=== PATIENT | female | born 1955 | race Caucasian/White ===

== ENCOUNTER 2016-06-09 14:00 | Inpatient (IN) | payer OTHER ==
[~2016-06-09] VITALS: Ht 162.6 cm; Wt 86.0 kg
[~2016-06-09 14:00] MED LIST: ACET325T45 GTB; ALBU2.5V3 NEB; ASCO500C7 JT; BISA10SU58 PR; CHLO15MO MM; CRAN3875 GTB; DOCU-144 GTB; FURO40TA GTB; LANS30CA47 GTB; LEVE750T32 JT; LOV40I SC; MAGN2400 GTB; MULT473L10 GTB; NA P118E PR; NORC 5-325 GTB; ONDA4TAB8 GTB; PHEN125O2 JT; POTA20TA96 GTB; [UNRECOGNIZED DRUG - CODE] GTB
[2016-06-09] MEDS ORDERED: ACETAMINOPHEN 650MG/20.3ML CUP NGT STA (14:06)
[2016-06-09] MEDS ORDERED: CEFEPIME 2GM/50 ML (PMX) 50 ML IVPB STA (14:06)
--- NOTE | 2016-06-09 14:28 | RADRPT ---
PROCEDURE: XR Chest. CLINICAL INDICATION: Patient experiencing possible Sepsis TECHNIQUE: Frontal chest x-ray was obtained. COMPARISON: None. FINDINGS: Again noted is a tracheostomy. Heart is not enlarged. Mediastinum is not widened. No hilar masses seen. Lungs clear of any infil trates. There is no effusion or pneumothorax . IMPRESSION: No evidence for active cardiopulmonary disease. .Brandon Mock MD, MD Date Time Electronically viewed and signed by .Brandon Mock MD, on 06/09/2016 14:28 .A/
[2016-06-09] MEDS ORDERED: VANCOMYCIN 1 GM (PMX) 250 ML IVPB ONE (14:30)
[2016-06-09] MEDS ORDERED: SODIUM CHLORIDE 0.9% 1L BAG IV* STA (14:34)
[2016-06-09 15:32] LABS: HEMATOCRIT 43.5 % (37.0-47.0); HEMOGLOBIN 14.9 g/dl (12.0-16.0); MEAN CORPUSCULAR HEMOGLOBIN 34.5 pg (29.0-33.0); MEAN CORPUSCULAR HGB CONC 34.4 g/dl (32.0-37.0); MEAN CORPUSCULAR VOLUME 100.5 fl (82.0-101.0); MEAN PLATELET VOLUME 12.3 fl (7.4-10.4); PLATELET COUNT 124 10^3/UL (140-440); RED BLOOD COUNT 4.32 10^6/ul (4.20-5.40); RED CELL DISTRIBUTION WIDTH 13.8 % (11.5-14.5); UNCORRECTED WBC 13.4 10^3/ul (4.8-10.8); WHITE BLOOD COUNT 13.4 10^3/ul (4.8-10.8)
[2016-06-09 15:36] LABS: INR 1.1; PROTIME 14.2 Sec (12.2-14.2); PT RATIO 1.1
[2016-06-09 15:37] LABS: PARTIAL THROMBOPLASTIN TIME 31.3 Sec (25.0-35.0)
[2016-06-09 15:40] LABS: CONDITION 1; LH ANALYZER COMMENTS 1; SUSPECT 1
[2016-06-09 15:47] LABS: ALBUMIN 3.9 g/dl (3.3-4.9); POTASSIUM 4.3 mmol/L (3.5-5.1)
[2016-06-09 15:49] LABS: CREATININE 1.18 mg/dl (0.44-1.00)
[2016-06-09 15:50] LABS: ALBUMIN/GLOBULIN RATIO 0.86; BILIRUBIN,INDIRECT 0.1 mg/dl (0-1.1); BILIRUBIN,TOTAL 0.1 mg/dl (0.2-1.3); CALCIUM 8.4 mg/dl (8.4-10.2); TOTAL PROTEIN 8.4 g/dl (6.1-8.1)
[2016-06-09 16:06] LABS: TROPONIN-I 0.201 ng/ml (0.00-0.12)
[2016-06-09 16:46] LABS: ADD UMIC YES; URINE BILIRUBIN (Dip) 1+ (NEGATIVE); URINE BLOOD (Dip) 1+ (NEGATIVE); URINE COLOR YELLOW (YELLOW); URINE GLUCOSE (Dip) NEGATIVE (NEGATIVE); URINE KETONES (Dip) TRACE (NEGATIVE); URINE LEUKOCYTE ESTERASE (Dip) 1+ (NEGATIVE); URINE NITRITE (Dip) NEGATIVE (NEGATIVE); URINE TOTAL PROTEIN (Dip) TRACE (NEGATIVE); URINE UROBILINOGEN (Dip) 0.2 E.U./dL (0.1-1.0)
[2016-06-09 17:01] LABS: BACTERIA,URINE MANY; TRANSITIONAL EPI CELLS,URINE OCCASIONAL
[2016-06-09 17:02] LABS: ICTOTEST NEGATIVE (NEGATIVE)
[2016-06-09] MEDS ORDERED: TYL500 GTB (17:37)
[2016-06-09] MEDS ORDERED: POTA20LI5 GTB (17:38)
--- NOTE | 2016-06-09 17:39 | ERA ---
ER Documentation Chief Complaint Date/Time DATE: 06/09/16 TIME: 17:32 Chief Complaint SENT FROM RETIREMENT D/T FEVER & ELEVATED WBC HPI Patient is a 61-year-old female who is vent dependent who [facility] fever of 104.0. She does not give any history secondary to her mental status. And unfortunately this is the extent of the history that was sent with her. ROS All systems reviewed and are negative except as per history of present illness. Medications Home Meds Active Scripts Enoxaparin Sodium* (Enoxaparin Sodium*) 40 Mg/0.4 Ml Soln, 40 MG SC DAILY for 30 Days Prov:MARTHA ODOM CHILD NURSE 04/01/14 Reported Medications Phenytoin (Dilantin) 100 Mg/4 Ml Susp, 300 MG GTB BID for 30 Days, BOTTLE 06/09/16 Ferrous Sulfate* (Ferrous Sulfate*) 220 Mg/5 Ml Solution, 220 MG GTB DAILY, ML 06/09/16 Potassium Chloride* (Potassium Chloride*) 20 Meq/15 Ml Liquid, 20 MEQ GTB DAILY , ML 06/09/16 Acetaminophen* (Tylenol*) 500 Mg Tab, 1000 MG GTB Q4H Y for PAIN 4-11/10, TAB 06/09/16 Ondansetron Hcl* (Zofran*) 4 Mg Tablet, 4 MG GTB Q6H Y for NAUSEA AND OR VOMITING, TAB 08/31/15 Furosemide* (Lasix*) 40 Mg Tablet, 40 MG GTB DAILY, TAB 08/31/15 Chlorhexidine Gluconate* (Peridex*) 480 Ml Mouthwash, 15 ML MM BID, ML 08/31/15 Albuterol Sulfate* (Albuterol Sulfate* Neb) 0.083%-3 Ml Neb, 2.5 MG NEB Q3H Y for WHEEZING AND SOB, #30 VIAL 08/31/15 Valproioc Acid* (Depakene* Liq) 50 Mg/Ml Syrup, 1500 MG GTB BID, ML 08/31/15 Magnesium Hydroxide* (Milk Of Magnesia*) 2,400 Mg/10 Oral.susp, 5 ML GTB DAILY , ML 08/31/15 Cran/Vitc/Mannose/Inulin/Brom (Uti-Stat Liquid) 3,875 Mg/30 Ml Liquid, 3875 MG GTB DAILY 09/13/14 Lansoprazole* (Prevacid*) 30 Mg Capsule.dr, 30 MG GTB DAILY, CAP 09/13/14 Acetaminophen* (Acetaminophen*) 325 Mg Tablet, 650 MG GTB Q4H Y for PAIN AND OR ELEVATED TEMP, TAB TRACH TUBE CHANGE, FEVER 101F, PAIN1-3/10 03/16/14 Multivitamins* (Multi-Delyn* Liq) 473 Ml Liquid, 5 ML GTB DAILY, ML 03/16/14 Na Phos,M-B/Na Phos,Di-Ba* (Fleet* Enema) 118 Ml Enema, 118 ML VT Q48H Y for CONSTIPATION, ENEMA 03/16/14 Bisacodyl* (Dulcolax*) 10 Mg/Supp.rect Supp.rect, 10 MG VT Q24H Y for CONSTIPATION, SUPP.RECT 03/16/14 Docusate Sodium* (Colace*) 100 Mg Capsule, 100 MG GTB QHS Y for CONSTIPATION, CAP 03/16/14 Albuterol Sulfate* (Albuterol Sulfate* Neb) 0.083%-3 Ml Neb, 2.5 MG NEB Q6 Y for WHEEZING AND SOB, EA 03/16/14 Hydrocodone Bit-Acetaminophen* ([place]*) 5-325 Tablet, 1 TAB GTB Q6 Y for PAIN LEVEL 7-10, TAB 02/09/14 Discontinued Reported Medications Potassium Chloride* (Potassium Chloride*) 20 Meq Tablet.er, 20 MEQ GTB DAILY, TAB.SA 08/31/15 Phenytoin* (Phenytoin*) 125 Mg/5 Ml Oral.susp, 300 MG JT BID for 30 Days, BOTTLE 08/31/15 Levetiracetam* (Keppra XR*) 750 Mg Tab.sr.24h, 1500 MG JT BID, TAB 08/31/15 Ascorbic Acid* (Vitamin C*) 500 Mg Capsule.sa, 500 MG JT DAILY, CAP 09/13/14 Allergies Allergies: Coded Allergies: No Known Allergies (Verified Allergy, Unknown, 06/09/16) PMhx/Soc History of Surgery: Yes (TRACH, G-TUBE PLACEMENT) Hx Neurological Disorder: Yes (SEIZURES) Hx Respiratory Disorders: Yes (ASTHMA) Hx Cardiac Disorders: Yes (HTN) Hx Psychiatric Problems: No Hx Miscellaneous Medical Probl: No Smoking Status: Unknown if ever smoked Physical Exam Vitals Vital Signs Date Time Temp Pulse Resp B/P Pulse Ox O2 Delivery O2 Flow Rate FiO2 06/09/16 19:05 108 19 117/82 100 Mechanical Ventilator 06/09/16 19:00 107 16 81/36 100 Mechanical Ventilator 06/09/16 18:04 100.8 108 18 110/75 100 Mechanical Ventilator 06/09/16 17:30 111 19 99 40 06/09/16 17:00 101.1 113 17 83/72 99 Mechanical Ventilator 06/09/16 15:40 117 19 98 40 06/09/16 14:30 121 16 99/87 97 Mechanical Ventilator 06/09/16 14:08 104.9 122 18 100/52 96 06/09/16 14:05 123 19 97 40 Physical Exam Const: Well-developed obese female lying on the bed, appears chronically ill Head: Atraumatic Eyes: Normal Conjunctiva ENT: Normal External Ears, Nose and Mouth. Mucous membranes are dry Neck: Full range of motion..~ No meningismus. Resp: Clear to auscultation bilaterally Cardio: Regular rhythm, no murmurs tachycardic Abd: Soft, non tender, non distended. Diminished bowel sounds Skin: No petechiae or rashes Ext: No cyanosis, bilateral lower extremity edema noted Neur: Patient has a GCS of E1 M1 V1, she has a trach Result Diagram: 06/09/16 1445 06/09/16 1445 Results 24 hrs Laboratory Tests Test 06/09/16 14:45 06/09/16 16:00 06/09/16 17:00 06/09/16 18:20 Activated Partial Thromboplast Time 31.3Sec Alanine Aminotransferase (ALT/SGPT) 65IU/L Albumin 3.9g/dl Albumin/Globulin Ratio 0.86 Alkaline Phosphatase 177IU/L Anion Gap 24 Aspartate Amino Transf (AST/SGOT) 49IU/L Band Neutrophils % 3.0% Blood Morphology Comment Blood Urea Nitrogen 66mg/dl Calcium Level 8.4mg/dl Carbon Dioxide Level 27mmol/L Chloride Level 97mmol/L Creatinine 1.18mg/dl Direct Bilirubin 0.00mg/dl Globulin 4.50g/dl Glucose Level 345mg/dl Hematocrit 43.5% Hemoglobin 14.9g/dl INR International Normalized Ratio 1.10 Indirect Bilirubin 0.1mg/dl Lactic Acid Level 4.6mmol/L 4.4mmol/L 4.9mmol/L Large Platelets FEW Lymphocytes # 4.410^3/ul Lymphocytes % 33.0% Mean Corpuscular Hemoglobin 34.5pg Mean Corpuscular Hemoglobin Concent 34.4g/dl Mean Corpuscular Volume 100.5fl Mean Platelet Volume 12.3fl Monocytes # 1.510^3/ul Monocytes % 11.0% Neutrophils # 7.110^3/ul Neutrophils % 53.0% Platelet Count 61661^3/UL Potassium Level 4.3mmol/L Prothrombin Time 14.2Sec Prothrombin Time Ratio 1.1 Red Blood Count 4.3210^6/ul Red Cell Distribution Width 13.8% Sodium Level 144mmol/L Total Bilirubin 0.1mg/dl Total Protein 8.4g/dl Troponin I 0.201ng/ml White Blood Count 13.410^3/ul Urine Bacteria MANY Urine Bilirubin 1+ Urine Clarity CLOUDY Urine Color YELLOW Urine Glucose NEGATIVE% Urine Hemoglobin 1+ Urine Ictotest NEGATIVE Urine Ketones TRACE Urine Leukocyte Esterase 1+ Urine Microscopic RBC 5-10/HPF Urine Microscopic WBC 25-50/HPF Urine Nitrite NEGATIVE Urine Specific [place] 1.025 Urine Total Protein TRACE Urine Transitional Epithelial Cells OCCASIONAL Urine Urobilinogen 0.2 E.U./dL Urine pH 5.0 Current Medications Medications (Trade) Dose Ordered Sig/Louise Route PRN Reason Start Time Stop Time Status Last Admin Dose Admin Acetaminophen 650 mg 650 mg ONCE STAT NGT 06/09/16 14:06 06/09/16 14:08 DC 06/09/16 15:03 Cefepime HCl 50 ml @ 100 mls/hr ONCE STAT IVPB 06/09/16 14:06 06/09/16 14:35 DC 06/09/16 15:03 Vancomycin HCl (Vancocin) 250 ml @ 125 mls/hr ONCE ONCE IVPB 06/09/16 14:30 06/09/16 16:29 DC 06/09/16 16:11 Sodium Chloride (NS) 2,140 ml BOLUS OVER 2 HOURS STAT IV* 06/09/16 14:34 06/09/16 14:37 DC 06/09/16 15:03 Procedures/MDM EKG: Rate/Rhythm: Normal sinus rhythm at 120 bpm Q waves noted in lead III and aVF consistent with an old infarct, no evidence of acute ischemia noted QRS, ST, T-waves: No changes consistent w/ acute ischemia Impression: No evidence of ischemia or arrhythmia 1736: No change in patient's examination. I will consult her physician to admit her to the hospital. Critical care time of 45 minutes. Departure Diagnosis: Primary Impression: Fever Qualified Code: R50.9 - Fever, unspecified fever cause Additional Impressions: Dehydration Diabetes Qualified Code: E11.8 - Type 2 diabetes mellitus with complication, unspecified director long term care insulin use status Severe muscle deconditioning Ventilator dependence ANNA IBARRA Jun 09, 2016 17:38
[2016-06-09] MEDS ORDERED: FERR220S13 GTB (17:40)
[2016-06-09] MEDS ORDERED: DIL125/5 GTB (17:43)
[2016-06-09 17:58] LABS: LYMPHOCYTES # 4.4 10^3/ul (0.8-2.9); MONOCYTE # 1.5 10^3/ul (0.3-0.9); NEUTROPHIL # 7.1 10^3/ul (1.6-7.5)
[2016-06-09] MEDS ORDERED: SOD CHLORIDE 0.9% 1,000 ML IV ONE (20:00)
[2016-06-09 22:47] LABS: AADO2 Arterial 156.5 mmHg (7.0-24.0); Arterial Base Excess -0.4 mmol/L (-3.0-3); Arterial COHb 0.1 % (0.0-3.0); Arterial Fraction of Oxyhgb 97.1 % (93.0-99.0); Arterial MetHb 0.2 % (0.0-1.5); Blood Gas Mean Airway Pressure 11; MODE VENT - AC
[2016-06-09] MEDS ORDERED: ACETAMINOPHEN 325 MG TAB GTB PRN (23:00)
[2016-06-09] MEDS ORDERED: VANCOMYCIN IV PER PHARMACY XX SCH (23:00)
[2016-06-09] MEDS ORDERED: morphine 2 MG INJ IV PRN (23:00)
[2016-06-09] MEDS ORDERED: HYDROCODONE/APAP (5/325) TAB GTB PRN (23:00)
[2016-06-09] MEDS ORDERED: NA PHOSPHATE/BIPHOS 133 ML ENEMA PR PRN (23:00)
[2016-06-09] MEDS ORDERED: ONDANSETRON 4 MG INJ IV PRN (23:00)
[2016-06-09] MEDS ORDERED: DOCUSATE SODIUM 10 MG/ML (10ML CUP) GTB PRN (23:00)
[2016-06-09] MEDS ORDERED: BISACODYL 10 MG SUPP PR PRN (23:00)
[2016-06-09] MEDS ORDERED: ONDANSETRON 4 MG TAB GTB PRN (23:00)
[2016-06-09] MEDS ORDERED: ALBUTEROL 0.083% (NEB) 2.5 MG/3 ML AMP NEB PRN (23:00)
[2016-06-09] MEDS ORDERED: NACL 0.9% 3 ML SYG IV SCH (23:00)
[2016-06-09] MEDS ORDERED: ACETAMINOPHEN 650MG/20.3ML CUP GTB PRN (23:45)
[2016-06-10] VITALS (13 sets, daily range): BP systolic 90–106; BP diastolic 47–91; PULSE 82–89; RESP 14–18; TEMP 97.4; Ht 162.6 cm; Wt 86.0 kg
[2016-06-10] MEDS: SOD CHLORIDE 0.45% 1,000 ML IV SCH ×3 (00:01→20:14)
[2016-06-10] MEDS: PIPER-TAZO 3.375 GM IV (PMX) 100 ML IVPB SCH ×4 (00:10→17:41)
--- NOTE | 2016-06-10 01:02 | HP ---
DATE OF ADMISSION: 06/09/2016 TIME: 9:45 p.m. CHIEF COMPLAINT: Fevers and leukocytosis. HISTORY OF PRESENT ILLNESS: The patient is a 61-year-old female, who presents from a SNF. The aguilar ent has a history of advanced multiple sclerosis with vent-dependent respiratory failure, pulmonary fibrosis, dysphagia status post PEG placement. She has a history of seizure disorder, as well as UT I, healthcare-associated pneumonia, and right hand cellulitis. Patient was last hospitalized here i n October 2015 with acute UTI, as well as healthcare-associated pneumonia. The patient presents at this time from the SNF with fever and leukocytosis. She reportedly had a fever of 104 at the nursing [facility]. Patient is unable to provide any history secondary to her mental status, and history is obtaine d from previous medical records. PAST MEDICAL HISTORY: As per HPI. HOME MEDICATIONS: 1. Lovenox. 2. Dilantin. 3. Ferrous sulfate. 4. Potassium. 5. Acetaminophen, 6. Zofran. 7. Furosemide. 8. Peridex. 9. Albuterol. 10. Depakene. 11. Magnesium. 12. Prevacid. 13. Multivitamin. 14. Colace. 15. [place]. ALLERGIES: NO KNOWN DRUG ALLERGIES. FAMILY HISTORY: Noncontributory. SOCIAL HISTORY: Unable to obtain. SOCIAL HISTORY: Unknown, as the patient never smoked, drank, or did drugs. REVIEW OF SYSTEMS: A 12-point review of systems cannot be obtained secondary to poor mentation. PHYSICAL EXAMINATION: VITAL SIGNS: Temperature is 98.4, pulse is 103, respiratory rate 16, BP is 106/66, saturation 99% o n mechanical ventilation. GENERAL: Nonverbal, trached. HEENT: Normocephalic, atraumatic. LUNGS: Clear to auscultation. CARDIOVASCULAR: Tachycardic. ABDOMEN: Nondistended, soft. EXTREMITIES: No clubbing, cyanosis, or edema. LABORATORIES: White count 16.4, hemoglobin 14.9, platelets are 124,000. Chemistry: Sodium is 144, potassium is 4.3, BUN 66, creatinine is 1.18. Lactic acid is 4.6. Troponin 0.201. UA: Ketones a re trace, is 1+, WBCs 25-50. DIAGNOSTICS: Chest x-ray shows no evidence of active cardiopulmonary disease. ASSESSMENT AND PLAN: 1. Sepsis secondary to urinary tract infection. The patient does have a history of UTIs in the pas t. The patient's urine culture from 08/2015, she had beta-lactamase Escherichia coli that was sensi tive to Zosyn, as well as imipenem. We will treat with Zosyn at this time. Will cover for any poss ible with vancomycin. Obtain urine culture. Obtain ID consultation with Dr. Gillette, who has seen the patient in the past. 2. Acute kidney injury. Mild and likely secondary to sepsis. Will treat underlying sepsis, give I V fluids. 3. Demand ischemia, elevated troponins, likely secondary to underlying sepsis. We will trend tropo nins. Primary team and to consider cardiology consultation in a.m. 4. Advanced multiple sclerosis, status post tracheostomy and PEG, no acute issues. 5. Pulmonary fibrosis, no acute issues. 6. Prophylaxis: SCDs. Dictated By: JERMAINE HERCULES MD BS/NTS Conf#: [id number] DID#: [id number]
[2016-06-10] MEDS: VANCOMYCIN 1.5 GM in SOD CHLORIDE 0.9% 250 ML IVPB SCH (04:58)
[2016-06-10 07:12] LABS: ALBUMIN 3.2 g/dl (3.3-4.9)
[2016-06-10 07:13] LABS: POTASSIUM 3.9 mmol/L (3.5-5.1)
[2016-06-10 07:15] LABS: ALBUMIN/GLOBULIN RATIO 0.8; BILIRUBIN,INDIRECT 0.2 mg/dl (0-1.1); BILIRUBIN,TOTAL 0.2 mg/dl (0.2-1.3); CREATININE 0.62 mg/dl (0.44-1.00); HEMATOCRIT 36.9 % (37.0-47.0); HEMOGLOBIN 12.7 g/dl (12.0-16.0); MEAN CORPUSCULAR HEMOGLOBIN 34.6 pg (29.0-33.0); MEAN CORPUSCULAR HGB CONC 34.5 g/dl (32.0-37.0); MEAN CORPUSCULAR VOLUME 100.2 fl (82.0-101.0); MEAN PLATELET VOLUME 11.8 fl (7.4-10.4); PLATELET COUNT 82 10^3/UL (140-440); RED BLOOD COUNT 3.68 10^6/ul (4.20-5.40); RED CELL DISTRIBUTION WIDTH 13.9 % (11.5-14.5); TOTAL PROTEIN 7.2 g/dl (6.1-8.1); UNCORRECTED WBC 16.7 10^3/ul (4.8-10.8); WHITE BLOOD COUNT 16.7 10^3/ul (4.8-10.8)
[2016-06-10 07:16] LABS: CALCIUM 7.2 mg/dl (8.4-10.2); MAGNESIUM 2.9 mg/dl (1.7-2.5); PHOSPHORUS 3.6 mg/dl (2.5-4.9)
[2016-06-10] MEDS: LANSOPRAZOLE 30 MG CAP GTB SCH (07:30)
[2016-06-10 07:31] LABS: CONDITION 1; LH ANALYZER COMMENTS 1; SUSPECT 1
[2016-06-10] MEDS: FUROSEMIDE 40 MG TAB GTB SCH (07:31)
[2016-06-10 08:03] LABS: NEUTROPHIL # 10.9 10^3/ul (1.6-7.5); POLYCHROMASIA 1+
[2016-06-10] MEDS ORDERED: PHENYTOIN (25 MG/ML PO SYG) GTB SCH (09:00)
[2016-06-10] MEDS ORDERED: VALPROIC ACID (50 MG/ML PO SYG) GTB SCH (09:00)
[2016-06-10] MEDS ORDERED: NON-FORMULARY/PATIENT OWN MED (Cran/Vitc/Mannose/Inulin/Brom (Uti-Stat Liquid) 3,875 MG) GTB SCH (09:00)
[2016-06-10] MEDS ORDERED: POTASSIUM CHLORIDE 20 MEQ POWDER FOR ORAL SOLN GTB SCH (09:00)
[2016-06-10] MEDS ORDERED: POTASSIUM CHLORIDE (1.33 MEQ/ML PO SYG) GTB SCH (09:00)
[2016-06-10] MEDS ORDERED: ENOXAPARIN 40 MG/0.4 ML SYG SC SCH ×2 (09:00)
[2016-06-10] MEDS ORDERED: FERROUS SULFATE 220 MG/5 ML ML GTB SCH (09:00)
[2016-06-10] MEDS ORDERED: MAGNESIUM HYDROXIDE GTB SCH (09:00)
[2016-06-10] MEDS: VALPROIC ACID LIQUID CUP 250 MG/5 ML CUP GTB SCH ×2 (09:50→20:15)
[2016-06-10] MEDS: MULTIVITAMINS 5 ML CUP GTB SCH (09:50)
[2016-06-10] MEDS: PHENYTOIN (100 MG/4 ML) CUP GTB SCH ×2 (09:50→22:27)
[2016-06-10] MEDS: FERROUS SULFATE 60 MG/ML 5ML CUP GTB SCH (09:50)
[2016-06-10] MEDS: MAGNESIUM HYDROXIDE 30ML CUP GTB SCH (09:51)
[2016-06-10] MEDS: CHLORHEXIDINE GLUCONATE 15 ML UD CUP MM SCH ×2 (09:51→20:15)
[2016-06-10] MEDS: POTASSIUM CHLORIDE 20 MEQ POWDER FOR ORAL SOLN GTB SCH (09:53)
--- NOTE | 2016-06-10 15:11 | PN ---
Date/Time of Note Date/Time of Note DATE: 06/10/16 TIME: 15:05 Assessment/Plan VTE Prophylaxis VTE Prophylaxis Intervention: SCD's Assessment/Plan Chief Complaint/Hosp Course Assessment and plan 1. Sepsis secondary to urinary tract infection. Patient is noted with history of UTIs in the past. Follow-up on urine culture. Continue on antibiotics for now. Await ID consult recommendations. 2. Acute on likely chronic kidney disease. Continue IV hydration. We'll monitor renal panel. We'll get fisheries diver pending the clinical course 3. Elevated troponin. Likely demand ischemia. Has downward trend since. Elevated troponin in the setting of sepsis. We'll follow-up. 4. Advanced multiple sclerosis status post tracheostomy and PEG tube. Continue supportive care. Turn every 2 hours as needed for pressure ulcer prevention 5. History of pulmonary fibrosis. [employer] Consultant follow. 6. Vent dependent respiratory failure. [employer] Consultant follow. Continue pulmonary hygiene DVT prophylaxis: His SCDs Disposition and plan: Await transferred to ICU. Continue antibiotics. ID consulted. We'll follow-up. Discussed plan of care with Problems: Subjective 24 Hr Interval Summary Free Text/Dictation Remains on mechanical ventilation. Afebrile at present. No acute distress noted. No purposeful response Exam/Review of Systems Vital Signs Vitals Vital Signs Date Time Temp Pulse Resp B/P Pulse Ox O2 Delivery O2 Flow Rate FiO2 06/10/16 13:40 86 14 99 40 06/10/16 11:30 97.9 103/59 Mechanical Ventilator Intake and Output 06/09/16 06/09/16 06/10/16 15:00 23:00 07:00 Intake Total 1300 ml Balance 1300 ml Exam General: On mechanical ventilation. No purposeful response. Obese Eyes: [pupils equal round, Anicteric sclera, does track eyes to verbal response] Neck: Supple nontender, no JVD Cardiac: [S1, S2 auscultated, regular rhythm and rate] Pulmonary: Diminished at lung bases GI: Noted with PEG tube left upper abdominal quadrant Extremities: edema BLE +4 Neurologic: history of multiple sclerosis Results Result Diagram: 06/10/16 0647 06/10/16 0647 Results 24 hrs Laboratory Tests Test 06/09/16 16:00 06/09/16 17:00 06/09/16 18:20 06/09/16 20:55 Urine Bacteria MANY Urine Bilirubin 1+ H Urine Clarity CLOUDY Urine Color YELLOW Urine Glucose NEGATIVE Urine Hemoglobin 1+ H Urine Ictotest NEGATIVE Urine Ketones TRACE H Urine Leukocyte Esterase 1+ H Urine Microscopic RBC 5-10 Urine Microscopic WBC 25-50 Urine Nitrite NEGATIVE Urine Specific [place] 1.025 Urine Total Protein TRACE Urine Transitional Epithelial Cells OCCASIONAL Urine Urobilinogen 0.2 E.U./dL Urine pH 5.0 Lactic Acid Level 4.4 *H 4.9 *H Arterial Blood HCO3 23.0 Arterial Blood Base Excess -0.4 Arterial Blood Oxygen Saturation 97.4 Thomas Test N/A Arterial Blood Gas Puncture Site Right Brachial Arterial Blood Carboxyhemoglobin 0.1 Arterial Blood Date Drawn 06/09/2016 9:50:35 PM Arterial Blood Methemoglobin 0.2 Arterial Blood pCO2 (Temp correct) 34.3 L Arterial Blood pH (Temp corrected) 7.445 Arterial Blood pO2 (Temp corrected) 89.3 Blood Gas A-a O2 Differential 156.5 H Blood Gas Actual Respiration Rate 14 Blood Gas Critical Value Read Back DR RYDER Blood Gas Inspiratory Pressure 25.0 Blood Gas Low PEEP Setting 5.0 Blood Gas Mean Airway Pressure 11 Blood Gas Modality VENT - AC Blood Gas Notified Time 06/09/2016 10:47:15 PM Blood Gas Notified Whom BL Blood Gas Respiration Rate 14.0 Blood Gas Specimen Source Blood arterial Blood Gas Temperature 37.0 Blood Gas Tidal Volume 500.0 FiO2 40.0 Oxyhemoglobin Percent 97.1 Total Hemoglobin 15.0 Test 06/09/16 21:51 06/10/16 01:22 06/10/16 06:47 06/10/16 12:25 Troponin I 0.117 0.109 0.086 Alanine Aminotransferase (ALT/SGPT) 44 Albumin 3.2 L Albumin/Globulin Ratio 0.80 Alkaline Phosphatase 128 H Anion Gap 16 # Aspartate Amino Transf (AST/SGOT) 26 Band Neutrophils % 17.0 H Basophils # Basophils % Blood Morphology Comment Blood Urea Nitrogen 59 H Calcium Level 7.2 L Carbon Dioxide Level 23 Chloride Level 108 # Creatinine 0.62 Differential Comment MANUAL DIFF Direct Bilirubin 0.00 Eosinophils # Eosinophils % Globulin 4.00 H Glucose Level 307 H Hematocrit 36.9 L Hemoglobin 12.7 Indirect Bilirubin 0.2 Lactic Acid Level 2.3 H 4.5 *H Lymphocytes # 2.0 Lymphocytes % 12.0 L Magnesium Level 2.9 H Mean Corpuscular Hemoglobin 34.6 H Mean Corpuscular Hemoglobin Concent 34.5 Mean Corpuscular Volume 100.2 Mean Platelet Volume 11.8 H Monocytes # 1.0 H Monocytes % 6.0 Neutrophils # 10.9 H Neutrophils % 65.0 Nucleated Red Blood Cells # Nucleated Red Blood Cells % Phosphorus Level 3.6 Platelet Count 82 #L Polychromasia 1+ Potassium Level 3.9 Red Blood Count 3.68 L Red Cell Distribution Width 13.9 Sodium Level 143 Total Bilirubin 0.2 Total Protein 7.2 # White Blood Count 16.7 #H Medications Medications Current Medications Sodium Chloride (1/2 NS) 1,000 ml @ 100 mls/hr Q10H IV Last administered on 09:04; Admin Dose 100 MLS/HR; Start 06/09/16 at 22:47 Ondansetron HCl (Zofran Inj) 4 mg Q6H PRN IV NAUSEA AND/OR VOMITING; Start 06/09 at 23:00 Morphine Sulfate (morphine) 2 mg Q4H PRN IV SEVERE PAIN LEVEL 7-10; Start at 23:00 Enoxaparin Sodium 40 mg 40 mg DAILY SC ; Start 06/10/16 at 09:00; Status Future Hold Piperacillin Sod/ Tazobactam Sod (Zosyn 3.375gm/ 100 ml (Pmx)) 100 ml @ 200 mls /hr Q6 IVPB Last administered on 06/10/16 12:38; Admin Dose 200 MLS/HR; Start 06/10/16 at 00:00 Bisacodyl (Dulcolax Supp) 10 mg Q24H PRN ME CONSTIPATION; Start 06/09/16 at 23: 00 Chlorhexidine Gluconate (Peridex) 15 ml BID MM Last administered on 06/10/16 09 :51; Admin Dose 15 ML; Start 06/10/16 at 09:00 Furosemide (Lasix) 40 mg DAILY@06 GTB Last administered on 06/10/16 07:31; Admin Dose 40 MG; Start 06/10/16 at 06:00 Acetaminophen/ Hydrocodone Bitart ([place] (5/325)) 1 tab Q6 PRN GTB PAIN LEVEL 7 -10; Start 06/09/16 at 23:00 Lansoprazole (Prevacid) 30 mg DAILY@06 GTB Last administered on 06/10/16 07:30 ; Admin Dose 30 MG; Start 06/10/16 at 06:00 Multivitamins (Thera-Plus) 5 ml DAILY GTB Last administered on 06/10/16 09:50; Admin Dose 5 ML; Start 06/10/16 at 09:00 Sodium Biphosphate/ Sodium Phosphate (Fleet Enema) 118 ml Q48H PRN ME CONSTIPATION; Start 06/09/16 at 23:00 Ondansetron HCl (Zofran Tab) 4 mg Q6H PRN GTB NAUSEA AND/OR VOMITING; Start 06/09/16 at 23:00 Docusate Sodium (Colace Liquid Cup) 100 mg BID PRN GTB CONSTIPATION Last administered on 06/10/16 09:50; Admin Dose 100 MG; Start 06/09/16 at 23:00 Acetaminophen (Tylenol Liquid) 650 mg Q4H PRN GTB PAIN AND OR ELEVATED TEMP; Start 06/09/16 at 23:45 Ferrous Sulfate (Feosol Liquid Cup) 300 mg DAILY GTB Last administered on 09:50; Admin Dose 300 MG; Start 06/10/16 at 09:00 Magnesium Hydroxide (Milk Of Mag) 5 ml DAILY GTB Last administered on 06/10/16 09:51; Admin Dose 5 ML; Start 06/10/16 at 09:00 Phenytoin (Dilantin Susp Cup) 300 mg BID GTB Last administered on 06/10/16 09: 50; Admin Dose 300 MG; Start 06/10/16 at 09:00 Valproate Sodium (Depakene Liquid Cup) 1,500 mg BID GTB Last administered on 09:50; Admin Dose 1,500 MG; Start 06/10/16 at 09:00 Potassium Chloride 20 meq 20 meq DAILY GTB Last administered on 06/10/16 09:53 ; Admin Dose 20 MEQ; Start 06/10/16 at 09:00 Vancomycin HCl/ Sodium Chloride (Vancocin/NS) 250 ml @ 83.333 mls/ hr Q24H IVPB Last administered on 06/10/16 04:58; Admin Dose 83.333 MLS/HR; Start at 04:00 WON JACKSON Jun 10, 2016 15:10
--- NOTE | 2016-06-10 18:16 | CONS ---
DATE OF ADMISSION: 06/09/2016 DATE OF CONSULTATION: 06/10/2016 TYPE OF CONSULTATION: Infectious Disease. REASON FOR CONSULTATION: Antibiotic management. HISTORY OF PRESENT ILLNESS: Noemy Gardiner is a 61-year-old female who comes in with fever and leukocy tosis. The patient is a resident of a long-term facility. Her problems include: 1. Advanced multiple sclerosis. 2. Ventilator-dependent respiratory failure, status post tracheostomy. 3. Pulmonary fibrosis. 4. Dysphagia, status post G-tube placement. 5. History of seizure disorder. 6. Urinary tract infection. 7. Healthcare-associated pneumonia. 8. Right hand cellulitis. Patient was hospitalized in October 2015 with acute UTI and healthcare-associated pneumonia. She now pr esents with fever and leukocytosis with a temperature of 104. PAST MEDICAL HISTORY: Operations as outlined. FAMILY HISTORY: Noncontributory. SOCIAL HISTORY: She does not smoke, drink or abuse drugs. ALLERGIES: NONE TO PENICILLIN, SULFA OR FOODS. MEDICATIONS: Per chart. REVIEW OF SYSTEMS: As per HPI. PHYSICAL EXAMINATION: GENERAL: The patient is an elderly-appearing female who is awake, responsive, in no acute distress. Temperature 104. She looks chronically ill. SKIN: Without generalized rash. She is nonverbal. HEENT: Within normal limits. NECK: Tracheostomy in place without discharge. LYMPH NODES: None palpable. LUNGS: Clear to P and A. HEART: Without murmur or gallop. ABDOMEN: Soft, nontender, without organosplenomegaly or masses. EXTREMITIES: Without cyanosis, clubbing, or edema. RECTAL AND GENITAL: Deferred. NEUROLOGIC: The patient has multiple sclerosis, has contractures, and has a trach and a PEG. LABORATORY DATA: On admission, her white count was 13.4, H and H of 14.9 and 43.5, platelet count o f 124,000. Today, white count 16.7. BUN and creatinine are 59/0.62. AST 26, ALT 44, alkaline justina sphatase 128. Urinalysis is negative for nitrite, 1+ leukocyte esterase, 25 to 50 white cells per h igh-power field. IMAGING: A chest x-ray shows no evidence for acute cardiopulmonary disease. IMPRESSION AND PLAN: The patient was begun on vancomycin and Zosyn. This is to cover urinary tract infection as well as probable aspiration pneumonitis. Will await the culture reports. I will dict ate my findings to the hospitalist. Dictated By: REBA ELLER MD, JD/JODI Conf#: [id number] DID#: [id number] CC: JERMAINE HERCULES MD;*End*
[2016-06-11] VITALS (32 sets, daily range): BP systolic 90–149; BP diastolic 45–85; PULSE 81–96; RESP 13–18
[2016-06-11] MEDS: PIPER-TAZO 3.375 GM IV (PMX) 100 ML IVPB SCH ×3 (00:57→11:25)
[2016-06-11 05:17] LABS: BASOPHILS % 0.1 % (0.0-2.0); EOSINOPHILS # 0.1 10^3/ul (0.0-0.5); EOSINOPHILS % 0.8 % (0.0-7.0); HEMATOCRIT 32.5 % (37.0-47.0); HEMOGLOBIN 11.2 g/dl (12.0-16.0); LYMPHOCYTES # 1.4 10^3/ul (0.8-2.9); LYMPHOCYTES % 15.7 % (15.0-51.0); MEAN CORPUSCULAR HEMOGLOBIN 34.4 pg (29.0-33.0); MEAN CORPUSCULAR HGB CONC 34.3 g/dl (32.0-37.0); MEAN CORPUSCULAR VOLUME 100.1 fl (82.0-101.0); MEAN PLATELET VOLUME 12.5 fl (7.4-10.4); MONOCYTE # 0.4 10^3/ul (0.3-0.9); MONOCYTES % 4.8 % (0.0-11.0); NEUTROPHILS % 78.6 % (39.0-77.0); PLATELET COUNT 89 10^3/UL (140-440); RED BLOOD COUNT 3.25 10^6/ul (4.20-5.40); RED CELL DISTRIBUTION WIDTH 13.6 % (11.5-14.5); UNCORRECTED WBC 8.9 10^3/ul (4.8-10.8); WHITE BLOOD COUNT 8.9 10^3/ul (4.8-10.8)
[2016-06-11] MEDS: VANCOMYCIN 1.5 GM in SOD CHLORIDE 0.9% 250 ML IVPB SCH (05:27)
[2016-06-11] MEDS: LANSOPRAZOLE 30 MG CAP GTB SCH (05:28)
[2016-06-11] MEDS: FUROSEMIDE 40 MG TAB GTB SCH (05:28)
[2016-06-11 05:33] LABS: CONDITION 1
[2016-06-11 05:39] LABS: POTASSIUM 3.3 mmol/L (3.5-5.1)
[2016-06-11 05:41] LABS: CREATININE 0.47 mg/dl (0.44-1.00)
[2016-06-11 05:42] LABS: CALCIUM 7.6 mg/dl (8.4-10.2)
[2016-06-11] MEDS: SOD CHLORIDE 0.45% 1,000 ML IV SCH ×2 (05:51→17:04)
[2016-06-11] MEDS ORDERED: POTASSIUM CHLORIDE (SR) 20 MEQ TAB PO SCH (07:00)
[2016-06-11] MEDS: PHENYTOIN (100 MG/4 ML) CUP GTB SCH ×2 (08:25→20:24)
[2016-06-11] MEDS: FERROUS SULFATE 60 MG/ML 5ML CUP GTB SCH (08:25)
[2016-06-11] MEDS: MULTIVITAMINS 5 ML CUP GTB SCH (08:26)
[2016-06-11] MEDS: POTASSIUM CHLORIDE 20 MEQ POWDER FOR ORAL SOLN GTB SCH (08:26)
[2016-06-11] MEDS: CHLORHEXIDINE GLUCONATE 15 ML UD CUP MM SCH ×2 (08:26→21:50)
[2016-06-11] MEDS: VALPROIC ACID LIQUID CUP 250 MG/5 ML CUP GTB SCH ×2 (08:26→20:23)
[2016-06-11] MEDS: MAGNESIUM HYDROXIDE 30ML CUP GTB SCH (08:27)
[2016-06-11] MEDS ORDERED: POTASSIUM CHLORIDE 20 MEQ POWDER FOR ORAL SOLN GTB ONE (11:00)
--- NOTE | 2016-06-11 11:52 | PN ---
Date/Time of Note Date/Time of Note DATE: 06/11/16 TIME: 11:40 Assessment/Plan VTE Prophylaxis VTE Prophylaxis Intervention: SCD's Lines/Catheters IV Catheter Type (from [facility]): Peripheral IV Urinary Cath still in place: Yes Reason Cath still needed: other (indicate) (monitor I&O) Assessment/Plan Chief Complaint/Hosp Course Assessment and plan 1. Sepsis secondary to urinary tract infection. Patient is noted with history of UTIs in the past. Follow-up on urine culture. Continue on antibiotics per ID recommendations 2. Acute on likely chronic kidney disease. Continue IV hydration. We'll monitor renal panel. 3. Elevated troponin.. Elevated troponin in the setting of sepsis. echo ordered. cardiology to follow 4. Advanced multiple sclerosis status post tracheostomy and PEG tube. Continue supportive care. Turn every 2 hours as needed for pressure ulcer prevention 5. History of pulmonary fibrosis. Associate Faculty follow. 6. Vent dependent respiratory failure. Associate Faculty follow. Continue pulmonary hygiene DVT prophylaxis: His SCDs Disposition and plan: Improving on abx. transfer out of icu when cleared by consultants . Discussed plan of care with Dr. Pradhan Problems: Subjective 24 Hr Interval Summary Free Text/Dictation no s/s of distress. remains on mechanical ventilation. RN at bedside Exam/Review of Systems Vital Signs Vitals Vital Signs Date Time Temp Pulse Resp B/P Pulse Ox O2 Delivery O2 Flow Rate FiO2 06/11/16 11:02 97 14 100 40 06/11/16 10:00 113/59 Mechanical Ventilator 06/11/16 08:00 98.7 Intake and Output 06/10/16 06/10/16 06/11/16 15:00 23:00 07:00 Intake Total 500 ml 700 ml Output Total 750 ml 570 ml Balance -250 ml 130 ml Exam General: On mechanical ventilation. No purposeful response. Obese Eyes: pupils equal round, Anicteric sclera, Neck: Supple nontender, no JVD Cardiac: S1, S2 auscultated, regular rhythm and rate Pulmonary: Diminished at lung bases GI: Noted with PEG tube left upper abdominal quadrant Extremities: edema BLE +4 Neurologic: history of multiple sclerosis Results Result Diagram: 06/11/16 0400 06/11/16 0400 Results 24 hrs Laboratory Tests Test 06/10/16 12:25 06/10/16 18:30 06/10/16 19:45 06/10/16 21:07 Lactic Acid Level 4.5 *H 3.4 H Bedside Glucose 230 H 151 Test 06/10/16 22:06 06/10/16 23:37 06/11/16 00:55 06/11/16 01:15 Bedside Glucose 107 93 133 Lactic Acid Level 3.7 H Test 06/11/16 04:00 Anion Gap 18 H Basophils # 0.0 Basophils % 0.1 Blood Morphology Comment Blood Urea Nitrogen 44 #H Calcium Level 7.6 L Carbon Dioxide Level 22 Chloride Level 108 Creatinine 0.47 Eosinophils # 0.1 Eosinophils % 0.8 Glucose Level 177 # Hematocrit 32.5 L Hemoglobin 11.2 L Lactic Acid Level 2.7 H Lymphocytes # 1.4 Lymphocytes % 15.7 Mean Corpuscular Hemoglobin 34.4 H Mean Corpuscular Hemoglobin Concent 34.3 Mean Corpuscular Volume 100.1 Mean Platelet Volume 12.5 H Monocytes # 0.4 Monocytes % 4.8 Neutrophils # 7.0 Neutrophils % 78.6 H Nucleated Red Blood Cells # 0.0 Nucleated Red Blood Cells % 0.0 Platelet Count 89 L Potassium Level 3.3 L Red Blood Count 3.25 L Red Cell Distribution Width 13.6 Sodium Level 145 H White Blood Count 8.9 # Medications Medications Current Medications Sodium Chloride (1/2 NS) 1,000 ml @ 100 mls/hr Q10H IV Last administered on 05:51; Admin Dose 100 MLS/HR; Start 06/09/16 at 22:47 Ondansetron HCl (Zofran Inj) 4 mg Q6H PRN IV NAUSEA AND/OR VOMITING; Start 06/09 at 23:00 Morphine Sulfate (morphine) 2 mg Q4H PRN IV SEVERE PAIN LEVEL 7-10; Start at 23:00 Enoxaparin Sodium (Lovenox) 40 mg DAILY SC ; Start 06/10/16 at 09:00; Status Future Hold Bisacodyl (Dulcolax Supp) 10 mg Q24H PRN [place] CONSTIPATION; Start 06/09/16 at 23: 00 Chlorhexidine Gluconate (Peridex) 15 ml BID MM Last administered on 06/11/16 08 :26; Admin Dose 15 ML; Start 06/10/16 at 09:00 Furosemide (Lasix) 40 mg DAILY@06 GTB Last administered on 06/11/16 05:28; Admin Dose 40 MG; Start 06/10/16 at 06:00 Acetaminophen/ Hydrocodone Bitart ([place] (5/325)) 1 tab Q6 PRN GTB PAIN LEVEL 7 -10; Start 06/09/16 at 23:00 Lansoprazole (Prevacid) 30 mg DAILY@06 GTB Last administered on 06/11/16 05:28 ; Admin Dose 30 MG; Start 06/10/16 at 06:00 Multivitamins (Thera-Plus) 5 ml DAILY GTB Last administered on 06/11/16 08:26; Admin Dose 5 ML; Start 06/10/16 at 09:00 Sodium Biphosphate/ Sodium Phosphate (Fleet Enema) 118 ml Q48H PRN [place] CONSTIPATION; Start 06/09/16 at 23:00 Ondansetron HCl (Zofran Tab) 4 mg Q6H PRN GTB NAUSEA AND/OR VOMITING; Start 06/09/16 at 23:00 Docusate Sodium (Colace Liquid Cup) 100 mg BID PRN GTB CONSTIPATION Last administered on 06/10/16 09:50; Admin Dose 100 MG; Start 06/09/16 at 23:00 Acetaminophen (Tylenol Liquid) 650 mg Q4H PRN GTB PAIN AND OR ELEVATED TEMP; Start 06/09/16 at 23:45 Ferrous Sulfate (Feosol Liquid Cup) 300 mg DAILY GTB Last administered on 08:25; Admin Dose 300 MG; Start 06/10/16 at 09:00 Magnesium Hydroxide (Milk Of Mag) 5 ml DAILY GTB Last administered on 06/11/16 08:27; Admin Dose 5 ML; Start 06/10/16 at 09:00 Phenytoin (Dilantin Susp Cup) 300 mg BID GTB Last administered on 06/11/16 08: 25; Admin Dose 300 MG; Start 06/10/16 at 09:00 Valproate Sodium (Depakene Liquid Cup) 1,500 mg BID GTB Last administered on 08:26; Admin Dose 1,500 MG; Start 06/10/16 at 09:00 Potassium Chloride 20 meq 20 meq DAILY GTB Last administered on 06/11/16 08:26 ; Admin Dose 20 MEQ; Start 06/10/16 at 09:00 Vancomycin HCl 1.5 gm/Sodium Chloride 250 ml @ 83.333 mls/ hr Q24H IVPB Last administered on 06/11/16t 05:27; Admin Dose 83.333 MLS/HR; Start 06/10/16 at 04:00 Meropenem/Sodium Chloride (Merrem/NS) 100 ml @ 200 mls/hr Q12 IVPB ; Start 06/11 at 11:30; Status UNV WON JACKSON Jun 11, 2016 11:50
--- NOTE | 2016-06-11 12:20 | PN ---
DATE: 06/11/2016 SUBJECTIVE: No changes overnight. The patient is awake, noncommunicative, lying comfortably in bed . She is afebrile. VITAL SIGNS: Temperature 98.8, pulse 94, respirations 16, blood pressure 113/59, saturation 98 on 4 0 FIO2. LABORATORY: WBC 8.9, H and H 11.2 and 32.5, platelets 89, neutrophils 78.6, no bands. BUN 44, crea tinine 0.47. MICROBIOLOGY: Blood culture growing gram-positive cocci in clusters. Urine culture growing E. coli ESBL. Influenza swab came back negative. DIAGNOSTICS: Chest x-ray on admission revealed no evidence for acute active cardiopulmonary disease . ANTIMICROBIALS: Patient is on: 1. Vancomycin. 2. Zosyn. INDWELLINGS: Trach, PEG, Kim. PHYSICAL EXAMINATION: GENERAL: This is an obese chronically ill-appearing, elderly woman who is in no distress. HEENT: Head atraumatic, normocephalic. Sclerae anicteric. Buccal mucosa dry. NECK: Supple, trachea midline. CHEST: Rise symmetrical. Breath sounds diminished at the bases. HEART: S1, S2. ABDOMEN: Soft, bowel tones present. EXTREMITIES: Without cyanosis. ASSESSMENT: 1. Sepsis, status post shock. 2. Gram-positive cocci bacteremia. 3. Escherichia coli extended-spectrum beta-lactamase urinary tract infection. 4. Chronic respiratory failure. 5. Dysphagia. 6. Advanced multiple sclerosis with functional quadriplegia. PLAN: We are going to change Zosyn to meropenem, keep her on IV vancomycin and swab nares for MRSA. Repeat blood cultures. Continue management as per primary team and consultants. Dictated By: NICHOLAS CRUZ PRIVACY DIRECTOR for REBA ELLER MD NI/NTS Conf#: [id number] DID#: [id number]
[2016-06-11] MEDS: MEROPENEM 500 MG in SOD CHLORIDE 0.9% 100 ML IVPB SCH ×2 (12:52→20:23)
--- NOTE | 2016-06-11 13:59 | CONS ---
DATE OF ADMISSION: 06/09/2016 DATE OF CONSULTATION: 06/11/2016 REASON FOR CONSULTATION: Positive troponin, assess significance. REQUESTING PHYSICIAN: Dr. Randhawa from the hospitalist service and Won Constantino from the hospitalist service. HISTORY OF PRESENT ILLNESS: Ms. Cavazos is a 61-year-old female with a history of multiple sclerosis , vent-dependent respiratory failure, dysphagia status post G-tube, pulmonary fibrosis, seizure diso rder who initially presented with fever and leukocytosis from her chronic care facility. The patien t reportedly had a temperature up to 104 at the skilled nursing. Initially upon arrival, temperature 1 04.9, pulse 122, blood pressure 100/52, respirations 18, saturating 98% on FIO2 of 40%, 96% on FIO2 of 40%. The patient subsequently has been admitted to the ICU where blood pressures remained relati vely stable, pressures from the high 90s to low 100s, pulse remains in the 80s to 90s. The patient has had recurrent fevers. The patient has slowly downtrending white blood cell count and has had tr oponins trended, initially at 0.201 and thereafter have been negative. The patient is on broad spec trum antibiotics at this time. Gentle Lasix diuresis. PAST MEDICAL HISTORY: As above in HPI. MEDICATIONS CURRENTLY IN HOSPITAL: 1. Meropenem. 2. Peridex. 3. Thera-Plus. 4. Ferrous sulfate. 5. Magnesium hydroxide. 6. Dilantin 300 mg p.o. b.i.d. 7. Depakene. 8. Potassium chloride 10 mEq daily. 9. Lasix 40 mg daily. 10. Prevacid 30 mg daily. 11. Vancomycin. 12. Tylenol p.r.n. 13. Zofran p.r.n. 14. Albuterol p.r.n. 15. IV for hydration at 100 mL an hour. ALLERGIES: NO KNOWN DRUG ALLERGIES. SOCIAL HISTORY: No tobacco, ETOH or illicit drug use. FAMILY HISTORY: No history of sudden cardiac or early CAD. REVIEW OF SYSTEMS: As above in HPI. CONSTITUTIONAL: Positive fevers. PULMONARY: Respiratory failure, chronic status post tracheostomy. GASTROINTESTINAL: Dysphagia, status post G-tube. GENITOURINARY: No hematuria. PSYCHIATRIC: No documented psych history. NEUROLOGIC: Encephalopathy, multiple sclerosis. CARDIOVASCULAR: Positive troponin. PHYSICAL EXAMINATION: VITAL SIGNS: Temperature 98.6, blood pressure 97/50, pulse 93, saturating 97% on FIO2 of 40%. GENERAL: The patient is awake but noncommunicative. NECK: Trach in place. JVP of 9 cm water. CHEST: Upper airway sounds are rhonchorous sounds. Mildly decreased breath sounds at bases bilater ally. HEART: Regular rate and rhythm. Normal S1, S2, I/ systolic murmur, nondisplaced PMI. ABDOMEN: Positive bowel sounds, soft, positive G-tube. EXTREMITIES: Trace edema, 1+ pulses bilaterally, posterior tibial. LABORATORY DATA: As above in HPI with most recently from today, sodium 145, potassium 3.3, creatini ne 0.47, BUN 44. White blood cell count of 8.9, hemoglobin 11.2, platelet count of 89. UA positive . IMAGING STUDIES: As above in HPI. No further imaging studies for my review at this time. ECG: From 06/09/2016 revealed sinus tachycardia, rate 121, normal axis, normal intervals, inferior Q's and nonspecific ST and T-wave abnormalities diffusely. IMPRESSION: 1. Positive troponin now trended negative, assess significance, assess for true non-ST elevation my ocardial infarction. 2. Abnormal electrocardiogram with inferior Q's. Assess for acute coronary syndrome. 3. Hypotension, borderline. Follow blood pressure closely. 4. Respiratory failure, chronic, status post trach. 5. Dysphagia, status post G-tube. 6. Fevers. 7. Leukocytosis. 8. Multiple sclerosis. 9. Hypernatremia, mild. 10. Anemia, mild. RECOMMENDATIONS: 1. At this time would maintain patient on telemetry monitoring to follow rhythm and rate control cl osely. 2. Would continue to trend the patient's cardiac enzymes, assess for any significant ongoing cardia c damage and would consider initiation of low dose aspirin in the setting of positive troponins, alt dorian, likely demand event in the setting of fevers and infection. 3. Continue the patient's antibiotics and follow up all culture data. 4. Continue the patient's gentle Lasix at this time. 5. Check a BNP to further assess the patient's current volume status. 6. Check a 2D echo to further assess patient's ejection fraction, wall motion and any major abnorma lity. Continue to follow serial EKGs to assess for any significant ongoing changes and additionally check a fasting lipid panel for general risk stratification and initiate lipid-lowering medication as necessary. Thank you for allowing me to take part in the care of this patient. I will continue to follow very closely with you with further recommendations to be made as the patient progresses through her [facility] clinical course. Dictated By: GT FAY/JODI Conf#: [id number] DID#: [id number] CC: LONNY RANDHAWA MD; WON CONSTANTINO NP;*EndCC*
--- NOTE | 2016-06-11 15:19 | CONS ---
DATE OF ADMISSION: 06/09/2016 DATE OF CONSULTATION: 06/11/2016 REASON FOR CONSULT: Shortness of breath. Thank you, Dr. Rooney, for this consultation HISTORY OF PRESENT ILLNESS: This is an unfortunate 61-year-old lady with history of MS, chronic res piratory failure, pulmonary fibrosis, dysphagia with G-tube, seizure disorder, encephalopathy, admit rafael with fevers, leukocytosis. She was found to have a fever of 104 on admission with white count 16.4 and an elevated lactic acidosis and BUN to creatinine ratio. The patient is nonverbal and unab le to give me further details. PAST MEDICAL HISTORY: As above. MEDICATIONS: Per chart. ALLERGIES: NONE. SOCIAL HISTORY: Nonsmoker, no alcohol, no history of drug use. FAMILY HISTORY: Noncontributory. SYSTEMS REVIEW: A 12-point review of systems currently unable to perform. PHYSICAL EXAMINATION: GENERAL: Chronically ill-appearing lady, appears comfortable at rest, no acute distress. VITAL SIGNS: Currently afebrile, pulse is 93, blood pressure 97/53, O2 saturation 97% on FIO2 of 40 %. NECK: Trach site clean and intact. CARDIAC: S1, S2, no added sounds or murmurs. CHEST: Diminished air entry bilaterally with rales. ABDOMEN: Soft, nontender. No guarding or rebound. EXTREMITIES: No cyanosis, clubbing, edema. NEUROLOGIC: Generalized weakness, but no focal deficits. LABORATORY DATA: White count 8.9, hemoglobin 11.2, platelets of 89. BUN 44, creatinine 0.47. Lact ic acid now 0.9. INR 1.1. Urinalysis was positive for UTI. DIAGNOSTIC DATA: Chest x-ray was reviewed, shows no significant infiltrates. IMPRESSION AND PLAN: 1. Urinary tract infection consistent with Escherichia coli, extended-spectrum beta-lactamase sensi tive to gentamicin, imipenem, nitrofurantoin, piperacillin/tazobactam, tobramycin and cefepime. 2. History of multiple sclerosis. 3. Chronic respiratory failure. 4. History of possible pulmonary fibrosis. PLAN: The patient should: 1. Continue tube feeding. 2. Continued mechanical ventilation. 3. Continue meropenem intravenously. 4. Deep venous thrombosis and gastrointestinal prophylaxis. 5. From pulmonary standpoint, the patient can likely be stable, back to correction facility in the next few days. Dictated By: VERONICA COPELAND/JODI Conf#: [id number] [facility]#: [id number]
--- NOTE | 2016-06-11 16:38 | CONS ---
DATE OF ADMISSION: 06/09/2016 DATE OF CONSULTATION: 06/11/2016 PALLIATIVE CARE CONSULTATION HISTORY OF PRESENT ILLNESS: This 61-year-old female who was transferred from a intermediate unit with sepsis syndrome from a urinary tract source. The patient is not on pressors. She has a histo ry of multiple sclerosis and has been trached and PEG'd for many years prior to this hospitalization . According to her sister who is also the agent for her care, the patient has had multiple hospital izations in the past for urinary tract infections and severe sepsis. She is in the intensive care u nit being seen by multiple consultants including Dr. Martin, Dr. Blanca and Dr. Gillette. She is he modynamically stable at this time. I am asked to speak to family members and to discuss ongoing lev el of care. In the course of reviewing patient's records from the intermediate unit, she is a pa tient of Dr. Terry. The patient was accidentally admitted to hospitalist. I have spoken to Dr. Terry and patient will be transferred to his service. MEDICATIONS: Please refer to reconciliation sheets. ALLERGIES: NO KNOWN DRUG ALLERGIES. MAJOR MEDICAL PROBLEMS IN THE PAST: Entirely per history of present illness significant for this ad mission and this consultation. SOCIAL HISTORY: Unable to obtain. FAMILY HISTORY: Unable to obtain. REVIEW OF SYSTEMS: Unable to obtain. PHYSICAL EXAMINATION: GENERAL: Shows an intubated female who cannot communicate at all. She does not open and close her eyes when asked to communicate with me. There is no spontaneous movement. CHEST: Inspiratory and expiratory clear breath sounds. COR: S1, S2, regular rate and rhythm on examination without S3, S4, murmur, gallop, rub. ABDOMEN: Grossly benign. LABORATORIES: I reviewed laboratory tests. ASSESSMENT: I had an extensive conversation with the patient's sister. Apparently the patient chandra doherty's name is Bronwyn Zavala. She has told me that the patient never want to be trached and live in this debilitated condition, but that she had taken a decision to do so because she felt guilty. Apparently multiple family members have this inherited neurological condition that has been diagnose d as multiple sclerosis. The patient's mother and multiple other family members have from the same. Therefore, the patient a decision before she became debilitated not to live by artificial kika ns. Apparently, family members have been counseled in the past to refer patient to hospice services , but the sister agent stated that she felt too guilty to continue. My conversation to here was o v iew this as the sister not making the decision on the part of Ms. Cavazos, but just carrying through what decision Ms. Cavazos had when she could express her wishes. Based upon that, daughter is in agr eement and first I will change her code status. I have discussed this with Dr. Terry who is in a greement. Suggest hospice plus or minus compassionate extubation. Dictated By: CAITLIN CHAND MD LP/NTS Conf#: [id number] DID#: [id number]
[2016-06-11 18:07] LABS: CREATINE KINASE 309 IU/L (23-200)
[2016-06-11 18:17] LABS: CK-MB 0.28 ng/ml (0.0-2.4)
[2016-06-11 18:24] LABS: TROPONIN-I < 0.010 ng/ml (0.00-0.12)
[2016-06-11] MEDS: VANCOMYCIN 1 GM in NS 250 ML IVPB SCH (19:14)
[2016-06-12] VITALS (24 sets, daily range): BP systolic 111–138; BP diastolic 51–159; PULSE 64–90; RESP 14–21
[2016-06-12 01:55] LABS: CK-MB 0.31 ng/ml (0.0-2.4)
[2016-06-12 01:58] LABS: TROPONIN-I 0.011 ng/ml (0.00-0.12)
[2016-06-12] MEDS: LANSOPRAZOLE 30 MG CAP GTB SCH (05:41)
[2016-06-12] MEDS: VANCOMYCIN 1 GM in NS 250 ML IVPB SCH ×2 (05:41→18:00)
[2016-06-12] MEDS: SOD CHLORIDE 0.45% 1,000 ML IV SCH ×3 (05:41→21:57)
[2016-06-12] MEDS: FUROSEMIDE 40 MG TAB GTB SCH (05:43)
[2016-06-12 07:35] LABS: CHOL/HDL RATIO 12.8 RATIO
[2016-06-12 08:53] LABS: BASOPHILS % 0.5 % (0.0-2.0); EOSINOPHILS # 0.1 10^3/ul (0.0-0.5); EOSINOPHILS % 0.9 % (0.0-7.0); HEMOGLOBIN 10.3 g/dl (12.0-16.0); LYMPHOCYTES # 1.3 10^3/ul (0.8-2.9); LYMPHOCYTES % 20.5 % (15.0-51.0); MEAN CORPUSCULAR HEMOGLOBIN 34.6 pg (29.0-33.0); MEAN CORPUSCULAR HGB CONC 34.3 g/dl (32.0-37.0); MEAN CORPUSCULAR VOLUME 100.9 fl (82.0-101.0); MEAN PLATELET VOLUME 13.3 fl (7.4-10.4); MONOCYTE # 0.4 10^3/ul (0.3-0.9); MONOCYTES % 6.4 % (0.0-11.0); NEUTROPHIL # 4.6 10^3/ul (1.6-7.5); NEUTROPHILS % 71.7 % (39.0-77.0); PLATELET COUNT 71 10^3/UL (140-440); RED BLOOD COUNT 2.98 10^6/ul (4.20-5.40); RED CELL DISTRIBUTION WIDTH 13.9 % (11.5-14.5); UNCORRECTED WBC 6.4 10^3/ul (4.8-10.8); WHITE BLOOD COUNT 6.4 10^3/ul (4.8-10.8)
[2016-06-12 08:54] LABS: CONDITION 1
[2016-06-12 08:56] LABS: POTASSIUM 3.4 mmol/L (3.5-5.1)
[2016-06-12 08:58] LABS: CREATININE 0.34 mg/dl (0.44-1.00)
[2016-06-12 08:59] LABS: CALCIUM 7.7 mg/dl (8.4-10.2)
--- NOTE | 2016-06-12 09:31 | CONS ---
Date/Time of Note Date/Time of Note DATE: 06/12/16 TIME: 09:27 Assessment/Plan Assessment/Plan Additional Assessment/Plan 1. Positive troponin now trended negative, assess significance, assess for true non-ST elevation myocardial infarction- no CP now, will monitor clinically. 2. Abnormal electrocardiogram with inferior Q's. Assess for acute coronary syndrome- no ectopy on tele. 3. Hypotension, borderline. Follow blood pressure closely - stable, good urine output now - OK to hydrate gently. 4. Respiratory failure, chronic, status post trach- not in distress by exam. 5. Dysphagia, status post G-tube. 6. Fevers. 7. Leukocytosis- on anti-Bx. 8. Multiple sclerosis. 9. Hypernatremia, mild. 10. Anemia, mild. Consultation Date/Type/Reason Admit Date/Time Jun 09, 2016 at 22:53 Initial Consult Date 24 HR Interval Summary Free Text/Dictation NO acute No ectopy on tele - con't respt care. ROS: No fever, no chills, no nausea, no vomiting, no diarrhea/constipation No recent weight changes No chest pain, no PND, no orthopnea, + SOB No dizziness, blurred vision No thirst, no heat or cold intolerance Exam/Review of Systems Vital Signs Vitals Vital Signs Date Time Temp Pulse Resp B/P Pulse Ox O2 Delivery O2 Flow Rate FiO2 06/12/16 08:31 89 06/12/16 08:30 21 98 40 06/12/16 08:21 98.9 138/60 06/11/16 16:00 Mechanical Ventilator Intake and Output 06/11/16 06/11/16 06/12/16 15:00 23:00 07:00 Intake Total 1000 ml 500 ml 225 ml Output Total 480 ml 180 ml 400 ml Balance 520 ml 320 ml -175 ml Exam General: WN/WD/NAD, AOx 2-3 HEENT: Unicetric/atraumatic/EOMI (follow commands)- trach NECK: no thyromegaly Lymph: no lymphadenopathy HEART: regular with no S3, II/ systolic murmur at apex LUNGS: Coarse sounds ABD: soft, NT, ND, +BS : Intact Neuro: non focal SKIN: chronic changes EXT: trace edema Results Result Diagram: 06/12/1630 06/12/16 0630 Results 24 hrs Laboratory Tests Test 06/11/16 11:40 06/11/16 17:44 06/12/16 00:43 06/12/16 06:30 Lactic Acid Level 0.9 0.7 0.9 Creatine Kinase 309 H 435 H Creatine Kinase Index 0.1 0.1 Creatinine Kinase MB (Mass) 0.28 0.31 Troponin I < 0.010 0.011 Anion Gap 17 H Basophils # 0.0 Basophils % 0.5 Blood Morphology Comment Blood Urea Nitrogen 26 #H Calcium Level 7.7 L Carbon Dioxide Level 20 L Chloride Level 110 Cholesterol Level 206 H Cholesterol/HDL Ratio 12.8 Creatinine 0.34 L Eosinophils # 0.1 Eosinophils % 0.9 Glucose Level 174 HDL Cholesterol 16 L Hematocrit 30.0 L Hemoglobin 10.3 L LDL Cholesterol, Calculated 78 Lymphocytes # 1.3 Lymphocytes % 20.5 Mean Corpuscular Hemoglobin 34.6 H Mean Corpuscular Hemoglobin Concent 34.3 Mean Corpuscular Volume 100.9 Mean Platelet Volume 13.3 H Monocytes # 0.4 Monocytes % 6.4 Neutrophils # 4.6 Neutrophils % 71.7 Nucleated Red Blood Cells # 0.0 Nucleated Red Blood Cells % 0.0 Platelet Count 71 #L Potassium Level 3.4 L Red Blood Count 2.98 L Red Cell Distribution Width 13.9 Sodium Level 144 Triglycerides Level 560 H White Blood Count 6.4 # Medications Medications Current Medications Sodium Chloride (1/2 NS) 1,000 ml @ 100 mls/hr Q10H IV Last administered on 05:41; Admin Dose 100 MLS/HR; Start 06/09/16 at 22:47 Ondansetron HCl (Zofran Inj) 4 mg Q6H PRN IV NAUSEA AND/OR VOMITING; Start 06/09 at 23:00 Morphine Sulfate (morphine) 2 mg Q4H PRN IV SEVERE PAIN LEVEL 7-10; Start at 23:00 Enoxaparin Sodium (Lovenox) 40 mg DAILY SC ; Start 06/10/16 at 09:00; Status Future Hold Bisacodyl (Dulcolax Supp) 10 mg Q24H PRN [place] CONSTIPATION; Start 06/09/16 at 23: 00 Chlorhexidine Gluconate (Peridex) 15 ml BID MM Last administered on 06/11/16 21 :50; Admin Dose 15 ML; Start 06/10/16 at 09:00 Furosemide (Lasix) 40 mg DAILY@06 GTB Last administered on 06/12/16 05:43; Admin Dose 40 MG; Start 06/10/16 at 06:00 Acetaminophen/ Hydrocodone Bitart ([place] (5/325)) 1 tab Q6 PRN GTB PAIN LEVEL 7 -10; Start 06/09/16 at 23:00 Lansoprazole (Prevacid) 30 mg DAILY@06 GTB Last administered on 06/12/16 05:41 ; Admin Dose 30 MG; Start 06/10/16 at 06:00 Multivitamins (Thera-Plus) 5 ml DAILY GTB Last administered on 06/11/16 08:26; Admin Dose 5 ML; Start 06/10/16 at 09:00 Sodium Biphosphate/ Sodium Phosphate (Fleet Enema) 118 ml Q48H PRN [place] CONSTIPATION; Start 06/09/16 at 23:00 Ondansetron HCl (Zofran Tab) 4 mg Q6H PRN GTB NAUSEA AND/OR VOMITING; Start 06/09/16 at 23:00 Docusate Sodium (Colace Liquid Cup) 100 mg BID PRN GTB CONSTIPATION Last administered on 06/10/16 09:50; Admin Dose 100 MG; Start 06/09/16 at 23:00 Acetaminophen (Tylenol Liquid) 650 mg Q4H PRN GTB PAIN AND OR ELEVATED TEMP; Start 06/09/16 at 23:45 Ferrous Sulfate (Feosol Liquid Cup) 300 mg DAILY GTB Last administered on 08:25; Admin Dose 300 MG; Start 06/10/16 at 09:00 Magnesium Hydroxide (Milk Of Mag) 5 ml DAILY GTB Last administered on 06/11/16 08:27; Admin Dose 5 ML; Start 06/10/16 at 09:00 Phenytoin (Dilantin Susp Cup) 300 mg BID GTB Last administered on 06/11/16 20: 24; Admin Dose 300 MG; Start 06/10/16 at 09:00 Valproate Sodium (Depakene Liquid Cup) 1,500 mg BID GTB Last administered on 20:23; Admin Dose 1,500 MG; Start 06/10/16 at 09:00 Potassium Chloride 20 meq 20 meq DAILY GTB Last administered on 06/11/16 08:26 ; Admin Dose 20 MEQ; Start 06/10/16 at 09:00 Meropenem/Sodium Chloride (Merrem/NS) 100 ml @ 200 mls/hr Q12 IVPB Last administered on 06/11/16 20:23; Admin Dose 200 MLS/HR; Start 06/11/16 at 12:00 Aspirin 81 mg 81 mg DAILY PO ; Start 06/12/16 at 09:00 Vancomycin HCl (Vancocin) 250 ml @ 125 mls/hr Q12H IVPB Last administered on 05:41; Admin Dose 125 MLS/HR; Start 06/11/16 at 18:00 CARITO RUCKER MD Jun 12, 2016 09:31
[2016-06-12] MEDS: MEROPENEM 500 MG in SOD CHLORIDE 0.9% 100 ML IVPB SCH ×2 (09:47→21:00)
[2016-06-12] MEDS: PHENYTOIN (100 MG/4 ML) CUP GTB SCH ×2 (09:48→21:57)
[2016-06-12] MEDS: FERROUS SULFATE 60 MG/ML 5ML CUP GTB SCH (09:48)
[2016-06-12] MEDS: CHLORHEXIDINE GLUCONATE 15 ML UD CUP MM SCH ×2 (09:48→21:56)
[2016-06-12] MEDS: VALPROIC ACID LIQUID CUP 250 MG/5 ML CUP GTB SCH ×2 (09:48→21:57)
[2016-06-12] MEDS: POTASSIUM CHLORIDE 20 MEQ POWDER FOR ORAL SOLN GTB SCH (09:49)
[2016-06-12] MEDS: ASPIRIN 81 MG TAB PO SCH (09:49)
[2016-06-12] MEDS: MULTIVITAMINS 5 ML CUP GTB SCH (09:49)
[2016-06-12] MEDS: MAGNESIUM HYDROXIDE 30ML CUP GTB SCH (09:49)
--- NOTE | 2016-06-12 10:49 | RADRPT ---
Echocardiogram Report Patient Name: ILSA HAYS Gender: Female Date: 1955 Study Date: 11-Jun-2016 Pediatric Orthodontist: KIRSTY Pineda Location: [facility] Ref. Physician: WON JACKSON Quality: Technically Difficult Study Procedures: Transthoracic echocardiogram with complete 2D, M-Mode, and doppler examination. Indications: Positive Troponin. 2D/M Mode Doppler Measurement Value Normal Ranges Measurement Value Normal Ranges LVIDd 2D 2.9 3.5 - 5.6 cm AV Peak Karel 1.5 m/sec LVIDs 2D 1.9 2.1 - 4.1 cm AV Peak PG 9.5 mmHg LVPWd 2D 0.9 0.6 - 1.1 cm LVOT Peak Karel 1.3 m/sec IVSd 2D 0.8 0.6 - 1.1 cm LVOT Peak PG 6.5 mmHg AoR Diam 2D 2.1 2.0 - 3.7 cm MV E Peak Karel 0.7 m/sec EDV 2D 31.5 cm3 MV A Peak Karel 0.9 m/sec ESV 2D 6.8 cm3 MV E/A 0.8 LA Dimen 2D 2.6 2.3 - 4.0 cm MV Decel Time 215 msec MV Decel [place] 3 MV E/A 0.8 TR Peak Karel 2.1 m/sec TR Peak PG 17.8 mmHg RVSP 26.0 mmHg Findings Left Ventricle: Normal left ventricular systolic function. Normal left ventricular cavity size. Normal left ventricular wall thickness. Ejection fraction is visually estimated at 65 %. Tissue Doppler/Mitral Doppler indices are consistent with impaired relaxation (Stage I diastolic dysfunction). Right Ventricle: Normal right ventricular size. Normal right ventricular systolic function. Left Atrium: The left atrium is normal in size. Right Atrium: The right atrium is normal in size. Mitral Valve: Normal appearance and function of the mitral valve with trace physiologic regurgitation. Aortic Valve: Normal appearance of the aortic valve. No significant aortic stenosis or insufficiency. Tricuspid Valve: Estimated peak PA systolic pressure 26 mmHg. There is trace tricuspid regurgitation. Pericardium: Normal pericardium with no significant pericardial effusion. Aorta: Normal aortic root. IVC: Inferior vena cava without respiratory collapse, however, patient on ventilator. Conclusions 1.Normal left ventricular systolic function. Normal left ventricular cavity size. Normal left ventricular wall thickness. Ejection fraction is visually estimated at 65 %. Tissue Doppler/Mitral Doppler indices are consistent with impaired relaxation (Stage I diastolic dysfunction). 2.Normal appearance and function of the mitral valve with trace physiologic regurgitation. 3.Estimated peak PA systolic pressure 26 mmHg. There is trace tricuspid regurgitation. Electronically Signed By: Jack Crowder 12-Jun-2016 10:48:30 -0800 Patient Name: ILSA HAYS Study Date: 11-Jun-[id number]
[2016-06-12] MEDS ORDERED: POTASSIUM CHLORIDE 20 MEQ POWDER FOR ORAL SOLN GTB ONE (12:00)
--- NOTE | 2016-06-12 14:34 | PN ---
DATE: 06/12/2016 PULMONARY FOLLOWUP SUBJECTIVE: Chart reviewed. Events noted. The patient remains on 40% FIO2 via tracheostomy, satur ating 100%, and does not appear in acute distress. PHYSICAL EXAMINATION: VITAL SIGNS: Blood pressure 131/58, pulse 90, respirations 17, temperature 98.6. HEENT: Pupils are equal and reactive to light. NECK: Supple, no JVD noted, no cervical adenopathy noted, no carotid bruits heard. Tracheostomy si te clear. LUNGS: Few scattered rhonchi. CARDIOVASCULAR: S1, S2 normal. ABDOMEN: Soft, nontender. No organomegaly or masses noted. EXTREMITIES: No clubbing or cyanosis noted. NEUROLOGIC: No changes. LABORATORIES: WBC 6.4, hemoglobin 10.3, hematocrit 30, platelets 71. Sodium 144, potassium 3.4, ch loride 110, CO2 20, BUN 26, creatinine 0.34, glucose 174. IMPRESSION: 1. Chronic respiratory failure, hypoxemic, tracheostomy dependent. 2. Status post sepsis. 3. Urinary tract infection. 4. History of multiple sclerosis. 5. History of pulmonary fibrosis. 6. Dysphagia. 7. Seizure disorder. 8. Encephalopathy. RECOMMENDATIONS: 1. Continue current antibiotics. 2. Continue nutritional support. 3. Pulmonary toilet. Dictated By: KEREN LUNA MD, MA/JODI Conf#: [id number] DID#: [id number]
--- NOTE | 2016-06-12 16:29 | PN ---
DATE: 06/12/2016 SUBJECTIVE: No acute events overnight. The patient is lying comfortably in bed. She is awake, non communicative. Blood cultures since admission grew coag negative staph species, urine growing E. coli ESBL. Repeat blood cultures, preliminary negative. ANTIMICROBIALS: The patient is on: 1. IV vancomycin 2. Meropenem. INDWELLINGS: Trach, PEG, Kim. PHYSICAL EXAMINATION: GENERAL: This is an obese, chronically ill-appearing, elderly woman who is in no distress. HEENT: Head atraumatic, normocephalic. Sclerae anicteric. Buccal mucosa dry. NECK: Supple. CHEST: Rise symmetrical. Breath sounds diminished to bases. HEART: S1, S2. ABDOMEN: Soft. Bowel tones present. EXTREMITIES: Without cyanosis. Bilateral trace edema. ASSESSMENT: 1. Sepsis status post shock, improving. 2. Urinary tract infection with urine culture growing Escherichia coli extended-spectrum beta-lacta benji. 3. Gram-positive cocci bacteremia on admission. Repeat blood cultures negative. 4. Chronic respiratory failure. 5. Dysphagia. 6. Advanced multiple sclerosis with functional quadriplegia. PLAN: The patient remains stable, overall improving. Continue present care, antibiotics. Follow r epeat blood cultures. Continue vent management as per pulmonary. Dictated By: NICHOLAS CRUZ LEAD SECURITY OFFICER for REBA PRUITT/JODI Conf#: [id number] DID#: [id number]
[2016-06-12] MEDS ORDERED: LIDOCAINE 1% (MDV) 20 ML INJ SC ONE (17:30)
--- NOTE | 2016-06-12 17:42 | PN ---
DATE: 06/12/2016 SUBJECTIVE: Follow up on 61-year-old female with advanced multiple sclerosis, ventilator-dependent respiratory failure with tracheostomy, dysphagia with PEG. The patient is currently monitored on te lemetry floor. No fever, nausea, vomiting reported. Right hand swelling reported by RN, will disco ntinue IV immediately and initiate PICC line insertion for IV fluids and antibiotics. OBJECTIVE: VITAL SIGNS: Temperature is 98.8, pulse is 92, blood pressure is 119/59, respiratory rate 18, oxyge n saturation 97% on 40% FIO2. GENERAL: Well-developed, obese female, currently is awake. HEENT: Head is atraumatic, normocephalic. PERRLA. NECK: Supple. Tracheostomy at the base of the neck with no bleeding. CHEST: Lung sounds slightly diminished at the bases. HEART: Normal S1, S2. No murmurs, gallops, clicks, rubs noted. ABDOMEN: Round, soft, nondistended, nontender. G-tube present. EXTREMITIES: No edema, clubbing, cyanosis. Pulses equal bilaterally, 2+. SKIN: There is no rash noted. NEUROLOGIC: The patient with advanced multiple sclerosis, opens eyes, nonverbal. LABORATORY DATA: For today, CBC: White blood cells 6.4, hemoglobin 10.3, hematocrit 30.0, platelet s 71. Chemistry: Sodium is 144, potassium 3.4, chloride 110, carbon dioxide 20, anion gap 17, BUN is 26, creatinine 0.34, glucose 174. ASSESSMENT AND PLAN: 1. Sepsis secondary to urinary tract infection. The patient is followed by Dr. Gillette in infectiou s disease consultation. 2. Escherichia coli extended-spectrum beta-lactamase urinary tract infection. The patient is jose nued on meropenem and vancomycin. 3. Gram-positive cocci in clusters bacteremia on admission. 4. Ventilator-dependent respiratory failure. Dr. Martin following patient in pulmonology consulta tion. Continue ventilator support, bronchodilators. 5. History of advanced multiple sclerosis. 6. Seizure disorder. Continue Dilantin. 7. Dysphagia with percutaneous endoscopic gastrostomy. Continue current tube feeding, monitor resi dual, aspiration precautions. 8. Mild hypokalemia, replaced. 9. Elevated troponin on admission. The patient was evaluated by Dr. Blanca in cardiology consulta tion. Continue aspirin. Repeat troponins are negative. 10. We will continue Prevacid for peptic ulcer disease prophylaxis and sequential compression devic es for deep venous thrombosis prophylaxis. Further recommendations based on clinical course. Plan of care discussed with Dr. Edward. Dictated By: FRANDY WHEAT ILLUMINATOR for WISAM EDWARD MD SR/NTS Conf#: [id number] DID#: [id number]
[2016-06-13] VITALS (23 sets, daily range): BP systolic 104–137; BP diastolic 52–68; PULSE 78–88; RESP 14–20
[2016-06-13] MEDS: LANSOPRAZOLE 30 MG CAP GTB SCH (05:17)
[2016-06-13] MEDS: FUROSEMIDE 40 MG TAB GTB SCH (05:17)
[2016-06-13] MEDS: VANCOMYCIN 1 GM in NS 250 ML IVPB SCH (05:18)
[2016-06-13 06:02] LABS: BASOPHILS % 0.1 % (0.0-2.0); EOSINOPHILS # 0.1 10^3/ul (0.0-0.5); EOSINOPHILS % 1.4 % (0.0-7.0); HEMATOCRIT 30.7 % (37.0-47.0); HEMOGLOBIN 10.7 g/dl (12.0-16.0); LYMPHOCYTES % 21.1 % (15.0-51.0); MEAN CORPUSCULAR HEMOGLOBIN 34.7 pg (29.0-33.0); MEAN CORPUSCULAR HGB CONC 34.9 g/dl (32.0-37.0); MEAN CORPUSCULAR VOLUME 99.5 fl (82.0-101.0); MEAN PLATELET VOLUME 12.6 fl (7.4-10.4); MONOCYTE # 0.4 10^3/ul (0.3-0.9); MONOCYTES % 8.7 % (0.0-11.0); NEUTROPHIL # 3.3 10^3/ul (1.6-7.5); NEUTROPHILS % 68.7 % (39.0-77.0); RED BLOOD COUNT 3.08 10^6/ul (4.20-5.40); RED CELL DISTRIBUTION WIDTH 13.7 % (11.5-14.5); UNCORRECTED WBC 4.9 10^3/ul (4.8-10.8); WHITE BLOOD COUNT 4.9 10^3/ul (4.8-10.8)
[2016-06-13 06:12] LABS: POTASSIUM 4.2 mmol/L (3.5-5.1)
[2016-06-13 06:13] LABS: CONDITION 1; LH ANALYZER COMMENTS 1; SUSPECT 1
[2016-06-13 06:14] LABS: CREATININE 0.29 mg/dl (0.44-1.00)
[2016-06-13 06:15] LABS: CALCIUM 7.6 mg/dl (8.4-10.2)
[2016-06-13] MEDS: SOD CHLORIDE 0.45% 1,000 ML IV SCH ×2 (08:00→17:39)
[2016-06-13] MEDS: MEROPENEM 500 MG in SOD CHLORIDE 0.9% 100 ML IVPB SCH ×3 (09:00→21:08)
[2016-06-13] MEDS: VALPROIC ACID LIQUID CUP 250 MG/5 ML CUP GTB SCH ×2 (09:02→21:10)
[2016-06-13] MEDS: MULTIVITAMINS 5 ML CUP GTB SCH (09:02)
[2016-06-13] MEDS: PHENYTOIN (100 MG/4 ML) CUP GTB SCH ×2 (09:02→21:10)
[2016-06-13] MEDS: MAGNESIUM HYDROXIDE 30ML CUP GTB SCH (09:03)
[2016-06-13] MEDS: FERROUS SULFATE 60 MG/ML 5ML CUP GTB SCH (09:03)
[2016-06-13] MEDS: POTASSIUM CHLORIDE 20 MEQ POWDER FOR ORAL SOLN GTB SCH (09:03)
[2016-06-13] MEDS: CHLORHEXIDINE GLUCONATE 15 ML UD CUP MM SCH ×2 (09:03→21:10)
[2016-06-13] MEDS: ASPIRIN 81 MG TAB PO SCH (09:04)
[2016-06-13 09:35] LABS: PLATELET COUNT 61 10^3/UL (140-440); PLATELET ESTIMATE PLT APPEAR DECREASED
--- NOTE | 2016-06-13 13:25 | CONS ---
Date/Time of Note Date/Time of Note DATE: 06/13/16 TIME: 13:21 Assessment/Plan Assessment/Plan Chief Complaint/Hosp Course IMPRESSION: 1. Positive troponin now trended negative, assess significance, assess for true non-ST elevation myocardial infarction.. NL EF by echo this admit 2. Abnormal electrocardiogram with inferior Q's. Assess for acute coronary syndrome. 3. Hypotension, borderline. Follow blood pressure closely. 4. Respiratory failure, chronic, status post trach. 5. Dysphagia, status post G-tube. 6. Fevers. 7. Leukocytosis. 8. Multiple sclerosis. 9. Hypernatremia, mild-improved. 10. Anemia, mild. Recc: -Tele -serial ecg's -continue asa -follow volume status closely -Continue abx's -Continue dilantin Problems: Consultation Date/Type/Reason Admit Date/Time Jun 09, 2016 at 22:53 Initial Consult Date 06/11/2016 Type of Consultation: Cardiology Reason for Consultation positive troponin Referring Provider: LONNY RANDHAWA Exam/Review of Systems Vital Signs Vitals Vital Signs Date Time Temp Pulse Resp B/P Pulse Ox O2 Delivery O2 Flow Rate FiO2 06/13/16 12:31 87 06/13/16 12:26 98.8 18 135/68 99 06/13/16 08:25 40 06/11/16 16:00 Mechanical Ventilator Intake and Output 06/12/16 06/12/16 06/13/16 15:00 23:00 07:00 Intake Total 100 ml 1180 ml 380 ml Output Total 700 ml 450 ml Balance 100 ml 480 ml -70 ml Exam Review of Systems: CONSTITUTIONAL: No fevers, chills. PULMONARY: No sob CARDIOVASCULAR: No chest pain/palpitations GASTROINTESTINAL: No nausea/vomiting. GENITOURINARY: No hematuria/dysuria. MUSCULOSKELETAL: No myagias/arthalgias. PSYCHIATRIC: The patient denies depression. NEUROLOGIC: lethargic Constitutional: other Head: normocephalic ENMT: mucosa pink and moist Neck: jvd (9 cm water), other (trached), supple Respiratory: diminished breath sounds (at bases/B) Cardiovascular: regular rate and rhythm Gastrointestinal: soft Musculoskeletal: muscle tone (normal) Extremities: edema (none) Neurological: lethargic Results Result Diagram: 06/13/16 0510 06/13/16 0510 Results 24 hrs Laboratory Tests Test 06/13/16 05:10 Anion Gap 13 Basophils # 0.0 Basophils % 0.1 Blood Morphology Comment Blood Urea Nitrogen 20 Calcium Level 7.6 L Carbon Dioxide Level 23 Chloride Level 112 H Creatinine 0.29 L Differential Comment AUTO w/SCAN Eosinophils # 0.1 Eosinophils % 1.4 Glucose Level 143 Hematocrit 30.7 L Hemoglobin 10.7 L Lymphocytes # 1.0 Lymphocytes % 21.1 Mean Corpuscular Hemoglobin 34.7 H Mean Corpuscular Hemoglobin Concent 34.9 Mean Corpuscular Volume 99.5 Mean Platelet Volume 12.6 H Monocytes # 0.4 Monocytes % 8.7 Neutrophils # 3.3 Neutrophils % 68.7 Nucleated Red Blood Cells # 0.0 Nucleated Red Blood Cells % 0.0 Platelet Count 61 L Platelet Estimate PLT APPEAR DECREASED Potassium Level 4.2 Red Blood Count 3.08 L Red Cell Distribution Width 13.7 Sodium Level 144 Vancomycin Level Trough 9.3 L White Blood Count 4.9 # Medications Medications Current Medications Sodium Chloride (1/2 NS) 1,000 ml @ 100 mls/hr Q10H IV Last administered on 21:57; Admin Dose 100 MLS/HR; Start 06/09/16 at 22:47 Ondansetron HCl (Zofran Inj) 4 mg Q6H PRN IV NAUSEA AND/OR VOMITING; Start 06/09 at 23:00 Morphine Sulfate (morphine) 2 mg Q4H PRN IV SEVERE PAIN LEVEL 7-10; Start at 23:00 Enoxaparin Sodium (Lovenox) 40 mg DAILY SC ; Start 06/10/16 at 09:00; Status Future Hold Bisacodyl (Dulcolax Supp) 10 mg Q24H PRN [place] CONSTIPATION; Start 06/09/16 at 23: 00 Chlorhexidine Gluconate (Peridex) 15 ml BID MM Last administered on 06/13/16 09:03; Admin Dose 15 ML; Start 06/10/16 at 09:00 Furosemide (Lasix) 40 mg DAILY@06 GTB Last administered on 06/13/16 05:17; Admin Dose 40 MG; Start 06/10/16 at 06:00 Acetaminophen/ Hydrocodone Bitart ([place] (5/325)) 1 tab Q6 PRN GTB PAIN LEVEL 7 -10; Start 06/09/16 at 23:00 Lansoprazole (Prevacid) 30 mg DAILY@06 GTB Last administered on 06/13/16 05:17 ; Admin Dose 30 MG; Start 06/10/16 at 06:00 Multivitamins (Thera-Plus) 5 ml DAILY GTB Last administered on 06/13/16 09:02 ; Admin Dose 5 ML; Start 06/10/16 at 09:00 Sodium Biphosphate/ Sodium Phosphate (Fleet Enema) 118 ml Q48H PRN [place] CONSTIPATION; Start 06/09/16 at 23:00 Ondansetron HCl (Zofran Tab) 4 mg Q6H PRN GTB NAUSEA AND/OR VOMITING; Start 06/09/16 at 23:00 Docusate Sodium (Colace Liquid Cup) 100 mg BID PRN GTB CONSTIPATION Last administered on 06/10/16 09:50; Admin Dose 100 MG; Start 06/09/16 at 23:00 Acetaminophen (Tylenol Liquid) 650 mg Q4H PRN GTB PAIN AND OR ELEVATED TEMP; Start 06/09/16 at 23:45 Ferrous Sulfate (Feosol Liquid Cup) 300 mg DAILY GTB Last administered on 09:03; Admin Dose 300 MG; Start 06/10/16 at 09:00 Magnesium Hydroxide (Milk Of Mag) 5 ml DAILY GTB Last administered on 09:03; Admin Dose 5 ML; Start 06/10/16 at 09:00 Phenytoin (Dilantin Susp Cup) 300 mg BID GTB Last administered on 06/13/16 09: 02; Admin Dose 300 MG; Start 06/10/16 at 09:00 Valproate Sodium (Depakene Liquid Cup) 1,500 mg BID GTB Last administered on 09:02; Admin Dose 1,500 MG; Start 06/10/16 at 09:00 Potassium Chloride 20 meq 20 meq DAILY GTB Last administered on 06/13/16 09:03 ; Admin Dose 20 MEQ; Start 06/10/16 at 09:00 Meropenem/Sodium Chloride (Merrem/NS) 100 ml @ 200 mls/hr Q12 IVPB Last administered on 06/12/16 09:47; Admin Dose 200 MLS/HR; Start 06/11/16 at 12:00 Aspirin (Aspirin) 81 mg DAILY PO Last administered on 06/13/16t 09:04; Admin Dose 81 MG; Start 06/12/16 at 09:00 [employer] Jun 13, 2016 13:25
--- NOTE | 2016-06-13 14:53 | CONS ---
Date/Time of Note Date/Time of Note DATE: 06/13/16 TIME: 14:50 Consult Date/Type/Reason Admit Date/Time Jun 09, 2016 at 22:53 Initial Consult Date Type of Consultation: ID Ordering Provider: LONNY RANDHAWA Subjective no events, awake, comfortable on vent, no fevers Objective Vital Signs Date Time Temp Pulse Resp B/P Pulse Ox O2 Delivery O2 Flow Rate FiO2 06/13/16 12:31 87 06/13/16 12:26 98.8 18 135/68 99 06/13/16 08:25 40 06/11/16 16:00 Mechanical Ventilator Intake and Output 06/12/16 06/12/16 06/13/16 15:00 23:00 07:00 Intake Total 100 ml 1180 ml 380 ml Output Total 700 ml 450 ml Balance 100 ml 480 ml -70 ml Results/Medications Result Diagram: 06/13/16 0510 06/13/16 0510 Results 24 hrs Laboratory Tests Test 06/13/16 05:10 Anion Gap 13 Basophils # 0.0 Basophils % 0.1 Blood Morphology Comment Blood Urea Nitrogen 20 Calcium Level 7.6 L Carbon Dioxide Level 23 Chloride Level 112 H Creatinine 0.29 L Differential Comment AUTO w/SCAN Eosinophils # 0.1 Eosinophils % 1.4 Glucose Level 143 Hematocrit 30.7 L Hemoglobin 10.7 L Lymphocytes # 1.0 Lymphocytes % 21.1 Mean Corpuscular Hemoglobin 34.7 H Mean Corpuscular Hemoglobin Concent 34.9 Mean Corpuscular Volume 99.5 Mean Platelet Volume 12.6 H Monocytes # 0.4 Monocytes % 8.7 Neutrophils # 3.3 Neutrophils % 68.7 Nucleated Red Blood Cells # 0.0 Nucleated Red Blood Cells % 0.0 Platelet Count 61 L Platelet Estimate PLT APPEAR DECREASED Potassium Level 4.2 Red Blood Count 3.08 L Red Cell Distribution Width 13.7 Sodium Level 144 Vancomycin Level Trough 9.3 L White Blood Count 4.9 # Medications Current Medications Sodium Chloride (1/2 NS) 1,000 ml @ 100 mls/hr Q10H IV Last administered on t 21:57; Admin Dose 100 MLS/HR; Start 06/09/16 at 22:47 Ondansetron HCl (Zofran Inj) 4 mg Q6H PRN IV NAUSEA AND/OR VOMITING; Start 06/09 at 23:00 Morphine Sulfate (morphine) 2 mg Q4H PRN IV SEVERE PAIN LEVEL 7-10; Start at 23:00 Enoxaparin Sodium (Lovenox) 40 mg DAILY SC ; Start 06/10/16 at 09:00; Status Future Hold Bisacodyl (Dulcolax Supp) 10 mg Q24H PRN [place] CONSTIPATION; Start 06/09/16 at 23: 00 Chlorhexidine Gluconate (Peridex) 15 ml BID MM Last administered on 06/13/16 09:03; Admin Dose 15 ML; Start 06/10/16 at 09:00 Furosemide (Lasix) 40 mg DAILY@06 GTB Last administered on 06/13/16 05:17; Admin Dose 40 MG; Start 06/10/16 at 06:00 Acetaminophen/ Hydrocodone Bitart ([place] (5/325)) 1 tab Q6 PRN GTB PAIN LEVEL 7 -10; Start 06/09/16 at 23:00 Lansoprazole (Prevacid) 30 mg DAILY@06 GTB Last administered on 06/13/16 05:17 ; Admin Dose 30 MG; Start 06/10/16 at 06:00 Multivitamins (Thera-Plus) 5 ml DAILY GTB Last administered on 06/13/16 09:02 ; Admin Dose 5 ML; Start 06/10/16 at 09:00 Sodium Biphosphate/ Sodium Phosphate (Fleet Enema) 118 ml Q48H PRN [place] CONSTIPATION; Start 06/09/16 at 23:00 Ondansetron HCl (Zofran Tab) 4 mg Q6H PRN GTB NAUSEA AND/OR VOMITING; Start 06/09/16 at 23:00 Docusate Sodium (Colace Liquid Cup) 100 mg BID PRN GTB CONSTIPATION Last administered on 06/10/16 09:50; Admin Dose 100 MG; Start 06/09/16 at 23:00 Acetaminophen (Tylenol Liquid) 650 mg Q4H PRN GTB PAIN AND OR ELEVATED TEMP; Start 06/09/16 at 23:45 Ferrous Sulfate (Feosol Liquid Cup) 300 mg DAILY GTB Last administered on 09:03; Admin Dose 300 MG; Start 06/10/16 at 09:00 Magnesium Hydroxide (Milk Of Mag) 5 ml DAILY GTB Last administered on 09:03; Admin Dose 5 ML; Start 06/10/16 at 09:00 Phenytoin (Dilantin Susp Cup) 300 mg BID GTB Last administered on 06/13/16 09: 02; Admin Dose 300 MG; Start 06/10/16 at 09:00 Valproate Sodium (Depakene Liquid Cup) 1,500 mg BID GTB Last administered on 09:02; Admin Dose 1,500 MG; Start 06/10/16 at 09:00 Potassium Chloride 20 meq 20 meq DAILY GTB Last administered on 06/13/16 09:03 ; Admin Dose 20 MEQ; Start 06/10/16 at 09:00 Meropenem/Sodium Chloride (Merrem/NS) 100 ml @ 200 mls/hr Q12 IVPB Last administered on 06/12/16 09:47; Admin Dose 200 MLS/HR; Start 06/11/16 at 12:00 Aspirin (Aspirin) 81 mg DAILY PO Last administered on 06/13/16 09:04; Admin Dose 81 MG; Start 06/12/16 at 09:00 Assessment/Plan Chief Complaint/Hosp Course ANTIMICROBIALS: The patient is on: 1. IV vancomycin 2. Meropenem. INDWELLINGS: Trach, PEG, Kim. PHYSICAL EXAMINATION: GENERAL: This is an obese, chronically ill-appearing, elderly woman who is awake, noncommunicativein no distress. HEENT: Head atraumatic, normocephalic. Sclerae anicteric. Buccal mucosa dry. NECK: Supple. CHEST: Rise symmetrical. Breath sounds diminished to bases. HEART: S1, S2. ABDOMEN: Soft. Bowel tones present. EXTREMITIES: Without cyanosis. Bilateral edema. ASSESSMENT: 1. S/p septic shock 2. Urinary tract infection with urine culture growing Escherichia coli extended -spectrum beta-lactamase. 3. Staph bacteremia==> present on admission. Repeat blood cultures negative. 4. Chronic respiratory failure. 5. Dysphagia. 6. Advanced multiple sclerosis with functional quadriplegia. PLAN: Improving, repeat bld cx negative, continue present care, antibiotics, vent management per pulmonary. DW staff Problems: NICHOLAS CRUZ NP Jun 13, 2016 14:53
--- NOTE | 2016-06-13 15:32 | CONS ---
Date/Time of Note Date/Time of Note DATE: 06/13/16 TIME: 15:30 Consult Date/Type/Reason Admit Date/Time Jun 09, 2016 at 22:53 Initial Consult Date Type of Consultation: Pulm Ordering Provider: LONNY RANDHAWA Subjective Comfortable No new events. Objective Vital Signs Date Time Temp Pulse Resp B/P Pulse Ox O2 Delivery O2 Flow Rate FiO2 06/13/16 12:31 87 06/13/16 12:26 98.8 18 135/68 99 06/13/16 08:25 40 06/11/16 16:00 Mechanical Ventilator Intake and Output 06/12/16 06/12/16 06/13/16 15:00 23:00 07:00 Intake Total 100 ml 1180 ml 380 ml Output Total 700 ml 450 ml Balance 100 ml 480 ml -70 ml PHYSICAL EXAMINATION: VITAL SIGNS: HEENT: Pupils are equal and reactive to light. NECK: Supple, no JVD noted, no cervical adenopathy noted, no carotid bruits heard. Tracheostomy site clear. LUNGS: Few scattered rhonchi. CARDIOVASCULAR: S1, S2 normal. ABDOMEN: Soft, nontender. No organomegaly or masses noted. EXTREMITIES: No clubbing or cyanosis noted. NEUROLOGIC: No changes. Results/Medications Result Diagram: 06/13/16 0510 06/13/16 0510 Results 24 hrs Laboratory Tests Test 06/13/16 05:10 Anion Gap 13 Basophils # 0.0 Basophils % 0.1 Blood Morphology Comment Blood Urea Nitrogen 20 Calcium Level 7.6 L Carbon Dioxide Level 23 Chloride Level 112 H Creatinine 0.29 L Differential Comment AUTO w/SCAN Eosinophils # 0.1 Eosinophils % 1.4 Glucose Level 143 Hematocrit 30.7 L Hemoglobin 10.7 L Lymphocytes # 1.0 Lymphocytes % 21.1 Mean Corpuscular Hemoglobin 34.7 H Mean Corpuscular Hemoglobin Concent 34.9 Mean Corpuscular Volume 99.5 Mean Platelet Volume 12.6 H Monocytes # 0.4 Monocytes % 8.7 Neutrophils # 3.3 Neutrophils % 68.7 Nucleated Red Blood Cells # 0.0 Nucleated Red Blood Cells % 0.0 Platelet Count 61 L Platelet Estimate PLT APPEAR DECREASED Potassium Level 4.2 Red Blood Count 3.08 L Red Cell Distribution Width 13.7 Sodium Level 144 Vancomycin Level Trough 9.3 L White Blood Count 4.9 # Medications Current Medications Sodium Chloride (1/2 NS) 1,000 ml @ 100 mls/hr Q10H IV Last administered on 21:57; Admin Dose 100 MLS/HR; Start 06/09/16 at 22:47 Ondansetron HCl (Zofran Inj) 4 mg Q6H PRN IV NAUSEA AND/OR VOMITING; Start 06/09 at 23:00 Morphine Sulfate (morphine) 2 mg Q4H PRN IV SEVERE PAIN LEVEL 7-10; Start at 23:00 Enoxaparin Sodium (Lovenox) 40 mg DAILY SC ; Start 06/10/16 at 09:00; Status Future Hold Bisacodyl (Dulcolax Supp) 10 mg Q24H PRN [place] CONSTIPATION; Start 06/09/16 at 23: 00 Chlorhexidine Gluconate (Peridex) 15 ml BID MM Last administered on 06/13/16 09:03; Admin Dose 15 ML; Start 06/10/16 at 09:00 Furosemide (Lasix) 40 mg DAILY@06 GTB Last administered on 06/13/16 05:17; Admin Dose 40 MG; Start 06/10/16 at 06:00 Acetaminophen/ Hydrocodone Bitart ([place] (5/325)) 1 tab Q6 PRN GTB PAIN LEVEL 7 -10; Start 06/09/16 at 23:00 Lansoprazole (Prevacid) 30 mg DAILY@06 GTB Last administered on 06/13/16 05:17 ; Admin Dose 30 MG; Start 06/10/16 at 06:00 Multivitamins (Thera-Plus) 5 ml DAILY GTB Last administered on 06/13/16 09:02 ; Admin Dose 5 ML; Start 06/10/16 at 09:00 Sodium Biphosphate/ Sodium Phosphate (Fleet Enema) 118 ml Q48H PRN [place] CONSTIPATION; Start 06/09/16 at 23:00 Ondansetron HCl (Zofran Tab) 4 mg Q6H PRN GTB NAUSEA AND/OR VOMITING; Start 06/09/16 at 23:00 Docusate Sodium (Colace Liquid Cup) 100 mg BID PRN GTB CONSTIPATION Last administered on 06/10/16 09:50; Admin Dose 100 MG; Start 06/09/16 at 23:00 Acetaminophen (Tylenol Liquid) 650 mg Q4H PRN GTB PAIN AND OR ELEVATED TEMP; Start 06/09/16 at 23:45 Ferrous Sulfate (Feosol Liquid Cup) 300 mg DAILY GTB Last administered on 09:03; Admin Dose 300 MG; Start 06/10/16 at 09:00 Magnesium Hydroxide (Milk Of Mag) 5 ml DAILY GTB Last administered on 09:03; Admin Dose 5 ML; Start 06/10/16 at 09:00 Phenytoin (Dilantin Susp Cup) 300 mg BID GTB Last administered on 06/13/16 09: 02; Admin Dose 300 MG; Start 06/10/16 at 09:00 Valproate Sodium (Depakene Liquid Cup) 1,500 mg BID GTB Last administered on 09:02; Admin Dose 1,500 MG; Start 06/10/16 at 09:00 Potassium Chloride 20 meq 20 meq DAILY GTB Last administered on 06/13/16 09:03 ; Admin Dose 20 MEQ; Start 06/10/16 at 09:00 Meropenem/Sodium Chloride (Merrem/NS) 100 ml @ 200 mls/hr Q12 IVPB Last administered on 06/12/16 09:47; Admin Dose 200 MLS/HR; Start 06/11/16 at 12:00 Aspirin (Aspirin) 81 mg DAILY PO Last administered on 06/13/16 09:04; Admin Dose 81 MG; Start 06/12/16 at 09:00 Assessment/Plan Chief Complaint/Hosp Course IMPRESSION: 1. Chronic respiratory failure, hypoxemic, tracheostomy dependent. 2. Status post sepsis. 3. Urinary tract infection. 4. History of multiple sclerosis. 5. History of pulmonary fibrosis. 6. Dysphagia. 7. Seizure disorder. 8. Encephalopathy. RECOMMENDATIONS: 1. Continue current antibiotics. 2. Continue nutritional support. 3. Pulmonary toilet. discharge planning ok from pulm standpoint. Problems: VERONICA FREEMAN MD, [facility] Jun 13, 2016 15:32
--- NOTE | 2016-06-13 16:01 | PN ---
Date/Time of Note Date/Time of Note DATE: 06/13/16 TIME: 15:52 Assessment/Plan VTE Prophylaxis VTE Prophylaxis Intervention: SCD's Lines/Catheters IV Catheter Type (from [facility]): Peripheral IV Urinary Cath still in place: Yes Reason Cath still needed: urinary retention Assessment/Plan Chief Complaint/Hosp Course ASSESSMENT AND PLAN: 1. Sepsis secondary to urinary tract infection. The patient is followed by Dr. Gillette in infectious disease consultation. 2. Escherichia coli extended-spectrum beta-lactamase urinary tract infection. The patient is continued on meropenem and vancomycin. 3. Gram-positive cocci in clusters bacteremia on admission. 4. Ventilator-dependent respiratory failure. Dr. Martin following patient in pulmonology consultation. Continue ventilator support, bronchodilators. 5. History of advanced multiple sclerosis. 6. Seizure disorder. Continue Dilantin. 7. Dysphagia with percutaneous endoscopic gastrostomy. Continue current tube feeding, monitor residual, aspiration precautions. 8. Elevated troponin on admission. The patient was evaluated by Dr. Blanca in cardiology consultation. Continue aspirin. Continue Prevacid for peptic ulcer disease prophylaxis and sequential compression devices for deep venous thrombosis prophylaxis. Further recommendations based on clinical course. Plan of care discussed with Dr. Terry. Problems: Subjective 24 Hr Interval Summary Free Text/Dictation No acute events overnight, pending PICC line placement for IV fluids and antibiotics, patient tolerates G-tube feeding well. Exam/Review of Systems Vital Signs Vitals Vital Signs Date Time Temp Pulse Resp B/P Pulse Ox O2 Delivery O2 Flow Rate FiO2 06/13/16 15:31 98.6 90 20 111/52 99 06/13/16 08:25 40 06/11/16 16:00 Mechanical Ventilator Intake and Output 06/12/16 06/12/16 06/13/16 15:00 23:00 07:00 Intake Total 100 ml 1180 ml 380 ml Output Total 700 ml 450 ml Balance 100 ml 480 ml -70 ml Exam GENERAL: Well-developed, obese female, currently is awake. HEENT: Head is atraumatic, normocephalic. PERRLA. NECK: Supple. Tracheostomy at the base of the neck with no bleeding. CHEST: Lung sounds slightly diminished at the bases. HEART: Normal S1, S2. No murmurs, gallops, clicks, rubs noted. ABDOMEN: Round, soft, nondistended, nontender. G-tube present. EXTREMITIES: No edema, clubbing, cyanosis. Pulses equal bilaterally, 2+. SKIN: There is no rash noted. NEUROLOGIC: The patient with advanced multiple sclerosis, opens eyes, nonverbal. Results Result Diagram: 06/13/16 0510 06/13/16 0510 Results 24 hrs Laboratory Tests Test 06/13/16 05:10 Anion Gap 13 Basophils # 0.0 Basophils % 0.1 Blood Morphology Comment Blood Urea Nitrogen 20 Calcium Level 7.6 L Carbon Dioxide Level 23 Chloride Level 112 H Creatinine 0.29 L Differential Comment AUTO w/SCAN Eosinophils # 0.1 Eosinophils % 1.4 Glucose Level 143 Hematocrit 30.7 L Hemoglobin 10.7 L Lymphocytes # 1.0 Lymphocytes % 21.1 Mean Corpuscular Hemoglobin 34.7 H Mean Corpuscular Hemoglobin Concent 34.9 Mean Corpuscular Volume 99.5 Mean Platelet Volume 12.6 H Monocytes # 0.4 Monocytes % 8.7 Neutrophils # 3.3 Neutrophils % 68.7 Nucleated Red Blood Cells # 0.0 Nucleated Red Blood Cells % 0.0 Platelet Count 61 L Platelet Estimate PLT APPEAR DECREASED Potassium Level 4.2 Red Blood Count 3.08 L Red Cell Distribution Width 13.7 Sodium Level 144 Vancomycin Level Trough 9.3 L White Blood Count 4.9 # Medications Medications Current Medications Sodium Chloride (1/2 NS) 1,000 ml @ 100 mls/hr Q10H IV Last administered on 21:57; Admin Dose 100 MLS/HR; Start 06/09/16 at 22:47 Ondansetron HCl (Zofran Inj) 4 mg Q6H PRN IV NAUSEA AND/OR VOMITING; Start 06/09 at 23:00 Morphine Sulfate (morphine) 2 mg Q4H PRN IV SEVERE PAIN LEVEL 7-10; Start at 23:00 Enoxaparin Sodium (Lovenox) 40 mg DAILY SC ; Start 06/10/16 at 09:00; Status Future Hold Bisacodyl (Dulcolax Supp) 10 mg Q24H PRN [place] CONSTIPATION; Start 06/09/16 at 23: 00 Chlorhexidine Gluconate (Peridex) 15 ml BID MM Last administered on 06/13/16 09:03; Admin Dose 15 ML; Start 06/10/16 at 09:00 Furosemide (Lasix) 40 mg DAILY@06 GTB Last administered on 06/13/16 05:17; Admin Dose 40 MG; Start 06/10/16 at 06:00 Acetaminophen/ Hydrocodone Bitart ([place] (5/325)) 1 tab Q6 PRN GTB PAIN LEVEL 7 -10; Start 06/09/16 at 23:00 Lansoprazole (Prevacid) 30 mg DAILY@06 GTB Last administered on 06/13/16 05:17 ; Admin Dose 30 MG; Start 06/10/16 at 06:00 Multivitamins (Thera-Plus) 5 ml DAILY GTB Last administered on 06/13/16 09:02 ; Admin Dose 5 ML; Start 06/10/16 at 09:00 Sodium Biphosphate/ Sodium Phosphate (Fleet Enema) 118 ml Q48H PRN [place] CONSTIPATION; Start 06/09/16 at 23:00 Ondansetron HCl (Zofran Tab) 4 mg Q6H PRN GTB NAUSEA AND/OR VOMITING; Start 06/09/16 at 23:00 Docusate Sodium (Colace Liquid Cup) 100 mg BID PRN GTB CONSTIPATION Last administered on 06/10/16 09:50; Admin Dose 100 MG; Start 06/09/16 at 23:00 Acetaminophen (Tylenol Liquid) 650 mg Q4H PRN GTB PAIN AND OR ELEVATED TEMP; Start 06/09/16 at 23:45 Ferrous Sulfate (Feosol Liquid Cup) 300 mg DAILY GTB Last administered on 09:03; Admin Dose 300 MG; Start 06/10/16 at 09:00 Magnesium Hydroxide (Milk Of Mag) 5 ml DAILY GTB Last administered on 09:03; Admin Dose 5 ML; Start 06/10/16 at 09:00 Phenytoin (Dilantin Susp Cup) 300 mg BID GTB Last administered on 06/13/16 09: 02; Admin Dose 300 MG; Start 06/10/16 at 09:00 Valproate Sodium (Depakene Liquid Cup) 1,500 mg BID GTB Last administered on 09:02; Admin Dose 1,500 MG; Start 06/10/16 at 09:00 Potassium Chloride 20 meq 20 meq DAILY GTB Last administered on 06/13/16 09:03 ; Admin Dose 20 MEQ; Start 06/10/16 at 09:00 Meropenem/Sodium Chloride (Merrem/NS) 100 ml @ 200 mls/hr Q12 IVPB Last administered on 06/12/16 09:47; Admin Dose 200 MLS/HR; Start 06/11/16 at 12:00 Aspirin (Aspirin) 81 mg DAILY PO Last administered on 06/13/16 09:04; Admin Dose 81 MG; Start 06/12/16 at 09:00 FRANDY WHEAT Jun 13, 2016 16:00
--- NOTE | 2016-06-13 17:25 | RADRPT ---
PROCEDURE: XR Chest. CLINICAL INDICATION: Check PICC line position. TECHNIQUE: Single frontal view. COMPARISON: 06/09/2016. FINDINGS: There is a left arm PICC line with the tip in the left internal jugular vein. The tracheostomy tube remains in satisfactory position. There is atelectasis at the lung bases, new when compared with t he prior study. The heart size is normal. There is no pleural effusion. There is no pneumothorax. IMPRESSION: 1. Left arm PICC line tip in the left internal jugular vein. This should be repositioned. 2. Tracheostomy tube. 3. Atelectasis at the lung bases. Results given to the PICC line nurse immediately following the study. RPTAT: QQ .Pavel Carlson MD, MD Date Time Electronically viewed and signed by .Pavel Carlson MD, on 06/13/2016 17:25 .R/
--- NOTE | 2016-06-13 17:40 | RADRPT ---
PROCEDURE: Ultrasound guidance for placement of needle in left upper extremity vein. CLINICAL INDICATION: Venous access. TECHNIQUE: Limited sonography of the left upper extremity was performed. Ultrasound images were recorded and s tored in the patient's medical record. COMPARISON: None. FINDINGS: The ultrasound images demonstrate a patent left upper extremity vein. The PICC line was inserted by the PICC line nurse. IMPRESSION: 1. Ultrasound guidance for a needle placement in a left upper extremity vein. 2. The left upper extremity vein is patent. RPTAT: QQ .Pavel Carlson MD, MD Date Time Electronically viewed and signed by .Pavel Carlson MD, MD on 06/13/2016 17:40 .R/
--- NOTE | 2016-06-13 17:42 | RADRPT ---
PROCEDURE: XR Chest. CLINICAL INDICATION: Check PICC line position. TECHNIQUE: Single frontal view. COMPARISON: Prior study done earlier the same day. FINDINGS: There is a left arm PICC line with the tip in the lower superior vena cava. The tracheostomy tube r emains in satisfactory position. There is mild atelectasis at the lung bases, unchanged. The lungs are otherwise clear. The heart size is normal. There is no pleural effusion. There is no pneumothorax. IMPRESSION: 1. Satisfactory position of left arm PICC line. 2. Tracheostomy tube. 3. Mild atelectasis at the lung bases. RPTAT: QQ .Pavel Carlson MD, MD Date Time Electronically viewed and signed by .Pavel Carlson MD, MD on 06/13/2016 17:42 .R/
[2016-06-13] MEDS ORDERED: SOD CHLORIDE 0.9% 100 ML ONE (19:26)
[2016-06-13] MEDS: VANCOMYCIN 750 MG in SOD CHLORIDE 0.9% 150 ML IVPB SCH (21:46)
--- NOTE | 2016-06-13 22:50 | RADRPT ---
Vent Rate: 91 bpm RR Interval: 0 msec MN Interval: 130 msec QRS Duration: 76 msec QT Interval: 334 msec QTC Interval: 410 msec P-R-T [place]: 57 - 15 - 47 degrees Normal sinus rhythm Normal ECG Electronically Signed By: Kahlil Early [id number]
[2016-06-14] VITALS (20 sets, daily range): BP systolic 109–145; BP diastolic 59–114; PULSE 71–81; RESP 14–20
[2016-06-14] MEDS: SOD CHLORIDE 0.45% 1,000 ML IV SCH ×2 (04:00→09:06)
[2016-06-14] MEDS: LANSOPRAZOLE 30 MG CAP GTB SCH (06:02)
[2016-06-14] MEDS: FUROSEMIDE 40 MG TAB GTB SCH (06:03)
[2016-06-14 06:55] LABS: BASOPHILS % 0.3 % (0.0-2.0); EOSINOPHILS # 0.1 10^3/ul (0.0-0.5); EOSINOPHILS % 1.3 % (0.0-7.0); HEMATOCRIT 27.7 % (37.0-47.0); HEMOGLOBIN 9.9 g/dl (12.0-16.0); LYMPHOCYTES # 1.6 10^3/ul (0.8-2.9); LYMPHOCYTES % 35.1 % (15.0-51.0); MEAN CORPUSCULAR HEMOGLOBIN 35.5 pg (29.0-33.0); MEAN CORPUSCULAR HGB CONC 35.6 g/dl (32.0-37.0); MEAN CORPUSCULAR VOLUME 99.5 fl (82.0-101.0); MEAN PLATELET VOLUME 10.8 fl (7.4-10.4); MONOCYTE # 0.4 10^3/ul (0.3-0.9); MONOCYTES % 9.8 % (0.0-11.0); NEUTROPHIL # 2.5 10^3/ul (1.6-7.5); NEUTROPHILS % 53.5 % (39.0-77.0); RED BLOOD COUNT 2.78 10^6/ul (4.20-5.40); RED CELL DISTRIBUTION WIDTH 13.6 % (11.5-14.5); UNCORRECTED WBC 4.6 10^3/ul (4.8-10.8); WHITE BLOOD COUNT 4.6 10^3/ul (4.8-10.8)
[2016-06-14 07:02] LABS: CONDITION 1; NUCLEATED RED BLOOD CELLS # 0.1 10^3/ul (0.0-0.0)
[2016-06-14 07:03] LABS: PLATELET COUNT 96 10^3/UL (140-440)
[2016-06-14 07:04] LABS: POTASSIUM 3.3 mmol/L (3.5-5.1)
[2016-06-14 07:06] LABS: CREATININE 0.33 mg/dl (0.44-1.00)
[2016-06-14 07:07] LABS: CALCIUM 7.5 mg/dl (8.4-10.2)
[2016-06-14] MEDS: VANCOMYCIN 750 MG in SOD CHLORIDE 0.9% 150 ML IVPB SCH (09:06)
[2016-06-14] MEDS: ASPIRIN 81 MG TAB PO SCH (09:08)
[2016-06-14] MEDS: MAGNESIUM HYDROXIDE 30ML CUP GTB SCH (09:08)
[2016-06-14] MEDS: FERROUS SULFATE 60 MG/ML 5ML CUP GTB SCH (09:09)
[2016-06-14] MEDS: CHLORHEXIDINE GLUCONATE 15 ML UD CUP MM SCH (09:09)
[2016-06-14] MEDS: VALPROIC ACID LIQUID CUP 250 MG/5 ML CUP GTB SCH (09:09)
[2016-06-14] MEDS: POTASSIUM CHLORIDE 20 MEQ POWDER FOR ORAL SOLN GTB SCH (09:09)
[2016-06-14] MEDS: MULTIVITAMINS 5 ML CUP GTB SCH (09:10)
[2016-06-14] MEDS: PHENYTOIN (100 MG/4 ML) CUP GTB SCH (09:10)
[2016-06-14] MEDS: MEROPENEM 500 MG in SOD CHLORIDE 0.9% 100 ML IVPB SCH (11:11)
--- NOTE | 2016-06-14 11:47 | CONS ---
Date/Time of Note Date/Time of Note DATE: 06/14/16 TIME: 11:46 Consult Date/Type/Reason Admit Date/Time Jun 09, 2016 at 22:53 Type of Consultation: Pulm Ordering Provider: LONNY RANDHAWA Subjective Comfortable. Objective Vital Signs Date Time Temp Pulse Resp B/P Pulse Ox O2 Delivery O2 Flow Rate FiO2 06/14/16 11:10 88 14 100 40 06/14/16 07:43 98.0 110/75 06/11/16 16:00 Mechanical Ventilator Intake and Output 06/13/16 06/13/16 06/14/16 15:00 23:00 07:00 Intake Total 980 ml 1505 ml Output Total 950 ml 700 ml Balance 30 ml 805 ml PHYSICAL EXAMINATION: VITAL SIGNS: HEENT: Pupils are equal and reactive to light. NECK: Supple, no JVD noted, no cervical adenopathy noted, no carotid bruits heard. Tracheostomy site clear. LUNGS: Few scattered rhonchi. CARDIOVASCULAR: S1, S2 normal. ABDOMEN: Soft, nontender. No organomegaly or masses noted. EXTREMITIES: No clubbing or cyanosis noted. NEUROLOGIC: No changes. Results/Medications Result Diagram: 06/14/16 0600 06/14/16 0600 Results 24 hrs Laboratory Tests Test 06/14/16 06:00 Anion Gap 14 Basophils # 0.0 Basophils % 0.3 Blood Morphology Comment Blood Urea Nitrogen 19 Calcium Level 7.5 L Carbon Dioxide Level 25 Chloride Level 108 Creatinine 0.33 L Eosinophils # 0.1 Eosinophils % 1.3 Glucose Level 142 Hematocrit 27.7 L Hemoglobin 9.9 L Lymphocytes # 1.6 Lymphocytes % 35.1 Mean Corpuscular Hemoglobin 35.5 H Mean Corpuscular Hemoglobin Concent 35.6 Mean Corpuscular Volume 99.5 Mean Platelet Volume 10.8 H Monocytes # 0.4 Monocytes % 9.8 Neutrophils # 2.5 Neutrophils % 53.5 Nucleated Red Blood Cells # 0.1 H Nucleated Red Blood Cells % 2.0 H Platelet Count 96 #L Potassium Level 3.3 L Red Blood Count 2.78 L Red Cell Distribution Width 13.6 Sodium Level 144 White Blood Count 4.6 L Medications Current Medications Sodium Chloride (1/2 NS) 1,000 ml @ 100 mls/hr Q10H IV Last administered on t 09:06; Admin Dose 100 MLS/HR; Start 06/09/16 at 22:47 Ondansetron HCl (Zofran Inj) 4 mg Q6H PRN IV NAUSEA AND/OR VOMITING; Start 06/09 at 23:00 Morphine Sulfate (morphine) 2 mg Q4H PRN IV SEVERE PAIN LEVEL 7-10; Start at 23:00 Enoxaparin Sodium (Lovenox) 40 mg DAILY SC ; Start 06/10/16 at 09:00; Status Future Hold Bisacodyl (Dulcolax Supp) 10 mg Q24H PRN [place] CONSTIPATION; Start 06/09/16 at 23: 00 Chlorhexidine Gluconate (Peridex) 15 ml BID MM Last administered on 06/14/16 09:09; Admin Dose 15 ML; Start 06/10/16 at 09:00 Furosemide (Lasix) 40 mg DAILY@06 GTB Last administered on 06/14/16 06:03; Admin Dose 40 MG; Start 06/10/16 at 06:00 Acetaminophen/ Hydrocodone Bitart ([place] (5/325)) 1 tab Q6 PRN GTB PAIN LEVEL 7 -10; Start 06/09/16 at 23:00 Lansoprazole (Prevacid) 30 mg DAILY@06 GTB Last administered on 06/14/16 06:02 ; Admin Dose 30 MG; Start 06/10/16 at 06:00 Multivitamins (Thera-Plus) 5 ml DAILY GTB Last administered on 06/14/16 09:10 ; Admin Dose 5 ML; Start 06/10/16 at 09:00 Sodium Biphosphate/ Sodium Phosphate (Fleet Enema) 118 ml Q48H PRN [place] CONSTIPATION; Start 06/09/16 at 23:00 Ondansetron HCl (Zofran Tab) 4 mg Q6H PRN GTB NAUSEA AND/OR VOMITING; Start 06/09/16 at 23:00 Docusate Sodium (Colace Liquid Cup) 100 mg BID PRN GTB CONSTIPATION Last administered on 06/10/16 09:50; Admin Dose 100 MG; Start 06/09/16 at 23:00 Acetaminophen (Tylenol Liquid) 650 mg Q4H PRN GTB PAIN AND OR ELEVATED TEMP; Start 06/09/16 at 23:45 Ferrous Sulfate (Feosol Liquid Cup) 300 mg DAILY GTB Last administered on 09:09; Admin Dose 300 MG; Start 06/10/16 at 09:00 Magnesium Hydroxide (Milk Of Mag) 5 ml DAILY GTB Last administered on 09:08; Admin Dose 5 ML; Start 06/10/16 at 09:00 Phenytoin (Dilantin Susp Cup) 300 mg BID GTB Last administered on 06/14/16 09: 10; Admin Dose 300 MG; Start 06/10/16 at 09:00 Valproate Sodium (Depakene Liquid Cup) 1,500 mg BID GTB Last administered on 09:09; Admin Dose 1,500 MG; Start 06/10/16 at 09:00 Potassium Chloride 20 meq 20 meq DAILY GTB Last administered on 06/14/16 09:09 ; Admin Dose 20 MEQ; Start 06/10/16 at 09:00 Meropenem/Sodium Chloride (Merrem/NS) 100 ml @ 200 mls/hr Q12 IVPB Last administered on 06/14/16 11:11; Admin Dose 200 MLS/HR; Start 06/11/16 at 12:00 Aspirin (Aspirin) 81 mg DAILY PO Last administered on 06/14/16 09:08; Admin Dose 81 MG; Start 06/12/16 at 09:00 IV Flush 10 ml 10 ml PRN PRN IV IV PROTOCOL; Start 06/13/16 at 17:30 Vancomycin HCl/ Sodium Chloride (Vancocin/NS) 150 ml @ 75 mls/hr Q12H IVPB Last administered on 06/14/16 09:06; Admin Dose 75 MLS/HR; Start 06/13/16 at 20 :00 Assessment/Plan Chief Complaint/Hosp Course IMPRESSION: 1. Chronic respiratory failure, hypoxemic, tracheostomy dependent. 2. Status post sepsis. 3. Urinary tract infection. 4. History of multiple sclerosis. 5. History of pulmonary fibrosis. 6. Dysphagia. 7. Seizure disorder. 8. Encephalopathy. RECOMMENDATIONS: 1. Continue current antibiotics. 2. Continue nutritional support. 3. Pulmonary toilet. discharge planning ok from pulm standpoint. Problems: VERONICA FREEMAN MD, [facility] Jun 14, 2016 11:47
--- NOTE | 2016-06-14 13:04 | CONS ---
Date/Time of Note Date/Time of Note DATE: 06/14/16 TIME: 13:01 Assessment/Plan Assessment/Plan Chief Complaint/Hosp Course IMPRESSION: 1. Positive troponin now trended negative, assess significance, assess for true non-ST elevation myocardial infarction.. NL EF by echo this admit 2. Abnormal electrocardiogram with inferior Q's. Assess for acute coronary syndrome. 3. Hypotension, borderline. Follow blood pressure closely. 4. Respiratory failure, chronic, status post trach. 5. Dysphagia, status post G-tube. 6. Fevers. 7. Leukocytosis. 8. Multiple sclerosis. 9. Hypernatremia, mild-improved. 10. Anemia, mild. Recc: -Tele -serial ecg's -continue asa -follow volume status closely and daily PO lasix diuresis -Continue abx's -Continue dilantin -check venous AKUA to rule out DVT Problems: Consultation Date/Type/Reason Admit Date/Time Jun 09, 2016 at 22:53 Initial Consult Date 06/11/2016 Type of Consultation: Cardiology Reason for Consultation positive troponin Referring Provider: LONNY RANDHAWA Exam/Review of Systems Vital Signs Vitals Vital Signs Date Time Temp Pulse Resp B/P Pulse Ox O2 Delivery O2 Flow Rate FiO2 06/14/16 12:29 81 06/14/16 11:10 14 100 40 06/14/16 11:00 98.0 141/65 06/11/16 16:00 Mechanical Ventilator Intake and Output 06/13/16 06/13/16 06/14/16 15:00 23:00 07:00 Intake Total 980 ml 1505 ml Output Total 950 ml 700 ml Balance 30 ml 805 ml Exam Review of Systems: CONSTITUTIONAL: No fevers, chills. PULMONARY: trached CARDIOVASCULAR: No chest pain/palpitations GASTROINTESTINAL: No nausea/vomiting. GENITOURINARY: No hematuria/dysuria. MUSCULOSKELETAL: No myagias/arthalgias. PSYCHIATRIC: The patient denies depression. NEUROLOGIC: encephalopathy Constitutional: other (encephalopathic) Head: normocephalic ENMT: mucosa pink and moist Neck: jvd (9 cm water), supple Respiratory: diminished breath sounds Cardiovascular: regular rate and rhythm Gastrointestinal: non-tender, soft Musculoskeletal: muscle tone (normal) Extremities: edema (Bilateral at feet) Neurological: other (No focal deficits) Results Result Diagram: 06/14/16 0600 06/14/16 0600 Results 24 hrs Laboratory Tests Test 06/14/16 06:00 Anion Gap 14 Basophils # 0.0 Basophils % 0.3 Blood Morphology Comment Blood Urea Nitrogen 19 Calcium Level 7.5 L Carbon Dioxide Level 25 Chloride Level 108 Creatinine 0.33 L Eosinophils # 0.1 Eosinophils % 1.3 Glucose Level 142 Hematocrit 27.7 L Hemoglobin 9.9 L Lymphocytes # 1.6 Lymphocytes % 35.1 Mean Corpuscular Hemoglobin 35.5 H Mean Corpuscular Hemoglobin Concent 35.6 Mean Corpuscular Volume 99.5 Mean Platelet Volume 10.8 H Monocytes # 0.4 Monocytes % 9.8 Neutrophils # 2.5 Neutrophils % 53.5 Nucleated Red Blood Cells # 0.1 H Nucleated Red Blood Cells % 2.0 H Platelet Count 96 #L Potassium Level 3.3 L Red Blood Count 2.78 L Red Cell Distribution Width 13.6 Sodium Level 144 White Blood Count 4.6 L Medications Medications Current Medications Sodium Chloride (1/2 NS) 1,000 ml @ 100 mls/hr Q10H IV Last administered on 09:06; Admin Dose 100 MLS/HR; Start 06/09/16 at 22:47 Ondansetron HCl (Zofran Inj) 4 mg Q6H PRN IV NAUSEA AND/OR VOMITING; Start 06/09 at 23:00 Morphine Sulfate (morphine) 2 mg Q4H PRN IV SEVERE PAIN LEVEL 7-10; Start at 23:00 Enoxaparin Sodium (Lovenox) 40 mg DAILY SC ; Start 06/10/16 at 09:00; Status Future Hold Bisacodyl (Dulcolax Supp) 10 mg Q24H PRN [place] CONSTIPATION; Start 06/09/16 at 23: 00 Chlorhexidine Gluconate (Peridex) 15 ml BID MM Last administered on 06/14/16 09:09; Admin Dose 15 ML; Start 06/10/16 at 09:00 Furosemide (Lasix) 40 mg DAILY@06 GTB Last administered on 06/14/16 06:03; Admin Dose 40 MG; Start 06/10/16 at 06:00 Acetaminophen/ Hydrocodone Bitart ([place] (5/325)) 1 tab Q6 PRN GTB PAIN LEVEL 7 -10; Start 06/09/16 at 23:00 Lansoprazole (Prevacid) 30 mg DAILY@06 GTB Last administered on 06/14/16 06:02 ; Admin Dose 30 MG; Start 06/10/16 at 06:00 Multivitamins (Thera-Plus) 5 ml DAILY GTB Last administered on 06/14/16 09:10 ; Admin Dose 5 ML; Start 06/10/16 at 09:00 Sodium Biphosphate/ Sodium Phosphate (Fleet Enema) 118 ml Q48H PRN [place] CONSTIPATION; Start 06/09/16 at 23:00 Ondansetron HCl (Zofran Tab) 4 mg Q6H PRN GTB NAUSEA AND/OR VOMITING; Start 06/09/16 at 23:00 Docusate Sodium (Colace Liquid Cup) 100 mg BID PRN GTB CONSTIPATION Last administered on 06/10/16 09:50; Admin Dose 100 MG; Start 06/09/16 at 23:00 Acetaminophen (Tylenol Liquid) 650 mg Q4H PRN GTB PAIN AND OR ELEVATED TEMP; Start 06/09/16 at 23:45 Ferrous Sulfate (Feosol Liquid Cup) 300 mg DAILY GTB Last administered on 09:09; Admin Dose 300 MG; Start 06/10/16 at 09:00 Magnesium Hydroxide (Milk Of Mag) 5 ml DAILY GTB Last administered on 09:08; Admin Dose 5 ML; Start 06/10/16 at 09:00 Phenytoin (Dilantin Susp Cup) 300 mg BID GTB Last administered on 06/14/16 09: 10; Admin Dose 300 MG; Start 06/10/16 at 09:00 Valproate Sodium (Depakene Liquid Cup) 1,500 mg BID GTB Last administered on 09:09; Admin Dose 1,500 MG; Start 06/10/16 at 09:00 Potassium Chloride 20 meq 20 meq DAILY GTB Last administered on 06/14/16 09:09 ; Admin Dose 20 MEQ; Start 06/10/16 at 09:00 Meropenem/Sodium Chloride (Merrem/NS) 100 ml @ 200 mls/hr Q12 IVPB Last administered on 06/14/16 11:11; Admin Dose 200 MLS/HR; Start 06/11/16 at 12:00 Aspirin (Aspirin) 81 mg DAILY PO Last administered on 06/14/16 09:08; Admin Dose 81 MG; Start 06/12/16 at 09:00 IV Flush 10 ml 10 ml PRN PRN IV IV PROTOCOL; Start 06/13/16 at 17:30 Vancomycin HCl/ Sodium Chloride (Vancocin/NS) 150 ml @ 75 mls/hr Q12H IVPB Last administered on 06/14/16 09:06; Admin Dose 75 MLS/HR; Start 06/13/16 at 20 :00 [employer] Jun 14, 2016 13:04
--- NOTE | 2016-06-14 13:23 | PN ---
Date/Time of Note Date/Time of Note DATE: 06/14/16 TIME: 13:17 Assessment/Plan Lines/Catheters IV Catheter Type (from [facility]): PICC Line Urinary Cath still in place: Yes Assessment/Plan Assessment/Plan 1. Sepsis secondary to urinary tract infection. The patient is followed by Dr. Gillette in infectious disease consultation. 2. Escherichia coli extended-spectrum beta-lactamase urinary tract infection. - on meropenem and vancomycin. 3. Gram-positive cocci in clusters bacteremia on admission. 4. Ventilator-dependent respiratory failure. - per Dr. Martin in pulmonology consultation. Continue ventilator support, bronchodilators. 5. History of advanced multiple sclerosis. 6. Seizure disorder. Continue Dilantin. - seizure precautions 7. Dysphagia with percutaneous endoscopic gastrostomy. Continue current tube feeding, monitor residual, aspiration precautions. 8. Elevated troponin on admission. - per Dr. Blanca in cardiology consultation. Continue aspirin. 9. Hypokalemia- replet K 10. Edema BLE -Venous Doppler to r/o DVT Continue Prevacid for peptic ulcer disease prophylaxis and sequential compression devices for deep venous thrombosis prophylaxis. Further recommendations based on clinical course. Plan for SNF transfer Plan of care discussed with Dr. Terry. Exam/Review of Systems Vital Signs Vitals Vital Signs Date Time Temp Pulse Resp B/P Pulse Ox O2 Delivery O2 Flow Rate FiO2 06/14/16 12:29 81 06/14/16 11:10 14 100 40 06/14/16 11:00 98.0 141/65 06/11/16 16:00 Mechanical Ventilator Intake and Output 06/13/16 06/13/16 06/14/16 15:00 23:00 07:00 Intake Total 980 ml 1505 ml Output Total 950 ml 700 ml Balance 30 ml 805 ml Results Result Diagram: 06/14/16 0600 06/14/16 0600 Results 24 hrs Laboratory Tests Test 06/14/16 06:00 Anion Gap 14 Basophils # 0.0 Basophils % 0.3 Blood Morphology Comment Blood Urea Nitrogen 19 Calcium Level 7.5 L Carbon Dioxide Level 25 Chloride Level 108 Creatinine 0.33 L Eosinophils # 0.1 Eosinophils % 1.3 Glucose Level 142 Hematocrit 27.7 L Hemoglobin 9.9 L Lymphocytes # 1.6 Lymphocytes % 35.1 Mean Corpuscular Hemoglobin 35.5 H Mean Corpuscular Hemoglobin Concent 35.6 Mean Corpuscular Volume 99.5 Mean Platelet Volume 10.8 H Monocytes # 0.4 Monocytes % 9.8 Neutrophils # 2.5 Neutrophils % 53.5 Nucleated Red Blood Cells # 0.1 H Nucleated Red Blood Cells % 2.0 H Platelet Count 96 #L Potassium Level 3.3 L Red Blood Count 2.78 L Red Cell Distribution Width 13.6 Sodium Level 144 White Blood Count 4.6 L Medications Medications Current Medications Sodium Chloride (1/2 NS) 1,000 ml @ 100 mls/hr Q10H IV Last administered on 09:06; Admin Dose 100 MLS/HR; Start 06/09/16 at 22:47 Ondansetron HCl (Zofran Inj) 4 mg Q6H PRN IV NAUSEA AND/OR VOMITING; Start 06/09 at 23:00 Morphine Sulfate (morphine) 2 mg Q4H PRN IV SEVERE PAIN LEVEL 7-10; Start at 23:00 Enoxaparin Sodium (Lovenox) 40 mg DAILY SC ; Start 06/10/16 at 09:00; Status Future Hold Bisacodyl (Dulcolax Supp) 10 mg Q24H PRN [place] CONSTIPATION; Start 06/09/16 at 23: 00 Chlorhexidine Gluconate (Peridex) 15 ml BID MM Last administered on 06/14/16 09:09; Admin Dose 15 ML; Start 06/10/16 at 09:00 Furosemide (Lasix) 40 mg DAILY@06 GTB Last administered on 06/14/16 06:03; Admin Dose 40 MG; Start 06/10/16 at 06:00 Acetaminophen/ Hydrocodone Bitart ([place] (5/325)) 1 tab Q6 PRN GTB PAIN LEVEL 7 -10; Start 06/09/16 at 23:00 Lansoprazole (Prevacid) 30 mg DAILY@06 GTB Last administered on 06/14/16 06:02 ; Admin Dose 30 MG; Start 06/10/16 at 06:00 Multivitamins (Thera-Plus) 5 ml DAILY GTB Last administered on 06/14/16 09:10 ; Admin Dose 5 ML; Start 06/10/16 at 09:00 Sodium Biphosphate/ Sodium Phosphate (Fleet Enema) 118 ml Q48H PRN [place] CONSTIPATION; Start 06/09/16 at 23:00 Ondansetron HCl (Zofran Tab) 4 mg Q6H PRN GTB NAUSEA AND/OR VOMITING; Start 06/09/16 at 23:00 Docusate Sodium (Colace Liquid Cup) 100 mg BID PRN GTB CONSTIPATION Last administered on 06/10/16 09:50; Admin Dose 100 MG; Start 06/09/16 at 23:00 Acetaminophen (Tylenol Liquid) 650 mg Q4H PRN GTB PAIN AND OR ELEVATED TEMP; Start 06/09/16 at 23:45 Ferrous Sulfate (Feosol Liquid Cup) 300 mg DAILY GTB Last administered on 09:09; Admin Dose 300 MG; Start 06/10/16 at 09:00 Magnesium Hydroxide (Milk Of Mag) 5 ml DAILY GTB Last administered on 09:08; Admin Dose 5 ML; Start 06/10/16 at 09:00 Phenytoin (Dilantin Susp Cup) 300 mg BID GTB Last administered on 06/14/16 09: 10; Admin Dose 300 MG; Start 06/10/16 at 09:00 Valproate Sodium (Depakene Liquid Cup) 1,500 mg BID GTB Last administered on 09:09; Admin Dose 1,500 MG; Start 06/10/16 at 09:00 Potassium Chloride 20 meq 20 meq DAILY GTB Last administered on 06/14/16 09:09 ; Admin Dose 20 MEQ; Start 06/10/16 at 09:00 Meropenem/Sodium Chloride (Merrem/NS) 100 ml @ 200 mls/hr Q12 IVPB Last administered on 06/14/16 11:11; Admin Dose 200 MLS/HR; Start 06/11/16 at 12:00 Aspirin (Aspirin) 81 mg DAILY PO Last administered on 06/14/16 09:08; Admin Dose 81 MG; Start 06/12/16 at 09:00 IV Flush 10 ml 10 ml PRN PRN IV IV PROTOCOL; Start 06/13/16 at 17:30 Vancomycin HCl/ Sodium Chloride (Vancocin/NS) 150 ml @ 75 mls/hr Q12H IVPB Last administered on 06/14/16 09:06; Admin Dose 75 MLS/HR; Start 06/13/16 at 20 :00 JOSH CUNNINGHAM Jun 14, 2016 13:23
--- NOTE | 2016-06-14 15:16 | CONS ---
Date/Time of Note Date/Time of Note DATE: 06/14/16 TIME: 15:13 Consult Date/Type/Reason Admit Date/Time Jun 09, 2016 at 22:53 Type of Consultation: ID Ordering Provider: LONNY RANDHAWA Subjective no acute changes, no fevers, nad Objective Vital Signs Date Time Temp Pulse Resp B/P Pulse Ox O2 Delivery O2 Flow Rate FiO2 06/14/16 13:35 84 14 100 40 06/14/16 11:00 98.0 141/65 06/11/16 16:00 Mechanical Ventilator Intake and Output 06/13/16 06/13/16 06/14/16 15:00 23:00 07:00 Intake Total 980 ml 1505 ml Output Total 950 ml 700 ml Balance 30 ml 805 ml Results/Medications Result Diagram: 06/14/16 0600 06/14/16 0600 Results 24 hrs Laboratory Tests Test 06/14/16 06:00 Anion Gap 14 Basophils # 0.0 Basophils % 0.3 Blood Morphology Comment Blood Urea Nitrogen 19 Calcium Level 7.5 L Carbon Dioxide Level 25 Chloride Level 108 Creatinine 0.33 L Eosinophils # 0.1 Eosinophils % 1.3 Glucose Level 142 Hematocrit 27.7 L Hemoglobin 9.9 L Lymphocytes # 1.6 Lymphocytes % 35.1 Mean Corpuscular Hemoglobin 35.5 H Mean Corpuscular Hemoglobin Concent 35.6 Mean Corpuscular Volume 99.5 Mean Platelet Volume 10.8 H Monocytes # 0.4 Monocytes % 9.8 Neutrophils # 2.5 Neutrophils % 53.5 Nucleated Red Blood Cells # 0.1 H Nucleated Red Blood Cells % 2.0 H Platelet Count 96 #L Potassium Level 3.3 L Red Blood Count 2.78 L Red Cell Distribution Width 13.6 Sodium Level 144 White Blood Count 4.6 L Medications Current Medications Sodium Chloride (1/2 NS) 1,000 ml @ 100 mls/hr Q10H IV Last administered on t 09:06; Admin Dose 100 MLS/HR; Start 06/09/16 at 22:47 Ondansetron HCl (Zofran Inj) 4 mg Q6H PRN IV NAUSEA AND/OR VOMITING; Start 06/09 at 23:00 Morphine Sulfate (morphine) 2 mg Q4H PRN IV SEVERE PAIN LEVEL 7-10; Start at 23:00 Enoxaparin Sodium (Lovenox) 40 mg DAILY SC ; Start 06/10/16 at 09:00; Status Future Hold Bisacodyl (Dulcolax Supp) 10 mg Q24H PRN [place] CONSTIPATION; Start 06/09/16 at 23: 00 Chlorhexidine Gluconate (Peridex) 15 ml BID MM Last administered on 06/14/16 09:09; Admin Dose 15 ML; Start 06/10/16 at 09:00 Furosemide (Lasix) 40 mg DAILY@06 GTB Last administered on 06/14/16 06:03; Admin Dose 40 MG; Start 06/10/16 at 06:00 Acetaminophen/ Hydrocodone Bitart ([place] (5/325)) 1 tab Q6 PRN GTB PAIN LEVEL 7 -10; Start 06/09/16 at 23:00 Lansoprazole (Prevacid) 30 mg DAILY@06 GTB Last administered on 06/14/16 06:02 ; Admin Dose 30 MG; Start 06/10/16 at 06:00 Multivitamins (Thera-Plus) 5 ml DAILY GTB Last administered on 06/14/16 09:10 ; Admin Dose 5 ML; Start 06/10/16 at 09:00 Sodium Biphosphate/ Sodium Phosphate (Fleet Enema) 118 ml Q48H PRN [place] CONSTIPATION; Start 06/09/16 at 23:00 Ondansetron HCl (Zofran Tab) 4 mg Q6H PRN GTB NAUSEA AND/OR VOMITING; Start 06/09/16 at 23:00 Docusate Sodium (Colace Liquid Cup) 100 mg BID PRN GTB CONSTIPATION Last administered on 06/10/16 09:50; Admin Dose 100 MG; Start 06/09/16 at 23:00 Acetaminophen (Tylenol Liquid) 650 mg Q4H PRN GTB PAIN AND OR ELEVATED TEMP; Start 06/09/16 at 23:45 Ferrous Sulfate (Feosol Liquid Cup) 300 mg DAILY GTB Last administered on 09:09; Admin Dose 300 MG; Start 06/10/16 at 09:00 Magnesium Hydroxide (Milk Of Mag) 5 ml DAILY GTB Last administered on 09:08; Admin Dose 5 ML; Start 06/10/16 at 09:00 Phenytoin (Dilantin Susp Cup) 300 mg BID GTB Last administered on 06/14/16 09: 10; Admin Dose 300 MG; Start 06/10/16 at 09:00 Valproate Sodium (Depakene Liquid Cup) 1,500 mg BID GTB Last administered on 09:09; Admin Dose 1,500 MG; Start 06/10/16 at 09:00 Potassium Chloride 20 meq 20 meq DAILY GTB Last administered on 06/14/16 09:09 ; Admin Dose 20 MEQ; Start 06/10/16 at 09:00 Meropenem/Sodium Chloride (Merrem/NS) 100 ml @ 200 mls/hr Q12 IVPB Last administered on 06/14/16 11:11; Admin Dose 200 MLS/HR; Start 06/11/16 at 12:00 Aspirin (Aspirin) 81 mg DAILY PO Last administered on 06/14/16 09:08; Admin Dose 81 MG; Start 06/12/16 at 09:00 IV Flush 10 ml 10 ml PRN PRN IV IV PROTOCOL; Start 06/13/16 at 17:30 Vancomycin HCl/ Sodium Chloride (Vancocin/NS) 150 ml @ 75 mls/hr Q12H IVPB Last administered on 06/14/16 09:06; Admin Dose 75 MLS/HR; Start 06/13/16 at 20 :00 Assessment/Plan Chief Complaint/Hosp Course ANTIMICROBIALS: The patient is on: 1. IV vancomycin 2. Meropenem. INDWELLINGS: Trach, PEG, Kim. PHYSICAL EXAMINATION: GENERAL: This is an obese, chronically ill-appearing, elderly woman who is awake, noncommunicativein no distress. HEENT: Head atraumatic, normocephalic. Sclerae anicteric. Buccal mucosa dry. NECK: Supple. CHEST: Rise symmetrical. Breath sounds diminished to bases. HEART: S1, S2. ABDOMEN: Soft. Bowel tones present. EXTREMITIES: Without cyanosis. Bilateral edema. ASSESSMENT: 1. S/p septic shock 2. Urinary tract infection with urine culture growing Escherichia coli extended -spectrum beta-lactamase. 3. Staph bacteremia==> present on admission. Repeat blood cultures negative. 4. Chronic respiratory failure. 5. Dysphagia. 6. Advanced multiple sclerosis with functional quadriplegia. PLAN: Stable, continue present care, vent management per pulmonary, ok dc on Merrem for 7 more days . [facility] staff Problems: NICHOLAS CRUZ NP Jun 14, 2016 15:16
[2016-06-14] MEDS ORDERED: POTASSIUM CHLORIDE 20 MEQ POWDER FOR ORAL SOLN GTB ONE (15:30)
--- NOTE | 2016-06-14 16:54 | RADRPT ---
PROCEDURE: US DVT. CLINICAL INDICATION: Asymmetric lower extremity edema.. TECHNIQUE: Multiple longitudinal and transverse images of the bilateral lower extremity veins were obtained with huffman scale and color Doppler imaging. 2D grayscale measurements with compression, co jaleel Doppler flow, and augmentation was performed. The calf veins were interrogated as well. COMPARISON: No prior studies are available for comparison. FINDINGS: The bilateral common femoral, superficial femoral and popliteal veins are normally compressible thro ughout. Color flow demonstrates normal filling of the vessel. Normal waveforms are visualized and there is normal response to augmentation. The calf veins are visualized and are equally unremarkabl e. IMPRESSION: 1. No evidence of a deep vein thrombosis involving either lower extremity. RPTAT: [facility] Physician Lencho Date Time Electronically viewed and signed by Physician Lencho on 06/14/2016 16:54 /
== END 2016-06-14 20:08 | DRG 870 ==
LOC: E/R 14:00 → ICU 22:53 → TEL 06-11 18:20
PROVIDERS: ADMIT Internal Medicine; ATTEND Internal Medicine
PROC: 5A1955Z Respiratory Ventilation, Greater than 96 Consecutive Hours (ICD-10-PCS; principal; 2016-06-09)
PROC: 05HN33Z Insertion of Infusion Device into Left Internal Jugular Vein, Percutaneous Approach (ICD-10-PCS; 2016-06-13)
PROC: B544ZZA Ultrasonography of Left Jugular Veins, Guidance (ICD-10-PCS; 2016-06-13)
DX: A41.51 Sepsis due to Escherichia coli [E. coli] (principal); R65.21 Severe sepsis with septic shock; G93.40 Encephalopathy, unspecified; Z99.11 Dependence on respirator [ventilator] status; J84.10 Pulmonary fibrosis, unspecified; N17.9 Acute kidney failure, unspecified; J96.11 Chronic respiratory failure with hypoxia; R53.2 Functional quadriplegia; N39.0 Urinary tract infection, site not specified; E87.0 Hyperosmolality and hypernatremia; Z87.440 Personal history of urinary (tract) infections; G35 Multiple sclerosis; Z43.0 Encounter for attention to tracheostomy; Z93.1 Gastrostomy status; Z79.01 Long term (current) use of anticoagulants; R13.10 Dysphagia, unspecified; G40.909 Epilepsy, unspecified, not intractable, without status epilepticus; D64.9 Anemia, unspecified; E87.6 Hypokalemia; R79.89 Other specified abnormal findings of blood chemistry; E66.9 Obesity, unspecified; Z68.32 Body mass index [BMI] 32.0-32.9, adult; R94.31 Abnormal electrocardiogram [ECG] [EKG]; R65.20 Severe sepsis without septic shock; B95.8 Unspecified staphylococcus as the cause of diseases classified elsewhere; R60.0 Localized edema
CPT/HCPCS: 36569; 36600; 71010; 76937; 80048; 80053; 80061; 80202; 81001; 81003; 82550; 82553; 82803; 82962; 83605; 83735; 84100; 84484; 85025; 85610; 85730; 87040; 87081; 87086; 87400; 93005; 93306; 93965; 94002; 94003; C1769; J2185; J2543; J3370; J7030; J7050

== ENCOUNTER 2016-06-27 07:14 | Inpatient (IN) | payer OTHER ==
[~2016-06-27] VITALS: Ht 157.5 cm; Wt 93.4 kg
[~2016-06-27 07:14] MED LIST changes: -ASCO500C7 JT; +DIL125/5 GTB; +FERR220S13 GTB; +FURO-109 GTB; -FURO40TA GTB; -LEVE750T32 JT; -PHEN125O2 JT; +POTA20LI5 GTB; -POTA20TA96 GTB; +TYL500 GTB
[2016-06-27] MEDS ORDERED: LORAZEPAM 2 MG INJ ONE (07:23)
[2016-06-27] MEDS ORDERED: SOD CHLORIDE 0.9% 1,000 ML IV STA (08:06)
[2016-06-27 08:25] LABS: BASOPHILS % 0.1 % (0.0-2.0); EOSINOPHILS % 0.1 % (0.0-7.0); HEMATOCRIT 34.9 % (37.0-47.0); HEMOGLOBIN 12.1 g/dl (12.0-16.0); LYMPHOCYTES # 0.4 10^3/ul (0.8-2.9); LYMPHOCYTES % 3.3 % (15.0-51.0); MEAN CORPUSCULAR HEMOGLOBIN 34.9 pg (29.0-33.0); MEAN CORPUSCULAR HGB CONC 34.7 g/dl (32.0-37.0); MEAN CORPUSCULAR VOLUME 100.6 fl (82.0-101.0); MEAN PLATELET VOLUME 8.8 fl (7.4-10.4); MONOCYTE # 0.6 10^3/ul (0.3-0.9); MONOCYTES % 4.1 % (0.0-11.0); NEUTROPHIL # 12.7 10^3/ul (1.6-7.5); NEUTROPHILS % 92.4 % (39.0-77.0); PLATELET COUNT 230 10^3/UL (140-440); RED BLOOD COUNT 3.46 10^6/ul (4.20-5.40); RED CELL DISTRIBUTION WIDTH 14.4 % (11.5-14.5); UNCORRECTED WBC 13.7 10^3/ul (4.8-10.8); WHITE BLOOD COUNT 13.7 10^3/ul (4.8-10.8)
--- NOTE | 2016-06-27 08:28 | RADRPT ---
PROCEDURE: XR Chest. CLINICAL INDICATION: Sepsis TECHNIQUE: A single AP view of the chest was obtained. COMPARISON: None available FINDINGS: A tracheostomy tube is in place Lung volumes are low. There is prominence of the interstitial markings. There left lower lobe inte rstitial opacities. No pleural effusion or pneumothorax is seen. The cardiomediastinal silhouette i s mildly enlarged. Calcifications are seen within the aortic arch. The osseous structures demonstr ate senescent changes. IMPRESSION: 1. Left basilar interstitial opacities, at least partially related to atelectasis. Overall, no si gnificant interval change. 2. Low lung volumes with prominence of the interstitial markings, may reflect mild underlying inter stitial edema or chronic lung changes, also unchanged. 3. Mild cardiomegaly and aortic atherosclerosis. 4. Tracheostomy tube in place. RPTAT: HH .Angela George MD, Date Time Electronically viewed and signed by .Angela George MD, on 06/27/2016 08:28 .G/
[2016-06-27 08:30] LABS: CONDITION 1; LH ANALYZER COMMENTS 1
[2016-06-27] MEDS ORDERED: LORAZEPAM 2 MG INJ IV ONE (08:30)
[2016-06-27 08:46] LABS: ALBUMIN 3.7 g/dl (3.3-4.9); POTASSIUM 4.1 mmol/L (3.5-5.1)
[2016-06-27] MEDS ORDERED: SODIUM CHLORIDE 0.9% 1L BAG IV* STA (08:47)
[2016-06-27] MEDS ORDERED: CEFEPIME 2GM/50 ML (PMX) 50 ML IVPB STA (08:48)
[2016-06-27] MEDS ORDERED: VANCOMYCIN 1 GM (PMX) 250 ML IVPB STA (08:48)
[2016-06-27 08:49] LABS: ALBUMIN/GLOBULIN RATIO 0.92; CREATININE 0.31 mg/dl (0.44-1.00); INR 0.96; PROTIME 12.8 Sec (12.2-14.2); TOTAL PROTEIN 7.7 g/dl (6.1-8.1)
[2016-06-27 08:50] LABS: CALCIUM 8.8 mg/dl (8.4-10.2); PARTIAL THROMBOPLASTIN TIME 24.3 Sec (25.0-35.0)
[2016-06-27 09:00] LABS: TROPONIN-I 0.055 ng/ml (0.00-0.12)
[2016-06-27 09:59] LABS: ADD UMIC YES; URINE BILIRUBIN (Dip) NEGATIVE (NEGATIVE); URINE BLOOD (Dip) 3+ (NEGATIVE); URINE COLOR YELLOW (YELLOW); URINE GLUCOSE (Dip) NEGATIVE (NEGATIVE); URINE KETONES (Dip) TRACE (NEGATIVE); URINE LEUKOCYTE ESTERASE (Dip) TRACE (NEGATIVE); URINE NITRITE (Dip) POSITIVE (NEGATIVE); URINE TOTAL PROTEIN (Dip) 1+ (NEGATIVE); URINE UROBILINOGEN (Dip) 0.2 E.U./dL (0.1-1.0)
--- NOTE | 2016-06-27 10:21 | RADRPT ---
AMENDMENT: 06/27/2016 10:22:23 AM You Raymond M.D Early ischemic injury may be occult to CT imaging and diffusion weighted MRI may be considered as cl inically warranted. PROCEDURE: CT Brain without contrast. CLINICAL INDICATION: Recurrent seizures. Possible sepsis. TECHNIQUE: A multiplanar CT of the brain was performed on a CT scanner utilizing axial imaging fro m the skull base through the vertex without IV contrast. The CTDIvol is 44.46 mGy and the DLP is 63 0.20 mGycm. One or more of the following dose reduction techniques were utilized: Automated exposu re control, adjustment of the mA and/or kV according to patient size, use of iterative reconstructio n technique. COMPARISON: None FINDINGS: No evidence of intracranial hemorrhage or abnormal extra-axial fluid collection. Extensive patchy and confluent areas of low attenuation throughout the deep white matter bilaterally . Asymmetric parenchymal volume loss of the right frontal and temporal lobes with right periventric ular leukomalacia. There is no significant interval change compared to prior CT brain 09/23/2014. T his is likely in part developmental in nature. No mass effect, edema, or shift. Hyperostosis frontalis. Hypoplastic bilateral mastoid air cells. Arterial atherosclerotic calcifications of the vertebral arteries. The posterior fossa contents, brainstem, craniocervical junction, orbits, pituitary axis, paranasal sinuses, and calvarium are unremarkable. IMPRESSION: 1. No intracranial hemorrhage or acute intracranial. 2. No marked asymmetric parenchymal volume loss greater on the right with periventricular leukomala kevin and ex vacuo dilatation of the right lateral ventricle. RPTAT:AAJJ Physician Abdiel Date Time Electronically viewed and signed by Physician Abdiel on 06/27/2016 10:22 MARY/
[2016-06-27] MEDS ORDERED: SOD CHLORIDE 0.9% 1,000 ML IV SCH (10:23)
[2016-06-27] MEDS ORDERED: ACETAMINOPHEN 325 MG TAB PO PRN (10:30)
[2016-06-27] MEDS ORDERED: ONDANSETRON 4 MG INJ IV PRN (10:30)
--- NOTE | 2016-06-27 10:38 | ERA ---
ER Documentation Chief Complaint Date/Time DATE: 06/27/16 TIME: 10:33 Chief Complaint Hx of seizures more frequent seizures and agitated today at [facility] HPI This is a 61-year-old female who presents to the emergency room for evaluation of seizures. This patient is unable to give a history secondary to her clinical condition. 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 She does also have a PEG tube. According to [place] [facility] notes this patient has been seizing more than usual today. When I evaluated this patient she had an active focal seizure ROS All systems reviewed and are negative except as per history of present illness. Medications Home Meds Active Scripts Enoxaparin Sodium* (Enoxaparin Sodium*) 40 Mg/0.4 Ml Soln, 40 MG SC DAILY for 30 Days Prov:MARTHA ODOM BILINGUAL NANNY 04/01/14 Reported Medications Phenytoin (Dilantin) 100 Mg/4 Ml Susp, 300 MG GTB BID for 30 Days, BOTTLE 06/09/16 Ferrous Sulfate* (Ferrous Sulfate*) 220 Mg/5 Ml Solution, 220 MG GTB DAILY, ML 06/09/16 Potassium Chloride* (Potassium Chloride*) 20 Meq/15 Ml Liquid, 20 MEQ GTB DAILY , ML 06/09/16 Acetaminophen* (Tylenol*) 500 Mg Tab, 1000 MG GTB Q4H Y for PAIN -11/10, TAB 06/09/16 Ondansetron Hcl* (Zofran*) 4 Mg Tablet, 4 MG GTB Q6H Y for NAUSEA AND OR VOMITING, TAB 08/31/15 Furosemide* (Lasix*) 40 Mg Tablet, 40 MG GTB DAILY, TAB 08/31/15 Chlorhexidine Gluconate* (Peridex*) 480 Ml Mouthwash, 15 ML MM BID, ML 08/31/15 Albuterol Sulfate* (Albuterol Sulfate* Neb) 0.083%-3 Ml Neb, 2.5 MG NEB Q3H Y for WHEEZING AND SOB, #30 VIAL 08/31/15 Valproioc Acid* (Depakene* Liq) 50 Mg/Ml Syrup, 1500 MG GTB BID, ML 08/31/15 Magnesium Hydroxide* (Milk Of Magnesia*) 2,400 Mg/10 Oral.susp, 5 ML GTB DAILY , ML 08/31/15 Cran/Vitc/Mannose/Inulin/Brom (Uti-Stat Liquid) 3,875 Mg/30 Ml Liquid, 3875 MG GTB DAILY 09/13/14 Lansoprazole* (Prevacid*) 30 Mg Capsule.dr, 30 MG GTB DAILY, CAP 09/13/14 Acetaminophen* (Acetaminophen*) 325 Mg Tablet, 650 MG GTB Q4H Y for PAIN AND OR ELEVATED TEMP, TAB TRACH TUBE CHANGE, FEVER 101F, PAIN1-303/16/14 Multivitamins* (Multi-Delyn* Liq) 473 Ml Liquid, 5 ML GTB DAILY, ML 03/16/14 Na Phos,M-B/Na Phos,Di-Ba* (Fleet* Enema) 118 Ml Enema, 118 ML AR Q48H Y for CONSTIPATION, ENEMA 03/16/14 Bisacodyl* (Dulcolax*) 10 Mg/Supp.rect Supp.rect, 10 MG AR Q24H Y for CONSTIPATION, SUPP.RECT 03/16/14 Docusate Sodium* (Colace*) 100 Mg Capsule, 100 MG GTB QHS Y for CONSTIPATION, CAP 03/16/14 Albuterol Sulfate* (Albuterol Sulfate* Neb) 0.083%-3 Ml Neb, 2.5 MG NEB Q6 Y for WHEEZING AND SOB, EA 03/16/14 Hydrocodone Bit-Acetaminophen* (Ward*) 5-325 Tablet, 1 TAB GTB Q6 Y for PAIN LEVEL 7-10, TAB 02/09/14 Allergies Allergies: Coded Allergies: No Known Allergies (Verified Allergy, Unknown, 06/09/16) PMhx/Soc Hx Neurological Disorder: Yes Hx Respiratory Disorders: Yes Hx Cardiac Disorders: Yes Hx Psychiatric Problems: No Hx Miscellaneous Medical Probl: No Smoking Status: Unknown if ever smoked Physical Exam Vitals Vital Signs Date Time Temp Pulse Resp B/P Pulse Ox O2 Delivery O2 Flow Rate FiO2 06/27/16 10:06 111 14 97 100 06/27/16 09:00 98.1 105 14 121/74 100 Mechanical Ventilator Trach Collar 06/27/16 08:00 98.0 108 14 46/14 100 Mechanical Ventilator Trach Collar 06/27/16 07:45 98.1 109 14 81/71 100 Mechanical Ventilator Trach Collar 06/27/16 07:30 98.1 105 14 119/82 100 Mechanical Ventilator Trach Collar 06/27/16 07:21 98.1 137 14 119/68 100 Mechanical Ventilator Trach Collar 06/27/16 07:15 99.9 110 14 119/68 97 Physical Exam INITIAL VITAL SIGNS: Reviewed by me GENERAL: The patient is well developed mild distress, actively seizing HEENT: Pupils equal, round, and reactive to light. EOMI. There is no scleral icterus. NECK: Tracheostomy in place C-spine is soft and supple, there is no meningismus. There is no cervical lymphadenopathy. LUNGS: Clear to auscultation bilaterally. There are no rales, wheezes or rhonchi. HEART: Regular rate and rhythm, no murmurs, clicks, rubs or gallops. ABDOMEN: PEG tube, soft, non-tender, non-distended. There are bowel sounds in all four quadrants. No rebound or guarding. EXTREMITIES: There is no peripheral cyanosis or edema. No focal swelling or erythema. NEUROLOGICAL: Focal seizure involving right face right upper extremity and right lower extremity SKIN: There is no apparent rash or petechiae. HEME/LYMPHATIC: There is no evidence of excessive bruising or lymphedema. PSYCHIATRIC: The patient does not appear anxious or depressed. Result Diagram: 06/27/16 0745 06/27/16 0745 Results 24 hrs Laboratory Tests Test 06/27/16 07:32 06/27/16 07:45 06/27/16 08:45 Bedside Glucose 254mg/dL Activated Partial Thromboplast Time 24.3Sec Alanine Aminotransferase (ALT/SGPT) 71IU/L Albumin 3.7g/dl Albumin/Globulin Ratio 0.92 Alkaline Phosphatase 258IU/L Ammonia 68umol/l Anion Gap 17 Aspartate Amino Transf (AST/SGOT) 87IU/L Basophils # 0.010^3/ul Basophils % 0.1% Blood Urea Nitrogen 18mg/dl Calcium Level 8.8mg/dl Carbon Dioxide Level 29mmol/L Chloride Level 99mmol/L Creatinine 0.31mg/dl Direct Bilirubin 0.00mg/dl Eosinophils # 0.010^3/ul Eosinophils % 0.1% Globulin 4.00g/dl Glucose Level 229mg/dl Hematocrit 34.9% Hemoglobin 12.1g/dl INR International Normalized Ratio 0.96 Indirect Bilirubin 0.0mg/dl Lactic Acid Level 4.3mmol/L Lymphocytes # 0.410^3/ul Lymphocytes % 3.3% Mean Corpuscular Hemoglobin 34.9pg Mean Corpuscular Hemoglobin Concent 34.7g/dl Mean Corpuscular Volume 100.6fl Mean Platelet Volume 8.8fl Monocytes # 0.610^3/ul Monocytes % 4.1% Neutrophils # 12.710^3/ul Neutrophils % 92.4% Nucleated Red Blood Cells # 0.010^3/ul Nucleated Red Blood Cells % 0.0/100WBC Platelet Count 66051^3/UL Potassium Level 4.1mmol/L Prothrombin Time 12.8Sec Prothrombin Time Ratio 1.0 Red Blood Count 3.4610^6/ul Red Cell Distribution Width 14.4% Sodium Level 141mmol/L Total Bilirubin 0.0mg/dl Total Protein 7.7g/dl Troponin I 0.055ng/ml White Blood Count 13.710^3/ul Urine Bilirubin NEGATIVE Urine Clarity CLEAR Urine Color YELLOW Urine Glucose NEGATIVE% Urine Hemoglobin 3+ Urine Ketones TRACE Urine Leukocyte Esterase TRACE Urine Microscopic RBC Pending Urine Microscopic WBC Pending Urine Nitrite POSITIVE Urine Specific [place] 1.025 Urine Total Protein 1+ Urine Urobilinogen 0.2 E.U./dL Urine pH 5.5 Current Medications Medications (Trade) Dose Ordered Sig/Louise Route PRN Reason Start Time Stop Time Status Last Admin Dose Admin Lorazepam 2 mg 2 mg STK-MED ONCE .ROUTE 06/27/16 07:23 06/27/16 07:24 DC Sodium Chloride (NS) 1,000 ml @ 1,000 mls/hr Q1H STAT IV 06/27/16 08:06 06/27/16 09:05 DC 06/27/16 08:25 Lorazepam (Ativan) 1 mg ONCE ONCE IV 06/27/16 08:30 06/27/16 08:31 DC 06/27/16 08:38 Sodium Chloride 3410 ml 3,410 ml BOLUS OVER 2 HOURS STAT IV* 06/27/16 08:47 06/27/16 08:49 DC 06/27/16 09:28 Vancomycin HCl 250 ml @ 125 mls/hr ONCE STAT IVPB 06/27/16 08:48 06/27/16 10:47 06/27/16 09:58 Cefepime HCl 50 ml @ 100 mls/hr ONCE STAT IVPB 06/27/16 08:48 06/27/16 09:17 DC 06/27/16 09:26 Sodium Chloride (NS) 1,000 ml @ 80 mls/hr [id number] IV 06/27/16 10:23 06/27/16 22:52 Ondansetron HCl (Zofran Inj) 4 mg ER BRIDGE PRN IV NAUSEA AND/OR VOMITING 06/27/16 10:30 06/28/16 10:29 Acetaminophen (Tylenol Tab) 650 mg ER BRIDGE PRN PO MILD PAIN/FEVER 06/27/16 10:30 06/28/16 10:29 Procedures/MDM CT head without: 1. No intracranial hemorrhage or acute intracranial. 2. No marked asymmetric parenchymal volume loss greater on the right with periventricular leukomalacia and ex vacuo dilatation of the right lateral ventricle. Chest X-ray 1V Interpreted by me: Soft Tissue: Left basilar opacity Bones: No acute abnormalities Mediastinum/Cardiac Silhouette/Lungs: [No acute abnormalities] Patient's infectious symptoms have not stabilized and the patient is at risk of rapid decompensation. The patient will be admitted for careful hydration, antibiotic therapy, and infectious source control. Severe Sepsis Assessment: Infectious Source: [pyleonephritis, pneumonia] End organ damage indicated by: [Lactate > 2.0 mmol/L Hypotension( SBP < 90 or >40 mmHG drop or MAP < 65) Acute Resp Failure (sat < 92% w/o oxygen) Electrolog Operator > 2.0 INR > 1.5 Plt < 100 Bili > 2] Severe Sepsis Managment: Blood Cultures X 2 before broad spectrum antibiotics initiated within 3 hours of recognition. 30 ml/kg NS bolus Completed Initial Lactate: 4.3 Repeat Lactate pending Critical Care: Excluding billable procedures Time: 36 minutes Treatments/Evaluations: Emergent fluid management, while maintaining close respiratory support. Immediate broad spectrum antibiotic therapy. Simultaneous assessment for possible sources in order to direct therapy. Consideration for invasive and chemical support to prevent respiratory or cardiac collapse. Septic Shock Assessment (1 hour post 30 ml/kg fluid bolus): Hypotension (SBP < 90 or 40 mmHg drop, MAP < 65): [No] Lactic acid > 4.0 yes Perfusion Reassessment for Septic Shock: Temp 98.1, Pulse 105], RR 14], BP 121/74 Heart Exam: [Tachycardic] Lung Exam: [No Crackles] Capillary Refill: [Delayed] Peripheral Pulses: [Radially present] Skin: [Mottled, pale] Hypotensive Treatment (not required for isolated lactic acid elevation): Comfort Care: No Central LIne: Not needed Vasopressor started: [None I considered further perfusion assessment with CVP measurement, SCVO2, bedside ultrasound volume assessment, passive leg raise, trial of further fluid bolus. And preceded with further fluid bolus Accepting Care Team: Current data and ongoing care discussed. Time: Time of admission Primary Provider: tabatha Consulting: [[place]OXOX[place]] Outstanding Data: none This 7-year-old female presents to the ER for active seizures. She does have a history of seizures and is taking Dilantin, and Depakote. When I evaluated her she was having a focal seizure. She was given Ativan. She was tachycardic and had a septic workup which does show acute cystitis, left lower lobe pneumonia. She does have a leukocytosis with an elevated lactic acid. She does meet severe sepsis criteria and was given greater than 30 cc/kg of IV normal saline. She was started on vancomycin and cefepime for broad-spectrum coverage. She does not have a mean arterial pressure less than 65 so there is no need for vasopressors at this time. She is hemodynamically stable and will be placed on the telemetry floor. Departure Diagnosis: Primary Impression: Severe sepsis Additional Impressions: Acute cystitis Left lower lobe pneumonia Seizure disorder Condition: Serious CHRISTIETRACY AVALOS Jun 27, 2016 10:38
[2016-06-27 10:53] LABS: BACTERIA,URINE MODERATE; SQUAMOUS EPITHELIAL CELL,UR FEW
[2016-06-27] MEDS ORDERED: HYDROCODONE/APAP (5/325) TAB GTB PRN (13:30)
[2016-06-27] MEDS ORDERED: ALBUTEROL 0.083% (NEB) 2.5 MG/3 ML AMP NEB PRN ×2 (13:30)
[2016-06-27] MEDS ORDERED: DOCUSATE SODIUM 100 MG CAP PO PRN (13:30)
[2016-06-27] MEDS ORDERED: LORAZEPAM 2 MG INJ IV PRN (13:30)
[2016-06-27] MEDS ORDERED: VANCOMYCIN IV PER PHARMACY XX SCH (13:30)
[2016-06-27] MEDS: ENOXAPARIN 40 MG/0.4 ML SYG SC SCH (17:44)
--- NOTE | 2016-06-27 17:54 | CONS ---
DATE OF ADMISSION: 06/27/2016 DATE OF CONSULTATION: 06/27/2016 TYPE OF CONSULTATION: Infectious disease. REASON FOR CONSULTATION: Antibiotic management. HISTORY OF PRESENT ILLNESS: Patient is a 61-year-old female who presented to the emergency room for evaluation of seizures. The patient has had a previous CVA. She is trache to vent dependent. She also has a G-tube. The patient is seizing more than usual. She therefore came into the emergency room from her intermediate facility. The patient has been seen previously by our service. She h as obvious neurological problems with seizures and cardiac disorders. FAMILY HISTORY: Noncontributory. SOCIAL HISTORY: She does not smoke, drink, or abuse drugs. ALLERGIES: NONE TO PENICILLIN, SULFA, OR FOODS. MEDICATIONS: Per chart. REVIEW OF SYSTEMS: As per HPI. PHYSICAL EXAMINATION: GENERAL: The patient is a well-developed, chronically ill-appearing female who is obtunded. She wa s seizing in the emergency room. VITAL SIGNS: Vital signs stable. She is afebrile. SKIN: Without generalized rash. HEENT: Within normal limits. NECK: Tracheostomy in place, without exudate. NECK: Supple. LYMPH NODES: None palpable. CHEST: Decreased breath sounds at the bases. HEART: Without murmur or gallop. ABDOMEN: Soft, nontender, without organosplenomegaly or masses. She has a G-tube in place. Abdome n is soft and nontender. There is no discharge from the G-tube. EXTREMITIES: Without cyanosis, clubbing, or edema. RECTAL AND GENITAL: Deferred. NEUROLOGIC: Patient has focal seizures involving the right face, right upper extremity, right lower extremity. ANCILLARY LABORATORY DATA: White count 13.7, H and H of 12.1 and 34.9, platelet count 230,000. BUN and creatinine 18/0.31, glucose of 229. The patient was started on vancomycin and Cefepime. IMAGING STUDIES: A CT scan of the head showed no intracranial hemorrhage or acute intracranial dise ase. No marked asymmetrical parenchymal volume loss. There is asymmetric parenchymal volume loss g reater on the right with periventricular leukomalacia and ex vacuo dilatation of right lateral ventr icle. Blood cultures have been drawn. Chest x-ray shows low basilar interstitial opacities, no int erval change. Tracheostomy in place. IMPRESSION AND PLAN: We will continue her on vancomycin and cefepime. I will dictate my findings t o the hospitalist. Dictated By: REBA ELLER MD, JD/JODI Conf#: [id number] DID#: [id number]
[2016-06-27] MEDS: PHENYTOIN (100 MG/4 ML) CUP GTB SCH (18:02)
[2016-06-27] MEDS: CEFEPIME 2GM/50 ML (PMX) 50 ML IVPB SCH (22:13)
[2016-06-27 22:59] VITALS: TEMP 92.2
[2016-06-27 23:05] VITALS: Ht 157.5 cm; Wt 93.4 kg
[2016-06-27 23:13] VITALS: PULSE 125
[2016-06-27 23:17] VITALS: BP 140/65; RESP 17
[2016-06-27] MEDS: VANCOMYCIN 1.5 GM in SOD CHLORIDE 0.9% 250 ML IVPB SCH (23:21)
[2016-06-27 23:22] VITALS: RESP 14
[2016-06-28] VITALS (23 sets, daily range): BP systolic 114–134; BP diastolic 51–60; PULSE 97–123; RESP 14–20
[2016-06-28] MEDS: ACETAMINOPHEN 500 MG TAB PO PRN (00:03)
[2016-06-28] MEDS: VALPROIC ACID LIQUID CUP 250 MG/5 ML CUP GTB SCH ×3 (00:04→20:46)
[2016-06-28] MEDS: PHENYTOIN (100 MG/4 ML) CUP GTB SCH ×3 (00:04→20:47)
[2016-06-28] MEDS: FERROUS SULFATE 60 MG/ML 5ML CUP GTB SCH ×2 (00:05→09:34)
[2016-06-28] MEDS: LACOSAMIDE (10 MG/ML PO SYG) PO SCH ×3 (01:27→20:46)
[2016-06-28] MEDS: MULTIVITAMINS 5 ML CUP GTB SCH (09:34)
[2016-06-28] MEDS: LANSOPRAZOLE 30 MG CAP GTB SCH (09:34)
[2016-06-28] MEDS: ENOXAPARIN 40 MG/0.4 ML SYG SC SCH (09:39)
--- NOTE | 2016-06-28 10:49 | CONS ---
Date/Time of Note Date/Time of Note DATE: 06/28/16 TIME: 10:41 Assessment/Plan Assessment/Plan Additional Assessment/Plan Assessment recommendations; 1. Patient admitted with generalized seizures currently on Dilantin and record. Without any further seizure activity. 2. Left lower lobe pneumonia with a significant component of atelectasis likely from underlying mucous plugging. 3. Likely some element of congestive heart failure. Next 4. Chronic ventilator dependence with severe dementia. Next 5. Patient currently on high FiO2 80%. At this time I would recommend obtaining a blood gas on current ventilator settings,start patient on Mucomyst via nebulizer 10 %percent 3 mL at least every 6 hours for at least 6 doses. I instruct the respiratory therapist to perform deep suctioning through the tracheostomy. Meanwhile continue current antibiotic regimen other supportive measures. Further ventilator settings to be adjusted once ABGs obtained. Obtain a follow-up chest x-ray in 48 hours. Consultation Date/Type/Reason Admit Date/Time Jun 27, 2016 at 23:01 Date of Consultation: Jun 28, 2016 Type of Consultation: pulmonary Reason for Consultation Patient admitted with seizures has a history of chronic respiratory failure admitted with pneumonia. Hx of Present Illness Patient is a 61-year-old lady who was admitted yesterday transferred from retirement with complaints of having generalized seizure activity upon further evaluation a CT scan of the head was done which was negative however his chest x-ray was done which is showing left lower lobe infiltrative changes which are likely on the basis of significant atelectasis as well possibly from underlying mucous plugging of the left mainstem the left lower lobe bronchus. Severe dementia patient is unable to give any history whatsoever history was obtained from medical records. Past medical history : 1. chronic respiratory failure ventilator dependent 2. History of seizure disorder. 3. Likely underlying severe anoxic encephalopathy. 4. Status post tracheostomy and PEG tube placement. 5. History of abdominal surgery based upon examination. 6. 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 Next Medications; reviewed. Family history, social history not available. Occupational history; currently not available. Review of systems patient completely unresponsive unable to be obtained. Review of systems currently unable to be obtained. Social History Smoking Status: Unknown if ever smoked Exam/Review of Systems Vital Signs Vitals Vital Signs Date Time Temp Pulse Resp B/P Pulse Ox O2 Delivery O2 Flow Rate FiO2 06/28/16 09:15 108 14 97 80 06/28/16 07:55 99.0 134/60 06/27/16 22:59 Room Air Intake and Output 06/27/16 06/27/16 06/28/16 15:00 23:00 07:00 Intake Total 550 ml Output Total 650 ml 650 ml Balance -650 ml -100 ml Exam H EENT examination; supple neck, JVD difficult to see because of short neck. Tracheostomy in place with clean insertion site. Pupils are reactive. No neck masses, no thyromegaly, no lymphadenopathy, no neck bruits. Next Chest examination; diminished breath sounds throughout. S1-S2 audible no murmurs regular rate and rhythm. Abdomen examination; PEG tube in place. There are well-healed surgical scars present. No organomegaly felt. Extremity examination: there is no peripheral edema. PHYSICS INSTRUCTOR examination patient is completely unresponsive. Results Result Diagram: 06/27/16 0745 06/27/16 0745 Results 24 hrs Laboratory Tests Test 06/27/16 10:50 06/27/16 16:47 06/27/16 18:50 Lactic Acid Level 2.4 H 1.3 Phenytoin (Dilantin) Level 10.2 Valproic Acid (Depakene) Level 46 L Medications Medications Current Medications Acetaminophen (Tylenol Tab) 1,000 mg Q4H PRN PO PAIN 4-6/10 Last administered on 06/28/16 00:03; Admin Dose 1,000 MG; Start 06/27/16 at 13:30 Albuterol (Proventil 0.083% (Neb)) 2.5 mg Q3H PRN NEB WHEEZING AND SOB; Start 06/27/16 at 13:30 Docusate Sodium (Colace) 100 mg QHS PRN PO CONSTIPATION; Start 06/27/16 at 13: 30 Enoxaparin Sodium (Lovenox) 40 mg DAILY SC Last administered on 06/28/16 09:39 ; Admin Dose 40 MG; Start 06/27/16 at 13:30 Ferrous Sulfate (Feosol Liquid Cup) 300 mg DAILY GTB Last administered on 09:34; Admin Dose 300 MG; Start 06/27/16 at 09:00 Acetaminophen/ Hydrocodone Bitart ([place] (5/325)) 1 tab Q6 PRN GTB PAIN LEVEL 7 -10; Start 06/27/16 at 13:30 Lansoprazole (Prevacid) 30 mg DAILY GTB Last administered on 06/28/16 09:34; Admin Dose 30 MG; Start 06/28/16 at 09:00 Multivitamins (Thera-Plus) 5 ml DAILY GTB Last administered on 06/28/16 09:34 ; Admin Dose 5 ML; Start 06/28/16 at 09:00 Phenytoin (Dilantin Susp Cup) 300 mg BID GTB Last administered on 06/28/16 09: 34; Admin Dose 300 MG; Start 06/27/16 at 14:00 Valproate Sodium 1500 mg 1,500 mg BID GTB Last administered on 06/28/16 09:34 ; Admin Dose 1,500 MG; Start 06/27/16 at 21:00 Cefepime HCl (Maxipime 2gm/50 ml (Pmx)) 50 ml @ 100 mls/hr Q12 IVPB Last administered on 06/27/16 22:13; Admin Dose 100 MLS/HR; Start 06/27/16 at 21:00 Lorazepam (Ativan) 1 mg Q6H PRN IV SEIZURES; Start 06/27/16 at 13:30 Lacosamide 100 mg 100 mg BID PO Last administered on 06/28/16 01:27; Admin Dose 100 MG; Start 06/27/16 at 21:00 Vancomycin HCl/ Sodium Chloride (Vancocin/NS) 250 ml @ 83.333 mls/ hr Q12H IVPB Last administered on 06/27/16 23:21; Admin Dose 83.333 MLS/HR; Start at 22:30 REJI BECKER Jun 28, 2016 10:48
[2016-06-28] MEDS: CEFEPIME 2GM/50 ML (PMX) 50 ML IVPB SCH ×2 (11:00→20:47)
--- NOTE | 2016-06-28 11:06 | CONS ---
Date/Time of Note Date/Time of Note DATE: 06/28/16 TIME: 11:04 Consult Date/Type/Reason Admit Date/Time Jun 27, 2016 at 23:01 Initial Consult Date 06/28/16 Type of Consultation: neurology Objective Vital Signs Date Time Temp Pulse Resp B/P Pulse Ox O2 Delivery O2 Flow Rate FiO2 06/28/16 10:49 102 14 99 70 06/28/16 07:55 99.0 134/60 06/27/16 22:59 Room Air Intake and Output 06/27/16 06/27/16 06/28/16 15:00 23:00 07:00 Intake Total 550 ml Output Total 650 ml 650 ml Balance -650 ml -100 ml Results/Medications Result Diagram: 06/27/16 0745 06/27/16 0745 Results 24 hrs Laboratory Tests Test 06/27/16 16:47 06/27/16 18:50 Phenytoin (Dilantin) Level 10.2 Valproic Acid (Depakene) Level 46 L Lactic Acid Level 1.3 Medications Current Medications Acetaminophen (Tylenol Tab) 1,000 mg Q4H PRN PO PAIN 4-6/10 Last administered on 06/28/16 00:03; Admin Dose 1,000 MG; Start 06/27/16 at 13:30 Albuterol (Proventil 0.083% (Neb)) 2.5 mg Q3H PRN NEB WHEEZING AND SOB; Start 06/27/16 at 13:30 Docusate Sodium (Colace) 100 mg QHS PRN PO CONSTIPATION; Start 06/27/16 at 13: 30 Enoxaparin Sodium (Lovenox) 40 mg DAILY SC Last administered on 06/28/16 09:39 ; Admin Dose 40 MG; Start 06/27/16 at 13:30 Ferrous Sulfate (Feosol Liquid Cup) 300 mg DAILY GTB Last administered on 09:34; Admin Dose 300 MG; Start 06/27/16 at 09:00 Acetaminophen/ Hydrocodone Bitart ([place] (5/325)) 1 tab Q6 PRN GTB PAIN LEVEL 7 -10; Start 06/27/16 at 13:30 Lansoprazole (Prevacid) 30 mg DAILY GTB Last administered on 06/28/16 09:34; Admin Dose 30 MG; Start 06/28/16 at 09:00 Multivitamins (Thera-Plus) 5 ml DAILY GTB Last administered on 06/28/16 09:34 ; Admin Dose 5 ML; Start 06/28/16 at 09:00 Phenytoin (Dilantin Susp Cup) 300 mg BID GTB Last administered on 06/28/16 09: 34; Admin Dose 300 MG; Start 06/27/16 at 14:00 Valproate Sodium 1500 mg 1,500 mg BID GTB Last administered on 06/28/16 09:34 ; Admin Dose 1,500 MG; Start 06/27/16 at 21:00 Cefepime HCl (Maxipime 2gm/50 ml (Pmx)) 50 ml @ 100 mls/hr Q12 IVPB Last administered on 06/27/16 22:13; Admin Dose 100 MLS/HR; Start 06/27/16 at 21:00 Lorazepam (Ativan) 1 mg Q6H PRN IV SEIZURES; Start 06/27/16 at 13:30 Lacosamide 100 mg 100 mg BID PO Last administered on 06/28/16 01:27; Admin Dose 100 MG; Start 06/27/16 at 21:00 Vancomycin HCl/ Sodium Chloride (Vancocin/NS) 250 ml @ 83.333 mls/ hr Q12H IVPB Last administered on 06/27/16 23:21; Admin Dose 83.333 MLS/HR; Start at 22:30 Assessment Additional comments: Full consult dictated. MAYA JACOBSON MD Jun 28, 2016 11:06
--- NOTE | 2016-06-28 11:32 | CONS ---
DATE OF ADMISSION: 06/27/2016 DATE OF CONSULTATION: 06/28/2016 TYPE OF CONSULTATION: Neurology. Thank you, Dr. Terry, for your kind referral for evaluation of encephalopathy and seizures. HISTORY OF PRESENT ILLNESS: The patient is a 61-year-old lady with extensive past medical history of advanced multiple sclerosis, history of seizures, history of respiratory failure and dysphagia with gastric tube and tracheostomy , also history of ischemic colitis. [facility] following seizures, decreased level of responsiveness. I saw the patient a couple of years ago. At that time, she was on Dilantin and Depakote as well as Keppra. At this time, she is only on Dilantin and Depakote. Since admission, she did not have any more seizures. I added Vimpat 100 mg twice daily. Patient's Dilantin level 10.2 and valproic acid level 46. MEDICATIONS: 1. 300 mg of Dilantin twice daily. 2. 1500 mg of Depakote twice daily as well. 3. Currently, she is getting Prevacid. 4. Vancomycin. 5. Cefepime. 6. Lovenox. 7. Iron. ALLERGIES: SHE IS NOT ALLERGIC TO ANY MEDICINES. SOCIAL HISTORY: No alcohol, tobacco, drug use. She is a resident [facility]. FAMILY HISTORY: Not known. LABORATORY DATA: The rest of her labs show WBC count 13.7, 12.1 hemoglobin, 34.9 hematocrit, normal platelets, 92 neutrophils. Chemistry essentially normal basic metabolic panel. Elevated lactic acid. AST 87, ALT 71, alkaline phosphatase 258. Ammonia level is 68, which is slightly elevated. Normal albumin 3.7. PT is normal. PTT is 24, which is slightly low. Urinalysis shows trace of ketones, positive for nitrites, trace leukocyte esterase, 10 to 25 RBCs and 5 to 10 WBCs, 3+ hemoglobin and 1+ protein. IMAGING: She had a chest x-ray showing left basilar interstitial opacities at least partially related to atelectasis, cardiomegaly. CAT scan of the head was done as well showing extensive patchy and confluent areas of low-attenuation throughout the white matter, parenchymal volume loss, no acute abnormality. PHYSICAL EXAMINATION VITAL SIGNS: Today, 99.0 temperature, 110 pulse, 18 respirations, 134/60 blood pressure. GENERAL: She is not in acute distress, lying in bed. HEENT: Normocephalic, atraumatic head. NECK: No carotid bruit. Supple neck. Tracheostomy. LUNGS: Scattered rhonchi bilaterally. CARDIAC: Normal cardiac rhythm and sounds. ABDOMEN: Soft. G-tube. EXTREMITIES: No cyanosis, clubbing. The patient has edema of the hands and feet. NEUROLOGIC: The patient is lethargic. No response to voice or commands. She does open eyes minimally to pain, but does not track visually. Equivocal response to visual threat bilaterally. Pupils about 3 mm, fixed bilaterally. Extraocular movements intact on oculocephalic maneuver. Corneal reflexes present bilaterally as well as gag. The patient has trace withdrawal in upper extremities to pain, flaccid tone and no movements of flaccid lower extremities. The patient has limited even passive dorsiflexion of the feet. Deep tendon reflexes 2+ upper extremities, absent in lower extremities. Equivocal response to plantar stimulation bilaterally. IMPRESSION: 1. Encephalopathy. The patient has leukocytosis, left shift, possible pneumonia, urinary tract infection? She is on antibiotics currently. Status post seizure 2. History of seizures. 3. History of advanced multiple sclerosis. PLAN: She was on Dilantin and Depakote. Dilantin level is in therapeutic range , but low therapeutic range, while Depakote is lower than therapeutic range. She was put on Vimpat 100 mg twice daily and did not have any seizures since admission. Her hyperammonemia likely relates to Depakote. EEG was requested and was done already this morning, so I will review. Continue current treatment. Thank you very much for this interesting consultation. I do not know what the problem with Keppra was , but apparently it was discontinued for some reason in the past, so that why I started different medication vimpat instead Keppra. Dictated By: MAYA CHRISTENSEN/JODI Conf#: [id number] DID#: [id number] MTDD
[2016-06-28] MEDS: VANCOMYCIN 1.5 GM in SOD CHLORIDE 0.9% 250 ML IVPB SCH (11:56)
[2016-06-28] MEDS: VANCOMYCIN 1 GM in NS 250 ML IVPB SCH (11:58)
[2016-06-28] MEDS: ACETYLCYSTEINE 20% 4 ML VIAL NEB SCH ×2 (14:03→21:02)
[2016-06-28] MEDS: ALBUTEROL 0.083% (NEB) 2.5 MG/3 ML AMP HHN SCH ×2 (14:03→21:01)
--- NOTE | 2016-06-28 14:13 | PN ---
DATE: 06/28/2016 INFECTIOUS DISEASE PROGRESS NOTE SUBJECTIVE: No acute changes. The patient is lying comfortably in bed. She is afebrile. No labs this morning. INDWELLINGS: Trach, PEG, Kim. MICROBIOLOGY: Urine culture growing gram-negative rods. Blood culture negative since admission. Chest x-ray on admission revealed atelectasis with interstitial edema. CT of the brain revealed no intracranial hemorrhage or acute intracranial abnormalities. ANTIMICROBIALS: The patient is on IV vancomycin and cefepime. PHYSICAL EXAMINATION: GENERAL: Chronically ill-appearing, elderly woman, who is in no distress. The patient is not commu nicative. HEENT: Head atraumatic, normocephalic. Sclerae anicteric. Buccal mucosa dry. NECK: Supple. Tracheostomy present. CHEST: Chest rise is symmetrical. Breath sounds diminished to the bases. HEART: S1, S2. ABDOMEN: Soft. Bowel tones present. EXTREMITIES: With trace edema. ASSESSMENT: 1. Sepsis. 2. Recurrent urinary tract infection. 3. Neurogenic bladder, with a chronic Kim catheter. 4. Advanced multiple sclerosis. 5. Chronic respiratory failure and dysphagia. 6. Seizure disorder. PLAN: The patient remains stable, covered with the appropriate antimicrobials. Final cultures are pending. Follow chest x-ray in the a.m. Dictated By: NICHOLAS CRUZ CORPORATE TECHNICAL RECRUITER for REBA PRUITT/JODI Conf#: [id number] DID#: [id number]
[2016-06-28] MEDS ORDERED: ONDANSETRON 4 MG INJ IV PRN (16:30)
--- NOTE | 2016-06-28 16:38 | SP ---
DATE OF PROCEDURE: 06/27/2016 EEG INDICATION: A 61-year-old lady with advanced multiple sclerosis and seizure disorder, who presented after several seizures. Currently on Dilantin, Percocet and Vimpat. DESCRIPTION OF PROCEDURE: Routine EEG was recorded. Digital [id number] and [id number] montages were recorded and reviewed. All impedances were measured and recorded. Cap electrodes were placed in accordance with the International 10-20 system of electrode placement. FINDINGS: Symmetrically distributed background activity of low to medium amplitude, ranging in frequency between 4-6 cycles per second was seen, most of the recording at times a little bit slower, 2-4 cycles per second. Frequent left temporal spike waves were seen at times more at times less rhythmical, appears to occur every 1 1/2 or 2 seconds. No signs of ongoing seizure activity. No lateralized slowing observed. IMPRESSION: Abnormal study secondary to presence of left temporal spike waves, likely epileptogenic in the context of the patient's history of seizures, but no ongoing seizures are observed. Also slowing of the background could reflect encephalopathy, possibly postictal, plus/minus toxic metabolic type. Please correlate clinically. Continue antiepileptic coverage. Dictated By: MAYA CHRISTENSEN/JODI Conf#: [id number] DID#: [id number] MTDD
[2016-06-28] MEDS ORDERED: DEXTROSE 50% 50 ML SYRINGE IV PRN ×2 (17:00)
[2016-06-28] MEDS ORDERED: GLUCAGON 1 MG INJ IM PRN (17:00)
[2016-06-28] MEDS ORDERED: GLUCOSE GEL 15 GRAM TUBE BUCCAL PRN (17:00)
[2016-06-28] MEDS ORDERED: GLUCOSE GEL 15 GRAM TUBE PO PRN ×2 (17:00)
--- NOTE | 2016-06-28 17:46 | PN ---
Date/Time of Note Date/Time of Note DATE: 06/28/16 TIME: 17:43 Assessment/Plan VTE Prophylaxis VTE Prophylaxis Intervention: LMWH Lines/Catheters IV [facility] Saline Lock Urinary Cath still in place: Yes Assessment/Plan Assessment/Plan 1. Severe sepsis. - per ID 2. Acute cystitis. 3. Left lower lobe pneumonia, healthcare-acquired pneumonia. 4. Breakthrough seizure in a patient with history of seizures. - SEIZURE PRECAUTIONS 5. Advanced Multiple sclerosis.Chronically nonverbal, contracted & quadreplegic 6. VDRF -per pulmonary - ASPIRATION PRECAUTIONS 7. Elevated Ammonia level - am labs Start Lovenox for deep venous thrombosis prophylaxis and Pepcid for peptic ulcer disease prophylaxis. Further recommendations based on clinical course. Plan of care discussed with Dr. Terry. Subjective 24 Hr Interval Summary Free Text/Dictation NAD, no new issues reported by staff. Subjective hx not possible: pt non-verbal Constitutional: requiring IVF, requiring O2 ENT: no complaints Respiratory: no complaints Exam/Review of Systems Vital Signs Vitals Vital Signs Date Time Temp Pulse Resp B/P Pulse Ox O2 Delivery O2 Flow Rate FiO2 06/28/16 17:06 109 14 94 50 06/28/16 16:02 99.3 131/59 06/27/16 22:59 Room Air Intake and Output 06/27/16 06/27/16 06/28/16 15:00 23:00 07:00 Intake Total 550 ml Output Total 650 ml 650 ml Balance -650 ml -100 ml Exam Head: normocephalic Eyes: nl sclera ENMT: nl external ears & nose Respiratory: diminished breath sounds Cardiovascular: nl pulses Gastrointestinal: non-tender, other, soft Musculoskeletal: nl extremities to inspection Extremities: normal pulses Skin: other Results Result Diagram: 06/27/16 0745 06/27/16 0745 Results 24 hrs Laboratory Tests Test 06/27/16 18:50 06/28/16 17:27 Lactic Acid Level 1.3 Bedside Glucose 141 Medications Medications Current Medications Acetaminophen (Tylenol Tab) 1,000 mg Q4H PRN PO PAIN 4-6/10 Last administered on 06/28/16t 00:03; Admin Dose 1,000 MG; Start 06/27/16 at 13:30 Albuterol (Proventil 0.083% (Neb)) 2.5 mg Q3H PRN NEB WHEEZING AND SOB; Start 06/27/16 at 13:30 Docusate Sodium (Colace) 100 mg QHS PRN PO CONSTIPATION; Start 06/27/16 at 13: 30 Enoxaparin Sodium (Lovenox) 40 mg DAILY SC Last administered on 06/28/16 09:39 ; Admin Dose 40 MG; Start 06/27/16 at 13:30 Ferrous Sulfate (Feosol Liquid Cup) 300 mg DAILY GTB Last administered on 09:34; Admin Dose 300 MG; Start 06/27/16 at 09:00 Acetaminophen/ Hydrocodone Bitart ([place] (5/325)) 1 tab Q6 PRN GTB PAIN LEVEL 7 -10; Start 06/27/16 at 13:30 Lansoprazole (Prevacid) 30 mg DAILY GTB Last administered on 06/28/16 09:34; Admin Dose 30 MG; Start 06/28/16 at 09:00 Multivitamins (Thera-Plus) 5 ml DAILY GTB Last administered on 06/28/16 09:34 ; Admin Dose 5 ML; Start 06/28/16 at 09:00 Phenytoin (Dilantin Susp Cup) 300 mg BID GTB Last administered on 06/28/16 09: 34; Admin Dose 300 MG; Start 06/27/16 at 14:00 Valproate Sodium 1500 mg 1,500 mg BID GTB Last administered on 06/28/16 09:34 ; Admin Dose 1,500 MG; Start 06/27/16 at 21:00 Cefepime HCl (Maxipime 2gm/50 ml (Pmx)) 50 ml @ 100 mls/hr Q12 IVPB Last administered on 06/28/16 11:00; Admin Dose 100 MLS/HR; Start 06/27/16 at 21:00 Lorazepam (Ativan) 1 mg Q6H PRN IV SEIZURES; Start 06/27/16 at 13:30 Lacosamide 100 mg 100 mg BID PO Last administered on 06/28/16 11:00; Admin Dose 100 MG; Start 06/27/16 at 21:00 Vancomycin HCl (Vancocin) 250 ml @ 125 mls/hr Q12H IVPB Last administered on 11:58; Admin Dose 125 MLS/HR; Start 06/28/16 at 12:00 Miscellaneous Information (*Rx Drug Level Order Reminder*) 1 ONCE ONCE XX ; Start 06/29/16 at 11:00; Stop 06/29/16 at 11:01 Docusate Sodium (Colace Liquid Cup) 100 mg BID GTB ; Start 06/28/16 at 21:00 Insulin Aspart (Novolog Insulin Pen) NOVOLOG *MILD* ALGORITHM Q6 SC ; Start at 18:00 Insulin Glargine (Lantus) 20 unit HS SC ; Start 06/28/16 at 21:00 Ondansetron HCl (Zofran Inj) 4 mg Q6H PRN IV NAUSEA AND/OR VOMITING; Start at 16:30 Miscellaneous Information 1 ea NOTE XX ; Start 06/28/16 at 17:00 Glucose (Glutose) 15 gm Q15M PRN PO DECREASED GLUCOSE; Start 06/28/16 at 17:00 Glucose (Glutose) 22.5 gm Q15M PRN PO DECREASED GLUCOSE; Start 06/28/16 at 17: 00 Dextrose (D50w Syringe) 25 ml Q15M PRN IV DECREASED GLUCOSE; Start 06/28/16 at 17:00 Dextrose (D50w Syringe) 50 ml Q15M PRN IV DECREASED GLUCOSE; Start 06/28/16 at 17:00 Glucagon (Glucagen) 1 mg Q15M PRN IM DECREASED GLUCOSE; Start 06/28/16 at 17:00 Glucose (Glutose) 15 gm Q15M PRN BUCCAL DECREASED GLUCOSE; Start 06/28/16 at 17 :00 JOSH CUNNINGHAM Jun 28, 2016 17:46
[2016-06-28] MEDS: INSULIN ASPART [NOVOLOG] 3 ML PEN SC SCH (17:53)
[2016-06-28] MEDS ORDERED: LACTULOSE 30ML CUP GTB ONE (18:00)
[2016-06-28 19:08] LABS: BASOPHILS % 0.1 % (0.0-2.0); HEMOGLOBIN 9.5 g/dl (12.0-16.0); LYMPHOCYTES # 1.8 10^3/ul (0.8-2.9); LYMPHOCYTES % 10.3 % (15.0-51.0); MEAN CORPUSCULAR VOLUME 99.8 fl (82.0-101.0); MEAN PLATELET VOLUME 8.6 fl (7.4-10.4); MONOCYTE # 1.1 10^3/ul (0.3-0.9); MONOCYTES % 6.1 % (0.0-11.0); NEUTROPHIL # 14.7 10^3/ul (1.6-7.5); NEUTROPHILS % 83.5 % (39.0-77.0); PLATELET COUNT 144 10^3/UL (140-440); RED BLOOD COUNT 2.71 10^6/ul (4.20-5.40); RED CELL DISTRIBUTION WIDTH 14.7 % (11.5-14.5); UNCORRECTED WBC 17.6 10^3/ul (4.8-10.8); WHITE BLOOD COUNT 17.6 10^3/ul (4.8-10.8)
[2016-06-28 19:12] LABS: CONDITION 1; LH ANALYZER COMMENTS 1
[2016-06-28] MEDS: DOCUSATE SODIUM 10 MG/ML (10ML CUP) GTB SCH (20:46)
[2016-06-28] MEDS: INSULIN GLARGINE [LANtus] 3 ML PEN SC SCH (20:49)
[2016-06-29] VITALS (23 sets, daily range): BP systolic 111–145; BP diastolic 55–69; PULSE 94–185; RESP 14–26
[2016-06-29] MEDS: VANCOMYCIN 1 GM in NS 250 ML IVPB SCH ×3 (00:42→16:00)
[2016-06-29] MEDS: ALBUTEROL 0.083% (NEB) 2.5 MG/3 ML AMP HHN SCH ×4 (01:14→20:34)
[2016-06-29] MEDS: ACETYLCYSTEINE 20% 4 ML VIAL NEB SCH ×4 (01:14→20:34)
[2016-06-29] MEDS: INSULIN ASPART [NOVOLOG] 3 ML PEN SC SCH ×4 (05:34→18:00)
[2016-06-29 07:00] LABS: BASOPHILS % 0.2 % (0.0-2.0); EOSINOPHILS % 0.1 % (0.0-7.0); HEMATOCRIT 26.2 % (37.0-47.0); HEMOGLOBIN 9.2 g/dl (12.0-16.0); LYMPHOCYTES # 1.3 10^3/ul (0.8-2.9); LYMPHOCYTES % 8.7 % (15.0-51.0); MEAN CORPUSCULAR HEMOGLOBIN 35.4 pg (29.0-33.0); MEAN CORPUSCULAR HGB CONC 35.2 g/dl (32.0-37.0); MEAN CORPUSCULAR VOLUME 100.4 fl (82.0-101.0); MEAN PLATELET VOLUME 9.2 fl (7.4-10.4); MONOCYTE # 0.9 10^3/ul (0.3-0.9); MONOCYTES % 6.3 % (0.0-11.0); NEUTROPHIL # 12.5 10^3/ul (1.6-7.5); NEUTROPHILS % 84.7 % (39.0-77.0); PLATELET COUNT 127 10^3/UL (140-440); RED BLOOD COUNT 2.61 10^6/ul (4.20-5.40); RED CELL DISTRIBUTION WIDTH 14.3 % (11.5-14.5); UNCORRECTED WBC 14.7 10^3/ul (4.8-10.8); WHITE BLOOD COUNT 14.7 10^3/ul (4.8-10.8)
[2016-06-29 07:11] LABS: CALCIUM 8.4 mg/dl (8.4-10.2); CREATININE 0.3 mg/dl (0.44-1.00)
[2016-06-29 07:19] LABS: CONDITION 1
[2016-06-29 07:35] LABS: POTASSIUM 2.9 mmol/L (3.5-5.1)
[2016-06-29] MEDS: POTASSIUM CHLORIDE (SR) 10 MEQ TAB PO SCH ×2 (08:39→13:51)
[2016-06-29] MEDS: PHENYTOIN (100 MG/4 ML) CUP GTB SCH ×2 (08:41→21:06)
[2016-06-29] MEDS: FERROUS SULFATE 60 MG/ML 5ML CUP GTB SCH (08:41)
[2016-06-29] MEDS: LANSOPRAZOLE 30 MG CAP GTB SCH (08:41)
[2016-06-29] MEDS: MULTIVITAMINS 5 ML CUP GTB SCH (08:42)
[2016-06-29] MEDS: VALPROIC ACID LIQUID CUP 250 MG/5 ML CUP GTB SCH ×2 (08:42→21:06)
[2016-06-29] MEDS: ENOXAPARIN 40 MG/0.4 ML SYG SC SCH (08:48)
[2016-06-29] MEDS: CEFEPIME 2GM/50 ML (PMX) 50 ML IVPB SCH ×2 (08:49→21:16)
--- NOTE | 2016-06-29 08:59 | CONS ---
Date/Time of Note Date/Time of Note DATE: 06/29/16 TIME: 08:56 Assessment/Plan Assessment/Plan Chief Complaint/Hosp Course Patient is a 61-year-old lady who was [facility] with complaints of having generalized seizure activity upon further evaluation a CT scan of the head was done which was negative however his chest x-ray was done which is showing left lower lobe infiltrative changes which are likely on the basis of significant atelectasis as well possibly from underlying mucous plugging of the left mainstem the left lower lobe bronchus. Severe dementia patient is unable to give any history whatsoever history was obtained from medical records. Past medical history : 1. chronic respiratory failure ventilator dependent 2. History of seizure disorder. 3. Likely underlying severe anoxic encephalopathy. 4. Status post tracheostomy and PEG tube placement. 5. History of abdominal surgery based upon examination. 6. 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 Next Medications; reviewed. Family history, social history not available. Occupational history; currently not available. Review of systems patient completely unresponsive unable to be obtained. Problems: Additional Assessment/Plan Assessment and recommendation 1. Patient admitted with left lower lobe pneumonia which is combination of atelectasis involving the left lower lobe likely from underlying mucous plug. 2. Chronic ventilator dependence due to respiratory failure. 3. severe CVA with marked dementia. Next 4. Congestive heart failure. 5. Hypertension. Next Continue current treatment, ventilator settings, antibiotics. Patient currently getting Mucomyst via nebulizer. Chest x-ray in the morning to be ordered. Consultation Date/Type/Reason Admit Date/Time Jun 27, 2016 at 23:01 Initial Consult Date 06/28/16 Type of Consultation: neurology 24 HR Interval Summary Free Text/Dictation Patient condition is stable, remains unresponsive though awake. Patient has remained hemodynamically stable. General examination; elderly lady on mechanical ventilation via tracheostomy, awake but unresponsive. Exam/Review of Systems Vital Signs Vitals Vital Signs Date Time Temp Pulse Resp B/P Pulse Ox O2 Delivery O2 Flow Rate FiO2 06/29/16 08:28 99 06/29/16 07:15 99.3 21 117/55 97 06/29/16 05:00 50 06/27/16 22:59 Room Air Intake and Output 06/28/16 06/28/16 06/29/16 15:00 23:00 07:00 Intake Total 300 ml 250 ml 450 ml Output Total 300 ml 700 ml Balance 300 ml -50 ml -250 ml Exam HEENT examination; supple neck, tracheostomy in place. No neck masses. No thyromegaly. No neck bruits. No lymphadenopathy. Next Chest examination; diminished breath sounds throughout. S1-S2 audible no murmurs regular rhythm. Abdomen examination; soft, PEG tube in place. Multiple well-healed scars are present. Extremity examination; patient has contractures involving all extremities. AIRPORT REPRESENTATIVE examination: remains awake but unresponsive to any commands. Results Result Diagram: 06/29/16 0525 06/29/16 0552 Results 24 hrs Laboratory Tests Test 06/28/16 17:27 06/28/16 18:55 06/28/16 20:52 06/29/16 00:41 Bedside Glucose 141 161 167 Ammonia 68 H Basophils # 0.0 Basophils % 0.1 Blood Morphology Comment Eosinophils # 0.0 Eosinophils % 0.0 Hematocrit 27.0 #L Hemoglobin 9.5 #L Lymphocytes # 1.8 Lymphocytes % 10.3 L Mean Corpuscular Hemoglobin 35.0 H Mean Corpuscular Hemoglobin Concent 35.0 Mean Corpuscular Volume 99.8 Mean Platelet Volume 8.6 Monocytes # 1.1 H Monocytes % 6.1 Neutrophils # 14.7 H Neutrophils % 83.5 H Nucleated Red Blood Cells # 0.0 Nucleated Red Blood Cells % 0.0 Platelet Count 144 # Red Blood Count 2.71 #L Red Cell Distribution Width 14.7 H White Blood Count 17.6 #H Test 06/29/16 05:25 06/29/16 05:29 06/29/16 05:52 Basophils # 0.0 Basophils % 0.2 Eosinophils # 0.0 Eosinophils % 0.1 Hematocrit 26.2 L Hemoglobin 9.2 L Lymphocytes # 1.3 Lymphocytes % 8.7 L Mean Corpuscular Hemoglobin 35.4 H Mean Corpuscular Hemoglobin Concent 35.2 Mean Corpuscular Volume 100.4 Mean Platelet Volume 9.2 Monocytes # 0.9 Monocytes % 6.3 Neutrophils # 12.5 H Neutrophils % 84.7 H Nucleated Red Blood Cells # 0.0 Nucleated Red Blood Cells % 0.0 Platelet Count 127 L Red Blood Count 2.61 L Red Cell Distribution Width 14.3 White Blood Count 14.7 H Bedside Glucose 173 Anion Gap 15 Blood Urea Nitrogen 15 Calcium Level 8.4 Carbon Dioxide Level 27 Chloride Level 108 Creatinine 0.30 L Glucose Level 164 Potassium Level 2.9 *L Sodium Level 147 H Medications Medications Current Medications Acetaminophen (Tylenol Tab) 1,000 mg Q4H PRN PO PAIN 4-6/10 Last administered on 06/28/16 00:03; Admin Dose 1,000 MG; Start 06/27/16 at 13:30 Albuterol (Proventil 0.083% (Neb)) 2.5 mg Q3H PRN NEB WHEEZING AND SOB; Start 06/27/16 at 13:30 Docusate Sodium (Colace) 100 mg QHS PRN PO CONSTIPATION; Start 06/27/16 at 13: 30 Enoxaparin Sodium (Lovenox) 40 mg DAILY SC Last administered on 06/29/16 08:48 ; Admin Dose 40 MG; Start 06/27/16 at 13:30 Ferrous Sulfate (Feosol Liquid Cup) 300 mg DAILY GTB Last administered on 08:41; Admin Dose 300 MG; Start 06/27/16 at 09:00 Acetaminophen/ Hydrocodone Bitart ([place] (5/325)) 1 tab Q6 PRN GTB PAIN LEVEL 7 -10; Start 06/27/16 at 13:30 Lansoprazole (Prevacid) 30 mg DAILY GTB Last administered on 06/29/16 08:41; Admin Dose 30 MG; Start 06/28/16 at 09:00 Multivitamins (Thera-Plus) 5 ml DAILY GTB Last administered on 06/29/16 08:42 ; Admin Dose 5 ML; Start 06/28/16 at 09:00 Phenytoin (Dilantin Susp Cup) 300 mg BID GTB Last administered on 06/29/16 08: 41; Admin Dose 300 MG; Start 06/27/16 at 14:00 Valproate Sodium 1500 mg 1,500 mg BID GTB Last administered on 06/29/16 08:42 ; Admin Dose 1,500 MG; Start 06/27/16 at 21:00 Cefepime HCl (Maxipime 2gm/50 ml (Pmx)) 50 ml @ 100 mls/hr Q12 IVPB Last administered on 06/29/16 08:49; Admin Dose 100 MLS/HR; Start 06/27/16 at 21:00 Lorazepam (Ativan) 1 mg Q6H PRN IV SEIZURES; Start 06/27/16 at 13:30 Lacosamide 100 mg 100 mg BID PO Last administered on 06/28/16 20:46; Admin Dose 100 MG; Start 06/27/16 at 21:00 Vancomycin HCl (Vancocin) 250 ml @ 125 mls/hr Q12H IVPB Last administered on 00:42; Admin Dose 125 MLS/HR; Start 06/28/16 at 12:00 Miscellaneous Information (*Rx Drug Level Order Reminder*) 1 ONCE ONCE XX ; Start 06/29/16 at 11:00; Stop 06/29/16 at 11:01 Docusate Sodium (Colace Liquid Cup) 100 mg BID GTB Last administered on 20:46; Admin Dose 100 MG; Start 06/28/16 at 21:00 Insulin Aspart (Novolog Insulin Pen) NOVOLOG *MILD* ALGORITHM Q6 SC Last administered on 06/29/16 05:34; Admin Dose 1 UNIT; Start 06/28/16 at 18:00 Insulin Glargine (Lantus) 20 unit HS SC Last administered on 06/28/16 20:49; Admin Dose 20 UNIT; Start 06/28/16 at 21:00 Ondansetron HCl (Zofran Inj) 4 mg Q6H PRN IV NAUSEA AND/OR VOMITING; Start at 16:30 Miscellaneous Information 1 ea NOTE XX ; Start 06/28/16 at 17:00 Glucose (Glutose) 15 gm Q15M PRN PO DECREASED GLUCOSE; Start 06/28/16 at 17:00 Glucose (Glutose) 22.5 gm Q15M PRN PO DECREASED GLUCOSE; Start 06/28/16 at 17: 00 Dextrose (D50w Syringe) 25 ml Q15M PRN IV DECREASED GLUCOSE; Start 06/28/16 at 17:00 Dextrose (D50w Syringe) 50 ml Q15M PRN IV DECREASED GLUCOSE; Start 06/28/16 at 17:00 Glucagon (Glucagen) 1 mg Q15M PRN IM DECREASED GLUCOSE; Start 06/28/16 at 17:00 Glucose (Glutose) 15 gm Q15M PRN BUCCAL DECREASED GLUCOSE; Start 06/28/16 at 17 :00 Lactulose (Enulose) 20 gm DAILY GTB ; Start 06/29/16 at 09:00 Acetaminophen (Tylenol Liquid) 650 mg Q4H PRN GTB PAIN AND OR ELEVATED TEMP; Start 06/28/16 at 19:30 Potassium Chloride (Klor-Con 10) 30 meq Q4 PO Last administered on 06/29/16t 08 :39; Admin Dose 30 MEQ; Start 06/29/16 at 09:00; Stop 06/29/16 at 13:01 REJI BECKER Jun 29, 2016 08:59
[2016-06-29] MEDS: DOCUSATE SODIUM 10 MG/ML (10ML CUP) GTB SCH ×2 (09:00→21:16)
[2016-06-29] MEDS: LACTULOSE 30ML CUP GTB SCH (09:00)
--- NOTE | 2016-06-29 13:28 | PN ---
Date/Time of Note Date/Time of Note DATE: 06/29/16 TIME: 13:20 Assessment/Plan VTE Prophylaxis VTE Prophylaxis Intervention: SCD's Lines/Catheters IV [facility]from [facility] Saline Lock Urinary Cath still in place: Yes Reason Cath still needed: urinary retention Assessment/Plan Chief Complaint/Hosp Course ASSESSMENT: 1. Severe sepsis [address] Gillette is following in infectious disease consultation 2. Acute cystitis with Ecoli ESBL. Cont abx per ID. 3. Left lower lobe pneumonia, healthcare-acquired pneumonia. 4. Breakthrough seizure in a patient with history of seizures. Dr. Garcia , neurology consult appreciated. 5. Advanced Multiple sclerosis. 6. Quadriplegia PICC line placement Lovenox for deep venous thrombosis prophylaxis and Pepcid for peptic ulcer disease prophylaxis. Further recommendations based on clinical course. Plan of care discussed with Dr. Terry. Problems: Subjective 24 Hr Interval Summary Free Text/Dictation Patient is more awake, opens eyes, no fever. Exam/Review of Systems Vital Signs Vitals Vital Signs Date Time Temp Pulse Resp B/P Pulse Ox O2 Delivery O2 Flow Rate FiO2 06/29/16 12:44 99 06/29/16 11:21 99.0 126/60 95 06/29/16 11:00 50 06/27/16 22:59 Room Air Intake and Output 06/28/16 06/28/16 06/29/16 15:00 23:00 07:00 Intake Total 300 ml 250 ml 450 ml Output Total 300 ml 700 ml Balance 300 ml -50 ml -250 ml Exam GENERAL: Well-developed, obese female who currently is obtunded. HEENT: Head is atraumatic, normocephalic. Pupils are equal, round, and reactive to light and accommodation. Oral mucosa is pink and moist. NECK: Supple with a tracheostomy at the base of the neck with moderate to large amount of secretions. LUNGS: Scattered rhonchi bilaterally. CARDIOVASCULAR: Normal S1, S2. No murmurs, gallops, clicks, rubs noted. ABDOMEN: Round, soft, nondistended. The patient does have a G-tube with intact stoma. EXTREMITIES: Edema, no clubbing, no cyanosis. Pulses equal bilaterally. GENITOURINARY: The patient has a Kim catheter with urine with sediment. SKIN: There is no rash or petechia noted. NEUROLOGIC: The patient is obtunded. Results Result Diagram: 06/29/16 0525 06/29/16 0552 Results 24 hrs Laboratory Tests Test 06/28/16 17:27 06/28/16 18:55 06/28/16 20:52 06/29/16 00:41 Bedside Glucose 141 161 167 Ammonia 68 H Basophils # 0.0 Basophils % 0.1 Blood Morphology Comment Eosinophils # 0.0 Eosinophils % 0.0 Hematocrit 27.0 #L Hemoglobin 9.5 #L Lymphocytes # 1.8 Lymphocytes % 10.3 L Mean Corpuscular Hemoglobin 35.0 H Mean Corpuscular Hemoglobin Concent 35.0 Mean Corpuscular Volume 99.8 Mean Platelet Volume 8.6 Monocytes # 1.1 H Monocytes % 6.1 Neutrophils # 14.7 H Neutrophils % 83.5 H Nucleated Red Blood Cells # 0.0 Nucleated Red Blood Cells % 0.0 Platelet Count 144 # Red Blood Count 2.71 #L Red Cell Distribution Width 14.7 H White Blood Count 17.6 #H Test 06/29/16 05:25 06/29/16 05:29 06/29/16 05:52 06/29/16 11:10 Basophils # 0.0 Basophils % 0.2 Eosinophils # 0.0 Eosinophils % 0.1 Hematocrit 26.2 L Hemoglobin 9.2 L Hemoglobin A1c 5.8 Lymphocytes # 1.3 Lymphocytes % 8.7 L Mean Corpuscular Hemoglobin 35.4 H Mean Corpuscular Hemoglobin Concent 35.2 Mean Corpuscular Volume 100.4 Mean Platelet Volume 9.2 Monocytes # 0.9 Monocytes % 6.3 Neutrophils # 12.5 H Neutrophils % 84.7 H Nucleated Red Blood Cells # 0.0 Nucleated Red Blood Cells % 0.0 Platelet Count 127 L Red Blood Count 2.61 L Red Cell Distribution Width 14.3 White Blood Count 14.7 H Bedside Glucose 173 Anion Gap 15 Blood Urea Nitrogen 15 Calcium Level 8.4 Carbon Dioxide Level 27 Chloride Level 108 Creatinine 0.30 L Glucose Level 164 Potassium Level 2.9 *L Sodium Level 147 H Vancomycin Level Trough 12.8 Medications Medications Current Medications Acetaminophen (Tylenol Tab) 1,000 mg Q4H PRN PO PAIN 4-6/10 Last administered on 06/28/16t 00:03; Admin Dose 1,000 MG; Start 06/27/16 at 13:30 Albuterol (Proventil 0.083% (Neb)) 2.5 mg Q3H PRN NEB WHEEZING AND SOB; Start 06/27/16 at 13:30 Docusate Sodium (Colace) 100 mg QHS PRN PO CONSTIPATION; Start 06/27/16 at 13: 30 Enoxaparin Sodium (Lovenox) 40 mg DAILY SC Last administered on 06/29/16 08:48 ; Admin Dose 40 MG; Start 06/27/16 at 13:30 Ferrous Sulfate (Feosol Liquid Cup) 300 mg DAILY GTB Last administered on 08:41; Admin Dose 300 MG; Start 06/27/16 at 09:00 Acetaminophen/ Hydrocodone Bitart ([place] (5/325)) 1 tab Q6 PRN GTB PAIN LEVEL 7 -10; Start 06/27/16 at 13:30 Lansoprazole (Prevacid) 30 mg DAILY GTB Last administered on 06/29/16 08:41; Admin Dose 30 MG; Start 06/28/16 at 09:00 Multivitamins (Thera-Plus) 5 ml DAILY GTB Last administered on 06/29/16 08:42 ; Admin Dose 5 ML; Start 06/28/16 at 09:00 Phenytoin (Dilantin Susp Cup) 300 mg BID GTB Last administered on 06/29/16 08: 41; Admin Dose 300 MG; Start 06/27/16 at 14:00 Valproate Sodium 1500 mg 1,500 mg BID GTB Last administered on 06/29/16 08:42 ; Admin Dose 1,500 MG; Start 06/27/16 at 21:00 Cefepime HCl (Maxipime 2gm/50 ml (Pmx)) 50 ml @ 100 mls/hr Q12 IVPB Last administered on 06/29/16 08:49; Admin Dose 100 MLS/HR; Start 06/27/16 at 21:00 Lorazepam (Ativan) 1 mg Q6H PRN IV SEIZURES; Start 06/27/16 at 13:30 Lacosamide 100 mg 100 mg BID PO Last administered on 06/28/16 20:46; Admin Dose 100 MG; Start 06/27/16 at 21:00 Vancomycin HCl (Vancocin) 250 ml @ 125 mls/hr Q12H IVPB Last administered on 13:17; Admin Dose 125 MLS/HR; Start 06/28/16 at 12:00 Docusate Sodium (Colace Liquid Cup) 100 mg BID GTB Last administered on 20:46; Admin Dose 100 MG; Start 06/28/16 at 21:00 Insulin Aspart (Novolog Insulin Pen) NOVOLOG *MILD* ALGORITHM Q6 SC Last administered on 06/29/16 05:34; Admin Dose 1 UNIT; Start 06/28/16 at 18:00 Insulin Glargine (Lantus) 20 unit HS SC Last administered on 06/28/16 20:49; Admin Dose 20 UNIT; Start 06/28/16 at 21:00 Ondansetron HCl (Zofran Inj) 4 mg Q6H PRN IV NAUSEA AND/OR VOMITING; Start at 16:30 Miscellaneous Information 1 ea NOTE XX ; Start 06/28/16 at 17:00 Glucose (Glutose) 15 gm Q15M PRN PO DECREASED GLUCOSE; Start 06/28/16 at 17:00 Glucose (Glutose) 22.5 gm Q15M PRN PO DECREASED GLUCOSE; Start 06/28/16 at 17: 00 Dextrose (D50w Syringe) 25 ml Q15M PRN IV DECREASED GLUCOSE; Start 06/28/16 at 17:00 Dextrose (D50w Syringe) 50 ml Q15M PRN IV DECREASED GLUCOSE; Start 06/28/16 at 17:00 Glucagon (Glucagen) 1 mg Q15M PRN IM DECREASED GLUCOSE; Start 06/28/16 at 17:00 Glucose (Glutose) 15 gm Q15M PRN BUCCAL DECREASED GLUCOSE; Start 06/28/16 at 17 :00 Lactulose (Enulose) 20 gm DAILY GTB ; Start 06/29/16 at 09:00 Acetaminophen (Tylenol Liquid) 650 mg Q4H PRN GTB PAIN AND OR ELEVATED TEMP; Start 06/28/16 at 19:30 FRANDY WHEAT Jun 29, 2016 13:27
[2016-06-29] MEDS: LACOSAMIDE (10 MG/ML PO SYG) PO SCH (13:52)
[2016-06-29] MEDS ORDERED: LIDOCAINE 1% (MDV) 20 ML INJ SC ONE (14:00)
--- NOTE | 2016-06-29 14:28 | PN ---
DATE: 06/29/2016 INFECTIOUS DISEASE PROGRESS NOTE SUBJECTIVE: No acute events. The patient is lying comfortably in bed, afebrile. WBC today 14.7, wi th platelets 127, neutrophils 84.7, BUN 15, creatinine 0.30. MICROBIOLOGY: Urine culture growing E. coli ESBL, susceptible to cefepime. INDWELLINGS: Trach, PEG, Kim. PHYSICAL EXAMINATION: GENERAL: Chronically ill-appearing, obese elderly woman, who is non-communicative, lying comfortabl y in bed. HEENT: Head atraumatic, normocephalic. Sclerae are anicteric. Buccal mucosa dry. NECK: Supple. Tracheostomy present. CHEST: Chest rise is symmetrical. Breath sounds diminished to the bases. HEART: S1, S2. ABDOMEN: Soft, bowel tones present. EXTREMITIES: With bilateral edema. ASSESSMENT: 1. Recurrent urinary tract infection. 2. Status post seizure. 3. Chronic respiratory failure. 4. Neurogenic bladder, with chronic Kim catheter. 5. Advanced multiple sclerosis. PLAN: The patient remains stable, covered with cefepime for ESBL in the urine. We will discontinue vancomycin. The patient is being followed by multiple consultants. Dictated By: INCHOLAS CRUZ [employer] for [employer]UITT[employer]JODI Conf#: [id number] DID#: [id number]
--- NOTE | 2016-06-29 15:35 | RADRPT ---
PROCEDURE: XR Chest. CLINICAL INDICATION: PICC line placement for long-term antibiotics. TECHNIQUE: Single frontal chest x-ray. COMPARISON: 06/27/2016 FINDINGS: There has been placement of a right arm PICC line with tip in the superior vena cava. There is incr eased infiltrates or consolidations involving the left [id number] lung. There is elevation of the left hemidiaphragm unchanged.. Mild right perihilar infiltrates are unchanged. . Cardiomegaly wit h hilar vascular congestion is present. There are no right pulmonary alveolar infiltrates or effusi ons.. There is tracheostomy tube in place.. The osseous structures are intact. IMPRESSION: New right-sided PICC line in place. Increased left pulmonary infiltrates or consolidations.. RPTAT: JJ .Kahlil Steele MD, MD Date Time Electronically viewed and signed by .Kahlil Steele MD, MD on 06/29/2016 15:35 .L/
--- NOTE | 2016-06-29 15:39 | RADRPT ---
PROCEDURE: Ultrasound guidance for placement of needle in right upper extremity vein. CLINICAL INDICATION: Venous access. TECHNIQUE: Limited sonography of the right upper extremity was performed. Ultrasound images were recorded and stored in the patient's medical record. COMPARISON: None. FINDINGS: The ultrasound images demonstrate a patent right upper extremity vein. The PICC line was inserted b y the PICC line nurse. IMPRESSION: 1. Ultrasound guidance for a needle placement in a right upper extremity vein. 2. The visualized right upper extremity vein is patent. RPTAT: QQ .Pavel Carlson MD, MD Date Time Electronically viewed and signed by .Pavel Carlson MD, MD on 06/29/2016 15:39 .R/
[2016-06-29] MEDS ORDERED: SOD CHLORIDE 0.9% 100 ML ONE (17:13)
--- NOTE | 2016-06-29 17:28 | CONS ---
Date/Time of Note Date/Time of Note DATE: 06/29/16 TIME: 17:23 Assessment/Plan Assessment/Plan Chief Complaint/Hosp Course AMS Problems: Additional Assessment/Plan The patient is a 61-year-old woman with past medical history of advanced multiple sclerosis, seizures, respiratory failure and dysphagia with gastric tube and tracheostomy, ischemic colitis, was admitted from long-term facility following seizures, decreased level of responsiveness. She has been on Dilantin and Depakote and Vimpat 100 mg twice daily was added on admission. MEDICATIONS: 1. Continue Dilantin, Depakote and Vimpat 2. Continue present management Consultation Date/Type/Reason Admit Date/Time Jun 27, 2016 at 23:01 Initial Consult Date 06/28/16 Type of Consultation: neurology 24 HR Interval Summary Free Text/Dictation No reported seizure activity Exam/Review of Systems Vital Signs Vitals Vital Signs Date Time Temp Pulse Resp B/P Pulse Ox O2 Delivery O2 Flow Rate FiO2 06/29/16 17:05 102 18 97 50 06/29/16 11:21 99.0 126/60 06/27/16 22:59 Room Air Intake and Output 06/28/16 06/28/16 06/29/16 15:00 23:00 07:00 Intake Total 300 ml 250 ml 450 ml Output Total 300 ml 700 ml Balance 300 ml -50 ml -250 ml Exam Constitutional: other (s/p trach, non communicative) Neurological: other (Limited exam, non communicative, does not withdraw to noxious stimuli, corneal and gag reflexes are present) Results Result Diagram: 06/29/16 0525 06/29/16 0552 Results 24 hrs Laboratory Tests Test 06/28/16 17:27 06/28/16 18:55 06/28/16 20:52 06/29/16 00:41 Bedside Glucose 141 161 167 Ammonia 68 H Basophils # 0.0 Basophils % 0.1 Blood Morphology Comment Eosinophils # 0.0 Eosinophils % 0.0 Hematocrit 27.0 #L Hemoglobin 9.5 #L Lymphocytes # 1.8 Lymphocytes % 10.3 L Mean Corpuscular Hemoglobin 35.0 H Mean Corpuscular Hemoglobin Concent 35.0 Mean Corpuscular Volume 99.8 Mean Platelet Volume 8.6 Monocytes # 1.1 H Monocytes % 6.1 Neutrophils # 14.7 H Neutrophils % 83.5 H Nucleated Red Blood Cells # 0.0 Nucleated Red Blood Cells % 0.0 Platelet Count 144 # Red Blood Count 2.71 #L Red Cell Distribution Width 14.7 H White Blood Count 17.6 #H Test 06/29/16 05:25 06/29/16 05:29 06/29/16 05:52 06/29/16 11:10 Basophils # 0.0 Basophils % 0.2 Eosinophils # 0.0 Eosinophils % 0.1 Hematocrit 26.2 L Hemoglobin 9.2 L Hemoglobin A1c 5.8 Lymphocytes # 1.3 Lymphocytes % 8.7 L Mean Corpuscular Hemoglobin 35.4 H Mean Corpuscular Hemoglobin Concent 35.2 Mean Corpuscular Volume 100.4 Mean Platelet Volume 9.2 Monocytes # 0.9 Monocytes % 6.3 Neutrophils # 12.5 H Neutrophils % 84.7 H Nucleated Red Blood Cells # 0.0 Nucleated Red Blood Cells % 0.0 Platelet Count 127 L Red Blood Count 2.61 L Red Cell Distribution Width 14.3 White Blood Count 14.7 H Bedside Glucose 173 Anion Gap 15 Blood Urea Nitrogen 15 Calcium Level 8.4 Carbon Dioxide Level 27 Chloride Level 108 Creatinine 0.30 L Glucose Level 164 Potassium Level 2.9 *L Sodium Level 147 H Vancomycin Level Trough 12.8 Test 06/29/16 13:12 Bedside Glucose 179 Medications Medications Current Medications Acetaminophen (Tylenol Tab) 1,000 mg Q4H PRN PO PAIN 4-6 Last administered on 06/28/16 00:03; Admin Dose 1,000 MG; Start 06/27/16 at 13:30 Albuterol (Proventil 0.083% (Neb)) 2.5 mg Q3H PRN NEB WHEEZING AND SOB; Start 06/27/16 at 13:30 Docusate Sodium (Colace) 100 mg QHS PRN PO CONSTIPATION; Start 06/27/16 at 13: 30 Enoxaparin Sodium (Lovenox) 40 mg DAILY SC Last administered on 06/29/16 08:48 ; Admin Dose 40 MG; Start 06/27/16 at 13:30 Ferrous Sulfate (Feosol Liquid Cup) 300 mg DAILY GTB Last administered on 08:41; Admin Dose 300 MG; Start 06/27/16 at 09:00 Acetaminophen/ Hydrocodone Bitart ([place] (5/325)) 1 tab Q6 PRN GTB PAIN LEVEL 7 -10; Start 06/27/16 at 13:30 Lansoprazole (Prevacid) 30 mg DAILY GTB Last administered on 06/29/16 08:41; Admin Dose 30 MG; Start 06/28/16 at 09:00 Multivitamins (Thera-Plus) 5 ml DAILY GTB Last administered on 06/29/16 08:42 ; Admin Dose 5 ML; Start 06/28/16 at 09:00 Phenytoin (Dilantin Susp Cup) 300 mg BID GTB Last administered on 06/29/16 08: 41; Admin Dose 300 MG; Start 06/27/16 at 14:00 Valproate Sodium 1500 mg 1,500 mg BID GTB Last administered on 06/29/16 08:42 ; Admin Dose 1,500 MG; Start 06/27/16 at 21:00 Cefepime HCl (Maxipime 2gm/50 ml (Pmx)) 50 ml @ 100 mls/hr Q12 IVPB Last administered on 06/29/16 08:49; Admin Dose 100 MLS/HR; Start 06/27/16 at 21:00 Lorazepam (Ativan) 1 mg Q6H PRN IV SEIZURES; Start 06/27/16 at 13:30 Lacosamide 100 mg 100 mg BID PO Last administered on 06/29/16 13:52; Admin Dose 100 MG; Start 06/27/16 at 21:00 Vancomycin HCl (Vancocin) 250 ml @ 125 mls/hr Q12H IVPB Last administered on 13:17; Admin Dose 125 MLS/HR; Start 06/28/16 at 12:00 Docusate Sodium (Colace Liquid Cup) 100 mg BID GTB Last administered on 20:46; Admin Dose 100 MG; Start 06/28/16 at 21:00 Insulin Aspart (Novolog Insulin Pen) NOVOLOG *MILD* ALGORITHM Q6 SC Last administered on 06/29/16 13:53; Admin Dose 2 UNIT; Start 06/28/16 at 18:00 Insulin Glargine (Lantus) 20 unit HS SC Last administered on 06/28/16 20:49; Admin Dose 20 UNIT; Start 06/28/16 at 21:00 Ondansetron HCl (Zofran Inj) 4 mg Q6H PRN IV NAUSEA AND/OR VOMITING; Start at 16:30 Miscellaneous Information 1 ea NOTE XX ; Start 06/28/16 at 17:00 Glucose (Glutose) 15 gm Q15M PRN PO DECREASED GLUCOSE; Start 06/28/16 at 17:00 Glucose (Glutose) 22.5 gm Q15M PRN PO DECREASED GLUCOSE; Start 06/28/16 at 17: 00 Dextrose (D50w Syringe) 25 ml Q15M PRN IV DECREASED GLUCOSE; Start 06/28/16 at 17:00 Dextrose (D50w Syringe) 50 ml Q15M PRN IV DECREASED GLUCOSE; Start 06/28/16 at 17:00 Glucagon (Glucagen) 1 mg Q15M PRN IM DECREASED GLUCOSE; Start 06/28/16 at 17:00 Glucose (Glutose) 15 gm Q15M PRN BUCCAL DECREASED GLUCOSE; Start 06/28/16 at 17 :00 Lactulose (Enulose) 20 gm DAILY GTB ; Start 06/29/16 at 09:00 Acetaminophen (Tylenol Liquid) 650 mg Q4H PRN GTB PAIN AND OR ELEVATED TEMP; Start 06/28/16 at 19:30 IV Flush (NS 10 ml) 10 ml PRN PRN IV IV PROTOCOL; Start 06/29/16 at 15:30 MARIA LUISA SHETH MD Jun 29, 2016 17:28
[2016-06-29] MEDS: ACETAMINOPHEN 650MG/20.3ML CUP GTB PRN (21:05)
[2016-06-29] MEDS: INSULIN GLARGINE [LANtus] 3 ML PEN SC SCH (21:14)
[2016-06-30] VITALS (23 sets, daily range): BP systolic 126–145; BP diastolic 62–89; PULSE 85–120; RESP 16–27
[2016-06-30] MEDS: LACOSAMIDE (10 MG/ML PO SYG) PO SCH ×3 (01:26→22:58)
[2016-06-30] MEDS: VANCOMYCIN 1 GM in NS 250 ML IVPB SCH ×2 (04:24→15:57)
[2016-06-30] MEDS: ALBUTEROL 0.083% (NEB) 2.5 MG/3 ML AMP HHN SCH ×4 (04:30→20:21)
[2016-06-30] MEDS: ACETYLCYSTEINE 20% 4 ML VIAL NEB SCH ×4 (04:30→20:21)
[2016-06-30] MEDS: INSULIN ASPART [NOVOLOG] 3 ML PEN SC SCH ×5 (05:35→23:49)
[2016-06-30 07:05] LABS: POTASSIUM 3.1 mmol/L (3.5-5.1)
[2016-06-30 07:07] LABS: CREATININE 0.28 mg/dl (0.44-1.00)
[2016-06-30 07:08] LABS: CALCIUM 8.1 mg/dl (8.4-10.2)
[2016-06-30 07:24] LABS: EOSINOPHILS % 0.3 % (0.0-7.0); HEMATOCRIT 24.5 % (37.0-47.0); HEMOGLOBIN 8.7 g/dl (12.0-16.0); LYMPHOCYTES # 1.1 10^3/ul (0.8-2.9); LYMPHOCYTES % 9.1 % (15.0-51.0); MEAN CORPUSCULAR HEMOGLOBIN 35.1 pg (29.0-33.0); MEAN CORPUSCULAR HGB CONC 35.4 g/dl (32.0-37.0); MEAN CORPUSCULAR VOLUME 99.1 fl (82.0-101.0); MEAN PLATELET VOLUME 9.6 fl (7.4-10.4); MONOCYTE # 1.1 10^3/ul (0.3-0.9); MONOCYTES % 8.7 % (0.0-11.0); NEUTROPHIL # 10.2 10^3/ul (1.6-7.5); NEUTROPHILS % 81.9 % (39.0-77.0); PLATELET COUNT 114 10^3/UL (140-440); RED BLOOD COUNT 2.47 10^6/ul (4.20-5.40); RED CELL DISTRIBUTION WIDTH 14.4 % (11.5-14.5); UNCORRECTED WBC 12.5 10^3/ul (4.8-10.8); WHITE BLOOD COUNT 12.5 10^3/ul (4.8-10.8)
[2016-06-30 07:30] LABS: CONDITION 1
[2016-06-30] MEDS: PHENYTOIN (100 MG/4 ML) CUP GTB SCH ×2 (08:43→21:13)
[2016-06-30] MEDS: MULTIVITAMINS 5 ML CUP GTB SCH (08:43)
[2016-06-30] MEDS: DOCUSATE SODIUM 10 MG/ML (10ML CUP) GTB SCH ×2 (08:43→21:00)
[2016-06-30] MEDS: VALPROIC ACID LIQUID CUP 250 MG/5 ML CUP GTB SCH ×2 (08:43→21:13)
[2016-06-30] MEDS: LACTULOSE 30ML CUP GTB SCH (08:44)
[2016-06-30] MEDS: LANSOPRAZOLE 30 MG CAP GTB SCH (08:44)
[2016-06-30] MEDS: FERROUS SULFATE 60 MG/ML 5ML CUP GTB SCH (08:44)
[2016-06-30] MEDS: CEFEPIME 2GM/50 ML (PMX) 50 ML IVPB SCH (08:52)
[2016-06-30] MEDS: ENOXAPARIN 40 MG/0.4 ML SYG SC SCH (08:59)
--- NOTE | 2016-06-30 09:26 | RADRPT ---
PROCEDURE: XR Chest. CLINICAL INDICATION: Left lower lobe pneumonia. TECHNIQUE: Single AP portable chest. COMPARISON: None. FINDINGS: The cardiac silhouette is enlarged. Stable position of tracheostomy and right PICC line catheter. Persistent patchy alveolar airspace disease throughout the left lower and upper lobe . .The lungs a re clear though pleural effusion or focal consolidation. No pneumothorax. The osseous structures and soft tissues are unremarkable. IMPRESSION: 1. Little interval change in left upper and lower lobe air space disease. Support devices in stable position. RPTAT:AAJJ Barbara Raymond Physician Date Time Electronically viewed and signed by Physician Abdiel on 06/30/2016 09:25 MARY/
--- NOTE | 2016-06-30 10:09 | CONS ---
Date/Time of Note Date/Time of Note DATE: 06/30/16 TIME: 10:09 Assessment/Plan Assessment/Plan Chief Complaint/Hosp Course D PROGRESS NOTE TOTAL ABX DAY #4 => Vanco IV + Cefepime 24H INTERVAL SUMMARY * 61 yo F w/advanced MS, Trach, generalized weakness, neurogenic bladder, lethargy, Szs disorder * (+)Fever spike yesterday pm up to 101.7 -> no evidence BCx, urine, nor stool sent for Cx * Patient on Cefepime for ESBL UTI = 2nd line ABX which can develop resistance; however pt also with SZs disorder; hence Cefepime was chosen. * Vanco IV Continues for empiric GPC coverage * New PICC was placed yesterday prior to Fever spike PHYSICAL EXAMINATION: GENERAL: 77 yo HEENT: Unremarkable NECK: Supple, trachea midline. CHEST: Equal chest rise bilaterally HEART: Pulse RRR ABDOMEN: Soft EXTREMITIES: Warm SKIN: See photos ID ASSESSMENT: 61 yo F w/advanced MS, generalized weakness, Trach, neurogenic bladder, lethargy , Szs disorder admit with: 1. Sepsis w/fever 101.7, Leukocytosis 2nd/2 #2 3. Complicated GNR/E.Coli-ESBL UTI 4. Chronic respiratory failure w/(+)Trach 5. HCAP-> CXR 06/29/16: left upper and lower lobe air space disease. INVASIVES: Trach, Peg, FC, PICC (06/29/16) ABX ALLERGY: KNDA CURRENT ABX: TOTAL ABX DAY #4 => Vanco IV d/c Cefepime ID RECOMMENDATIONS: 1. Concern patient spiking fevers 101.7 last pm on Cefepime + Vanco IV ? Source 2. Repeat BCx, UA + Culture, Stool for C.Diff toxin 3. Continue Vanco IV await results BCx from new PICC Line 4. Concern ESBL may develop resistance to Cefepime -> Will give Fosfomycin x1 dose, and 3 days Ertapenem to cover ESBL. -> SHORT Course ERTAPENEM only to avoid lowering SZs threshold of which risk increases with length of ABX course. 5. Follow up on repeat cultures. . Problems: Consultation Date/Type/Reason Admit Date/Time Jun 27, 2016 at 23:01 Initial Consult Date 06/28/16 Type of Consultation: ID Exam/Review of Systems Vital Signs Vitals Vital Signs Date Time Temp Pulse Resp B/P Pulse Ox O2 Delivery O2 Flow Rate FiO2 06/30/16 09:00 106 20 97 50 06/30/16 08:00 98.4 133/77 06/27/16 22:59 Room Air Intake and Output 06/29/16 06/29/16 06/30/16 15:00 23:00 07:00 Intake Total 950 ml 950 ml Output Total 650 ml 850 ml Balance 300 ml 100 ml Results Result Diagram: 06/30/16 0555 06/30/16 0555 Results 24 hrs Laboratory Tests Test 06/29/16 11:10 06/29/16 13:12 06/29/16 18:19 06/29/16 20:59 Vancomycin Level Trough 12.8 Bedside Glucose 179 141 160 Test 06/30/16 02:08 06/30/16 05:55 Bedside Glucose 152 Anion Gap 13 Basophils # 0.0 Basophils % 0.0 Blood Urea Nitrogen 13 Calcium Level 8.1 L Carbon Dioxide Level 30 Chloride Level 108 Creatinine 0.28 L Eosinophils # 0.0 Eosinophils % 0.3 Glucose Level 145 Hematocrit 24.5 L Hemoglobin 8.7 L Lymphocytes # 1.1 Lymphocytes % 9.1 L Mean Corpuscular Hemoglobin 35.1 H Mean Corpuscular Hemoglobin Concent 35.4 Mean Corpuscular Volume 99.1 Mean Platelet Volume 9.6 Monocytes # 1.1 H Monocytes % 8.7 Neutrophils # 10.2 H Neutrophils % 81.9 H Nucleated Red Blood Cells # 0.0 Nucleated Red Blood Cells % 0.0 Platelet Count 114 L Potassium Level 3.1 L Red Blood Count 2.47 L Red Cell Distribution Width 14.4 Sodium Level 148 H White Blood Count 12.5 H Medications Medications Current Medications Acetaminophen (Tylenol Tab) 1,000 mg Q4H PRN PO PAIN 4-6 Last administered on 06/28/16t 00:03; Admin Dose 1,000 MG; Start 06/27/16 at 13:30 Albuterol (Proventil 0.083% (Neb)) 2.5 mg Q3H PRN NEB WHEEZING AND SOB; Start 06/27/16 at 13:30 Docusate Sodium (Colace) 100 mg QHS PRN PO CONSTIPATION; Start 06/27/16 at 13: 30 Enoxaparin Sodium (Lovenox) 40 mg DAILY SC Last administered on 06/30/16 08:59 ; Admin Dose 40 MG; Start 06/27/16 at 13:30 Ferrous Sulfate (Feosol Liquid Cup) 300 mg DAILY GTB Last administered on 08:44; Admin Dose 300 MG; Start 06/27/16 at 09:00 Acetaminophen/ Hydrocodone Bitart ([place] (5/325)) 1 tab Q6 PRN GTB PAIN LEVEL 7 -10; Start 06/27/16 at 13:30 Lansoprazole (Prevacid) 30 mg DAILY GTB Last administered on 06/30/16 08:44; Admin Dose 30 MG; Start 06/28/16 at 09:00 Multivitamins (Thera-Plus) 5 ml DAILY GTB Last administered on 06/30/16 08:43 ; Admin Dose 5 ML; Start 06/28/16 at 09:00 Phenytoin (Dilantin Susp Cup) 300 mg BID GTB Last administered on 06/30/16 08: 43; Admin Dose 300 MG; Start 06/27/16 at 14:00 Valproate Sodium 1500 mg 1,500 mg BID GTB Last administered on 06/30/16 08:43 ; Admin Dose 1,500 MG; Start 06/27/16 at 21:00 Cefepime HCl (Maxipime 2gm/50 ml (Pmx)) 50 ml @ 100 mls/hr Q12 IVPB Last administered on 06/30/16 08:52; Admin Dose 100 MLS/HR; Start 06/27/16 at 21:00 Lorazepam (Ativan) 1 mg Q6H PRN IV SEIZURES; Start 06/27/16 at 13:30 Lacosamide (Vimpat Liq) 100 mg BID PO Last administered on 06/30/16 01:26; Admin Dose 100 MG; Start 06/27/16 at 21:00 Docusate Sodium (Colace Liquid Cup) 100 mg BID GTB Last administered on 08:43; Admin Dose 100 MG; Start 06/28/16 at 21:00 Insulin Aspart (Novolog Insulin Pen) NOVOLOG *MILD* ALGORITHM Q6 SC Last administered on 06/29/16 13:53; Admin Dose 2 UNIT; Start 06/28/16 at 18:00 Insulin Glargine (Lantus) 20 unit HS SC Last administered on 06/29/16 21:14; Admin Dose 20 UNIT; Start 06/28/16 at 21:00 Ondansetron HCl (Zofran Inj) 4 mg Q6H PRN IV NAUSEA AND/OR VOMITING Last administered on 06/30/16 02:11; Admin Dose 4 MG; Start 06/28/16 at 16:30 Miscellaneous Information 1 ea NOTE XX ; Start 06/28/16 at 17:00 Glucose (Glutose) 15 gm Q15M PRN PO DECREASED GLUCOSE; Start 06/28/16 at 17:00 Glucose (Glutose) 22.5 gm Q15M PRN PO DECREASED GLUCOSE; Start 06/28/16 at 17: 00 Dextrose (D50w Syringe) 25 ml Q15M PRN IV DECREASED GLUCOSE; Start 06/28/16 at 17:00 Dextrose (D50w Syringe) 50 ml Q15M PRN IV DECREASED GLUCOSE; Start 06/28/16 at 17:00 Glucagon (Glucagen) 1 mg Q15M PRN IM DECREASED GLUCOSE; Start 06/28/16 at 17:00 Glucose (Glutose) 15 gm Q15M PRN BUCCAL DECREASED GLUCOSE; Start 06/28/16 at 17 :00 Lactulose (Enulose) 20 gm DAILY GTB Last administered on 06/30/16 08:44; Admin Dose 20 GM; Start 06/29/16 at 09:00 Acetaminophen (Tylenol Liquid) 650 mg Q4H PRN GTB PAIN AND OR ELEVATED TEMP Last administered on 06/29/16 21:05; Admin Dose 650 MG; Start 06/28/16 at 19:30 IV Flush 10 ml 10 ml PRN PRN IV IV PROTOCOL; Start 06/29/16 at 15:30 Vancomycin HCl (Vancocin) 250 ml @ 125 mls/hr Q12H IVPB Last administered on 04:24; Admin Dose 125 MLS/HR; Start 06/30/16 at 04:00 IRAM [id number] NP Jun 30, 2016 10:09
[2016-06-30] MEDS ORDERED: FOSFOMYCIN 3 GM PACKET PO ONE (13:00)
[2016-06-30] MEDS: ERTAPENEM SODIUM 1 GM in SOD CHLORIDE 0.9% 100 ML IVPB SCH (13:36)
--- NOTE | 2016-06-30 14:02 | PN ---
Date/Time of Note Date/Time of Note DATE: 06/30/16 TIME: 13:57 Assessment/Plan VTE Prophylaxis VTE Prophylaxis Intervention: heparin Lines/Catheters IV Catheter Type (from [facility]): PICC Line Urinary Cath still in place: Yes Assessment/Plan Assessment/Plan 1. Severe sepsis [address] Gillette is following in infectious disease consultation 2. Acute cystitis with Ecoli ESBL. Cont abx per ID. 3. Left lower lobe pneumonia, healthcare-acquired pneumonia. 4. Breakthrough seizure in a patient with history of seizures. Dr. Garcia , neurology consult appreciated. 5. Advanced Multiple sclerosis. 6. Quadriplegia 7. SP PICC line placement 8. Hypokalemia- replace kcl. BMP am 9. Edema- both hands 10. Edema- both feet Lovenox for deep venous thrombosis prophylaxis and Pepcid for peptic ulcer disease prophylaxis. Further recommendations based on clinical course. Plan of care discussed with Dr. Terry. Subjective 24 Hr Interval Summary Free Text/Dictation NAD, seems comfetable. no new issues reported by staff. dw staff. Constitutional: requiring IVF Eyes: no complaints ENT: no complaints Exam/Review of Systems Vital Signs Vitals Vital Signs Date Time Temp Pulse Resp B/P Pulse Ox O2 Delivery O2 Flow Rate FiO2 06/30/16 12:40 112 06/30/16 11:57 98.9 19 139/62 99 06/30/16 11:00 50 06/27/16 22:59 Room Air Intake and Output 06/29/16 06/29/16 06/30/16 15:00 23:00 07:00 Intake Total 950 ml 950 ml Output Total 650 ml 850 ml Balance 300 ml 100 ml Exam Constitutional: non-verbal Eyes: nl sclera ENMT: nl external ears & nose Neck: non-tender Respiratory: diminished breath sounds Cardiovascular: nl pulses Gastrointestinal: non-tender, other, soft Musculoskeletal: muscle weakness Extremities: normal pulses Neurological: lethargic Skin: other Lymph: nontender Results Result Diagram: 06/30/16 0555 06/30/16 0555 Results 24 hrs Laboratory Tests Test 06/29/16 18:19 06/29/16 20:59 06/30/16 02:08 06/30/16 05:55 Bedside Glucose 141 160 152 Anion Gap 13 Basophils # 0.0 Basophils % 0.0 Blood Urea Nitrogen 13 Calcium Level 8.1 L Carbon Dioxide Level 30 Chloride Level 108 Creatinine 0.28 L Eosinophils # 0.0 Eosinophils % 0.3 Glucose Level 145 Hematocrit 24.5 L Hemoglobin 8.7 L Lymphocytes # 1.1 Lymphocytes % 9.1 L Mean Corpuscular Hemoglobin 35.1 H Mean Corpuscular Hemoglobin Concent 35.4 Mean Corpuscular Volume 99.1 Mean Platelet Volume 9.6 Monocytes # 1.1 H Monocytes % 8.7 Neutrophils # 10.2 H Neutrophils % 81.9 H Nucleated Red Blood Cells # 0.0 Nucleated Red Blood Cells % 0.0 Platelet Count 114 L Potassium Level 3.1 L Red Blood Count 2.47 L Red Cell Distribution Width 14.4 Sodium Level 148 H White Blood Count 12.5 H Test 06/30/16 11:12 Bedside Glucose 188 Medications Medications Current Medications Acetaminophen (Tylenol Tab) 1,000 mg Q4H PRN PO PAIN 4-6/10 Last administered on 06/28/16 00:03; Admin Dose 1,000 MG; Start 06/27/16 at 13:30 Albuterol (Proventil 0.083% (Neb)) 2.5 mg Q3H PRN NEB WHEEZING AND SOB; Start 06/27/16 at 13:30 Docusate Sodium (Colace) 100 mg QHS PRN PO CONSTIPATION; Start 06/27/16 at 13: 30 Enoxaparin Sodium (Lovenox) 40 mg DAILY SC Last administered on 06/30/16 08:59 ; Admin Dose 40 MG; Start 06/27/16 at 13:30 Ferrous Sulfate (Feosol Liquid Cup) 300 mg DAILY GTB Last administered on 08:44; Admin Dose 300 MG; Start 06/27/16 at 09:00 Acetaminophen/ Hydrocodone Bitart ([place] (5/325)) 1 tab Q6 PRN GTB PAIN LEVEL 7 -10; Start 06/27/16 at 13:30 Lansoprazole (Prevacid) 30 mg DAILY GTB Last administered on 06/30/16 08:44; Admin Dose 30 MG; Start 06/28/16 at 09:00 Multivitamins (Thera-Plus) 5 ml DAILY GTB Last administered on 06/30/16 08:43 ; Admin Dose 5 ML; Start 06/28/16 at 09:00 Phenytoin (Dilantin Susp Cup) 300 mg BID GTB Last administered on 06/30/16 08: 43; Admin Dose 300 MG; Start 06/27/16 at 14:00 Valproate Sodium (Depakene Liquid Cup) 1,500 mg BID GTB Last administered on 08:43; Admin Dose 1,500 MG; Start 06/27/16 at 21:00 Lorazepam (Ativan) 1 mg Q6H PRN IV SEIZURES; Start 06/27/16 at 13:30 Lacosamide (Vimpat Liq) 100 mg BID PO Last administered on 06/30/16 11:12; Admin Dose 100 MG; Start 06/27/16 at 21:00 Docusate Sodium (Colace Liquid Cup) 100 mg BID GTB Last administered on 08:43; Admin Dose 100 MG; Start 06/28/16 at 21:00 Insulin Aspart (Novolog Insulin Pen) NOVOLOG *MILD* ALGORITHM Q6 SC Last administered on 06/30/16 11:15; Admin Dose 2 UNIT; Start 06/28/16 at 18:00 Insulin Glargine (Lantus) 20 unit HS SC Last administered on 06/29/16 21:14; Admin Dose 20 UNIT; Start 06/28/16 at 21:00 Ondansetron HCl (Zofran Inj) 4 mg Q6H PRN IV NAUSEA AND/OR VOMITING Last administered on 06/30/16 02:11; Admin Dose 4 MG; Start 06/28/16 at 16:30 Miscellaneous Information 1 ea NOTE XX ; Start 06/28/16 at 17:00 Glucose (Glutose) 15 gm Q15M PRN PO DECREASED GLUCOSE; Start 06/28/16 at 17:00 Glucose (Glutose) 22.5 gm Q15M PRN PO DECREASED GLUCOSE; Start 06/28/16 at 17: 00 Dextrose (D50w Syringe) 25 ml Q15M PRN IV DECREASED GLUCOSE; Start 06/28/16 at 17:00 Dextrose (D50w Syringe) 50 ml Q15M PRN IV DECREASED GLUCOSE; Start 06/28/16 at 17:00 Glucagon (Glucagen) 1 mg Q15M PRN IM DECREASED GLUCOSE; Start 06/28/16 at 17:00 Glucose (Glutose) 15 gm Q15M PRN BUCCAL DECREASED GLUCOSE; Start 06/28/16 at 17 :00 Lactulose (Enulose) 20 gm DAILY GTB Last administered on 06/30/16 08:44; Admin Dose 20 GM; Start 06/29/16 at 09:00 Acetaminophen (Tylenol Liquid) 650 mg Q4H PRN GTB PAIN AND OR ELEVATED TEMP Last administered on 06/29/16 21:05; Admin Dose 650 MG; Start 06/28/16 at 19:30 IV Flush 10 ml 10 ml PRN PRN IV IV PROTOCOL; Start 06/29/16 at 15:30 Vancomycin HCl 250 ml @ 125 mls/hr Q12H IVPB Last administered on 06/30/16 04 :24; Admin Dose 125 MLS/HR; Start 06/30/16 at 04:00 Ertapenem/Sodium Chloride (Invanz/NS) 100 ml @ 200 mls/hr Q24H IVPB Last administered on 06/30/16 13:36; Admin Dose 200 MLS/HR; Start 06/30/16 at 13:00 ; Stop 07/03/16 at 12:59 JOSH CUNNINGHAM Jun 30, 2016 14:02
[2016-06-30] MEDS ORDERED: POTASSIUM CHLORIDE 20 MEQ POWDER FOR ORAL SOLN GTB ONE (15:30)
--- NOTE | 2016-06-30 15:52 | RADRPT ---
PROCEDURE: US DVT. CLINICAL INDICATION: Bilateral lower extremity pain and swelling. TECHNIQUE: Multiple longitudinal and transverse images of the bilateral lower extremity veins were obtained with huffman scale and color Doppler imaging. 2D grayscale measurements with compression, co jaleel Doppler flow, and augmentation was performed. The calf veins were interrogated as well. COMPARISON: No prior studies are available for comparison. FINDINGS: The bilateral common femoral, femoral and popliteal veins are normally compressible throughout. Color flow demonstrates normal filling in all of the vessels. Normal venous waveforms are visualized and there is normal response to augmentation. The calf veins are visualized and are unremarkable. Moderate subcutaneous edema is seen in the bilateral lower extremities. IMPRESSION: 1. No evidence of a deep vein thrombosis involving either lower extremity. 2. Moderate subcutaneous edema in the bilateral lower extremities. RPTAT: QQ .Leonard Padgett MD, Date Time Electronically viewed and signed by .Leonard Padgett MD, MD on 06/30/2016 15:51 .M/
--- NOTE | 2016-06-30 16:20 | RADRPT ---
PROCEDURE: US upper extremity Venous. CLINICAL INDICATION: swelling TECHNIQUE: Multiple sonographic images of the right upper extremity venous system was obtained uti lizing grayscale, color-flow, compressive sonography and doppler imaging with augmentation. The iggy ges were reviewed on a PACS workstation. COMPARISON: None. FINDINGS: There is normal compressibility and flow within the right internal jugular vein, subclavian vein, ax illary vein, brachial, basilic, cephalic, radial and ulnar veins. IMPRESSION: No sonographic evidence for venous thrombosis. RPTAT:AAJJ Physician Abdiel Date Time Electronically viewed and signed by Physician Abdiel on 06/30/2016 16:19 MARY/
--- NOTE | 2016-06-30 17:56 | CONS ---
Date/Time of Note Date/Time of Note DATE: 06/30/16 TIME: 17:53 Consult Date/Type/Reason Admit Date/Time Jun 27, 2016 at 23:01 Initial Consult Date 06/28/16 Type of Consultation: Pulm Subjective stable on MV Objective Vital Signs Date Time Temp Pulse Resp B/P Pulse Ox O2 Delivery O2 Flow Rate FiO2 06/30/16 17:08 109 06/30/16 16:23 98.5 20 145/89 98 06/30/16 15:00 50 06/27/16 22:59 Room Air Intake and Output 06/29/16 06/29/16 06/30/16 15:00 23:00 07:00 Intake Total 950 ml 950 ml Output Total 650 ml 850 ml Balance 300 ml 100 ml HEENT: Neck supple; no JVD; no LAD, trach site clear CVS: RRR, S1 and S2 CHEST: Rhonchi b/l ABD: Soft, NT, + BS EXT: No c/c/+ edema Results/Medications Result Diagram: 06/30/16 0555 06/30/16 0555 Results 24 hrs Laboratory Tests Test 06/29/16 18:19 06/29/16 20:59 06/30/16 02:08 06/30/16 05:55 Bedside Glucose 141 160 152 Anion Gap 13 Basophils # 0.0 Basophils % 0.0 Blood Urea Nitrogen 13 Calcium Level 8.1 L Carbon Dioxide Level 30 Chloride Level 108 Creatinine 0.28 L Eosinophils # 0.0 Eosinophils % 0.3 Glucose Level 145 Hematocrit 24.5 L Hemoglobin 8.7 L Lymphocytes # 1.1 Lymphocytes % 9.1 L Mean Corpuscular Hemoglobin 35.1 H Mean Corpuscular Hemoglobin Concent 35.4 Mean Corpuscular Volume 99.1 Mean Platelet Volume 9.6 Monocytes # 1.1 H Monocytes % 8.7 Neutrophils # 10.2 H Neutrophils % 81.9 H Nucleated Red Blood Cells # 0.0 Nucleated Red Blood Cells % 0.0 Platelet Count 114 L Potassium Level 3.1 L Red Blood Count 2.47 L Red Cell Distribution Width 14.4 Sodium Level 148 H White Blood Count 12.5 H Test 06/30/16 11:12 Bedside Glucose 188 Medications Current Medications Acetaminophen (Tylenol Tab) 1,000 mg Q4H PRN PO PAIN 4-6/10 Last administered on 06/28/16t 00:03; Admin Dose 1,000 MG; Start 06/27/16 at 13:30 Albuterol (Proventil 0.083% (Neb)) 2.5 mg Q3H PRN NEB WHEEZING AND SOB; Start 06/27/16 at 13:30 Docusate Sodium (Colace) 100 mg QHS PRN PO CONSTIPATION; Start 06/27/16 at 13: 30 Enoxaparin Sodium (Lovenox) 40 mg DAILY SC Last administered on 06/30/16 08:59 ; Admin Dose 40 MG; Start 06/27/16 at 13:30 Ferrous Sulfate (Feosol Liquid Cup) 300 mg DAILY GTB Last administered on 08:44; Admin Dose 300 MG; Start 06/27/16 at 09:00 Acetaminophen/ Hydrocodone Bitart ([place] (5/325)) 1 tab Q6 PRN GTB PAIN LEVEL 7 -10; Start 06/27/16 at 13:30 Lansoprazole (Prevacid) 30 mg DAILY GTB Last administered on 06/30/16 08:44; Admin Dose 30 MG; Start 06/28/16 at 09:00 Multivitamins (Thera-Plus) 5 ml DAILY GTB Last administered on 06/30/16 08:43 ; Admin Dose 5 ML; Start 06/28/16 at 09:00 Phenytoin (Dilantin Susp Cup) 300 mg BID GTB Last administered on 06/30/16 08: 43; Admin Dose 300 MG; Start 06/27/16 at 14:00 Valproate Sodium (Depakene Liquid Cup) 1,500 mg BID GTB Last administered on 08:43; Admin Dose 1,500 MG; Start 06/27/16 at 21:00 Lorazepam (Ativan) 1 mg Q6H PRN IV SEIZURES; Start 06/27/16 at 13:30 Lacosamide (Vimpat Liq) 100 mg BID PO Last administered on 06/30/16 11:12; Admin Dose 100 MG; Start 06/27/16 at 21:00 Docusate Sodium (Colace Liquid Cup) 100 mg BID GTB Last administered on 08:43; Admin Dose 100 MG; Start 06/28/16 at 21:00 Insulin Aspart (Novolog Insulin Pen) NOVOLOG *MILD* ALGORITHM Q6 SC Last administered on 06/30/16 11:15; Admin Dose 2 UNIT; Start 06/28/16 at 18:00 Insulin Glargine (Lantus) 20 unit HS SC Last administered on 06/29/16 21:14; Admin Dose 20 UNIT; Start 06/28/16 at 21:00 Ondansetron HCl (Zofran Inj) 4 mg Q6H PRN IV NAUSEA AND/OR VOMITING Last administered on 06/30/16 02:11; Admin Dose 4 MG; Start 06/28/16 at 16:30 Miscellaneous Information 1 ea NOTE XX ; Start 06/28/16 at 17:00 Glucose (Glutose) 15 gm Q15M PRN PO DECREASED GLUCOSE; Start 06/28/16 at 17:00 Glucose (Glutose) 22.5 gm Q15M PRN PO DECREASED GLUCOSE; Start 06/28/16 at 17: 00 Dextrose (D50w Syringe) 25 ml Q15M PRN IV DECREASED GLUCOSE; Start 06/28/16 at 17:00 Dextrose (D50w Syringe) 50 ml Q15M PRN IV DECREASED GLUCOSE; Start 06/28/16 at 17:00 Glucagon (Glucagen) 1 mg Q15M PRN IM DECREASED GLUCOSE; Start 06/28/16 at 17:00 Glucose (Glutose) 15 gm Q15M PRN BUCCAL DECREASED GLUCOSE; Start 06/28/16 at 17 :00 Lactulose (Enulose) 20 gm DAILY GTB Last administered on 06/30/16 08:44; Admin Dose 20 GM; Start 06/29/16 at 09:00 Acetaminophen (Tylenol Liquid) 650 mg Q4H PRN GTB PAIN AND OR ELEVATED TEMP Last administered on 06/29/16 21:05; Admin Dose 650 MG; Start 06/28/16 at 19:30 IV Flush 10 ml 10 ml PRN PRN IV IV PROTOCOL; Start 06/29/16 at 15:30 Vancomycin HCl 250 ml @ 125 mls/hr Q12H IVPB Last administered on 06/30/16 15 :57; Admin Dose 125 MLS/HR; Start 06/30/16 at 04:00 Ertapenem/Sodium Chloride (Invanz/NS) 100 ml @ 200 mls/hr Q24H IVPB Last administered on 1/28/17at 13:36; Admin Dose 200 MLS/HR; Start 06/30/16 at 13:00 ; Stop 07/03/16 at 12:59 Assessment/Plan Additional Assessment/Plan IMP: 1. VDRF 2. LLL pna + atelectasis 3 CHF 4 CVA 5. Encephalopathy RECS: 1. Vent support--reduce FiO2; obtain baseline ABG 2. Abx 3. f/u cx's CARRIE ROLAND MD Jun 30, 2016 17:56
[2016-06-30 18:59] LABS: ADD UMIC YES; URINE BILIRUBIN (Dip) NEGATIVE (NEGATIVE); URINE BLOOD (Dip) 2+ (NEGATIVE); URINE COLOR LT. YELLOW (YELLOW); URINE GLUCOSE (Dip) NEGATIVE (NEGATIVE); URINE KETONES (Dip) NEGATIVE (NEGATIVE); URINE LEUKOCYTE ESTERASE (Dip) NEGATIVE (NEGATIVE); URINE NITRITE (Dip) NEGATIVE (NEGATIVE); URINE TOTAL PROTEIN (Dip) NEGATIVE (NEGATIVE); URINE UROBILINOGEN (Dip) 0.2 E.U./dL (0.1-1.0)
[2016-06-30 19:06] LABS: SQUAMOUS EPITHELIAL CELL,UR RARE; URINE RBCS 0-2 /HPF (0)
[2016-06-30] MEDS: INSULIN GLARGINE [LANtus] 3 ML PEN SC SCH (21:27)
[2016-07-01] VITALS (23 sets, daily range): BP systolic 113–135; BP diastolic 54–85; PULSE 95–110; RESP 15–24
[2016-07-01] MEDS: ACETAMINOPHEN 500 MG TAB PO PRN (00:22)
[2016-07-01] MEDS: ALBUTEROL 0.083% (NEB) 2.5 MG/3 ML AMP HHN SCH ×4 (01:49→19:39)
[2016-07-01] MEDS: ACETYLCYSTEINE 20% 4 ML VIAL NEB SCH ×4 (02:22→19:39)
[2016-07-01] MEDS: VANCOMYCIN 1 GM in NS 250 ML IVPB SCH (04:38)
[2016-07-01] MEDS: INSULIN ASPART [NOVOLOG] 3 ML PEN SC SCH ×3 (05:34→17:58)
[2016-07-01 08:14] LABS: CREATININE 0.33 mg/dl (0.44-1.00)
[2016-07-01 08:15] LABS: CALCIUM 7.8 mg/dl (8.4-10.2)
[2016-07-01 08:18] LABS: BASOPHILS % 0.1 % (0.0-2.0); EOSINOPHILS % 0.2 % (0.0-7.0); HEMATOCRIT 24.8 % (37.0-47.0); HEMOGLOBIN 8.8 g/dl (12.0-16.0); LYMPHOCYTES # 1.6 10^3/ul (0.8-2.9); MEAN CORPUSCULAR HEMOGLOBIN 34.9 pg (29.0-33.0); MEAN CORPUSCULAR HGB CONC 35.5 g/dl (32.0-37.0); MEAN CORPUSCULAR VOLUME 98.6 fl (82.0-101.0); MEAN PLATELET VOLUME 10.5 fl (7.4-10.4); MONOCYTE # 1.3 10^3/ul (0.3-0.9); MONOCYTES % 10.3 % (0.0-11.0); NEUTROPHIL # 10.1 10^3/ul (1.6-7.5); NEUTROPHILS % 77.4 % (39.0-77.0); PLATELET COUNT 113 10^3/UL (140-440); RED BLOOD COUNT 2.52 10^6/ul (4.20-5.40); RED CELL DISTRIBUTION WIDTH 13.9 % (11.5-14.5)
[2016-07-01 08:19] LABS: POTASSIUM 2.7 mmol/L (3.5-5.1)
[2016-07-01 08:24] LABS: CONDITION 1
[2016-07-01] MEDS: MULTIVITAMINS 5 ML CUP GTB SCH (08:53)
[2016-07-01] MEDS: LANSOPRAZOLE 30 MG CAP GTB SCH (08:53)
[2016-07-01] MEDS: DOCUSATE SODIUM 10 MG/ML (10ML CUP) GTB SCH ×2 (08:53→21:00)
[2016-07-01] MEDS: LACTULOSE 30ML CUP GTB SCH (08:53)
[2016-07-01] MEDS: FERROUS SULFATE 60 MG/ML 5ML CUP GTB SCH (08:53)
[2016-07-01] MEDS: VALPROIC ACID LIQUID CUP 250 MG/5 ML CUP GTB SCH ×2 (08:53→21:22)
[2016-07-01] MEDS: PHENYTOIN (100 MG/4 ML) CUP GTB SCH ×2 (08:53→21:22)
[2016-07-01] MEDS: ENOXAPARIN 40 MG/0.4 ML SYG SC SCH (08:58)
[2016-07-01] MEDS: LACOSAMIDE (10 MG/ML PO SYG) PO SCH ×2 (09:29→21:23)
[2016-07-01] MEDS ORDERED: POTASSIUM CHLORIDE 20 MEQ POWDER FOR ORAL SOLN GTB ONE ×2 (09:30→14:00)
--- NOTE | 2016-07-01 11:13 | PN ---
Date/Time of Note Date/Time of Note DATE: 07/01/16 TIME: 11:11 Assessment/Plan VTE Prophylaxis VTE Prophylaxis Intervention: SCD's Lines/Catheters IV [facility] PICC Line Urinary Cath still in place: Yes Assessment/Plan Assessment/Plan 1. Severe sepsis [address] Gillette is following in infectious disease consultation 2. Acute cystitis with Ecoli ESBL. Cont abx per ID. 3. Left lower lobe pneumonia, healthcare-acquired pneumonia.Patient has pink sputum per RT, will hold Lovenox until clear 3. VDRF - per pulmonary 4. Breakthrough seizure in a patient with history of seizures. Dr. Garcia , neurology consult appreciated. 5. Advanced Multiple sclerosis. 6. Quadriplegia 7. SP PICC line placement 8. Hypokalemia- replace kcl. BMP am 9. Edema- both hands - negative foe DVT 10. Edema- both feet - negative for DVT 11. Anemia- monitor H/H Lovenox for deep venous thrombosis prophylaxis and Pepcid for peptic ulcer disease prophylaxis. Further recommendations based on clinical course. Plan of care discussed with Dr. Terry. Subjective 24 Hr Interval Summary Free Text/Dictation NAD. Per RT, pt has pink secretions- Lovenox is given today but will hold until further notice. dw staff. Constitutional: requiring IVF, requiring O2 Exam/Review of Systems Vital Signs Vitals Vital Signs Date Time Temp Pulse Resp B/P Pulse Ox O2 Delivery O2 Flow Rate FiO2 07/01/16 09:05 84 21 99 50 07/01/16 07:59 98.9 130/60 06/27/16 22:59 Room Air Intake and Output 06/30/16 06/30/16 07/01/16 15:00 23:00 07:00 Intake Total 550 ml 250 ml Output Total 400 ml Balance 150 ml 250 ml Exam Head: normocephalic Eyes: EOMI, PERRL, nl sclera ENMT: nl external ears & nose Neck: non-tender Respiratory: diminished breath sounds Cardiovascular: nl pulses Gastrointestinal: non-tender, other, soft Musculoskeletal: muscle weakness Extremities: edema Lymph: nontender Results Result Diagram: 07/01/16 0605 07/01/16 0605 Results 24 hrs Laboratory Tests Test 06/30/16 11:12 06/30/16 17:45 06/30/16 18:00 06/30/16 21:20 Bedside Glucose 188 165 206 Urine Bilirubin NEGATIVE Urine Clarity CLEAR Urine Color LT. YELLOW Urine Glucose NEGATIVE Urine Hemoglobin 2+ H Urine Ketones NEGATIVE Urine Leukocyte Esterase NEGATIVE Urine Microscopic RBC 0-2 Urine Microscopic WBC 0-2 Urine Nitrite NEGATIVE Urine Specific [place] 1.020 Urine Squamous Epithelial Cells RARE Urine Total Protein NEGATIVE Urine Transitional Epithelial Cells Urine Urobilinogen 0.2 E.U./dL Urine Yeast FEW Urine pH 7.0 Test 06/30/16 23:45 07/01/16 05:33 07/01/16 06:05 Bedside Glucose 201 132 Anion Gap 12 Basophils # 0.0 Basophils % 0.1 Blood Morphology Comment Blood Urea Nitrogen 18 Calcium Level 7.8 L Carbon Dioxide Level 30 Chloride Level 108 Creatinine 0.33 L Eosinophils # 0.0 Eosinophils % 0.2 Glucose Level 126 Hematocrit 24.8 L Hemoglobin 8.8 L Lymphocytes # 1.6 Lymphocytes % 12.0 L Mean Corpuscular Hemoglobin 34.9 H Mean Corpuscular Hemoglobin Concent 35.5 Mean Corpuscular Volume 98.6 Mean Platelet Volume 10.5 H Monocytes # 1.3 H Monocytes % 10.3 Neutrophils # 10.1 H Neutrophils % 77.4 H Nucleated Red Blood Cells # 0.0 Nucleated Red Blood Cells % 0.0 Platelet Count 113 L Potassium Level 2.7 *L Red Blood Count 2.52 L Red Cell Distribution Width 13.9 Sodium Level 147 H White Blood Count 13.0 H Medications Medications Current Medications Acetaminophen (Tylenol Tab) 1,000 mg Q4H PRN PO PAIN 4-6/10 Last administered on 07/01/16 00:22; Admin Dose 1,000 MG; Start 06/27/16 at 13:30 Albuterol (Proventil 0.083% (Neb)) 2.5 mg Q3H PRN NEB WHEEZING AND SOB; Start 06/27/16 at 13:30 Docusate Sodium (Colace) 100 mg QHS PRN PO CONSTIPATION; Start 06/27/16 at 13: 30 Enoxaparin Sodium (Lovenox) 40 mg DAILY SC Last administered on 07/01/16 08:58 ; Admin Dose 40 MG; Start 06/27/16 at 13:30 Ferrous Sulfate (Feosol Liquid Cup) 300 mg DAILY GTB Last administered on 08:53; Admin Dose 300 MG; Start 06/27/16 at 09:00 Acetaminophen/ Hydrocodone Bitart ([place] (5/325)) 1 tab Q6 PRN GTB PAIN LEVEL 7 -10; Start 06/27/16 at 13:30 Lansoprazole (Prevacid) 30 mg DAILY GTB Last administered on 07/01/16 08:53; Admin Dose 30 MG; Start 06/28/16 at 09:00 Multivitamins (Thera-Plus) 5 ml DAILY GTB Last administered on 07/01/16 08:53 ; Admin Dose 5 ML; Start 06/28/16 at 09:00 Phenytoin (Dilantin Susp Cup) 300 mg BID GTB Last administered on 07/01/16 08: 53; Admin Dose 300 MG; Start 06/27/16 at 14:00 Valproate Sodium (Depakene Liquid Cup) 1,500 mg BID GTB Last administered on 08:53; Admin Dose 1,500 MG; Start 06/27/16 at 21:00 Lorazepam (Ativan) 1 mg Q6H PRN IV SEIZURES; Start 06/27/16 at 13:30 Lacosamide (Vimpat Liq) 100 mg BID PO Last administered on 07/01/16 09:29; Admin Dose 100 MG; Start 06/27/16 at 21:00 Docusate Sodium (Colace Liquid Cup) 100 mg BID GTB Last administered on 08:53; Admin Dose 100 MG; Start 06/28/16 at 21:00 Insulin Aspart (Novolog Insulin Pen) NOVOLOG *MILD* ALGORITHM Q6 SC Last administered on 06/30/16 23:49; Admin Dose 1 UNIT; Start 06/28/16 at 18:00 Insulin Glargine (Lantus) 20 unit HS SC Last administered on 06/30/16 21:27; Admin Dose 20 UNIT; Start 06/28/16 at 21:00 Ondansetron HCl (Zofran Inj) 4 mg Q6H PRN IV NAUSEA AND/OR VOMITING Last administered on 06/30/16 02:11; Admin Dose 4 MG; Start 06/28/16 at 16:30 Miscellaneous Information 1 ea NOTE XX ; Start 06/28/16 at 17:00 Glucose (Glutose) 15 gm Q15M PRN PO DECREASED GLUCOSE; Start 06/28/16 at 17:00 Glucose (Glutose) 22.5 gm Q15M PRN PO DECREASED GLUCOSE; Start 06/28/16 at 17: 00 Dextrose (D50w Syringe) 25 ml Q15M PRN IV DECREASED GLUCOSE; Start 06/28/16 at 17:00 Dextrose (D50w Syringe) 50 ml Q15M PRN IV DECREASED GLUCOSE; Start 06/28/16 at 17:00 Glucagon (Glucagen) 1 mg Q15M PRN IM DECREASED GLUCOSE; Start 06/28/16 at 17:00 Glucose (Glutose) 15 gm Q15M PRN BUCCAL DECREASED GLUCOSE; Start 06/28/16 at 17 :00 Lactulose (Enulose) 20 gm DAILY GTB Last administered on 07/01/16 08:53; Admin Dose 20 GM; Start 06/29/16 at 09:00 Acetaminophen (Tylenol Liquid) 650 mg Q4H PRN GTB PAIN AND OR ELEVATED TEMP Last administered on 06/29/16 21:05; Admin Dose 650 MG; Start 06/28/16 at 19:30 IV Flush 10 ml 10 ml PRN PRN IV IV PROTOCOL; Start 06/29/16 at 15:30 Vancomycin HCl 250 ml @ 125 mls/hr Q12H IVPB Last administered on 07/01/16 04 :38; Admin Dose 125 MLS/HR; Start 06/30/16 at 04:00 Ertapenem/Sodium Chloride (Invanz/NS) 100 ml @ 200 mls/hr Q24H IVPB Last administered on 06/30/16 13:36; Admin Dose 200 MLS/HR; Start 06/30/16 at 13:00 ; Stop 07/03/16 at 12:59 Potassium Chloride (Potassium Chloride Pwd/Soln) 40 meq ONCE ONCE GTB ; Start 07/01/16 at 14:00; Stop 07/01/16 at 14:01 JOSH CUNNINGHAM Jul 01, 2016 11:13
[2016-07-01 11:25] LABS: AADO2 Arterial 227.7 mmHg (7.0-24.0); Allen Test ACCEPTAB; Arterial Base Excess 5.8 mmol/L (-3.0-3); Arterial COHb 0.3 % (0.0-3.0); Arterial Fraction of Oxyhgb 96.1 % (93.0-99.0); Arterial HCO3 29.4 mmol/L (22.0-26.0); Arterial MetHb 0.3 % (0.0-1.5); Arterial Total Hemglobin 11.1 g/dl (12.0-18.0); MODE VENT - AC
--- NOTE | 2016-07-01 12:46 | RADRPT ---
PROCEDURE: XR Chest. CLINICAL INDICATION: Shortness of breath. TECHNIQUE: Single frontal view. COMPARISON: 06/30/2016. FINDINGS: The tracheostomy tube remains in satisfactory position. There is a right arm PICC line with the tip in the upper superior vena cava. Pulmonary edema and dense consolidation in the left perihilar reg ion is slightly worse than seen previously. The heart is enlarged. There is no pleural effusion. There is no pneumothorax. IMPRESSION: 1. Slightly worse appearance of the lungs. 2. No other change from 06/30/2016. RPTAT: QQ .Pavel Carlson MD, MD Date Time Electronically viewed and signed by .Pavel Carlson MD, on 07/01/2016 12:46 .R/
--- NOTE | 2016-07-01 13:14 | CONS ---
Date/Time of Note Date/Time of Note DATE: 07/01/16 TIME: 13:13 Assessment/Plan Assessment/Plan Chief Complaint/Hosp Course AMS Problems: Additional Assessment/Plan The patient is a 61-year-old woman with past medical history of advanced multiple sclerosis, seizures, respiratory failure and dysphagia with gastric tube and tracheostomy, ischemic colitis, [facility], decreased level of responsiveness. She has been on Dilantin and Depakote and Vimpat 100 mg twice daily was added on admission. MEDICATIONS: 1. Continue Dilantin, Depakote and Vimpat 2. Continue present management 3 Dr oGmes to follow in AM Consultation Date/Type/Reason Admit Date/Time Jun 27, 2016 at 23:01 Initial Consult Date 06/28/16 Type of Consultation: Pulm Exam/Review of Systems Vital Signs Vitals Vital Signs Date Time Temp Pulse Resp B/P Pulse Ox O2 Delivery O2 Flow Rate FiO2 07/01/16 12:16 96 07/01/16 11:48 99.0 19 130/69 99 07/01/16 11:10 50 06/27/16 22:59 Room Air Intake and Output 06/30/16 06/30/16 07/01/16 15:00 23:00 07:00 Intake Total 550 ml 250 ml Output Total 400 ml Balance 150 ml 250 ml Exam Neurological: other (non communicative, pupils are equally reacting) Results Result Diagram: 07/01/16 0605 07/01/16 0605 Results 24 hrs Laboratory Tests Test 06/30/16 17:45 06/30/16 18:00 06/30/16 21:20 06/30/16 23:45 Bedside Glucose 165 206 201 Urine Bilirubin NEGATIVE Urine Clarity CLEAR Urine Color LT. YELLOW Urine Glucose NEGATIVE Urine Hemoglobin 2+ H Urine Ketones NEGATIVE Urine Leukocyte Esterase NEGATIVE Urine Microscopic RBC 0-2 Urine Microscopic WBC 0-2 Urine Nitrite NEGATIVE Urine Specific [place] 1.020 Urine Squamous Epithelial Cells RARE Urine Total Protein NEGATIVE Urine Transitional Epithelial Cells Urine Urobilinogen 0.2 E.U./dL Urine Yeast FEW Urine pH 7.0 Test 07/01/16 05:33 07/01/16 06:05 07/01/16 10:00 07/01/16 11:28 Bedside Glucose 132 198 Anion Gap 12 Basophils # 0.0 Basophils % 0.1 Blood Morphology Comment Blood Urea Nitrogen 18 Calcium Level 7.8 L Carbon Dioxide Level 30 Chloride Level 108 Creatinine 0.33 L Eosinophils # 0.0 Eosinophils % 0.2 Glucose Level 126 Hematocrit 24.8 L Hemoglobin 8.8 L Lymphocytes # 1.6 Lymphocytes % 12.0 L Mean Corpuscular Hemoglobin 34.9 H Mean Corpuscular Hemoglobin Concent 35.5 Mean Corpuscular Volume 98.6 Mean Platelet Volume 10.5 H Monocytes # 1.3 H Monocytes % 10.3 Neutrophils # 10.1 H Neutrophils % 77.4 H Nucleated Red Blood Cells # 0.0 Nucleated Red Blood Cells % 0.0 Platelet Count 113 L Potassium Level 2.7 *L Red Blood Count 2.52 L Red Cell Distribution Width 13.9 Sodium Level 147 H White Blood Count 13.0 H Arterial Blood HCO3 29.4 H Arterial Blood Base Excess 5.8 H Arterial Blood Oxygen Saturation 96.7 Thomas Test ACCEPTAB Arterial Blood Gas Puncture Site Left Radial Arterial Blood Carboxyhemoglobin 0.3 Arterial Blood Date Drawn 07/01/2016 11:00:06 AM Arterial Blood Methemoglobin 0.3 Arterial Blood pCO2 (Temp correct) 38.9 Arterial Blood pH (Temp corrected) 7.496 H Arterial Blood pO2 (Temp corrected) 85.0 Blood Gas A-a O2 Differential 227.7 H Blood Gas Actual Respiration Rate 21 Blood Gas Low PEEP Setting 5.0 Blood Gas Modality VENT - AC Blood Gas Notified Time 07/01/2016 11:25:46 AM Blood Gas Notified Whom DT Blood Gas Respiration Rate 14.0 Blood Gas Specimen Source Blood arterial Blood Gas Temperature 37.0 Blood Gas Tidal Volume 500.0 FiO2 50.0 Oxyhemoglobin Percent 96.1 Total Hemoglobin 11.1 L Medications Medications Current Medications Acetaminophen (Tylenol Tab) 1,000 mg Q4H PRN PO PAIN 4-6 Last administered on 07/01/16 00:22; Admin Dose 1,000 MG; Start 06/27/16 at 13:30 Albuterol (Proventil 0.083% (Neb)) 2.5 mg Q3H PRN NEB WHEEZING AND SOB; Start 06/27/16 at 13:30 Docusate Sodium (Colace) 100 mg QHS PRN PO CONSTIPATION; Start 06/27/16 at 13: 30 Enoxaparin Sodium (Lovenox) 40 mg DAILY SC Last administered on 07/01/16 08:58 ; Admin Dose 40 MG; Start 06/27/16 at 13:30 Ferrous Sulfate (Feosol Liquid Cup) 300 mg DAILY GTB Last administered on 08:53; Admin Dose 300 MG; Start 06/27/16 at 09:00 Acetaminophen/ Hydrocodone Bitart ([place] (5/325)) 1 tab Q6 PRN GTB PAIN LEVEL 7 -10; Start 06/27/16 at 13:30 Lansoprazole (Prevacid) 30 mg DAILY GTB Last administered on 07/01/16 08:53; Admin Dose 30 MG; Start 06/28/16 at 09:00 Multivitamins (Thera-Plus) 5 ml DAILY GTB Last administered on 07/01/16 08:53 ; Admin Dose 5 ML; Start 06/28/16 at 09:00 Phenytoin (Dilantin Susp Cup) 300 mg BID GTB Last administered on 07/01/16 08: 53; Admin Dose 300 MG; Start 06/27/16 at 14:00 Valproate Sodium (Depakene Liquid Cup) 1,500 mg BID GTB Last administered on 08:53; Admin Dose 1,500 MG; Start 06/27/16 at 21:00 Lorazepam (Ativan) 1 mg Q6H PRN IV SEIZURES; Start 06/27/16 at 13:30 Lacosamide (Vimpat Liq) 100 mg BID PO Last administered on 07/01/16 09:29; Admin Dose 100 MG; Start 06/27/16 at 21:00 Docusate Sodium (Colace Liquid Cup) 100 mg BID GTB Last administered on 08:53; Admin Dose 100 MG; Start 06/28/16 at 21:00 Insulin Aspart (Novolog Insulin Pen) NOVOLOG *MILD* ALGORITHM Q6 SC Last administered on 06/30/16 23:49; Admin Dose 1 UNIT; Start 06/28/16 at 18:00 Insulin Glargine (Lantus) 20 unit HS SC Last administered on 06/30/16 21:27; Admin Dose 20 UNIT; Start 06/28/16 at 21:00 Ondansetron HCl (Zofran Inj) 4 mg Q6H PRN IV NAUSEA AND/OR VOMITING Last administered on 06/30/16 02:11; Admin Dose 4 MG; Start 06/28/16 at 16:30 Miscellaneous Information 1 ea NOTE XX ; Start 06/28/16 at 17:00 Glucose (Glutose) 15 gm Q15M PRN PO DECREASED GLUCOSE; Start 06/28/16 at 17:00 Glucose (Glutose) 22.5 gm Q15M PRN PO DECREASED GLUCOSE; Start 06/28/16 at 17: 00 Dextrose (D50w Syringe) 25 ml Q15M PRN IV DECREASED GLUCOSE; Start 06/28/16 at 17:00 Dextrose (D50w Syringe) 50 ml Q15M PRN IV DECREASED GLUCOSE; Start 06/28/16 at 17:00 Glucagon (Glucagen) 1 mg Q15M PRN IM DECREASED GLUCOSE; Start 06/28/16 at 17:00 Glucose (Glutose) 15 gm Q15M PRN BUCCAL DECREASED GLUCOSE; Start 06/28/16 at 17 :00 Lactulose (Enulose) 20 gm DAILY GTB Last administered on 07/01/16 08:53; Admin Dose 20 GM; Start 06/29/16 at 09:00 Acetaminophen (Tylenol Liquid) 650 mg Q4H PRN GTB PAIN AND OR ELEVATED TEMP Last administered on 06/29/16 21:05; Admin Dose 650 MG; Start 06/28/16 at 19:30 IV Flush 10 ml 10 ml PRN PRN IV IV PROTOCOL; Start 06/29/16 at 15:30 Vancomycin HCl 250 ml @ 125 mls/hr Q12H IVPB Last administered on 07/01/16 04 :38; Admin Dose 125 MLS/HR; Start 06/30/16 at 04:00 Ertapenem/Sodium Chloride (Invanz/NS) 100 ml @ 200 mls/hr Q24H IVPB Last administered on 06/30/16 13:36; Admin Dose 200 MLS/HR; Start 06/30/16 at 13:00 ; Stop 07/03/16 at 12:59 Potassium Chloride (Potassium Chloride Pwd/Soln) 40 meq ONCE ONCE GTB ; Start 07/01/16 at 14:00; Stop 07/01/16 at 14:01 MARIA LUISA SHETH MD Jul 01, 2016 13:14
[2016-07-01] MEDS: ERTAPENEM SODIUM 1 GM in SOD CHLORIDE 0.9% 100 ML IVPB SCH (14:34)
[2016-07-01] MEDS ORDERED: FLUCONAZOLE 100 MG/NS (PMX) 50 ML IVPB SCH (16:30)
--- NOTE | 2016-07-01 16:31 | CONS ---
Date/Time of Note Date/Time of Note DATE: 07/01/16 TIME: 16:12 Assessment/Plan Assessment/Plan Chief Complaint/Hosp Course D PROGRESS NOTE TOTAL ABX DAY #5 => Vanco IV + ERtapenem Cefepime 24H INTERVAL SUMMARY * (+)Fevers yesterday -> stool cx (+)C.Diff * 61 yo F w/advanced MS, Trach, generalized weakness, neurogenic bladder, lethargy, Szs disorder * (+)Fever spike yesterday pm up to 101.7 -> no evidence BCx, urine, nor stool sent for Cx * CXR 07/01/16: Pulmonary edema and dense consolidation in the left perihilar region is slightly worse than seen previously. * New PICC was placed yesterday prior to Fever spike Specimen: [id number] Status: Complete Delbert: 06/30/16-1799 Rcvd: 06/30-1847 Source: [facility]ES Sp Descrip: Procedure Result Microbiology C DIFFICILE DNA AMPLIFICATION Final CYTOTOXIGENIC C DIFFICILE POSITIVE (Ref Range Neg) PHYSICAL EXAMINATION: GENERAL: 77 yo HEENT: Unremarkable NECK: Supple, trachea midline. CHEST: Equal chest rise bilaterally HEART: Pulse RRR ABDOMEN: Soft EXTREMITIES: Warm SKIN: See photos ID ASSESSMENT: 61 yo F w/advanced MS, generalized weakness, Trach, neurogenic bladder, lethargy , Szs disorder admit with: 1. Sepsis w/fever 101.7, Leukocytosis 2nd/2 #2 3. Complicated GNR/E.Coli-ESBL UTI 4. Chronic respiratory failure w/(+)Trach 5. HCAP-> CXR 06/29/16: left upper and lower lobe air space disease. INVASIVES: Trach, Peg, FC, PICC (06/29/16) ABX ALLERGY: KNDA CURRENT ABX: TOTAL ABX DAY #4 => START Vanco Liquid + FLagyl IV + Diflucan Vanco IV + Ertapenem s/p Fosfomycin x1 d/c Cefepime ID RECOMMENDATIONS: 1. Patient spiking fevers with opportunistic YEAST and C.Diff -> Urine cleared of ESBL w/Fosfomycin * DC Vanco IV + Ertepenem * Start Flagyl IV + Vanco Liquid 250mg po QID * Change FC * Start Diflucan low dose per drug-drug interactions to cover yeast uti 2. ASP Precautions -> Has received 5 days ABX for HCAP - observe how she tolerates ABX DC in terms of resolving PNA . . . Problems: Consultation Date/Type/Reason Admit Date/Time Jun 27, 2016 at 23:01 Initial Consult Date 06/28/16 Type of Consultation: ID Exam/Review of Systems Vital Signs Vitals Vital Signs Date Time Temp Pulse Resp B/P Pulse Ox O2 Delivery O2 Flow Rate FiO2 07/01/16 15:30 107 20 100 50 07/01/16 11:48 99.0 130/69 06/27/16 22:59 Room Air Intake and Output 06/30/16 06/30/16 07/01/16 15:00 23:00 07:00 Intake Total 550 ml 250 ml Output Total 400 ml Balance 150 ml 250 ml Results Result Diagram: 07/01/16 0605 07/01/16 0605 Results 24 hrs Laboratory Tests Test 06/30/16 17:45 06/30/16 18:00 06/30/16 21:20 06/30/16 23:45 Bedside Glucose 165 206 201 Urine Bilirubin NEGATIVE Urine Clarity CLEAR Urine Color LT. YELLOW Urine Glucose NEGATIVE Urine Hemoglobin 2+ H Urine Ketones NEGATIVE Urine Leukocyte Esterase NEGATIVE Urine Microscopic RBC 0-2 Urine Microscopic WBC 0-2 Urine Nitrite NEGATIVE Urine Specific [place] 1.020 Urine Squamous Epithelial Cells RARE Urine Total Protein NEGATIVE Urine Transitional Epithelial Cells Urine Urobilinogen 0.2 E.U./dL Urine Yeast FEW Urine pH 7.0 Test 07/01/16 05:33 07/01/16 06:05 07/01/16 10:00 07/01/16 11:28 Bedside Glucose 132 198 Anion Gap 12 Basophils # 0.0 Basophils % 0.1 Blood Morphology Comment Blood Urea Nitrogen 18 Calcium Level 7.8 L Carbon Dioxide Level 30 Chloride Level 108 Creatinine 0.33 L Eosinophils # 0.0 Eosinophils % 0.2 Glucose Level 126 Hematocrit 24.8 L Hemoglobin 8.8 L Lymphocytes # 1.6 Lymphocytes % 12.0 L Mean Corpuscular Hemoglobin 34.9 H Mean Corpuscular Hemoglobin Concent 35.5 Mean Corpuscular Volume 98.6 Mean Platelet Volume 10.5 H Monocytes # 1.3 H Monocytes % 10.3 Neutrophils # 10.1 H Neutrophils % 77.4 H Nucleated Red Blood Cells # 0.0 Nucleated Red Blood Cells % 0.0 Platelet Count 113 L Potassium Level 2.7 *L Red Blood Count 2.52 L Red Cell Distribution Width 13.9 Sodium Level 147 H White Blood Count 13.0 H Arterial Blood HCO3 29.4 H Arterial Blood Base Excess 5.8 H Arterial Blood Oxygen Saturation 96.7 Thomas Test ACCEPTAB Arterial Blood Gas Puncture Site Left Radial Arterial Blood Carboxyhemoglobin 0.3 Arterial Blood Date Drawn 07/01/2016 11:00:06 AM Arterial Blood Methemoglobin 0.3 Arterial Blood pCO2 (Temp correct) 38.9 Arterial Blood pH (Temp corrected) 7.496 H Arterial Blood pO2 (Temp corrected) 85.0 Blood Gas A-a O2 Differential 227.7 H Blood Gas Actual Respiration Rate 21 Blood Gas Low PEEP Setting 5.0 Blood Gas Modality VENT - AC Blood Gas Notified Time 07/01/2016 11:25:46 AM Blood Gas Notified Whom DT Blood Gas Respiration Rate 14.0 Blood Gas Specimen Source Blood arterial Blood Gas Temperature 37.0 Blood Gas Tidal Volume 500.0 FiO2 50.0 Oxyhemoglobin Percent 96.1 Total Hemoglobin 11.1 L Medications Medications Current Medications Acetaminophen (Tylenol Tab) 1,000 mg Q4H PRN PO PAIN 4-6 Last administered on 07/01/16t 00:22; Admin Dose 1,000 MG; Start 06/27/16 at 13:30 Albuterol (Proventil 0.083% (Neb)) 2.5 mg Q3H PRN NEB WHEEZING AND SOB; Start 06/27/16 at 13:30 Docusate Sodium (Colace) 100 mg QHS PRN PO CONSTIPATION; Start 06/27/16 at 13: 30 Enoxaparin Sodium (Lovenox) 40 mg DAILY SC Last administered on 07/01/16 08:58 ; Admin Dose 40 MG; Start 06/27/16 at 13:30 Ferrous Sulfate (Feosol Liquid Cup) 300 mg DAILY GTB Last administered on 08:53; Admin Dose 300 MG; Start 06/27/16 at 09:00 Acetaminophen/ Hydrocodone Bitart ([place] (5/325)) 1 tab Q6 PRN GTB PAIN LEVEL 7 -10; Start 06/27/16 at 13:30 Lansoprazole (Prevacid) 30 mg DAILY GTB Last administered on 07/01/16 08:53; Admin Dose 30 MG; Start 06/28/16 at 09:00 Multivitamins (Thera-Plus) 5 ml DAILY GTB Last administered on 07/01/16 08:53 ; Admin Dose 5 ML; Start 06/28/16 at 09:00 Phenytoin (Dilantin Susp Cup) 300 mg BID GTB Last administered on 07/01/16 08: 53; Admin Dose 300 MG; Start 06/27/16 at 14:00 Valproate Sodium (Depakene Liquid Cup) 1,500 mg BID GTB Last administered on 08:53; Admin Dose 1,500 MG; Start 06/27/16 at 21:00 Lorazepam (Ativan) 1 mg Q6H PRN IV SEIZURES; Start 06/27/16 at 13:30 Lacosamide (Vimpat Liq) 100 mg BID PO Last administered on 07/01/16 09:29; Admin Dose 100 MG; Start 06/27/16 at 21:00 Docusate Sodium (Colace Liquid Cup) 100 mg BID GTB Last administered on 08:53; Admin Dose 100 MG; Start 06/28/16 at 21:00 Insulin Aspart (Novolog Insulin Pen) NOVOLOG *MILD* ALGORITHM Q6 SC Last administered on 07/01/16 14:35; Admin Dose 2 UNIT; Start 06/28/16 at 18:00 Insulin Glargine (Lantus) 20 unit HS SC Last administered on 06/30/16 21:27; Admin Dose 20 UNIT; Start 06/28/16 at 21:00 Ondansetron HCl (Zofran Inj) 4 mg Q6H PRN IV NAUSEA AND/OR VOMITING Last administered on 06/30/16 02:11; Admin Dose 4 MG; Start 06/28/16 at 16:30 Miscellaneous Information 1 ea NOTE XX ; Start 06/28/16 at 17:00 Glucose (Glutose) 15 gm Q15M PRN PO DECREASED GLUCOSE; Start 06/28/16 at 17:00 Glucose (Glutose) 22.5 gm Q15M PRN PO DECREASED GLUCOSE; Start 06/28/16 at 17: 00 Dextrose (D50w Syringe) 25 ml Q15M PRN IV DECREASED GLUCOSE; Start 06/28/16 at 17:00 Dextrose (D50w Syringe) 50 ml Q15M PRN IV DECREASED GLUCOSE; Start 06/28/16 at 17:00 Glucagon (Glucagen) 1 mg Q15M PRN IM DECREASED GLUCOSE; Start 06/28/16 at 17:00 Glucose (Glutose) 15 gm Q15M PRN BUCCAL DECREASED GLUCOSE; Start 06/28/16 at 17 :00 Lactulose (Enulose) 20 gm DAILY GTB Last administered on 07/01/16 08:53; Admin Dose 20 GM; Start 06/29/16 at 09:00 Acetaminophen (Tylenol Liquid) 650 mg Q4H PRN GTB PAIN AND OR ELEVATED TEMP Last administered on 06/29/16 21:05; Admin Dose 650 MG; Start 06/28/16 at 19:30 IV Flush 10 ml 10 ml PRN PRN IV IV PROTOCOL; Start 06/29/16 at 15:30 Vancomycin HCl 250 ml @ 125 mls/hr Q12H IVPB Last administered on 07/01/16 04 :38; Admin Dose 125 MLS/HR; Start 06/30/16 at 04:00 Ertapenem/Sodium Chloride (Invanz/NS) 100 ml @ 200 mls/hr Q24H IVPB Last administered on 07/01/16 14:34; Admin Dose 200 MLS/HR; Start 06/30/16 at 13:00 ; Stop 07/03/16 at 12:59 Miscellaneous Information (*Rx Drug Level Order Reminder*) VANCOMYCIN TROUGH AT 0300 ONCE ONCE XX ; Start 07/02/16 at 03:00; Stop 07/02/16 at 03:01 IRAM FAROOQ NP Jul 01, 2016 16:22
--- NOTE | 2016-07-01 17:41 | CONS ---
Date/Time of Note Date/Time of Note DATE: 07/01/16 TIME: 17:40 Consult Date/Type/Reason Admit Date/Time Jun 27, 2016 at 23:01 Initial Consult Date 06/28/16 Type of Consultation: pulm Subjective stable on vent. Objective Vital Signs Date Time Temp Pulse Resp B/P Pulse Ox O2 Delivery O2 Flow Rate FiO2 07/01/16 16:21 101 07/01/16 16:18 99.6 21 135/85 99 07/01/16 15:30 50 06/27/16 22:59 Room Air Intake and Output 06/30/16 06/30/16 07/01/16 15:00 23:00 07:00 Intake Total 550 ml 250 ml Output Total 400 ml Balance 150 ml 250 ml HEENT: Neck supple; no JVD; no LAD, trach site clear CVS: RRR, S1 and S2 CHEST: Rhonchi b/l ABD: Soft, NT, + BS EXT: No c/c/+ edema Results/Medications Result Diagram: 07/01/16 0605 07/01/16 0605 Results 24 hrs Laboratory Tests Test 06/30/16 17:45 06/30/16 18:00 06/30/16 21:20 06/30/16 23:45 Bedside Glucose 165 206 201 Urine Bilirubin NEGATIVE Urine Clarity CLEAR Urine Color LT. YELLOW Urine Glucose NEGATIVE Urine Hemoglobin 2+ H Urine Ketones NEGATIVE Urine Leukocyte Esterase NEGATIVE Urine Microscopic RBC 0-2 Urine Microscopic WBC 0-2 Urine Nitrite NEGATIVE Urine Specific [place] 1.020 Urine Squamous Epithelial Cells RARE Urine Total Protein NEGATIVE Urine Transitional Epithelial Cells Urine Urobilinogen 0.2 E.U./dL Urine Yeast FEW Urine pH 7.0 Test 07/01/16 05:33 07/01/16 06:05 07/01/16 10:00 07/01/16 11:28 Bedside Glucose 132 198 Anion Gap 12 Basophils # 0.0 Basophils % 0.1 Blood Morphology Comment Blood Urea Nitrogen 18 Calcium Level 7.8 L Carbon Dioxide Level 30 Chloride Level 108 Creatinine 0.33 L Eosinophils # 0.0 Eosinophils % 0.2 Glucose Level 126 Hematocrit 24.8 L Hemoglobin 8.8 L Lymphocytes # 1.6 Lymphocytes % 12.0 L Mean Corpuscular Hemoglobin 34.9 H Mean Corpuscular Hemoglobin Concent 35.5 Mean Corpuscular Volume 98.6 Mean Platelet Volume 10.5 H Monocytes # 1.3 H Monocytes % 10.3 Neutrophils # 10.1 H Neutrophils % 77.4 H Nucleated Red Blood Cells # 0.0 Nucleated Red Blood Cells % 0.0 Platelet Count 113 L Potassium Level 2.7 *L Red Blood Count 2.52 L Red Cell Distribution Width 13.9 Sodium Level 147 H White Blood Count 13.0 H Arterial Blood HCO3 29.4 H Arterial Blood Base Excess 5.8 H Arterial Blood Oxygen Saturation 96.7 Thomas Test ACCEPTAB Arterial Blood Gas Puncture Site Left Radial Arterial Blood Carboxyhemoglobin 0.3 Arterial Blood Date Drawn 07/01/2016 11:00:06 AM Arterial Blood Methemoglobin 0.3 Arterial Blood pCO2 (Temp correct) 38.9 Arterial Blood pH (Temp corrected) 7.496 H Arterial Blood pO2 (Temp corrected) 85.0 Blood Gas A-a O2 Differential 227.7 H Blood Gas Actual Respiration Rate 21 Blood Gas Low PEEP Setting 5.0 Blood Gas Modality VENT - AC Blood Gas Notified Time 07/01/2016 11:25:46 AM Blood Gas Notified Whom DT Blood Gas Respiration Rate 14.0 Blood Gas Specimen Source Blood arterial Blood Gas Temperature 37.0 Blood Gas Tidal Volume 500.0 FiO2 50.0 Oxyhemoglobin Percent 96.1 Total Hemoglobin 11.1 L Medications Current Medications Acetaminophen (Tylenol Tab) 1,000 mg Q4H PRN PO PAIN 4-6/10 Last administered on 07/01/16 00:22; Admin Dose 1,000 MG; Start 06/27/16 at 13:30 Albuterol (Proventil 0.083% (Neb)) 2.5 mg Q3H PRN NEB WHEEZING AND SOB; Start 06/27/16 at 13:30 Docusate Sodium (Colace) 100 mg QHS PRN PO CONSTIPATION; Start 06/27/16 at 13: 30 Enoxaparin Sodium (Lovenox) 40 mg DAILY SC Last administered on 07/01/16 08:58 ; Admin Dose 40 MG; Start 06/27/16 at 13:30 Ferrous Sulfate (Feosol Liquid Cup) 300 mg DAILY GTB Last administered on 08:53; Admin Dose 300 MG; Start 06/27/16 at 09:00 Acetaminophen/ Hydrocodone Bitart ([place] (5/325)) 1 tab Q6 PRN GTB PAIN LEVEL 7 -10; Start 06/27/16 at 13:30 Lansoprazole (Prevacid) 30 mg DAILY GTB Last administered on 07/01/16 08:53; Admin Dose 30 MG; Start 06/28/16 at 09:00 Multivitamins (Thera-Plus) 5 ml DAILY GTB Last administered on 07/01/16 08:53 ; Admin Dose 5 ML; Start 06/28/16 at 09:00 Phenytoin (Dilantin Susp Cup) 300 mg BID GTB Last administered on 07/01/16 08: 53; Admin Dose 300 MG; Start 06/27/16 at 14:00 Valproate Sodium (Depakene Liquid Cup) 1,500 mg BID GTB Last administered on 08:53; Admin Dose 1,500 MG; Start 06/27/16 at 21:00 Lorazepam (Ativan) 1 mg Q6H PRN IV SEIZURES; Start 06/27/16 at 13:30 Lacosamide (Vimpat Liq) 100 mg BID PO Last administered on 07/01/16 09:29; Admin Dose 100 MG; Start 06/27/16 at 21:00 Docusate Sodium (Colace Liquid Cup) 100 mg BID GTB Last administered on 08:53; Admin Dose 100 MG; Start 06/28/16 at 21:00 Insulin Aspart (Novolog Insulin Pen) NOVOLOG *MILD* ALGORITHM Q6 SC Last administered on 07/01/16 14:35; Admin Dose 2 UNIT; Start 06/28/16 at 18:00 Insulin Glargine (Lantus) 20 unit HS SC Last administered on 06/30/16 21:27; Admin Dose 20 UNIT; Start 06/28/16 at 21:00 Ondansetron HCl (Zofran Inj) 4 mg Q6H PRN IV NAUSEA AND/OR VOMITING Last administered on 06/30/16 02:11; Admin Dose 4 MG; Start 06/28/16 at 16:30 Miscellaneous Information 1 ea NOTE XX ; Start 06/28/16 at 17:00 Glucose (Glutose) 15 gm Q15M PRN PO DECREASED GLUCOSE; Start 06/28/16 at 17:00 Glucose (Glutose) 22.5 gm Q15M PRN PO DECREASED GLUCOSE; Start 06/28/16 at 17: 00 Dextrose (D50w Syringe) 25 ml Q15M PRN IV DECREASED GLUCOSE; Start 06/28/16 at 17:00 Dextrose (D50w Syringe) 50 ml Q15M PRN IV DECREASED GLUCOSE; Start 06/28/16 at 17:00 Glucagon (Glucagen) 1 mg Q15M PRN IM DECREASED GLUCOSE; Start 06/28/16 at 17:00 Glucose (Glutose) 15 gm Q15M PRN BUCCAL DECREASED GLUCOSE; Start 06/28/16 at 17 :00 Lactulose (Enulose) 20 gm DAILY GTB Last administered on 07/01/16 08:53; Admin Dose 20 GM; Start 06/29/16 at 09:00 Acetaminophen (Tylenol Liquid) 650 mg Q4H PRN GTB PAIN AND OR ELEVATED TEMP Last administered on 06/29/16 21:05; Admin Dose 650 MG; Start 06/28/16 at 19:30 IV Flush (NS 10 ml) 10 ml PRN PRN IV IV PROTOCOL; Start 06/29/16 at 15:30 Miscellaneous Information (*Rx Drug Level Order Reminder*) VANCOMYCIN TROUGH AT 0300 ONCE ONCE XX ; Start 07/02/16 at 03:00; Stop 07/02/16 at 03:01 Vancomycin HCl 250 mg 250 mg Q6 PO ; Start 07/01/16 at 18:00 Metronidazole 100 ml @ 100 mls/hr Q8 IVPB ; Start 07/01/16 at 22:00 Fluconazole/ Sodium Chloride (Diflucan 100 Mg/ NS (Pmx)) 50 ml @ 50 mls/hr Q24H IVPB ; Start 07/01/16 at 16:30 Miconazole Nitrate (Miconazole 2% Vag Cr) 1 applic HS VAG ; Start 07/01/16 at 21 :00; Stop 07/04/16 at 20:59 Assessment/Plan Additional Assessment/Plan IMP: 1. VDRF 2. LLL pna + atelectasis 3 CHF 4 CVA 5. Encephalopathy 6. Seizure d/o 7. HypoK+ RECS: 1. Vent support--reduce FiO2; obtain baseline ABG--> reviewed 2. Abx 3. f/u cx's 4. Replete Johana+ CARRIE ROLAND MD Jul 01, 2016 17:41
[2016-07-01] MEDS: VANCOMYCIN HCL 250 MG/5ML POSYG PO SCH ×2 (17:55→23:48)
[2016-07-01] MEDS: INSULIN GLARGINE [LANtus] 3 ML PEN SC SCH (21:34)
[2016-07-01] MEDS: metroNIDAZOLE 500 MG/NS (PMX) 100 ML IVPB SCH (21:35)
[2016-07-01] MEDS: MICONAZOLE 2% 45 GM VAG CR VAG SCH (21:36)
[2016-07-02] VITALS (25 sets, daily range): BP systolic 114–139; BP diastolic 56–75; PULSE 89–97; RESP 14–22
[2016-07-02] MEDS: INSULIN ASPART [NOVOLOG] 3 ML PEN SC SCH ×5 (00:17→23:56)
[2016-07-02] MEDS: ALBUTEROL 0.083% (NEB) 2.5 MG/3 ML AMP HHN SCH ×4 (01:49→19:34)
[2016-07-02] MEDS: ACETYLCYSTEINE 20% 4 ML VIAL NEB SCH ×4 (01:49→19:34)
[2016-07-02 03:10] LABS: BASOPHILS % 0.2 % (0.0-2.0); EOSINOPHILS # 0.1 10^3/ul (0.0-0.5); EOSINOPHILS % 0.6 % (0.0-7.0); HEMATOCRIT 24.4 % (37.0-47.0); HEMOGLOBIN 8.6 g/dl (12.0-16.0); LYMPHOCYTES # 1.7 10^3/ul (0.8-2.9); LYMPHOCYTES % 15.6 % (15.0-51.0); MEAN CORPUSCULAR HEMOGLOBIN 34.9 pg (29.0-33.0); MEAN CORPUSCULAR HGB CONC 35.3 g/dl (32.0-37.0); MEAN CORPUSCULAR VOLUME 98.8 fl (82.0-101.0); MEAN PLATELET VOLUME 9.2 fl (7.4-10.4); MONOCYTE # 1.1 10^3/ul (0.3-0.9); MONOCYTES % 9.7 % (0.0-11.0); NEUTROPHIL # 8.1 10^3/ul (1.6-7.5); NEUTROPHILS % 73.9 % (39.0-77.0); PLATELET COUNT 139 10^3/UL (140-440); RED BLOOD COUNT 2.47 10^6/ul (4.20-5.40); RED CELL DISTRIBUTION WIDTH 14.3 % (11.5-14.5); UNCORRECTED WBC 10.9 10^3/ul (4.8-10.8); WHITE BLOOD COUNT 10.9 10^3/ul (4.8-10.8)
[2016-07-02 03:14] LABS: CONDITION 1
[2016-07-02 03:24] LABS: POTASSIUM 3.2 mmol/L (3.5-5.1)
[2016-07-02 03:27] LABS: CREATININE 0.31 mg/dl (0.44-1.00)
[2016-07-02 03:28] LABS: CALCIUM 8.3 mg/dl (8.4-10.2); MAGNESIUM 1.9 mg/dl (1.7-2.5)
[2016-07-02] MEDS: metroNIDAZOLE 500 MG/NS (PMX) 100 ML IVPB SCH ×3 (05:27→21:49)
[2016-07-02] MEDS: VANCOMYCIN HCL 250 MG/5ML POSYG PO SCH ×4 (05:27→23:40)
[2016-07-02] MEDS: DOCUSATE SODIUM 10 MG/ML (10ML CUP) GTB SCH ×2 (09:00→21:35)
[2016-07-02] MEDS: LACTULOSE 30ML CUP GTB SCH (09:49)
[2016-07-02] MEDS: LACOSAMIDE (10 MG/ML PO SYG) PO SCH ×2 (09:49→23:40)
[2016-07-02] MEDS: MULTIVITAMINS 5 ML CUP GTB SCH (09:49)
[2016-07-02] MEDS: VALPROIC ACID LIQUID CUP 250 MG/5 ML CUP GTB SCH ×2 (09:50→21:35)
[2016-07-02] MEDS: PHENYTOIN (100 MG/4 ML) CUP GTB SCH ×2 (09:50→21:35)
[2016-07-02] MEDS: FERROUS SULFATE 60 MG/ML 5ML CUP GTB SCH (09:50)
[2016-07-02] MEDS: LANSOPRAZOLE 30 MG CAP GTB SCH (09:51)
[2016-07-02] MEDS: ENOXAPARIN 40 MG/0.4 ML SYG SC SCH (09:52)
--- NOTE | 2016-07-02 12:48 | CONS ---
Date/Time of Note Date/Time of Note DATE: 07/02/16 TIME: 12:45 Consult Date/Type/Reason Admit Date/Time Jun 27, 2016 at 23:01 Initial Consult Date 06/28/16 Type of Consultation: pulm Subjective Patient stable overnight no new events Continues mechanical ventilation without respiratory distress Minimal tracheal secretions Objective Vital Signs Date Time Temp Pulse Resp B/P Pulse Ox O2 Delivery O2 Flow Rate FiO2 07/02/16 12:38 89 07/02/16 12:21 99.4 16 139/73 100 07/02/16 11:40 50 Intake and Output 07/01/16 07/01/16 07/02/16 15:00 23:00 07:00 Intake Total 900 ml 850 ml 100 ml Output Total 700 ml 800 ml Balance 200 ml 50 ml 100 ml PHYSICAL EXAMINATION GENERAL: Elderly lady on mechanical ventilation no acute distress VITAL SIGNS: As above HEENT: Pupils equal, round, and reactive to light. Tracheostomy site clean and intact. CARDIAC: S1, S2, tachycardia. CHEST: Diminished air entry bilaterally. Few rales at right base ABDOMEN: Mildly distended. No bowel sounds. EXTREMITIES: No cyanosis, clubbing edema +1 NEUROLOGIC: No focal deficits. Results/Medications Result Diagram: 07/02/16 0257 07/02/16 0257 Results 24 hrs Laboratory Tests Test 07/01/16 17:58 07/01/16 21:33 07/01/16 23:47 07/02/16 02:57 Bedside Glucose 116 169 202 Anion Gap 13 Basophils # 0.0 Basophils % 0.2 Blood Urea Nitrogen 18 Calcium Level 8.3 L Carbon Dioxide Level 32 H Chloride Level 107 Creatinine 0.31 L Eosinophils # 0.1 Eosinophils % 0.6 Glucose Level 111 Hematocrit 24.4 L Hemoglobin 8.6 L Lymphocytes # 1.7 Lymphocytes % 15.6 Magnesium Level 1.9 Mean Corpuscular Hemoglobin 34.9 H Mean Corpuscular Hemoglobin Concent 35.3 Mean Corpuscular Volume 98.8 Mean Platelet Volume 9.2 Monocytes # 1.1 H Monocytes % 9.7 Neutrophils # 8.1 H Neutrophils % 73.9 Nucleated Red Blood Cells # 0.0 Nucleated Red Blood Cells % 0.0 Platelet Count 139 #L Potassium Level 3.2 L Red Blood Count 2.47 L Red Cell Distribution Width 14.3 Sodium Level 149 H Vancomycin Level Trough 6.9 L White Blood Count 10.9 H Test 07/02/16 05:30 07/02/16 11:45 Bedside Glucose 120 205 Medications Current Medications Acetaminophen (Tylenol Tab) 1,000 mg Q4H PRN PO PAIN 4-6/10 Last administered on 07/01/16 00:22; Admin Dose 1,000 MG; Start 06/27/16 at 13:30 Albuterol (Proventil 0.083% (Neb)) 2.5 mg Q3H PRN NEB WHEEZING AND SOB; Start 06/27/16 at 13:30 Docusate Sodium (Colace) 100 mg QHS PRN PO CONSTIPATION; Start 06/27/16 at 13: 30 Enoxaparin Sodium (Lovenox) 40 mg DAILY SC Last administered on 07/02/16 09:52 ; Admin Dose 40 MG; Start 06/27/16 at 13:30 Ferrous Sulfate (Feosol Liquid Cup) 300 mg DAILY GTB Last administered on 09:50; Admin Dose 300 MG; Start 06/27/16 at 09:00 Acetaminophen/ Hydrocodone Bitart ([place] (5/325)) 1 tab Q6 PRN GTB PAIN LEVEL 7 -10; Start 06/27/16 at 13:30 Lansoprazole (Prevacid) 30 mg DAILY GTB Last administered on 07/02/16 09:51; Admin Dose 30 MG; Start 06/28/16 at 09:00 Multivitamins (Thera-Plus) 5 ml DAILY GTB Last administered on 07/02/16 09:49 ; Admin Dose 5 ML; Start 06/28/16 at 09:00 Phenytoin (Dilantin Susp Cup) 300 mg BID GTB Last administered on 07/02/16 09: 50; Admin Dose 300 MG; Start 06/27/16 at 14:00 Valproate Sodium (Depakene Liquid Cup) 1,500 mg BID GTB Last administered on 09:50; Admin Dose 1,500 MG; Start 06/27/16 at 21:00 Lorazepam (Ativan) 1 mg Q6H PRN IV SEIZURES; Start 06/27/16 at 13:30 Lacosamide (Vimpat Liq) 100 mg BID PO Last administered on 07/02/16 09:49; Admin Dose 100 MG; Start 06/27/16 at 21:00 Docusate Sodium (Colace Liquid Cup) 100 mg BID GTB Last administered on 08:53; Admin Dose 100 MG; Start 06/28/16 at 21:00 Insulin Aspart (Novolog Insulin Pen) NOVOLOG *MILD* ALGORITHM Q6 SC Last administered on 07/02/16 11:49; Admin Dose 2 UNIT; Start 06/28/16 at 18:00 Insulin Glargine (Lantus) 20 unit HS SC Last administered on 07/01/16 21:34; Admin Dose 20 UNIT; Start 06/28/16 at 21:00 Ondansetron HCl (Zofran Inj) 4 mg Q6H PRN IV NAUSEA AND/OR VOMITING Last administered on 06/30/16 02:11; Admin Dose 4 MG; Start 06/28/16 at 16:30 Miscellaneous Information 1 ea NOTE XX ; Start 06/28/16 at 17:00 Glucose (Glutose) 15 gm Q15M PRN PO DECREASED GLUCOSE; Start 06/28/16 at 17:00 Glucose (Glutose) 22.5 gm Q15M PRN PO DECREASED GLUCOSE; Start 06/28/16 at 17: 00 Dextrose (D50w Syringe) 25 ml Q15M PRN IV DECREASED GLUCOSE; Start 06/28/16 at 17:00 Dextrose (D50w Syringe) 50 ml Q15M PRN IV DECREASED GLUCOSE; Start 06/28/16 at 17:00 Glucagon (Glucagen) 1 mg Q15M PRN IM DECREASED GLUCOSE; Start 06/28/16 at 17:00 Glucose (Glutose) 15 gm Q15M PRN BUCCAL DECREASED GLUCOSE; Start 06/28/16 at 17 :00 Lactulose (Enulose) 20 gm DAILY GTB Last administered on 07/02/16 09:49; Admin Dose 20 GM; Start 06/29/16 at 09:00 Acetaminophen (Tylenol Liquid) 650 mg Q4H PRN GTB PAIN AND OR ELEVATED TEMP Last administered on 06/29/16 21:05; Admin Dose 650 MG; Start 06/28/16 at 19:30 IV Flush (NS 10 ml) 10 ml PRN PRN IV IV PROTOCOL; Start 06/29/16 at 15:30 Vancomycin HCl 250 mg 250 mg Q6 PO Last administered on 07/02/16 11:44; Admin Dose 250 MG; Start 07/01/16 at 18:00 Metronidazole 100 ml @ 100 mls/hr Q8 IVPB Last administered on 07/02/16 05:27 ; Admin Dose 100 MLS/HR; Start 07/01/16 at 22:00 Fluconazole/ Sodium Chloride (Diflucan 100 Mg/ NS (Pmx)) 50 ml @ 50 mls/hr Q24H IVPB Last administered on 07/01/16 17:55; Admin Dose 50 MLS/HR; Start at 16:30 Miconazole Nitrate (Miconazole 2% Vag Cr) 1 applic HS VAG Last administered on 07/01/16 21:36; Admin Dose 1 APPLIC; Start 07/01/16 at 21:00; Stop 07/04/16 at 20:59 Assessment/Plan Chief Complaint/Hosp Course IMP: 1. VDRF 2. LLL pna + atelectasis 3 CHF 4 CVA 5. Encephalopathy 6. Seizure d/o 7. HypoK+, hypernatremia 8. Anemia likely of chronic disease RECS: 1. Vent support--reduce FiO2; obtain baseline ABG--> reviewed 2. Abx 3. f/u cx's 4. Replete K+, consider increasing free water Consider discharge planning. Problems: VERONICA FREEMAN MD, [facility] Jul 02, 2016 12:48
--- NOTE | 2016-07-02 14:40 | PN ---
DATE: 07/02/2016 INFECTIOUS DISEASE PROGRESS NOTE SUBJECTIVE: No acute events. The patient is lying comfortably in bed. She spiked fever yesterday of 101. Today is afebrile. WBC 10.9 with platelets 139, no shift, no bands. BUN 18, creatinine 0. 31. MICROBIOLOGY: Repeat urine culture growing yeast, not Diamond albicans. Stool for C difficile from came back positive on June 30. ANTIMICROBIALS: The patient is on: 1. IV Flagyl. 2. Oral Flagyl. 3. IV fluconazole. 4. Status post IV vancomycin. 5. Invanz. INDWELLINGS: Trach, PEG, Kim. PHYSICAL EXAMINATION: GENERAL: This is an obese, chronically ill-appearing, elderly woman who is in no distress. HEENT: Head atraumatic, normocephalic. Sclerae anicteric. Buccal mucosa dry. NECK: Supple. CHEST: Rise symmetrical. Breath sounds diminished to bases. HEART: S1, S2. ABDOMEN: Soft. Bowel sounds present. EXTREMITIES: Bilateral trace edema. ASSESSMENT: 1. Sepsis. 2. Clostridium difficile colitis. 3. Recurrent urinary tract infection. 4. Seizure disorder. 5. Chronic respiratory failure. 6. Advanced multiple sclerosis with functional quadriplegia. PLAN: The patient remains stable. We are going to change Diflucan to voriconazole. Continue IV Fl agyl and oral vancomycin. Add probiotics. Dictated By: NICHOLAS CRUZ AB [employer] DEVELOPER for REBA ELLER MD NI/NTS Conf#: [id number] DID#: [id number]
[2016-07-02] MEDS ORDERED: POTASSIUM CHLORIDE 20 MEQ POWDER FOR ORAL SOLN GTB ONE (15:30)
--- NOTE | 2016-07-02 17:31 | PN ---
Date/Time of Note Date/Time of Note DATE: 07/02/16 TIME: 17:22 Assessment/Plan VTE Prophylaxis VTE Prophylaxis Intervention: SCD's Lines/Catheters IV [facility]ter Type ([facility] PICC Line Central line still needed: Yes Urinary Cath still in place: Yes Reason Cath still needed: urinary retention Assessment/Plan Chief Complaint/Hosp Course ASSESSMENT: - Severe sepsis [address] Gillette is following in infectious disease consultation - Acute cystitis with Ecoli ESBL. Cont abx per ID. Repeat culture positive for yeast, continue Vfend. - C-diff colitis. Continue Flagyl. - Left lower lobe pneumonia, healthcare-acquired pneumonia. - Breakthrough seizure in a patient with history of seizures. Dr. Garcia is following in neurology consult. Continue the Dilantin, Depakote, and Vimpat. -Diabetes mellitus type 2. Continue Lantus and NovoLog. - Advanced Multiple sclerosis. - Functional quadriplegia -Hyper natremia, start free water via G-tube every 6 hours. Lovenox for deep venous thrombosis prophylaxis and Pepcid for peptic ulcer disease prophylaxis. Further recommendations based on clinical course. Plan of care discussed with Dr. Terry. Problems: Exam/Review of Systems Vital Signs Vitals Vital Signs Date Time Temp Pulse Resp B/P Pulse Ox O2 Delivery O2 Flow Rate FiO2 07/02/16 17:14 90 07/02/16 17:03 15 100 40 07/02/16 16:11 99.3 138/75 Intake and Output 07/01/16 07/01/16 07/02/16 15:00 23:00 07:00 Intake Total 900 ml 850 ml 100 ml Output Total 700 ml 800 ml Balance 200 ml 50 ml 100 ml Exam GENERAL: Well-developed, obese female who currently is obtunded. HEENT: Head is atraumatic, normocephalic. PERRLA. NECK: Supple with a tracheostomy at the base of the neck with moderate to large amount of secretions. LUNGS: Scattered rhonchi bilaterally. CARDIOVASCULAR: Normal S1, S2. No murmurs, gallops, clicks, rubs noted. ABDOMEN: Round, soft, nondistended. The patient does have a G-tube with intact stoma. EXTREMITIES: Edema, no clubbing, no cyanosis. Pulses equal bilaterally. GENITOURINARY: The patient has a Kim catheter with urine with sediment. SKIN: There is no rash or petechia noted. NEUROLOGIC: The patient is obtunded. Results Result Diagram: 07/02/16 0257 07/02/16 0257 Results 24 hrs Laboratory Tests Test 07/01/16 17:58 07/01/16 21:33 07/01/16 23:47 07/02/16 02:57 Bedside Glucose 116 169 202 Anion Gap 13 Basophils # 0.0 Basophils % 0.2 Blood Urea Nitrogen 18 Calcium Level 8.3 L Carbon Dioxide Level 32 H Chloride Level 107 Creatinine 0.31 L Eosinophils # 0.1 Eosinophils % 0.6 Glucose Level 111 Hematocrit 24.4 L Hemoglobin 8.6 L Lymphocytes # 1.7 Lymphocytes % 15.6 Magnesium Level 1.9 Mean Corpuscular Hemoglobin 34.9 H Mean Corpuscular Hemoglobin Concent 35.3 Mean Corpuscular Volume 98.8 Mean Platelet Volume 9.2 Monocytes # 1.1 H Monocytes % 9.7 Neutrophils # 8.1 H Neutrophils % 73.9 Nucleated Red Blood Cells # 0.0 Nucleated Red Blood Cells % 0.0 Platelet Count 139 #L Potassium Level 3.2 L Red Blood Count 2.47 L Red Cell Distribution Width 14.3 Sodium Level 149 H Vancomycin Level Trough 6.9 L White Blood Count 10.9 H Test 07/02/16 05:30 07/02/16 11:45 Bedside Glucose 120 205 Medications Medications Current Medications Acetaminophen (Tylenol Tab) 1,000 mg Q4H PRN PO PAIN 4-6/10 Last administered on 07/01/16 00:22; Admin Dose 1,000 MG; Start 06/27/16 at 13:30 Albuterol (Proventil 0.083% (Neb)) 2.5 mg Q3H PRN NEB WHEEZING AND SOB; Start 06/27/16 at 13:30 Docusate Sodium (Colace) 100 mg QHS PRN PO CONSTIPATION; Start 06/27/16 at 13: 30 Enoxaparin Sodium (Lovenox) 40 mg DAILY SC Last administered on 07/02/16 09:52 ; Admin Dose 40 MG; Start 06/27/16 at 13:30 Ferrous Sulfate (Feosol Liquid Cup) 300 mg DAILY GTB Last administered on 09:50; Admin Dose 300 MG; Start 06/27/16 at 09:00 Acetaminophen/ Hydrocodone Bitart ([place] (5/325)) 1 tab Q6 PRN GTB PAIN LEVEL 7 -10; Start 06/27/16 at 13:30 Lansoprazole (Prevacid) 30 mg DAILY GTB Last administered on 07/02/16 09:51; Admin Dose 30 MG; Start 06/28/16 at 09:00 Multivitamins (Thera-Plus) 5 ml DAILY GTB Last administered on 07/02/16 09:49 ; Admin Dose 5 ML; Start 06/28/16 at 09:00 Phenytoin (Dilantin Susp Cup) 300 mg BID GTB Last administered on 07/02/16 09: 50; Admin Dose 300 MG; Start 06/27/16 at 14:00 Valproate Sodium (Depakene Liquid Cup) 1,500 mg BID GTB Last administered on 09:50; Admin Dose 1,500 MG; Start 06/27/16 at 21:00 Lorazepam (Ativan) 1 mg Q6H PRN IV SEIZURES; Start 06/27/16 at 13:30 Lacosamide (Vimpat Liq) 100 mg BID PO Last administered on 07/02/16 09:49; Admin Dose 100 MG; Start 06/27/16 at 21:00 Docusate Sodium (Colace Liquid Cup) 100 mg BID GTB Last administered on 08:53; Admin Dose 100 MG; Start 06/28/16 at 21:00 Insulin Aspart (Novolog Insulin Pen) NOVOLOG *MILD* ALGORITHM Q6 SC Last administered on 07/02/16 11:49; Admin Dose 2 UNIT; Start 06/28/16 at 18:00 Insulin Glargine (Lantus) 20 unit HS SC Last administered on 07/01/16 21:34; Admin Dose 20 UNIT; Start 06/28/16 at 21:00 Ondansetron HCl (Zofran Inj) 4 mg Q6H PRN IV NAUSEA AND/OR VOMITING Last administered on 06/30/16 02:11; Admin Dose 4 MG; Start 06/28/16 at 16:30 Miscellaneous Information 1 ea NOTE XX ; Start 06/28/16 at 17:00 Glucose (Glutose) 15 gm Q15M PRN PO DECREASED GLUCOSE; Start 06/28/16 at 17:00 Glucose (Glutose) 22.5 gm Q15M PRN PO DECREASED GLUCOSE; Start 06/28/16 at 17: 00 Dextrose (D50w Syringe) 25 ml Q15M PRN IV DECREASED GLUCOSE; Start 06/28/16 at 17:00 Dextrose (D50w Syringe) 50 ml Q15M PRN IV DECREASED GLUCOSE; Start 06/28/16 at 17:00 Glucagon (Glucagen) 1 mg Q15M PRN IM DECREASED GLUCOSE; Start 06/28/16 at 17:00 Glucose (Glutose) 15 gm Q15M PRN BUCCAL DECREASED GLUCOSE; Start 06/28/16 at 17 :00 Lactulose (Enulose) 20 gm DAILY GTB Last administered on 07/02/16 09:49; Admin Dose 20 GM; Start 06/29/16 at 09:00 Acetaminophen (Tylenol Liquid) 650 mg Q4H PRN GTB PAIN AND OR ELEVATED TEMP Last administered on 06/29/16 21:05; Admin Dose 650 MG; Start 06/28/16 at 19:30 IV Flush (NS 10 ml) 10 ml PRN PRN IV IV PROTOCOL; Start 06/29/16 at 15:30 Vancomycin HCl 250 mg 250 mg Q6 PO Last administered on 07/02/16 11:44; Admin Dose 250 MG; Start 07/01/16 at 18:00 Metronidazole (Flagyl 500 Mg (Pmx)) 100 ml @ 100 mls/hr Q8 IVPB Last administered on 07/02/16 13:24; Admin Dose 100 MLS/HR; Start 07/01/16 at 22:00 Miconazole Nitrate (Miconazole 2% Vag Cr) 1 applic HS VAG Last administered on 07/01/16 21:36; Admin Dose 1 APPLIC; Start 07/01/16 at 21:00; Stop 07/04/16 at 20:59 Voriconazole (Vfend) 200 mg BID PO ; Start 07/02/16 at 21:00 FRANDY WHEAT Jul 02, 2016 17:31
[2016-07-02] MEDS: VORICONAZOLE 200 MG TAB PO SCH (21:36)
[2016-07-02] MEDS: MICONAZOLE 2% 45 GM VAG CR VAG SCH (21:39)
[2016-07-02] MEDS: INSULIN GLARGINE [LANtus] 3 ML PEN SC SCH (21:58)
[2016-07-03] VITALS (24 sets, daily range): BP systolic 98–140; BP diastolic 54–77; PULSE 80–100; RESP 14–23
[2016-07-03] MEDS: ALBUTEROL 0.083% (NEB) 2.5 MG/3 ML AMP HHN SCH ×4 (01:12→19:35)
[2016-07-03] MEDS: ACETYLCYSTEINE 20% 4 ML VIAL NEB SCH ×4 (01:13→19:35)
[2016-07-03] MEDS: INSULIN ASPART [NOVOLOG] 3 ML PEN SC SCH ×4 (05:16→23:54)
[2016-07-03] MEDS: metroNIDAZOLE 500 MG/NS (PMX) 100 ML IVPB SCH ×3 (05:17→21:19)
[2016-07-03] MEDS: VANCOMYCIN HCL 250 MG/5ML POSYG PO SCH ×3 (05:17→18:23)
[2016-07-03 07:24] LABS: POTASSIUM 3.7 mmol/L (3.5-5.1)
[2016-07-03 07:27] LABS: CREATININE 0.29 mg/dl (0.44-1.00)
[2016-07-03 07:28] LABS: BASOPHILS % 0.4 % (0.0-2.0); EOSINOPHILS # 0.2 10^3/ul (0.0-0.5); EOSINOPHILS % 3.6 % (0.0-7.0); HEMATOCRIT 23.3 % (37.0-47.0); LYMPHOCYTES # 1.6 10^3/ul (0.8-2.9); LYMPHOCYTES % 27.9 % (15.0-51.0); MEAN CORPUSCULAR HEMOGLOBIN 35.1 pg (29.0-33.0); MEAN CORPUSCULAR HGB CONC 34.5 g/dl (32.0-37.0); MEAN CORPUSCULAR VOLUME 101.9 fl (82.0-101.0); MEAN PLATELET VOLUME 9.5 fl (7.4-10.4); MONOCYTE # 0.8 10^3/ul (0.3-0.9); MONOCYTES % 12.9 % (0.0-11.0); NEUTROPHIL # 3.3 10^3/ul (1.6-7.5); NEUTROPHILS % 55.2 % (39.0-77.0); PLATELET COUNT 153 10^3/UL (140-440); RED BLOOD COUNT 2.28 10^6/ul (4.20-5.40); RED CELL DISTRIBUTION WIDTH 14.6 % (11.5-14.5); UNCORRECTED WBC 5.9 10^3/ul (4.8-10.8); WHITE BLOOD COUNT 5.9 10^3/ul (4.8-10.8)
[2016-07-03 07:50] LABS: CONDITION 1; LH ANALYZER COMMENTS 1
[2016-07-03] MEDS: LACOSAMIDE (10 MG/ML PO SYG) PO SCH ×2 (09:00→21:19)
[2016-07-03] MEDS: DOCUSATE SODIUM 10 MG/ML (10ML CUP) GTB SCH ×2 (09:00→21:00)
[2016-07-03] MEDS: FERROUS SULFATE 60 MG/ML 5ML CUP GTB SCH (09:14)
[2016-07-03] MEDS: VALPROIC ACID LIQUID CUP 250 MG/5 ML CUP GTB SCH ×2 (09:14→21:18)
[2016-07-03] MEDS: MULTIVITAMINS 5 ML CUP GTB SCH (09:15)
[2016-07-03] MEDS: PHENYTOIN (100 MG/4 ML) CUP GTB SCH ×2 (09:15→21:18)
[2016-07-03] MEDS: LACTULOSE 30ML CUP GTB SCH (09:15)
[2016-07-03] MEDS: LANSOPRAZOLE 30 MG CAP GTB SCH (09:15)
[2016-07-03] MEDS: VORICONAZOLE 200 MG TAB PO SCH ×2 (09:16→21:18)
[2016-07-03] MEDS: ENOXAPARIN 40 MG/0.4 ML SYG SC SCH (09:18)
--- NOTE | 2016-07-03 16:43 | CONS ---
Date/Time of Note Date/Time of Note DATE: 07/03/16 TIME: 16:42 Consult Date/Type/Reason Admit Date/Time Jun 27, 2016 at 23:01 Initial Consult Date 06/28/16 Type of Consultation: pulm Subjective Patient stable no new events Objective Vital Signs Date Time Temp Pulse Resp B/P Pulse Ox O2 Delivery O2 Flow Rate FiO2 07/03/16 16:09 99.4 97 18 132/68 100 07/03/16 13:53 40 Intake and Output 07/02/16 07/02/16 07/03/16 15:00 23:00 07:00 Intake Total 1000 ml 1050 ml 900 ml Output Total 700 ml 750 ml 700 ml Balance 300 ml 300 ml 200 ml PHYSICAL EXAMINATION GENERAL: Elderly lady on mechanical ventilation no acute distress VITAL SIGNS: As above HEENT: Pupils equal, round, and reactive to light. Tracheostomy site clean and intact. CARDIAC: S1, S2, tachycardia. CHEST: Diminished air entry bilaterally. Few rales at right base ABDOMEN: Mildly distended. No bowel sounds. EXTREMITIES: No cyanosis, clubbing edema +1 NEUROLOGIC: No focal deficits. Results/Medications Result Diagram: 07/03/16 0630 07/03/16 0630 Results 24 hrs Laboratory Tests Test 07/02/16 17:36 07/02/16 21:34 07/02/16 23:44 07/03/16 05:15 Bedside Glucose 115 130 183 102 Test 07/03/16 06:30 07/03/16 10:51 07/03/16 13:06 Anion Gap 11 Basophils # 0.0 Basophils % 0.4 Blood Morphology Comment Blood Urea Nitrogen 21 H Calcium Level 8.0 L Carbon Dioxide Level 31 Chloride Level 108 Creatinine 0.29 L Eosinophils # 0.2 Eosinophils % 3.6 Glucose Level 97 Hematocrit 23.3 L Hemoglobin 8.0 L Lymphocytes # 1.6 Lymphocytes % 27.9 Mean Corpuscular Hemoglobin 35.1 H Mean Corpuscular Hemoglobin Concent 34.5 Mean Corpuscular Volume 101.9 H Mean Platelet Volume 9.5 Monocytes # 0.8 Monocytes % 12.9 H Neutrophils # 3.3 Neutrophils % 55.2 Nucleated Red Blood Cells # 0.0 Nucleated Red Blood Cells % 0.0 Platelet Count 153 Potassium Level 3.7 Red Blood Count 2.28 L Red Cell Distribution Width 14.6 H Sodium Level 146 H White Blood Count 5.9 # Ammonia 30 # Bedside Glucose 148 Medications Current Medications Acetaminophen (Tylenol Tab) 1,000 mg Q4H PRN PO PAIN 4-6/10 Last administered on 07/01/16 00:22; Admin Dose 1,000 MG; Start 06/27/16 at 13:30 Albuterol (Proventil 0.083% (Neb)) 2.5 mg Q3H PRN NEB WHEEZING AND SOB; Start 06/27/16 at 13:30 Docusate Sodium (Colace) 100 mg QHS PRN PO CONSTIPATION; Start 06/27/16 at 13: 30 Enoxaparin Sodium (Lovenox) 40 mg DAILY SC Last administered on 07/03/16 09:18 ; Admin Dose 40 MG; Start 06/27/16 at 13:30 Ferrous Sulfate (Feosol Liquid Cup) 300 mg DAILY GTB Last administered on 09:14; Admin Dose 300 MG; Start 06/27/16 at 09:00 Acetaminophen/ Hydrocodone Bitart ([place] (5/325)) 1 tab Q6 PRN GTB PAIN LEVEL 7 -10; Start 06/27/16 at 13:30 Lansoprazole (Prevacid) 30 mg DAILY GTB Last administered on 07/03/16 09:15; Admin Dose 30 MG; Start 06/28/16 at 09:00 Multivitamins (Thera-Plus) 5 ml DAILY GTB Last administered on 07/03/16 09:15 ; Admin Dose 5 ML; Start 06/28/16 at 09:00 Phenytoin (Dilantin Susp Cup) 300 mg BID GTB Last administered on 07/03/16 09: 15; Admin Dose 300 MG; Start 06/27/16 at 14:00 Valproate Sodium (Depakene Liquid Cup) 1,500 mg BID GTB Last administered on 09:14; Admin Dose 1,500 MG; Start 06/27/16 at 21:00 Lorazepam (Ativan) 1 mg Q6H PRN IV SEIZURES; Start 06/27/16 at 13:30 Lacosamide (Vimpat Liq) 100 mg BID PO Last administered on 07/03/16 09:00; Admin Dose 100 MG; Start 06/27/16 at 21:00 Docusate Sodium (Colace Liquid Cup) 100 mg BID GTB Last administered on 21:35; Admin Dose 100 MG; Start 06/28/16 at 21:00 Insulin Aspart (Novolog Insulin Pen) NOVOLOG *MILD* ALGORITHM Q6 SC Last administered on 07/03/16 13:15; Admin Dose 1 UNIT; Start 06/28/16 at 18:00 Insulin Glargine (Lantus) 20 unit HS SC Last administered on 07/02/16 21:58; Admin Dose 20 UNIT; Start 06/28/16 at 21:00 Ondansetron HCl (Zofran Inj) 4 mg Q6H PRN IV NAUSEA AND/OR VOMITING Last administered on 06/30/16 02:11; Admin Dose 4 MG; Start 06/28/16 at 16:30 Miscellaneous Information 1 ea NOTE XX ; Start 06/28/16 at 17:00 Glucose (Glutose) 15 gm Q15M PRN PO DECREASED GLUCOSE; Start 06/28/16 at 17:00 Glucose (Glutose) 22.5 gm Q15M PRN PO DECREASED GLUCOSE; Start 06/28/16 at 17: 00 Dextrose (D50w Syringe) 25 ml Q15M PRN IV DECREASED GLUCOSE; Start 06/28/16 at 17:00 Dextrose (D50w Syringe) 50 ml Q15M PRN IV DECREASED GLUCOSE; Start 06/28/16 at 17:00 Glucagon (Glucagen) 1 mg Q15M PRN IM DECREASED GLUCOSE; Start 06/28/16 at 17:00 Glucose (Glutose) 15 gm Q15M PRN BUCCAL DECREASED GLUCOSE; Start 06/28/16 at 17 :00 Lactulose (Enulose) 20 gm DAILY GTB Last administered on 07/03/16 09:15; Admin Dose 20 GM; Start 06/29/16 at 09:00 Acetaminophen (Tylenol Liquid) 650 mg Q4H PRN GTB PAIN AND OR ELEVATED TEMP Last administered on 06/29/16 21:05; Admin Dose 650 MG; Start 06/28/16 at 19:30 IV Flush (NS 10 ml) 10 ml PRN PRN IV IV PROTOCOL; Start 06/29/16 at 15:30 Vancomycin HCl 250 mg 250 mg Q6 PO Last administered on 07/03/16 13:07; Admin Dose 250 MG; Start 07/01/16 at 18:00 Metronidazole (Flagyl 500 Mg (Pmx)) 100 ml @ 100 mls/hr Q8 IVPB Last administered on 07/03/16 14:28; Admin Dose 100 MLS/HR; Start 07/01/16 at 22:00 Miconazole Nitrate (Miconazole 2% Vag Cr) 1 applic HS VAG Last administered on 07/02/16 21:39; Admin Dose 1 APPLIC; Start 07/01/16 at 21:00; Stop 07/04/16 at 20:59 Voriconazole (Vfend) 200 mg BID PO Last administered on 07/03/16 09:16; Admin Dose 200 MG; Start 07/02/16 at 21:00 Assessment/Plan Chief Complaint/Hosp Course IMP: 1. VDRF 2. LLL pna + atelectasis 3 CHF 4 CVA 5. Encephalopathy 6. Seizure d/o 7. HypoK+, hypernatremia improved 8. Anemia likely of chronic disease RECS: 1. Vent support--reduce FiO2; obtain baseline ABG--> reviewed 2. Abx de-escalate 3. f/u cx's 4. Continue free water discharge planning okay from pulmonary standpoint Problems: VERONICA FREEMAN MD, [facility] Jul 03, 2016 16:43
--- NOTE | 2016-07-03 17:12 | PN ---
Date/Time of Note Date/Time of Note DATE: 07/03/16 TIME: 17:10 Assessment/Plan VTE Prophylaxis VTE Prophylaxis Intervention: SCD's Lines/Catheters IV [facility]from [facility] PICC Line Central line still needed: Yes Urinary Cath still in place: Yes Reason Cath still needed: urinary retention Assessment/Plan Chief Complaint/Hosp Course ASSESSMENT: - Severe sepsis [address] Gillette is following in infectious disease consultation - Acute cystitis with Ecoli ESBL. Cont abx per ID. Repeat culture positive for yeast, continue Vfend. - C-diff colitis. Continue Flagyl. - Left lower lobe pneumonia, healthcare-acquired pneumonia. - Breakthrough seizure in a patient with history of seizures. Dr. Garcia is following in neurology consult. Continue the Dilantin, Depakote, and Vimpat. -Diabetes mellitus type 2. Continue Lantus and NovoLog. - Advanced Multiple sclerosis. - Functional quadriplegia -Hyper natremia, start free water via G-tube every 6 hours. [facility]tic[facility]ate [facility] upon improvement in symptoms and availability of isolation bed. Lovenox for deep venous thrombosis prophylaxis and Pepcid for peptic ulcer disease prophylaxis. Further recommendations based on clinical course. Plan of care discussed with Dr. Terry. Problems: Subjective 24 Hr Interval Summary Free Text/Dictation This continues to have low-grade fever, persistent urinary tract infection, C. difficile colitis with diarrhea. Exam/Review of Systems Vital Signs Vitals Vital Signs Date Time Temp Pulse Resp B/P Pulse Ox O2 Delivery O2 Flow Rate FiO2 07/03/16 16:58 87 07/03/16 16:09 99.4 18 132/68 100 07/03/16 13:53 40 Intake and Output 07/02/16 07/02/16 07/03/16 15:00 23:00 07:00 Intake Total 1000 ml 1050 ml 900 ml Output Total 700 ml 750 ml 700 ml Balance 300 ml 300 ml 200 ml Exam GENERAL: Well-developed, obese female who currently is obtunded. HEENT: Head is atraumatic, normocephalic. PERRLA. NECK: Supple with a tracheostomy at the base of the neck with moderate to large amount of secretions. LUNGS: Scattered rhonchi bilaterally. CARDIOVASCULAR: Normal S1, S2. No murmurs, gallops, clicks, rubs noted. ABDOMEN: Round, soft, nondistended. The patient does have a G-tube with intact stoma. EXTREMITIES: Edema, no clubbing, no cyanosis. Pulses equal bilaterally. GENITOURINARY: The patient has a Kim catheter with urine with sediment. SKIN: There is no rash or petechia noted. NEUROLOGIC: The patient is obtunded. Results Result Diagram: 07/03/16 0630 07/03/16 0630 Results 24 hrs Laboratory Tests Test 07/02/16 17:36 07/02/16 21:34 07/02/16 23:44 07/03/16 05:15 Bedside Glucose 115 130 183 102 Test 07/03/16 06:30 07/03/16 10:51 07/03/16 13:06 Anion Gap 11 Basophils # 0.0 Basophils % 0.4 Blood Morphology Comment Blood Urea Nitrogen 21 H Calcium Level 8.0 L Carbon Dioxide Level 31 Chloride Level 108 Creatinine 0.29 L Eosinophils # 0.2 Eosinophils % 3.6 Glucose Level 97 Hematocrit 23.3 L Hemoglobin 8.0 L Lymphocytes # 1.6 Lymphocytes % 27.9 Mean Corpuscular Hemoglobin 35.1 H Mean Corpuscular Hemoglobin Concent 34.5 Mean Corpuscular Volume 101.9 H Mean Platelet Volume 9.5 Monocytes # 0.8 Monocytes % 12.9 H Neutrophils # 3.3 Neutrophils % 55.2 Nucleated Red Blood Cells # 0.0 Nucleated Red Blood Cells % 0.0 Platelet Count 153 Potassium Level 3.7 Red Blood Count 2.28 L Red Cell Distribution Width 14.6 H Sodium Level 146 H White Blood Count 5.9 # Ammonia 30 # Bedside Glucose 148 Medications Medications Current Medications Acetaminophen (Tylenol Tab) 1,000 mg Q4H PRN PO PAIN 4-6/10 Last administered on 07/01/16 00:22; Admin Dose 1,000 MG; Start 06/27/16 at 13:30 Albuterol (Proventil 0.083% (Neb)) 2.5 mg Q3H PRN NEB WHEEZING AND SOB; Start 06/27/16 at 13:30 Docusate Sodium (Colace) 100 mg QHS PRN PO CONSTIPATION; Start 06/27/16 at 13: 30 Enoxaparin Sodium (Lovenox) 40 mg DAILY SC Last administered on 07/03/16 09:18 ; Admin Dose 40 MG; Start 06/27/16 at 13:30 Ferrous Sulfate (Feosol Liquid Cup) 300 mg DAILY GTB Last administered on 09:14; Admin Dose 300 MG; Start 06/27/16 at 09:00 Acetaminophen/ Hydrocodone Bitart ([place] (5/325)) 1 tab Q6 PRN GTB PAIN LEVEL 7 -10; Start 06/27/16 at 13:30 Lansoprazole (Prevacid) 30 mg DAILY GTB Last administered on 07/03/16 09:15; Admin Dose 30 MG; Start 06/28/16 at 09:00 Multivitamins (Thera-Plus) 5 ml DAILY GTB Last administered on 07/03/16 09:15 ; Admin Dose 5 ML; Start 06/28/16 at 09:00 Phenytoin (Dilantin Susp Cup) 300 mg BID GTB Last administered on 07/03/16 09: 15; Admin Dose 300 MG; Start 06/27/16 at 14:00 Valproate Sodium (Depakene Liquid Cup) 1,500 mg BID GTB Last administered on 09:14; Admin Dose 1,500 MG; Start 06/27/16 at 21:00 Lorazepam (Ativan) 1 mg Q6H PRN IV SEIZURES; Start 06/27/16 at 13:30 Lacosamide (Vimpat Liq) 100 mg BID PO Last administered on 07/03/16 09:00; Admin Dose 100 MG; Start 06/27/16 at 21:00 Docusate Sodium (Colace Liquid Cup) 100 mg BID GTB Last administered on 21:35; Admin Dose 100 MG; Start 06/28/16 at 21:00 Insulin Aspart (Novolog Insulin Pen) NOVOLOG *MILD* ALGORITHM Q6 SC Last administered on 07/03/16 13:15; Admin Dose 1 UNIT; Start 06/28/16 at 18:00 Insulin Glargine (Lantus) 20 unit HS SC Last administered on 07/02/16 21:58; Admin Dose 20 UNIT; Start 06/28/16 at 21:00 Ondansetron HCl (Zofran Inj) 4 mg Q6H PRN IV NAUSEA AND/OR VOMITING Last administered on 06/30/16 02:11; Admin Dose 4 MG; Start 06/28/16 at 16:30 Miscellaneous Information 1 ea NOTE XX ; Start 06/28/16 at 17:00 Glucose (Glutose) 15 gm Q15M PRN PO DECREASED GLUCOSE; Start 06/28/16 at 17:00 Glucose (Glutose) 22.5 gm Q15M PRN PO DECREASED GLUCOSE; Start 06/28/16 at 17: 00 Dextrose (D50w Syringe) 25 ml Q15M PRN IV DECREASED GLUCOSE; Start 06/28/16 at 17:00 Dextrose (D50w Syringe) 50 ml Q15M PRN IV DECREASED GLUCOSE; Start 06/28/16 at 17:00 Glucagon (Glucagen) 1 mg Q15M PRN IM DECREASED GLUCOSE; Start 06/28/16 at 17:00 Glucose (Glutose) 15 gm Q15M PRN BUCCAL DECREASED GLUCOSE; Start 06/28/16 at 17 :00 Lactulose (Enulose) 20 gm DAILY GTB Last administered on 07/03/16 09:15; Admin Dose 20 GM; Start 06/29/16 at 09:00 Acetaminophen (Tylenol Liquid) 650 mg Q4H PRN GTB PAIN AND OR ELEVATED TEMP Last administered on 06/29/16 21:05; Admin Dose 650 MG; Start 06/28/16 at 19:30 IV Flush (NS 10 ml) 10 ml PRN PRN IV IV PROTOCOL; Start 06/29/16 at 15:30 Vancomycin HCl 250 mg 250 mg Q6 PO Last administered on 07/03/16 13:07; Admin Dose 250 MG; Start 07/01/16 at 18:00 Metronidazole (Flagyl 500 Mg (Pmx)) 100 ml @ 100 mls/hr Q8 IVPB Last administered on 07/03/16 14:28; Admin Dose 100 MLS/HR; Start 07/01/16 at 22:00 Miconazole Nitrate (Miconazole 2% Vag Cr) 1 applic HS VAG Last administered on 07/02/16 21:39; Admin Dose 1 APPLIC; Start 07/01/16 at 21:00; Stop 07/04/16 at 20:59 Voriconazole (Vfend) 200 mg BID PO Last administered on 07/03/16 09:16; Admin Dose 200 MG; Start 07/02/16 at 21:00 FRANDY WHEAT Jul 03, 2016 17:12
--- NOTE | 2016-07-03 17:45 | CONS ---
Date/Time of Note Date/Time of Note DATE: 07/03/16 TIME: 17:40 Assessment/Plan Assessment/Plan Chief Complaint/Hosp Course SUBJECTIVE: No acute events. The patient is lying comfortably in bed. She spiked fever yesterday of 101. Today is afebrile. WBC 10.9 with platelets 139 , no shift, no bands. BUN 18, creatinine 0.31. MICROBIOLOGY: Repeat urine culture growing yeast, not [place] albicans. Stool for C difficile from came back positive on June 30. ANTIMICROBIALS: The patient is on: 1. Flagyl. 2. Oral Vanco. 3. Vfend. INDWELLINGS: Trach, PEG, Kim. PHYSICAL EXAMINATION: GENERAL: This is an obese, chronically ill-appearing, elderly woman who is in no distress. HEENT: Head atraumatic, normocephalic. Sclerae anicteric. Buccal mucosa dry. NECK: Supple. CHEST: Rise symmetrical. Breath sounds diminished to bases. HEART: S1, S2. ABDOMEN: Soft. Bowel sounds present. EXTREMITIES: Bilateral trace edema. ASSESSMENT: 1. Sepsis. 2. Clostridium difficile colitis. 3. Recurrent urinary tract infection. 4. Seizure disorder. 5. Chronic respiratory failure. 6. Advanced multiple sclerosis with functional quadriplegia. PLAN: The patient remains stable. Continue abx. DW staff Problems: Consultation Date/Type/Reason Admit Date/Time Jun 27, 2016 at 23:01 Initial Consult Date 06/28/16 Type of Consultation: ID Exam/Review of Systems Vital Signs Vitals Vital Signs Date Time Temp Pulse Resp B/P Pulse Ox O2 Delivery O2 Flow Rate FiO2 07/03/16 17:12 94 20 100 40 07/03/16 16:09 99.4 132/68 Intake and Output 07/02/16 07/02/16 07/03/16 15:00 23:00 07:00 Intake Total 1000 ml 1050 ml 900 ml Output Total 700 ml 750 ml 700 ml Balance 300 ml 300 ml 200 ml Results Result Diagram: 07/03/16 0630 07/03/16 0630 Results 24 hrs Laboratory Tests Test 07/02/16 21:34 07/02/16 23:44 07/03/16 05:15 07/03/16 06:30 Bedside Glucose 130 183 102 Anion Gap 11 Basophils # 0.0 Basophils % 0.4 Blood Morphology Comment Blood Urea Nitrogen 21 H Calcium Level 8.0 L Carbon Dioxide Level 31 Chloride Level 108 Creatinine 0.29 L Eosinophils # 0.2 Eosinophils % 3.6 Glucose Level 97 Hematocrit 23.3 L Hemoglobin 8.0 L Lymphocytes # 1.6 Lymphocytes % 27.9 Mean Corpuscular Hemoglobin 35.1 H Mean Corpuscular Hemoglobin Concent 34.5 Mean Corpuscular Volume 101.9 H Mean Platelet Volume 9.5 Monocytes # 0.8 Monocytes % 12.9 H Neutrophils # 3.3 Neutrophils % 55.2 Nucleated Red Blood Cells # 0.0 Nucleated Red Blood Cells % 0.0 Platelet Count 153 Potassium Level 3.7 Red Blood Count 2.28 L Red Cell Distribution Width 14.6 H Sodium Level 146 H White Blood Count 5.9 # Test 07/03/16 10:51 07/03/16 13:06 Ammonia 30 # Bedside Glucose 148 Medications Medications Current Medications Acetaminophen (Tylenol Tab) 1,000 mg Q4H PRN PO PAIN 4-6/10 Last administered on 07/01/16 00:22; Admin Dose 1,000 MG; Start 06/27/16 at 13:30 Albuterol (Proventil 0.083% (Neb)) 2.5 mg Q3H PRN NEB WHEEZING AND SOB; Start 06/27/16 at 13:30 Docusate Sodium (Colace) 100 mg QHS PRN PO CONSTIPATION; Start 06/27/16 at 13: 30 Enoxaparin Sodium (Lovenox) 40 mg DAILY SC Last administered on 07/03/16 09:18 ; Admin Dose 40 MG; Start 06/27/16 at 13:30 Ferrous Sulfate (Feosol Liquid Cup) 300 mg DAILY GTB Last administered on 09:14; Admin Dose 300 MG; Start 06/27/16 at 09:00 Acetaminophen/ Hydrocodone Bitart ([place] (5/325)) 1 tab Q6 PRN GTB PAIN LEVEL 7 -10; Start 06/27/16 at 13:30 Lansoprazole (Prevacid) 30 mg DAILY GTB Last administered on 07/03/16 09:15; Admin Dose 30 MG; Start 06/28/16 at 09:00 Multivitamins (Thera-Plus) 5 ml DAILY GTB Last administered on 07/03/16 09:15 ; Admin Dose 5 ML; Start 06/28/16 at 09:00 Phenytoin (Dilantin Susp Cup) 300 mg BID GTB Last administered on 07/03/16 09: 15; Admin Dose 300 MG; Start 06/27/16 at 14:00 Valproate Sodium (Depakene Liquid Cup) 1,500 mg BID GTB Last administered on 09:14; Admin Dose 1,500 MG; Start 06/27/16 at 21:00 Lorazepam (Ativan) 1 mg Q6H PRN IV SEIZURES; Start 06/27/16 at 13:30 Lacosamide (Vimpat Liq) 100 mg BID PO Last administered on 07/03/16 09:00; Admin Dose 100 MG; Start 06/27/16 at 21:00 Docusate Sodium (Colace Liquid Cup) 100 mg BID GTB Last administered on 21:35; Admin Dose 100 MG; Start 06/28/16 at 21:00 Insulin Aspart (Novolog Insulin Pen) NOVOLOG *MILD* ALGORITHM Q6 SC Last administered on 07/03/16 13:15; Admin Dose 1 UNIT; Start 06/28/16 at 18:00 Insulin Glargine (Lantus) 20 unit HS SC Last administered on 07/02/16 21:58; Admin Dose 20 UNIT; Start 06/28/16 at 21:00 Ondansetron HCl (Zofran Inj) 4 mg Q6H PRN IV NAUSEA AND/OR VOMITING Last administered on 06/30/16 02:11; Admin Dose 4 MG; Start 06/28/16 at 16:30 Miscellaneous Information 1 ea NOTE XX ; Start 06/28/16 at 17:00 Glucose (Glutose) 15 gm Q15M PRN PO DECREASED GLUCOSE; Start 06/28/16 at 17:00 Glucose (Glutose) 22.5 gm Q15M PRN PO DECREASED GLUCOSE; Start 06/28/16 at 17: 00 Dextrose (D50w Syringe) 25 ml Q15M PRN IV DECREASED GLUCOSE; Start 06/28/16 at 17:00 Dextrose (D50w Syringe) 50 ml Q15M PRN IV DECREASED GLUCOSE; Start 06/28/16 at 17:00 Glucagon (Glucagen) 1 mg Q15M PRN IM DECREASED GLUCOSE; Start 06/28/16 at 17:00 Glucose (Glutose) 15 gm Q15M PRN BUCCAL DECREASED GLUCOSE; Start 06/28/16 at 17 :00 Acetaminophen (Tylenol Liquid) 650 mg Q4H PRN GTB PAIN AND OR ELEVATED TEMP Last administered on 06/29/16 21:05; Admin Dose 650 MG; Start 06/28/16 at 19:30 IV Flush (NS 10 ml) 10 ml PRN PRN IV IV PROTOCOL; Start 06/29/16 at 15:30 Vancomycin HCl 250 mg 250 mg Q6 PO Last administered on 07/03/16 13:07; Admin Dose 250 MG; Start 07/01/16 at 18:00 Metronidazole (Flagyl 500 Mg (Pmx)) 100 ml @ 100 mls/hr Q8 IVPB Last administered on 07/03/16 14:28; Admin Dose 100 MLS/HR; Start 07/01/16 at 22:00 Miconazole Nitrate (Miconazole 2% Vag Cr) 1 applic HS VAG Last administered on 07/02/16 21:39; Admin Dose 1 APPLIC; Start 07/01/16 at 21:00; Stop 07/04/16 at 20:59 Voriconazole (Vfend) 200 mg BID PO Last administered on 07/03/16 09:16; Admin Dose 200 MG; Start 07/02/16 at 21:00 NICHOLAS CRUZ NP Jul 03, 2016 17:45
--- NOTE | 2016-07-03 19:57 | RADRPT ---
PROCEDURE: XR acute abdominal series. CLINICAL INDICATION: Abdominal distension. TECHNIQUE: 2 frontal views of the chest. COMPARISON: 09/13/2015. FINDINGS: PEG tube in place with tip and balloon over the gastric lumen. Extensive moderate small bowel ileus is nonspecific. Air in the sigmoid colon. IMPRESSION: Nonspecific moderate small bowel ileus, and recommend close radiographic follow up. RPTAT: [facility] Denise Berkowitz Physician Date Time Electronically viewed and signed by Denise Berkowitz Physician on 07/03/2016 19:57 RS/
[2016-07-03] MEDS: MICONAZOLE 2% 45 GM VAG CR VAG SCH (21:31)
[2016-07-03] MEDS: INSULIN GLARGINE [LANtus] 3 ML PEN SC SCH (21:58)
[2016-07-04] VITALS (23 sets, daily range): BP systolic 96–123; BP diastolic 52–69; PULSE 71–96; RESP 14–18
[2016-07-04] MEDS: VANCOMYCIN HCL 250 MG/5ML POSYG PO SCH ×5 (00:10→23:14)
[2016-07-04] MEDS: ACETYLCYSTEINE 20% 4 ML VIAL NEB SCH ×2 (01:19→08:18)
[2016-07-04] MEDS: ALBUTEROL 0.083% (NEB) 2.5 MG/3 ML AMP HHN SCH ×4 (01:19→21:07)
[2016-07-04] MEDS: metroNIDAZOLE 500 MG/NS (PMX) 100 ML IVPB SCH ×3 (05:33→21:30)
[2016-07-04] MEDS: INSULIN ASPART [NOVOLOG] 3 ML PEN SC SCH ×3 (05:33→18:00)
[2016-07-04 06:14] LABS: BASOPHILS % 0.3 % (0.0-2.0); EOSINOPHILS # 0.2 10^3/ul (0.0-0.5); EOSINOPHILS % 4.1 % (0.0-7.0); HEMATOCRIT 21.1 % (37.0-47.0); HEMOGLOBIN 7.3 g/dl (12.0-16.0); LYMPHOCYTES # 2.1 10^3/ul (0.8-2.9); LYMPHOCYTES % 37.4 % (15.0-51.0); MEAN CORPUSCULAR HGB CONC 34.6 g/dl (32.0-37.0); MEAN PLATELET VOLUME 9.3 fl (7.4-10.4); MONOCYTE # 0.7 10^3/ul (0.3-0.9); MONOCYTES % 13.1 % (0.0-11.0); NEUTROPHIL # 2.5 10^3/ul (1.6-7.5); NEUTROPHILS % 45.1 % (39.0-77.0); PLATELET COUNT 199 10^3/UL (140-440); RED BLOOD COUNT 2.09 10^6/ul (4.20-5.40); RED CELL DISTRIBUTION WIDTH 14.4 % (11.5-14.5); UNCORRECTED WBC 5.6 10^3/ul (4.8-10.8); WHITE BLOOD COUNT 5.6 10^3/ul (4.8-10.8)
[2016-07-04 06:36] LABS: CONDITION 1
[2016-07-04 06:37] LABS: LH ANALYZER COMMENTS 1
[2016-07-04 06:53] LABS: POTASSIUM 3.5 mmol/L (3.5-5.1)
[2016-07-04 06:55] LABS: CREATININE 0.28 mg/dl (0.44-1.00)
[2016-07-04 06:56] LABS: CALCIUM 8.1 mg/dl (8.4-10.2)
[2016-07-04] MEDS: ENOXAPARIN 40 MG/0.4 ML SYG SC SCH (08:55)
[2016-07-04] MEDS: VORICONAZOLE 200 MG TAB PO SCH ×2 (08:57→21:30)
[2016-07-04] MEDS: PHENYTOIN (100 MG/4 ML) CUP GTB SCH ×2 (08:57→21:30)
[2016-07-04] MEDS: LANSOPRAZOLE 30 MG CAP GTB SCH (08:57)
[2016-07-04] MEDS: VALPROIC ACID LIQUID CUP 250 MG/5 ML CUP GTB SCH ×2 (08:58→21:30)
[2016-07-04] MEDS: MULTIVITAMINS 5 ML CUP GTB SCH (08:58)
[2016-07-04] MEDS: FERROUS SULFATE 60 MG/ML 5ML CUP GTB SCH (08:58)
[2016-07-04] MEDS: DOCUSATE SODIUM 10 MG/ML (10ML CUP) GTB SCH ×2 (08:59→21:00)
[2016-07-04] MEDS: LACOSAMIDE (10 MG/ML PO SYG) PO SCH ×2 (08:59→22:13)
--- NOTE | 2016-07-04 11:24 | CONS ---
Date/Time of Note Date/Time of Note DATE: 07/04/16 TIME: 11:21 Assessment/Plan Assessment/Plan Chief Complaint/Hosp Course Patient is a 61-year-old lady who was admitted yesterday transferred from [facility] with complaints of having generalized seizure activity upon further evaluation a CT scan of the head was done which was negative however his chest x-ray was done which is showing left lower lobe infiltrative changes which are likely on the basis of significant atelectasis as well possibly from underlying mucous plugging of the left mainstem the left lower lobe bronchus. Severe dementia patient is unable to give any history whatsoever history was obtained from medical records. Past medical history : 1. chronic respiratory failure ventilator dependent 2. History of seizure disorder. 3. Likely underlying severe anoxic encephalopathy. 4. Status post tracheostomy and PEG tube placement. 5. History of abdominal surgery based upon examination. 6. 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 Next Medications; reviewed. Family history, social history not available. Occupational history; currently not available. Review of systems patient completely unresponsive unable to be obtained. Problems: Additional Assessment/Plan Assessment and recommendations next 1. Patient with chronic respiratory failure which is multifactorial most prominent of which are CHF, severe anoxic encephalopathy. 2. Bilateral pneumonia with left lower lobe atelectasis. Chest x-ray from of last month was reviewed which is showing improvement. However persistent infiltrative changes remain in the left perihilar area. Next 3. Diabetes. 4. Stable seizure disorder. 5. Patient stable on current ventilator settings which are SIMV of 10, tidal volume 500, pressure support 10, PEEP of 5, 30% FiO2. 6. Anemia, with a significant drop in hemoglobin to 7.3 today. Continue current ventilator settings, antibiotics. Transfuse 1 unit of packed RBC. Prognosis remains poor. Consultation Date/Type/Reason Admit Date/Time Jun 27, 2016 at 23:01 Initial Consult Date 06/28/16 Type of Consultation: ID [id number] HR Interval Summary Free Text/Dictation Patient's condition remains unchanged. Still fully ventilator dependent. Because of underlying severe anoxic encephalopathy patient is completely unresponsive. General examination; elderly lady, on mechanical ventilation via tracheostomy unresponsive. Currently in no distress. Exam/Review of Systems Vital Signs Vitals Vital Signs Date Time Temp Pulse Resp B/P Pulse Ox O2 Delivery O2 Flow Rate FiO2 07/04/16 08:28 85 07/04/16 08:18 14 99 40 07/04/16 07:56 98.5 114/55 Intake and Output 07/03/16 07/03/16 07/04/16 15:00 23:00 07:00 Intake Total 100 ml 900 ml 650 ml Output Total 600 ml 700 ml Balance 100 ml 300 ml -50 ml Exam HEENT examination; supple neck, JVD difficult to see because of short neck. No lymphadenopathy. Midline trachea. Tracheostomy in place. Pupils are small bilaterally. Chest examination; diminished breath sounds throughout. S1-S2 audible. No murmurs. Regular rate and rhythm. Abdomen examination; soft, PEG tube in place. No organomegaly. Bowel sounds audible. Extremity examination; pulses 1+ bilaterally. There is trace lower extremity edema. [employer] examination; patient remains completely unresponsive. Results Result Diagram: 07/04/16 0540 07/04/16 0540 Results 24 hrs Laboratory Tests Test 07/03/16 13:06 07/03/16 18:23 07/03/16 21:17 07/03/16 23:52 Bedside Glucose 148 119 110 135 Test 07/04/16 05:32 07/04/16 05:40 Bedside Glucose 134 Anion Gap 11 Basophils # 0.0 Basophils % 0.3 Blood Morphology Comment Blood Urea Nitrogen 18 Calcium Level 8.1 L Carbon Dioxide Level 30 Chloride Level 107 Creatinine 0.28 L Eosinophils # 0.2 Eosinophils % 4.1 Glucose Level 115 Hematocrit 21.1 L Hemoglobin 7.3 L Lymphocytes # 2.1 Lymphocytes % 37.4 Mean Corpuscular Hemoglobin 35.0 H Mean Corpuscular Hemoglobin Concent 34.6 Mean Corpuscular Volume 101.0 Mean Platelet Volume 9.3 Monocytes # 0.7 Monocytes % 13.1 H Neutrophils # 2.5 Neutrophils % 45.1 Nucleated Red Blood Cells # 0.0 Nucleated Red Blood Cells % 0.0 Platelet Count 199 # Potassium Level 3.5 Red Blood Count 2.09 L Red Cell Distribution Width 14.4 Sodium Level 144 White Blood Count 5.6 Medications Medications Current Medications Acetaminophen (Tylenol Tab) 1,000 mg Q4H PRN PO PAIN 4-6/10 Last administered on 07/01/16t 00:22; Admin Dose 1,000 MG; Start 06/27/16 at 13:30 Albuterol (Proventil 0.083% (Neb)) 2.5 mg Q3H PRN NEB WHEEZING AND SOB; Start 06/27/16 at 13:30 Docusate Sodium (Colace) 100 mg QHS PRN PO CONSTIPATION; Start 06/27/16 at 13: 30 Enoxaparin Sodium (Lovenox) 40 mg DAILY SC Last administered on 07/04/16 08:55 ; Admin Dose 40 MG; Start 06/27/16 at 13:30 Ferrous Sulfate (Feosol Liquid Cup) 300 mg DAILY GTB Last administered on 08:58; Admin Dose 300 MG; Start 06/27/16 at 09:00 Acetaminophen/ Hydrocodone Bitart ([place] (5/325)) 1 tab Q6 PRN GTB PAIN LEVEL 7 -10; Start 06/27/16 at 13:30 Lansoprazole (Prevacid) 30 mg DAILY GTB Last administered on 07/04/16 08:57; Admin Dose 30 MG; Start 06/28/16 at 09:00 Multivitamins (Thera-Plus) 5 ml DAILY GTB Last administered on 07/04/16 08:58; Admin Dose 5 ML; Start 06/28/16 at 09:00 Phenytoin (Dilantin Susp Cup) 300 mg BID GTB Last administered on 07/04/16 08: 57; Admin Dose 300 MG; Start 06/27/16 at 14:00 Valproate Sodium (Depakene Liquid Cup) 1,500 mg BID GTB Last administered on 08:58; Admin Dose 1,500 MG; Start 06/27/16 at 21:00 Lorazepam (Ativan) 1 mg Q6H PRN IV SEIZURES; Start 06/27/16 at 13:30 Lacosamide (Vimpat Liq) 100 mg BID PO Last administered on 07/04/16 08:59; Admin Dose 100 MG; Start 06/27/16 at 21:00 Docusate Sodium (Colace Liquid Cup) 100 mg BID GTB Last administered on 21:35; Admin Dose 100 MG; Start 06/28/16 at 21:00 Insulin Aspart (Novolog Insulin Pen) NOVOLOG *MILD* ALGORITHM Q6 SC Last administered on 07/03/16 13:15; Admin Dose 1 UNIT; Start 06/28/16 at 18:00 Insulin Glargine (Lantus) 20 unit HS SC Last administered on 07/03/16 21:58; Admin Dose 20 UNIT; Start 06/28/16 at 21:00 Ondansetron HCl (Zofran Inj) 4 mg Q6H PRN IV NAUSEA AND/OR VOMITING Last administered on 06/30/16 02:11; Admin Dose 4 MG; Start 06/28/16 at 16:30 Miscellaneous Information 1 ea NOTE XX ; Start 06/28/16 at 17:00 Glucose (Glutose) 15 gm Q15M PRN PO DECREASED GLUCOSE; Start 06/28/16 at 17:00 Glucose (Glutose) 22.5 gm Q15M PRN PO DECREASED GLUCOSE; Start 06/28/16 at 17: 00 Dextrose (D50w Syringe) 25 ml Q15M PRN IV DECREASED GLUCOSE; Start 06/28/16 at 17:00 Dextrose (D50w Syringe) 50 ml Q15M PRN IV DECREASED GLUCOSE; Start 06/28/16 at 17:00 Glucagon (Glucagen) 1 mg Q15M PRN IM DECREASED GLUCOSE; Start 06/28/16 at 17:00 Glucose (Glutose) 15 gm Q15M PRN BUCCAL DECREASED GLUCOSE; Start 06/28/16 at 17 :00 Acetaminophen (Tylenol Liquid) 650 mg Q4H PRN GTB PAIN AND OR ELEVATED TEMP Last administered on 06/29/16 21:05; Admin Dose 650 MG; Start 06/28/16 at 19:30 IV Flush (NS 10 ml) 10 ml PRN PRN IV IV PROTOCOL; Start 06/29/16 at 15:30 Vancomycin HCl 250 mg 250 mg Q6 PO Last administered on 07/04/16 05:33; Admin Dose 250 MG; Start 07/01/16 at 18:00 Metronidazole (Flagyl 500 Mg (Pmx)) 100 ml @ 100 mls/hr Q8 IVPB Last administered on 07/04/16 05:33; Admin Dose 100 MLS/HR; Start 07/01/16 at 22:00 Miconazole Nitrate (Miconazole 2% Vag Cr) 1 applic HS VAG Last administered on 07/03/16 21:31; Admin Dose 1 APPLIC; Start 07/01/16 at 21:00; Stop 07/04/16 at 20:59 Voriconazole (Vfend) 200 mg BID PO Last administered on 07/04/16t 08:57; Admin Dose 200 MG; Start 07/02/16 at 21:00 REJI BECKER Jul 04, 2016 11:24
--- NOTE | 2016-07-04 12:51 | PN ---
Date/Time of Note Date/Time of Note DATE: 07/04/16 TIME: 12:49 Assessment/Plan VTE Prophylaxis VTE Prophylaxis Intervention: SCD's Lines/Catheters IV [facility] (from [facility] PICC Line Central line still needed: Yes Urinary Cath still in place: Yes Reason Cath still needed: urinary retention Assessment/Plan Chief Complaint/Hosp Course ASSESSMENT: - Severe sepsis [address] Gillette is following in infectious disease consultation - Acute cystitis with Ecoli ESBL. Cont abx per ID. Repeat culture positive for yeast, continue Vfend. - C-diff colitis. Continue Flagyl. - Left lower lobe pneumonia, healthcare-acquired pneumonia. - Breakthrough seizure in a patient with history of seizures. Dr. Garcia is following in neurology consult. Continue the Dilantin, Depakote, and Vimpat. - Diabetes mellitus type 2. Continue Lantus and NovoLog. - Advanced Multiple sclerosis. - Functional quadriplegia - Hyper natremia, start free water via G-tube every 6 hours. -Anemia with hemoglobin being 7.3 today, transfuse 2 units of packed red blood cells, stool for occult blood, monitor H&H. Lovenox for deep venous thrombosis prophylaxis and Pepcid for peptic ulcer disease prophylaxis. Further recommendations based on clinical course. Plan of care discussed with Dr. Terry. Problems: Subjective 24 Hr Interval Summary Free Text/Dictation Patient's continues to have diarrhea, patient had hemoglobin 7.3, will transfuse 2 units of packed red blood cells, check stool for OB, continue to monitor. Exam/Review of Systems Vital Signs Vitals Vital Signs Date Time Temp Pulse Resp B/P Pulse Ox O2 Delivery O2 Flow Rate FiO2 07/04/16 12:27 71 07/04/16 11:57 97.9 18 122/69 97 07/04/16 10:45 40 Intake and Output 07/03/16 07/03/16 07/04/16 15:00 23:00 07:00 Intake Total 100 ml 900 ml 650 ml Output Total 600 ml 700 ml Balance 100 ml 300 ml -50 ml Exam GENERAL: Well-developed, obese female who currently is obtunded. HEENT: Head is atraumatic, normocephalic. PERRLA. NECK: Supple with a tracheostomy at the base of the neck with moderate to large amount of secretions. LUNGS: Scattered rhonchi bilaterally. CARDIOVASCULAR: Normal S1, S2. No murmurs, gallops, clicks, rubs noted. ABDOMEN: Round, soft, nondistended. The patient does have a G-tube with intact stoma. EXTREMITIES: Edema, no clubbing, no cyanosis. Pulses equal bilaterally. GENITOURINARY: The patient has a Kim catheter with urine with sediment. SKIN: There is no rash or petechia noted. NEUROLOGIC: The patient is obtunded. Results Result Diagram: 07/04/16 0540 07/04/16 0540 Results 24 hrs Laboratory Tests Test 07/03/16 13:06 07/03/16 18:23 07/03/16 21:17 07/03/16 23:52 Bedside Glucose 148 119 110 135 Test 07/04/16 05:32 07/04/16 05:40 Bedside Glucose 134 Anion Gap 11 Basophils # 0.0 Basophils % 0.3 Blood Morphology Comment Blood Urea Nitrogen 18 Calcium Level 8.1 L Carbon Dioxide Level 30 Chloride Level 107 Creatinine 0.28 L Eosinophils # 0.2 Eosinophils % 4.1 Glucose Level 115 Hematocrit 21.1 L Hemoglobin 7.3 L Lymphocytes # 2.1 Lymphocytes % 37.4 Mean Corpuscular Hemoglobin 35.0 H Mean Corpuscular Hemoglobin Concent 34.6 Mean Corpuscular Volume 101.0 Mean Platelet Volume 9.3 Monocytes # 0.7 Monocytes % 13.1 H Neutrophils # 2.5 Neutrophils % 45.1 Nucleated Red Blood Cells # 0.0 Nucleated Red Blood Cells % 0.0 Platelet Count 199 # Potassium Level 3.5 Red Blood Count 2.09 L Red Cell Distribution Width 14.4 Sodium Level 144 White Blood Count 5.6 Medications Medications Current Medications Acetaminophen (Tylenol Tab) 1,000 mg Q4H PRN PO PAIN 4-6 Last administered on 07/01/16 00:22; Admin Dose 1,000 MG; Start 06/27/16 at 13:30 Albuterol (Proventil 0.083% (Neb)) 2.5 mg Q3H PRN NEB WHEEZING AND SOB; Start 06/27/16 at 13:30 Docusate Sodium (Colace) 100 mg QHS PRN PO CONSTIPATION; Start 06/27/16 at 13: 30 Enoxaparin Sodium (Lovenox) 40 mg DAILY SC Last administered on 07/04/16 08:55 ; Admin Dose 40 MG; Start 06/27/16 at 13:30 Ferrous Sulfate (Feosol Liquid Cup) 300 mg DAILY GTB Last administered on 08:58; Admin Dose 300 MG; Start 06/27/16 at 09:00 Acetaminophen/ Hydrocodone Bitart ([place] (5/325)) 1 tab Q6 PRN GTB PAIN LEVEL 7 -10; Start 06/27/16 at 13:30 Lansoprazole (Prevacid) 30 mg DAILY GTB Last administered on 07/04/16 08:57; Admin Dose 30 MG; Start 06/28/16 at 09:00 Multivitamins (Thera-Plus) 5 ml DAILY GTB Last administered on 07/04/16 08:58; Admin Dose 5 ML; Start 06/28/16 at 09:00 Phenytoin (Dilantin Susp Cup) 300 mg BID GTB Last administered on 07/04/16 08: 57; Admin Dose 300 MG; Start 06/27/16 at 14:00 Valproate Sodium (Depakene Liquid Cup) 1,500 mg BID GTB Last administered on 08:58; Admin Dose 1,500 MG; Start 06/27/16 at 21:00 Lorazepam (Ativan) 1 mg Q6H PRN IV SEIZURES; Start 06/27/16 at 13:30 Lacosamide (Vimpat Liq) 100 mg BID PO Last administered on 07/04/16 08:59; Admin Dose 100 MG; Start 06/27/16 at 21:00 Docusate Sodium (Colace Liquid Cup) 100 mg BID GTB Last administered on 21:35; Admin Dose 100 MG; Start 06/28/16 at 21:00 Insulin Aspart (Novolog Insulin Pen) NOVOLOG *MILD* ALGORITHM Q6 SC Last administered on 07/03/16 13:15; Admin Dose 1 UNIT; Start 06/28/16 at 18:00 Insulin Glargine (Lantus) 20 unit HS SC Last administered on 07/03/16 21:58; Admin Dose 20 UNIT; Start 06/28/16 at 21:00 Ondansetron HCl (Zofran Inj) 4 mg Q6H PRN IV NAUSEA AND/OR VOMITING Last administered on 06/30/16 02:11; Admin Dose 4 MG; Start 06/28/16 at 16:30 Miscellaneous Information 1 ea NOTE XX ; Start 06/28/16 at 17:00 Glucose (Glutose) 15 gm Q15M PRN PO DECREASED GLUCOSE; Start 06/28/16 at 17:00 Glucose (Glutose) 22.5 gm Q15M PRN PO DECREASED GLUCOSE; Start 06/28/16 at 17: 00 Dextrose (D50w Syringe) 25 ml Q15M PRN IV DECREASED GLUCOSE; Start 06/28/16 at 17:00 Dextrose (D50w Syringe) 50 ml Q15M PRN IV DECREASED GLUCOSE; Start 06/28/16 at 17:00 Glucagon (Glucagen) 1 mg Q15M PRN IM DECREASED GLUCOSE; Start 06/28/16 at 17:00 Glucose (Glutose) 15 gm Q15M PRN BUCCAL DECREASED GLUCOSE; Start 06/28/16 at 17 :00 Acetaminophen (Tylenol Liquid) 650 mg Q4H PRN GTB PAIN AND OR ELEVATED TEMP Last administered on 06/29/16 21:05; Admin Dose 650 MG; Start 06/28/16 at 19:30 IV Flush (NS 10 ml) 10 ml PRN PRN IV IV PROTOCOL; Start 06/29/16 at 15:30 Vancomycin HCl 250 mg 250 mg Q6 PO Last administered on 07/04/16 12:44; Admin Dose 250 MG; Start 07/01/16 at 18:00 Metronidazole (Flagyl 500 Mg (Pmx)) 100 ml @ 100 mls/hr Q8 IVPB Last administered on 07/04/16 05:33; Admin Dose 100 MLS/HR; Start 07/01/16 at 22:00 Miconazole Nitrate (Miconazole 2% Vag Cr) 1 applic HS VAG Last administered on 07/03/16 21:31; Admin Dose 1 APPLIC; Start 07/01/16 at 21:00; Stop 07/04/16 at 20:59 Voriconazole (Vfend) 200 mg BID PO Last administered on 07/04/16 08:57; Admin Dose 200 MG; Start 07/02/16 at 21:00 FRANDY WHEAT Jul 04, 2016 12:50
[2016-07-04] MEDS: ACETAMINOPHEN 650MG/20.3ML CUP GTB PRN (16:12)
--- NOTE | 2016-07-04 20:14 | CONS ---
Date/Time of Note Date/Time of Note DATE: 07/04/16 TIME: 20:12 Assessment/Plan Assessment/Plan Chief Complaint/Hosp Course SUBJECTIVE: No acute events. The patient is lying comfortably in bed. Still with loose stools, afebrile, nad MICROBIOLOGY: Repeat urine culture growing yeast, not Diamond albicans. Stool for C difficile from came back positive on June 30. ANTIMICROBIALS: The patient is on: 1. Flagyl. 2. Oral Vanco. 3. Vfend. INDWELLINGS: Trach, PEG, Kim. PHYSICAL EXAMINATION: GENERAL: This is an obese, chronically ill-appearing, elderly woman who is in no distress. HEENT: Head atraumatic, normocephalic. Sclerae anicteric. Buccal mucosa dry. NECK: Supple. CHEST: Rise symmetrical. Breath sounds diminished to bases. HEART: S1, S2. ABDOMEN: Soft. Bowel sounds present. EXTREMITIES: Bilateral dependent edema. ASSESSMENT: 1. Sepsis. 2. Clostridium difficile colitis. 3. Recurrent urinary tract infection. 4. Seizure disorder. 5. Chronic respiratory failure. 6. Advanced multiple sclerosis with functional quadriplegia. PLAN: Clinically unchanged, continue abx, vent support per pulmonary DW staff Problems: Consultation Date/Type/Reason Admit Date/Time Jun 27, 2016 at 23:01 Initial Consult Date 06/28/16 Type of Consultation: ID Exam/Review of Systems Vital Signs Vitals Vital Signs Date Time Temp Pulse Resp B/P Pulse Ox O2 Delivery O2 Flow Rate FiO2 07/04/16 19:54 98.7 94 15 123/58 100 07/04/16 17:59 40 Intake and Output 07/03/16 07/03/16 07/04/16 15:00 23:00 07:00 Intake Total 100 ml 900 ml 650 ml Output Total 600 ml 700 ml Balance 100 ml 300 ml -50 ml Results Result Diagram: 07/04/16 0540 07/04/16 0540 Results 24 hrs Laboratory Tests Test 07/03/16 21:17 07/03/16 23:52 07/04/16 05:32 07/04/16 05:40 Bedside Glucose 110 135 134 Anion Gap 11 Basophils # 0.0 Basophils % 0.3 Blood Morphology Comment Blood Urea Nitrogen 18 Calcium Level 8.1 L Carbon Dioxide Level 30 Chloride Level 107 Creatinine 0.28 L Eosinophils # 0.2 Eosinophils % 4.1 Glucose Level 115 Hematocrit 21.1 L Hemoglobin 7.3 L Lymphocytes # 2.1 Lymphocytes % 37.4 Mean Corpuscular Hemoglobin 35.0 H Mean Corpuscular Hemoglobin Concent 34.6 Mean Corpuscular Volume 101.0 Mean Platelet Volume 9.3 Monocytes # 0.7 Monocytes % 13.1 H Neutrophils # 2.5 Neutrophils % 45.1 Nucleated Red Blood Cells # 0.0 Nucleated Red Blood Cells % 0.0 Platelet Count 199 # Potassium Level 3.5 Red Blood Count 2.09 L Red Cell Distribution Width 14.4 Sodium Level 144 White Blood Count 5.6 Test 07/04/16 12:47 07/04/16 17:36 Bedside Glucose 146 123 Medications Medications Current Medications Acetaminophen (Tylenol Tab) 1,000 mg Q4H PRN PO PAIN 4-6/10 Last administered on 07/01/16 00:22; Admin Dose 1,000 MG; Start 06/27/16 at 13:30 Albuterol (Proventil 0.083% (Neb)) 2.5 mg Q3H PRN NEB WHEEZING AND SOB; Start 06/27/16 at 13:30 Docusate Sodium (Colace) 100 mg QHS PRN PO CONSTIPATION; Start 06/27/16 at 13: 30 Enoxaparin Sodium (Lovenox) 40 mg DAILY SC Last administered on 07/04/16 08:55 ; Admin Dose 40 MG; Start 06/27/16 at 13:30 Ferrous Sulfate (Feosol Liquid Cup) 300 mg DAILY GTB Last administered on 08:58; Admin Dose 300 MG; Start 06/27/16 at 09:00 Acetaminophen/ Hydrocodone Bitart ([place] (5/325)) 1 tab Q6 PRN GTB PAIN LEVEL 7 -10; Start 06/27/16 at 13:30 Lansoprazole (Prevacid) 30 mg DAILY GTB Last administered on 07/04/16 08:57; Admin Dose 30 MG; Start 06/28/16 at 09:00 Multivitamins (Thera-Plus) 5 ml DAILY GTB Last administered on 07/04/16 08:58; Admin Dose 5 ML; Start 06/28/16 at 09:00 Phenytoin (Dilantin Susp Cup) 300 mg BID GTB Last administered on 07/04/16 08: 57; Admin Dose 300 MG; Start 06/27/16 at 14:00 Valproate Sodium (Depakene Liquid Cup) 1,500 mg BID GTB Last administered on 08:58; Admin Dose 1,500 MG; Start 06/27/16 at 21:00 Lorazepam (Ativan) 1 mg Q6H PRN IV SEIZURES; Start 06/27/16 at 13:30 Lacosamide (Vimpat Liq) 100 mg BID PO Last administered on 07/04/16 08:59; Admin Dose 100 MG; Start 06/27/16 at 21:00 Docusate Sodium (Colace Liquid Cup) 100 mg BID GTB Last administered on 21:35; Admin Dose 100 MG; Start 06/28/16 at 21:00 Insulin Aspart (Novolog Insulin Pen) NOVOLOG *MILD* ALGORITHM Q6 SC Last administered on 07/04/16 12:51; Admin Dose 1 UNIT; Start 06/28/16 at 18:00 Insulin Glargine (Lantus) 20 unit HS SC Last administered on 07/03/16 21:58; Admin Dose 20 UNIT; Start 06/28/16 at 21:00 Ondansetron HCl (Zofran Inj) 4 mg Q6H PRN IV NAUSEA AND/OR VOMITING Last administered on 06/30/16 02:11; Admin Dose 4 MG; Start 06/28/16 at 16:30 Miscellaneous Information 1 ea NOTE XX ; Start 06/28/16 at 17:00 Glucose (Glutose) 15 gm Q15M PRN PO DECREASED GLUCOSE; Start 06/28/16 at 17:00 Glucose (Glutose) 22.5 gm Q15M PRN PO DECREASED GLUCOSE; Start 06/28/16 at 17: 00 Dextrose (D50w Syringe) 25 ml Q15M PRN IV DECREASED GLUCOSE; Start 06/28/16 at 17:00 Dextrose (D50w Syringe) 50 ml Q15M PRN IV DECREASED GLUCOSE; Start 06/28/16 at 17:00 Glucagon (Glucagen) 1 mg Q15M PRN IM DECREASED GLUCOSE; Start 06/28/16 at 17:00 Glucose (Glutose) 15 gm Q15M PRN BUCCAL DECREASED GLUCOSE; Start 06/28/16 at 17 :00 Acetaminophen (Tylenol Liquid) 650 mg Q4H PRN GTB PAIN AND OR ELEVATED TEMP Last administered on 07/04/16 16:12; Admin Dose 650 MG; Start 06/28/16 at 19:30 IV Flush (NS 10 ml) 10 ml PRN PRN IV IV PROTOCOL; Start 06/29/16 at 15:30 Vancomycin HCl 250 mg 250 mg Q6 PO Last administered on 07/04/16 18:25; Admin Dose 250 MG; Start 07/01/16 at 18:00 Metronidazole (Flagyl 500 Mg (Pmx)) 100 ml @ 100 mls/hr Q8 IVPB Last administered on 07/04/16 14:43; Admin Dose 100 MLS/HR; Start 07/01/16 at 22:00 Miconazole Nitrate (Miconazole 2% Vag Cr) 1 applic HS VAG Last administered on 07/03/16 21:31; Admin Dose 1 APPLIC; Start 07/01/16 at 21:00; Stop 07/04/16 at 20:59 Voriconazole (Vfend) 200 mg BID PO Last administered on 07/04/16 08:57; Admin Dose 200 MG; Start 07/02/16 at 21:00 NICHOLAS CRUZ UNDERWRITING SUPPORT MANAGER Jul 04, 2016 20:14
[2016-07-04] MEDS: INSULIN GLARGINE [LANtus] 3 ML PEN SC SCH (21:54)
[2016-07-04] MEDS: ACETAMINOPHEN 500 MG TAB PO PRN (22:13)
[2016-07-05] VITALS (24 sets, daily range): BP systolic 99–152; BP diastolic 51–77; PULSE 49–100; RESP 14–20
[2016-07-05] MEDS: ALBUTEROL 0.083% (NEB) 2.5 MG/3 ML AMP HHN SCH ×4 (02:09→19:39)
[2016-07-05] MEDS: VANCOMYCIN HCL 250 MG/5ML POSYG PO SCH ×3 (05:46→17:17)
[2016-07-05] MEDS: metroNIDAZOLE 500 MG/NS (PMX) 100 ML IVPB SCH ×3 (05:47→21:47)
[2016-07-05] MEDS: INSULIN ASPART [NOVOLOG] 3 ML PEN SC SCH ×4 (05:52→17:17)
[2016-07-05] MEDS: LANSOPRAZOLE 30 MG CAP GTB SCH (08:57)
[2016-07-05] MEDS: VORICONAZOLE 200 MG TAB PO SCH ×2 (08:58→21:45)
[2016-07-05] MEDS: VALPROIC ACID LIQUID CUP 250 MG/5 ML CUP GTB SCH ×2 (08:58→23:01)
[2016-07-05] MEDS: MULTIVITAMINS 5 ML CUP GTB SCH (08:58)
[2016-07-05] MEDS: PHENYTOIN (100 MG/4 ML) CUP GTB SCH ×2 (08:58→21:45)
[2016-07-05] MEDS: DOCUSATE SODIUM 10 MG/ML (10ML CUP) GTB SCH ×2 (09:00→21:45)
[2016-07-05] MEDS: ENOXAPARIN 40 MG/0.4 ML SYG SC SCH (09:09)
[2016-07-05] MEDS: FERROUS SULFATE 60 MG/ML 5ML CUP GTB SCH (09:11)
[2016-07-05] MEDS: LACOSAMIDE (10 MG/ML PO SYG) PO SCH ×2 (10:04→23:01)
--- NOTE | 2016-07-05 10:25 | PN ---
Date/Time of Note Date/Time of Note DATE: 07/05/16 TIME: 10:24 Assessment/Plan VTE Prophylaxis VTE Prophylaxis Intervention: LMWH Lines/Catheters IV C[facility]ter Type (from [facility] PICC Line Urinary Cath still in place: Yes Assessment/Plan Assessment/Plan - Severe sepsis [address] Gillette is following in infectious disease consultation - Acute cystitis with Ecoli ESBL. Cont abx per ID. Repeat culture positive for yeast, continue Vfend. - C-diff colitis. Continue Flagyl. - Left lower lobe pneumonia, healthcare-acquired pneumonia. - Breakthrough seizure in a patient with history of seizures. Dr. Garcia is following in neurology consult. Continue the Dilantin, Depakote, and Vimpat. - Diabetes mellitus type 2. Continue Lantus and NovoLog. - Advanced Multiple sclerosis. - Functional quadriplegia - Hyper natremia, start free water via G-tube every 6 hours. -Anemia with hemoglobin being 7.3 today, transfuse 2 units of packed red blood cells, stool for occult blood, monitor H&H. - no labs today, ordered- fu. Lovenox for deep venous thrombosis prophylaxis and Pepcid for peptic ulcer disease prophylaxis. Further recommendations based on clinical course. Plan of care discussed with Dr. Terry. Subjective 24 Hr Interval Summary Subjective hx not possible: pt non-verbal Constitutional: requiring IVF, requiring O2 Exam/Review of Systems Vital Signs Vitals Vital Signs Date Time Temp Pulse Resp B/P Pulse Ox O2 Delivery O2 Flow Rate FiO2 07/05/16 09:53 79 07/05/16 08:00 98.2 20 99/55 99 07/05/16 07:55 40 Intake and Output 07/04/16 07/04/16 07/05/16 14:59 22:59 06:59 Intake Total 1500 ml 1300 ml Output Total 650 ml Balance 1500 ml 650 ml Exam Constitutional: non-verbal Psych: confusion Eyes: PERRL, nl sclera ENMT: nl external ears & nose Respiratory: clear to auscultation, diminished breath sounds Cardiovascular: nl pulses Gastrointestinal: non-tender, other, soft Musculoskeletal: muscle weakness, nl extremities to inspection Skin: other Lymph: nontender Results Result Diagram: 07/04/16 0540 07/04/16 0540 Results 24 hrs Laboratory Tests Test 07/04/16 12:47 07/04/16:36 07/04/16 20:45 07/05/16 00:30 Bedside Glucose 146 123 117 126 Test 07/05/16 05:50 Bedside Glucose 107 Medications Medications Current Medications Acetaminophen (Tylenol Tab) 1,000 mg Q4H PRN PO PAIN 4-6/10 Last administered on 07/04/16 22:13; Admin Dose 1,000 MG; Start 06/27/16 at 13:30 Albuterol (Proventil 0.083% (Neb)) 2.5 mg Q3H PRN NEB WHEEZING AND SOB; Start 06/27/16 at 13:30 Docusate Sodium (Colace) 100 mg QHS PRN PO CONSTIPATION; Start 06/27/16 at 13: 30 Enoxaparin Sodium (Lovenox) 40 mg DAILY SC Last administered on 07/05/16 09:09 ; Admin Dose 40 MG; Start 06/27/16 at 13:30 Ferrous Sulfate (Feosol Liquid Cup) 300 mg DAILY GTB Last administered on 09:11; Admin Dose 300 MG; Start 06/27/16 at 09:00 Acetaminophen/ Hydrocodone Bitart ([place] (5/325)) 1 tab Q6 PRN GTB PAIN LEVEL 7 -10; Start 06/27/16 at 13:30 Lansoprazole (Prevacid) 30 mg DAILY GTB Last administered on 07/05/16 08:57; Admin Dose 30 MG; Start 06/28/16 at 09:00 Multivitamins (Thera-Plus) 5 ml DAILY GTB Last administered on 07/05/16 08:58; Admin Dose 5 ML; Start 06/28/16 at 09:00 Phenytoin (Dilantin Susp Cup) 300 mg BID GTB Last administered on 07/05/16 08: 58; Admin Dose 300 MG; Start 06/27/16 at 14:00 Valproate Sodium (Depakene Liquid Cup) 1,500 mg BID GTB Last administered on 08:58; Admin Dose 1,500 MG; Start 06/27/16 at 21:00 Lorazepam (Ativan) 1 mg Q6H PRN IV SEIZURES; Start 06/27/16 at 13:30 Lacosamide (Vimpat Liq) 100 mg BID PO Last administered on 07/05/16 10:04; Admin Dose 100 MG; Start 06/27/16 at 21:00 Docusate Sodium (Colace Liquid Cup) 100 mg BID GTB Last administered on 21:35; Admin Dose 100 MG; Start 06/28/16 at 21:00 Insulin Aspart (Novolog Insulin Pen) NOVOLOG *MILD* ALGORITHM Q6 SC Last administered on 07/04/16 12:51; Admin Dose 1 UNIT; Start 06/28/16 at 18:00 Insulin Glargine (Lantus) 20 unit HS SC Last administered on 07/04/16 21:54; Admin Dose 20 UNIT; Start 06/28/16 at 21:00 Ondansetron HCl (Zofran Inj) 4 mg Q6H PRN IV NAUSEA AND/OR VOMITING Last administered on 06/30/16 02:11; Admin Dose 4 MG; Start 06/28/16 at 16:30 Miscellaneous Information 1 ea NOTE XX ; Start 06/28/16 at 17:00 Glucose (Glutose) 15 gm Q15M PRN PO DECREASED GLUCOSE; Start 06/28/16 at 17:00 Glucose (Glutose) 22.5 gm Q15M PRN PO DECREASED GLUCOSE; Start 06/28/16 at 17: 00 Dextrose (D50w Syringe) 25 ml Q15M PRN IV DECREASED GLUCOSE; Start 06/28/16 at 17:00 Dextrose (D50w Syringe) 50 ml Q15M PRN IV DECREASED GLUCOSE; Start 06/28/16 at 17:00 Glucagon (Glucagen) 1 mg Q15M PRN IM DECREASED GLUCOSE; Start 06/28/16 at 17:00 Glucose (Glutose) 15 gm Q15M PRN BUCCAL DECREASED GLUCOSE; Start 06/28/16 at 17 :00 Acetaminophen (Tylenol Liquid) 650 mg Q4H PRN GTB PAIN AND OR ELEVATED TEMP Last administered on 07/04/16 16:12; Admin Dose 650 MG; Start 06/28/16 at 19:30 IV Flush (NS 10 ml) 10 ml PRN PRN IV IV PROTOCOL; Start 06/29/16 at 15:30 Vancomycin HCl 250 mg 250 mg Q6 PO Last administered on 07/05/16 05:46; Admin Dose 250 MG; Start 07/01/16 at 18:00 Metronidazole (Flagyl 500 Mg (Pmx)) 100 ml @ 100 mls/hr Q8 IVPB Last administered on 07/05/16 05:47; Admin Dose 100 MLS/HR; Start 07/01/16 at 22:00 Voriconazole (Vfend) 200 mg BID PO Last administered on 07/05/16 08:58; Admin Dose 200 MG; Start 07/02/16 at 21:00 JOSH CUNNINGHAM Jul 05, 2016 10:25
[2016-07-05 12:08] LABS: BASOPHILS % 0.4 % (0.0-2.0); EOSINOPHILS # 0.1 10^3/ul (0.0-0.5); EOSINOPHILS % 1.4 % (0.0-7.0); HEMATOCRIT 30.7 % (37.0-47.0); HEMOGLOBIN 10.4 g/dl (12.0-16.0); LYMPHOCYTES % 25.4 % (15.0-51.0); MEAN CORPUSCULAR HEMOGLOBIN 33.1 pg (29.0-33.0); MEAN CORPUSCULAR VOLUME 97.4 fl (82.0-101.0); MEAN PLATELET VOLUME 8.8 fl (7.4-10.4); MONOCYTE # 0.6 10^3/ul (0.3-0.9); MONOCYTES % 7.6 % (0.0-11.0); NEUTROPHIL # 5.2 10^3/ul (1.6-7.5); NEUTROPHILS % 65.2 % (39.0-77.0); PLATELET COUNT 300 10^3/UL (140-440); RED BLOOD COUNT 3.15 10^6/ul (4.20-5.40); RED CELL DISTRIBUTION WIDTH 16.6 % (11.5-14.5); UNCORRECTED WBC 7.9 10^3/ul (4.8-10.8); WHITE BLOOD COUNT 7.9 10^3/ul (4.8-10.8)
[2016-07-05 12:13] LABS: POTASSIUM 3.6 mmol/L (3.5-5.1)
[2016-07-05 12:15] LABS: CONDITION 1; CREATININE 0.31 mg/dl (0.44-1.00); LH ANALYZER COMMENTS 1
[2016-07-05 12:16] LABS: CALCIUM 7.9 mg/dl (8.4-10.2)
--- NOTE | 2016-07-05 13:19 | CONS ---
Date/Time of Note Date/Time of Note DATE: 07/05/16 TIME: 13:17 Assessment/Plan Assessment/Plan Chief Complaint/Hosp Course Patient is a 61-year-old lady who was admitted yesterday [facility] with complaints of having generalized seizure activity upon further evaluation a CT scan of the head was done which was negative however his chest x-ray was done which is showing left lower lobe infiltrative changes which are likely on the basis of significant atelectasis as well possibly from underlying mucous plugging of the left mainstem the left lower lobe bronchus. Severe dementia patient is unable to give any history whatsoever history was obtained from medical records. Past medical history : 1. chronic respiratory failure ventilator dependent 2. History of seizure disorder. 3. Likely underlying severe anoxic encephalopathy. 4. Status post tracheostomy and PEG tube placement. 5. History of abdominal surgery based upon examination. 6. 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 Next Medications; reviewed. Family history, social history not available. Occupational history; currently not available. Review of systems patient completely unresponsive unable to be obtained. Problems: Additional Assessment/Plan Assessment and recommendations; 1. Patient with a history of multiple sclerosis resulting in quadriplegia next 2. Advanced dementia 3. Chronic respiratory failure 4. UTI 5. Candiduria 6. Possibly basilar pneumonia involving the left side. 7. Stable seizure disorder 8. C. difficile colitis. Significantly improved diarrhea. Current treatment. Continue current ventilator settings which are: assist control of 14, tidal volume 500, 40% FiO2, and PEEP of 5. [facility] with continuation of current treatment. Prognosis remains poor. Consultation Date/Type/Reason Admit Date/Time Jun 27, 2016 at 23:01 Initial Consult Date 06/28/16 Type of Consultation: ID [id number] HR Interval Summary Free Text/Dictation Patient condition remains unchanged. Patient remains essentially unresponsive. Has remained hemodynamically stable. General examination; elderly lady, obese. On mechanical ventilation via tracheostomy. Currently in no distress. Exam/Review of Systems Vital Signs Vitals Vital Signs Date Time Temp Pulse Resp B/P Pulse Ox O2 Delivery O2 Flow Rate FiO2 07/05/16 12:43 97.5 100 18 143/77 98 07/05/16 11:00 40 Intake and Output 07/04/16 07/04/16 07/05/16 15:00 23:00 07:00 Intake Total 1500 ml 1300 ml Output Total 650 ml Balance 1500 ml 650 ml Exam HEENT examination; supple neck, JVD difficult to see because of short neck. Pupils are midsize reactive to light. Tracheostomy in place. Chest examination; diminished but clear breath sounds. S1-S2 audible no murmurs. Regular rate and rhythm. Abdomen; soft, PEG tube in place. Protuberant. Bowel sounds audible. Extremity examination; trace generalized edema. Pulses 1+ bilaterally. MEDICAL DIRECTOR examination; patient remains unresponsive. Results Result Diagram: 07/05/16 1140 07/05/16 1140 Results 24 hrs Laboratory Tests Test 07/04/16 17:36 07/04/16 20:45 07/05/16 00:30 07/05/16 05:50 Bedside Glucose 123 117 126 107 Test 07/05/16 06:15 07/05/16 11:40 07/05/16 12:11 Stool Occult Blood NEGATIVE Anion Gap 13 Basophils # 0.0 Basophils % 0.4 Blood Morphology Comment Blood Urea Nitrogen 14 Calcium Level 7.9 L Carbon Dioxide Level 27 Chloride Level 105 Creatinine 0.31 L Eosinophils # 0.1 Eosinophils % 1.4 Glucose Level 133 Hematocrit 30.7 #L Hemoglobin 10.4 #L Lymphocytes # 2.0 Lymphocytes % 25.4 Mean Corpuscular Hemoglobin 33.1 H Mean Corpuscular Hemoglobin Concent 34.0 Mean Corpuscular Volume 97.4 Mean Platelet Volume 8.8 Monocytes # 0.6 Monocytes % 7.6 Neutrophils # 5.2 Neutrophils % 65.2 Nucleated Red Blood Cells # 0.0 Nucleated Red Blood Cells % 0.0 Platelet Count 300 # Potassium Level 3.6 Red Blood Count 3.15 #L Red Cell Distribution Width 16.6 H Sodium Level 141 White Blood Count 7.9 # Bedside Glucose 111 Medications Medications Current Medications Acetaminophen (Tylenol Tab) 1,000 mg Q4H PRN PO PAIN 4-6/10 Last administered on 07/04/16t 22:13; Admin Dose 1,000 MG; Start 06/27/16 at 13:30 Albuterol (Proventil 0.083% (Neb)) 2.5 mg Q3H PRN NEB WHEEZING AND SOB; Start 06/27/16 at 13:30 Docusate Sodium (Colace) 100 mg QHS PRN PO CONSTIPATION; Start 06/27/16 at 13: 30 Enoxaparin Sodium (Lovenox) 40 mg DAILY SC Last administered on 07/05/16 09:09 ; Admin Dose 40 MG; Start 06/27/16 at 13:30 Ferrous Sulfate (Feosol Liquid Cup) 300 mg DAILY GTB Last administered on 09:11; Admin Dose 300 MG; Start 06/27/16 at 09:00 Acetaminophen/ Hydrocodone Bitart ([place] (5/325)) 1 tab Q6 PRN GTB PAIN LEVEL 7 -10; Start 06/27/16 at 13:30 Lansoprazole (Prevacid) 30 mg DAILY GTB Last administered on 07/05/16 08:57; Admin Dose 30 MG; Start 06/28/16 at 09:00 Multivitamins (Thera-Plus) 5 ml DAILY GTB Last administered on 07/05/16 08:58; Admin Dose 5 ML; Start 06/28/16 at 09:00 Phenytoin (Dilantin Susp Cup) 300 mg BID GTB Last administered on 07/05/16 08: 58; Admin Dose 300 MG; Start 06/27/16 at 14:00 Valproate Sodium (Depakene Liquid Cup) 1,500 mg BID GTB Last administered on 08:58; Admin Dose 1,500 MG; Start 06/27/16 at 21:00 Lorazepam (Ativan) 1 mg Q6H PRN IV SEIZURES; Start 06/27/16 at 13:30 Lacosamide (Vimpat Liq) 100 mg BID PO Last administered on 07/05/16 10:04; Admin Dose 100 MG; Start 06/27/16 at 21:00 Docusate Sodium (Colace Liquid Cup) 100 mg BID GTB Last administered on 21:35; Admin Dose 100 MG; Start 06/28/16 at 21:00 Insulin Aspart (Novolog Insulin Pen) NOVOLOG *MILD* ALGORITHM Q6 SC Last administered on 07/04/16 12:51; Admin Dose 1 UNIT; Start 06/28/16 at 18:00 Insulin Glargine (Lantus) 20 unit HS SC Last administered on 07/04/16 21:54; Admin Dose 20 UNIT; Start 06/28/16 at 21:00 Ondansetron HCl (Zofran Inj) 4 mg Q6H PRN IV NAUSEA AND/OR VOMITING Last administered on 06/30/16 02:11; Admin Dose 4 MG; Start 06/28/16 at 16:30 Miscellaneous Information 1 ea NOTE XX ; Start 06/28/16 at 17:00 Glucose (Glutose) 15 gm Q15M PRN PO DECREASED GLUCOSE; Start 06/28/16 at 17:00 Glucose (Glutose) 22.5 gm Q15M PRN PO DECREASED GLUCOSE; Start 06/28/16 at 17: 00 Dextrose (D50w Syringe) 25 ml Q15M PRN IV DECREASED GLUCOSE; Start 06/28/16 at 17:00 Dextrose (D50w Syringe) 50 ml Q15M PRN IV DECREASED GLUCOSE; Start 06/28/16 at 17:00 Glucagon (Glucagen) 1 mg Q15M PRN IM DECREASED GLUCOSE; Start 06/28/16 at 17:00 Glucose (Glutose) 15 gm Q15M PRN BUCCAL DECREASED GLUCOSE; Start 06/28/16 at 17 :00 Acetaminophen (Tylenol Liquid) 650 mg Q4H PRN GTB PAIN AND OR ELEVATED TEMP Last administered on 07/04/16 16:12; Admin Dose 650 MG; Start 06/28/16 at 19:30 IV Flush (NS 10 ml) 10 ml PRN PRN IV IV PROTOCOL; Start 06/29/16 at 15:30 Vancomycin HCl 250 mg 250 mg Q6 PO Last administered on 07/05/16 12:28; Admin Dose 250 MG; Start 07/01/16 at 18:00 Metronidazole (Flagyl 500 Mg (Pmx)) 100 ml @ 100 mls/hr Q8 IVPB Last administered on 07/05/16 13:11; Admin Dose 100 MLS/HR; Start 07/01/16 at 22:00 Voriconazole (Vfend) 200 mg BID PO Last administered on 07/05/16 08:58; Admin Dose 200 MG; Start 07/02/16 at 21:00 REJI BECKER Jul 05, 2016 13:19
--- NOTE | 2016-07-05 15:38 | CONS ---
Date/Time of Note Date/Time of Note DATE: 07/05/16 TIME: 15:37 Assessment/Plan Assessment/Plan Chief Complaint/Hosp Course SUBJECTIVE: No acute events. The patient is lying comfortably in bed, noncommunicative, afebrile, nad MICROBIOLOGY: Repeat urine culture growing yeast, not Diamond albicans. Stool for C difficile from came back positive on June 30. ANTIMICROBIALS: The patient is on: 1. Flagyl. 2. Oral Vanco. 3. Vfend. INDWELLINGS: Trach, PEG, Kim. PHYSICAL EXAMINATION: GENERAL: This is an obese, chronically ill-appearing, elderly woman who is in no distress. HEENT: Head atraumatic, normocephalic. Sclerae anicteric. Buccal mucosa dry. NECK: Supple. CHEST: Rise symmetrical. Breath sounds diminished to bases. HEART: S1, S2. ABDOMEN: Soft. Bowel sounds present. EXTREMITIES: Bilateral dependent edema. ASSESSMENT: 1. Sepsis. 2. Clostridium difficile colitis. 3. Recurrent urinary tract infection. 4. Seizure disorder. 5. Chronic respiratory failure. 6. Advanced multiple sclerosis with functional quadriplegia. PLAN: Clinically unchanged, continue abx, vent support per pulmonary DW staff Problems: Consultation Date/Type/Reason Admit Date/Time Jun 27, 2016 at 23:01 Initial Consult Date 06/28/16 Type of Consultation: ID 24 HR Interval Summary Subjective hx not possible: pt non-verbal Exam/Review of Systems Vital Signs Vitals Vital Signs Date Time Temp Pulse Resp B/P Pulse Ox O2 Delivery O2 Flow Rate FiO2 07/05/16 13:35 87 14 100 40 07/05/16 12:43 97.5 143/77 Intake and Output 07/04/16 07/04/16 07/05/16 15:00 23:00 07:00 Intake Total 1500 ml 1300 ml Output Total 650 ml Balance 1500 ml 650 ml Results Result Diagram: 07/05/16 1140 07/05/16 1140 Results 24 hrs Laboratory Tests Test 07/04/16 17:36 07/04/16 20:45 07/05/16 00:30 07/05/16 05:50 Bedside Glucose 123 117 126 107 Test 07/05/16 06:15 07/05/16 11:40 07/05/16 12:11 Stool Occult Blood NEGATIVE Anion Gap 13 Basophils # 0.0 Basophils % 0.4 Blood Morphology Comment Blood Urea Nitrogen 14 Calcium Level 7.9 L Carbon Dioxide Level 27 Chloride Level 105 Creatinine 0.31 L Eosinophils # 0.1 Eosinophils % 1.4 Glucose Level 133 Hematocrit 30.7 #L Hemoglobin 10.4 #L Lymphocytes # 2.0 Lymphocytes % 25.4 Mean Corpuscular Hemoglobin 33.1 H Mean Corpuscular Hemoglobin Concent 34.0 Mean Corpuscular Volume 97.4 Mean Platelet Volume 8.8 Monocytes # 0.6 Monocytes % 7.6 Neutrophils # 5.2 Neutrophils % 65.2 Nucleated Red Blood Cells # 0.0 Nucleated Red Blood Cells % 0.0 Platelet Count 300 # Potassium Level 3.6 Red Blood Count 3.15 #L Red Cell Distribution Width 16.6 H Sodium Level 141 White Blood Count 7.9 # Bedside Glucose 111 Medications Medications Current Medications Acetaminophen (Tylenol Tab) 1,000 mg Q4H PRN PO PAIN 4-6/10 Last administered on 07/04/16 22:13; Admin Dose 1,000 MG; Start 06/27/16 at 13:30 Albuterol (Proventil 0.083% (Neb)) 2.5 mg Q3H PRN NEB WHEEZING AND SOB; Start 06/27/16 at 13:30 Docusate Sodium (Colace) 100 mg QHS PRN PO CONSTIPATION; Start 06/27/16 at 13: 30 Enoxaparin Sodium (Lovenox) 40 mg DAILY SC Last administered on 07/05/16 09:09 ; Admin Dose 40 MG; Start 06/27/16 at 13:30 Ferrous Sulfate (Feosol Liquid Cup) 300 mg DAILY GTB Last administered on 09:11; Admin Dose 300 MG; Start 06/27/16 at 09:00 Acetaminophen/ Hydrocodone Bitart ([place] (5/325)) 1 tab Q6 PRN GTB PAIN LEVEL 7 -10; Start 06/27/16 at 13:30 Lansoprazole (Prevacid) 30 mg DAILY GTB Last administered on 07/05/16 08:57; Admin Dose 30 MG; Start 06/28/16 at 09:00 Multivitamins (Thera-Plus) 5 ml DAILY GTB Last administered on 07/05/16 08:58; Admin Dose 5 ML; Start 06/28/16 at 09:00 Phenytoin (Dilantin Susp Cup) 300 mg BID GTB Last administered on 07/05/16 08: 58; Admin Dose 300 MG; Start 06/27/16 at 14:00 Valproate Sodium (Depakene Liquid Cup) 1,500 mg BID GTB Last administered on 08:58; Admin Dose 1,500 MG; Start 06/27/16 at 21:00 Lorazepam (Ativan) 1 mg Q6H PRN IV SEIZURES; Start 06/27/16 at 13:30 Lacosamide (Vimpat Liq) 100 mg BID PO Last administered on 07/05/16 10:04; Admin Dose 100 MG; Start 06/27/16 at 21:00 Docusate Sodium (Colace Liquid Cup) 100 mg BID GTB Last administered on 21:35; Admin Dose 100 MG; Start 06/28/16 at 21:00 Insulin Aspart (Novolog Insulin Pen) NOVOLOG *MILD* ALGORITHM Q6 SC Last administered on 07/04/16 12:51; Admin Dose 1 UNIT; Start 06/28/16 at 18:00 Insulin Glargine (Lantus) 20 unit HS SC Last administered on 07/04/16 21:54; Admin Dose 20 UNIT; Start 06/28/16 at 21:00 Ondansetron HCl (Zofran Inj) 4 mg Q6H PRN IV NAUSEA AND/OR VOMITING Last administered on 06/30/16 02:11; Admin Dose 4 MG; Start 06/28/16 at 16:30 Miscellaneous Information 1 ea NOTE XX ; Start 06/28/16 at 17:00 Glucose (Glutose) 15 gm Q15M PRN PO DECREASED GLUCOSE; Start 06/28/16 at 17:00 Glucose (Glutose) 22.5 gm Q15M PRN PO DECREASED GLUCOSE; Start 06/28/16 at 17: 00 Dextrose (D50w Syringe) 25 ml Q15M PRN IV DECREASED GLUCOSE; Start 06/28/16 at 17:00 Dextrose (D50w Syringe) 50 ml Q15M PRN IV DECREASED GLUCOSE; Start 06/28/16 at 17:00 Glucagon (Glucagen) 1 mg Q15M PRN IM DECREASED GLUCOSE; Start 06/28/16 at 17:00 Glucose (Glutose) 15 gm Q15M PRN BUCCAL DECREASED GLUCOSE; Start 06/28/16 at 17 :00 Acetaminophen (Tylenol Liquid) 650 mg Q4H PRN GTB PAIN AND OR ELEVATED TEMP Last administered on 07/04/16 16:12; Admin Dose 650 MG; Start 06/28/16 at 19:30 IV Flush (NS 10 ml) 10 ml PRN PRN IV IV PROTOCOL; Start 06/29/16 at 15:30 Vancomycin HCl 250 mg 250 mg Q6 PO Last administered on 07/05/16 12:28; Admin Dose 250 MG; Start 07/01/16 at 18:00 Metronidazole (Flagyl 500 Mg (Pmx)) 100 ml @ 100 mls/hr Q8 IVPB Last administered on 07/05/16 13:11; Admin Dose 100 MLS/HR; Start 07/01/16 at 22:00 Voriconazole (Vfend) 200 mg BID PO Last administered on 07/05/16 08:58; Admin Dose 200 MG; Start 07/02/16 at 21:00 NICHOLAS CRUZ NP Jul 05, 2016 15:38
[2016-07-05] MEDS: INSULIN GLARGINE [LANtus] 3 ML PEN SC SCH (21:47)
[2016-07-06] VITALS (13 sets, daily range): BP systolic 111–121; BP diastolic 55–68; PULSE 75–90; RESP 14–24
[2016-07-06] MEDS: VANCOMYCIN HCL 250 MG/5ML POSYG PO SCH ×3 (00:48→10:52)
[2016-07-06] MEDS: ALBUTEROL 0.083% (NEB) 2.5 MG/3 ML AMP HHN SCH ×2 (01:17→08:00)
[2016-07-06] MEDS: INSULIN ASPART [NOVOLOG] 3 ML PEN SC SCH ×2 (06:00)
[2016-07-06] MEDS: metroNIDAZOLE 500 MG/NS (PMX) 100 ML IVPB SCH ×2 (06:38→12:24)
[2016-07-06 06:56] LABS: BASOPHILS % 0.3 % (0.0-2.0); EOSINOPHILS # 0.2 10^3/ul (0.0-0.5); EOSINOPHILS % 2.7 % (0.0-7.0); HEMATOCRIT 29.7 % (37.0-47.0); HEMOGLOBIN 10.5 g/dl (12.0-16.0); LYMPHOCYTES # 2.1 10^3/ul (0.8-2.9); LYMPHOCYTES % 33.7 % (15.0-51.0); MEAN CORPUSCULAR HEMOGLOBIN 33.9 pg (29.0-33.0); MEAN CORPUSCULAR HGB CONC 35.4 g/dl (32.0-37.0); MEAN PLATELET VOLUME 8.8 fl (7.4-10.4); MONOCYTE # 0.8 10^3/ul (0.3-0.9); MONOCYTES % 12.4 % (0.0-11.0); NEUTROPHIL # 3.2 10^3/ul (1.6-7.5); NEUTROPHILS % 50.9 % (39.0-77.0); PLATELET COUNT 357 10^3/UL (140-440); RED CELL DISTRIBUTION WIDTH 15.9 % (11.5-14.5); UNCORRECTED WBC 6.3 10^3/ul (4.8-10.8); WHITE BLOOD COUNT 6.3 10^3/ul (4.8-10.8)
[2016-07-06 07:09] LABS: POTASSIUM 3.3 mmol/L (3.5-5.1)
[2016-07-06 07:11] LABS: CREATININE 0.3 mg/dl (0.44-1.00)
[2016-07-06 07:12] LABS: CALCIUM 7.8 mg/dl (8.4-10.2)
[2016-07-06 08:16] LABS: CONDITION 1; LH ANALYZER COMMENTS 1
[2016-07-06] MEDS: VALPROIC ACID LIQUID CUP 250 MG/5 ML CUP GTB SCH (09:26)
[2016-07-06] MEDS: FERROUS SULFATE 60 MG/ML 5ML CUP GTB SCH (09:27)
[2016-07-06] MEDS: VORICONAZOLE 200 MG TAB PO SCH (09:27)
[2016-07-06] MEDS: PHENYTOIN (100 MG/4 ML) CUP GTB SCH (09:27)
[2016-07-06] MEDS: MULTIVITAMINS 5 ML CUP GTB SCH (09:27)
[2016-07-06] MEDS: LANSOPRAZOLE 30 MG CAP GTB SCH (09:27)
[2016-07-06] MEDS: DOCUSATE SODIUM 10 MG/ML (10ML CUP) GTB SCH (09:27)
[2016-07-06] MEDS: ENOXAPARIN 40 MG/0.4 ML SYG SC SCH (09:35)
--- NOTE | 2016-07-06 09:37 | CONS ---
Date/Time of Note Date/Time of Note DATE: 07/06/16 TIME: 09:34 Assessment/Plan Assessment/Plan Chief Complaint/Hosp Course Patient is a 61-year-old lady who [facility] complaints of having generalized seizure activity upon further evaluation a CT scan of the head was done which was negative however his chest x-ray was done which is showing left lower lobe infiltrative changes which are likely on the basis of significant atelectasis as well possibly from underlying mucous plugging of the left mainstem the left lower lobe bronchus. Severe dementia patient is unable to give any history whatsoever history was obtained from medical records. Past medical history : 1. chronic respiratory failure ventilator dependent 2. History of seizure disorder. 3. Likely underlying severe anoxic encephalopathy. 4. Status post tracheostomy and PEG tube placement. 5. History of abdominal surgery based upon examination. 6. 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 Next Medications; reviewed. Family history, social history not available. Occupational history; currently not available. Review of systems patient completely unresponsive unable to be obtained. Problems: Additional Assessment/Plan Assessment and recommendation; next 1. Chronic respiratory failure, ventilator dependent. 2. Advanced multiple sclerosis, with quadriplegia. 3. Severe advanced dementia. 4. Colitis 5. UTI with candiduria next 6. Stable seizure disorder 7. Cardio myopathy. Continue current treatment. Prognosis is poor. Consultation Date/Type/Reason Admit Date/Time Jun 27, 2016 at 23:01 Initial Consult Date 06/28/16 Type of Consultation: pulmonary 24 HR Interval Summary Free Text/Dictation Patient condition remains unchanged. Remains unresponsive, on mechanical ventilation via tracheostomy. No seizure activity noted. General examination; elderly woman, on mechanical ventilation, awake but does not respond to any commands. Currently in no distress. Exam/Review of Systems Vital Signs Vitals Vital Signs Date Time Temp Pulse Resp B/P Pulse Ox O2 Delivery O2 Flow Rate FiO2 07/06/16 07:55 82 14 99 40 07/06/16 07:05 99.1 121/67 Intake and Output 07/05/16 07/05/16 07/06/16 15:00 23:00 07:00 Intake Total 100 ml 550 ml Output Total 1000 ml Balance 100 ml -450 ml Exam HEENT examination; supple neck, positive JVD. Tracheostomy in place. Chest examination; diminished breath sounds bilaterally. S1-S2 audible, no murmurs, regular rate and rhythm. Abdomen examination; soft, protuberant. No organomegaly. PEG tube in place. Bowel sounds audible. Next Extremity examination; trace peripheral edema. TEST PILOT examination; patient is unresponsive. Ventilator settings are AC of 14, tidal volume 500 ,PEEP of 5, 40% FiO2 Results Result Diagram: 07/06/16 0611 07/06/16 0611 Results 24 hrs Laboratory Tests Test 07/05/16 11:40 07/05/16 12:11 07/05/16 17:14 07/05/16 23:52 Anion Gap 13 Basophils # 0.0 Basophils % 0.4 Blood Morphology Comment Blood Urea Nitrogen 14 Calcium Level 7.9 L Carbon Dioxide Level 27 Chloride Level 105 Creatinine 0.31 L Eosinophils # 0.1 Eosinophils % 1.4 Glucose Level 133 Hematocrit 30.7 #L Hemoglobin 10.4 #L Lymphocytes # 2.0 Lymphocytes % 25.4 Mean Corpuscular Hemoglobin 33.1 H Mean Corpuscular Hemoglobin Concent 34.0 Mean Corpuscular Volume 97.4 Mean Platelet Volume 8.8 Monocytes # 0.6 Monocytes % 7.6 Neutrophils # 5.2 Neutrophils % 65.2 Nucleated Red Blood Cells # 0.0 Nucleated Red Blood Cells % 0.0 Platelet Count 300 # Potassium Level 3.6 Red Blood Count 3.15 #L Red Cell Distribution Width 16.6 H Sodium Level 141 White Blood Count 7.9 # Bedside Glucose 111 102 133 Test 07/06/16 06:11 07/06/16 06:15 07/06/16 06:51 07/06/16 08:01 Anion Gap 11 Basophils # 0.0 Basophils % 0.3 Blood Morphology Comment Blood Urea Nitrogen 14 Calcium Level 7.8 L Carbon Dioxide Level 29 Chloride Level 106 Creatinine 0.30 L Eosinophils # 0.2 Eosinophils % 2.7 Glucose Level 53 #L Hematocrit 29.7 L Hemoglobin 10.5 L Lymphocytes # 2.1 Lymphocytes % 33.7 Mean Corpuscular Hemoglobin 33.9 H Mean Corpuscular Hemoglobin Concent 35.4 Mean Corpuscular Volume 96.0 Mean Platelet Volume 8.8 Monocytes # 0.8 Monocytes % 12.4 H Neutrophils # 3.2 Neutrophils % 50.9 Nucleated Red Blood Cells # 0.0 Nucleated Red Blood Cells % 0.0 Platelet Count 357 Potassium Level 3.3 L Red Blood Count 3.10 L Red Cell Distribution Width 15.9 H Sodium Level 143 White Blood Count 6.3 # Bedside Glucose 53 L 90 93 Medications Medications Current Medications Acetaminophen (Tylenol Tab) 1,000 mg Q4H PRN PO PAIN 4-6/10 Last administered on 07/04/16 22:13; Admin Dose 1,000 MG; Start 06/27/16 at 13:30 Albuterol (Proventil 0.083% (Neb)) 2.5 mg Q3H PRN NEB WHEEZING AND SOB; Start 06/27/16 at 13:30 Docusate Sodium (Colace) 100 mg QHS PRN PO CONSTIPATION; Start 06/27/16 at 13: 30 Enoxaparin Sodium (Lovenox) 40 mg DAILY SC Last administered on 07/05/16 09:09 ; Admin Dose 40 MG; Start 06/27/16 at 13:30 Ferrous Sulfate (Feosol Liquid Cup) 300 mg DAILY GTB Last administered on 09:11; Admin Dose 300 MG; Start 06/27/16 at 09:00 Acetaminophen/ Hydrocodone Bitart ([place] (5/325)) 1 tab Q6 PRN GTB PAIN LEVEL 7 -10; Start 06/27/16 at 13:30 Lansoprazole (Prevacid) 30 mg DAILY GTB Last administered on 07/05/16 08:57; Admin Dose 30 MG; Start 06/28/16 at 09:00 Multivitamins (Thera-Plus) 5 ml DAILY GTB Last administered on 07/05/16 08:58; Admin Dose 5 ML; Start 06/28/16 at 09:00 Phenytoin (Dilantin Susp Cup) 300 mg BID GTB Last administered on 07/05/16 21: 45; Admin Dose 300 MG; Start 06/27/16 at 14:00 Valproate Sodium (Depakene Liquid Cup) 1,500 mg BID GTB Last administered on 23:01; Admin Dose 1,500 MG; Start 06/27/16 at 21:00 Lorazepam (Ativan) 1 mg Q6H PRN IV SEIZURES; Start 06/27/16 at 13:30 Lacosamide (Vimpat Liq) 100 mg BID PO Last administered on 07/05/16 23:01; Admin Dose 100 MG; Start 06/27/16 at 21:00 Docusate Sodium (Colace Liquid Cup) 100 mg BID GTB Last administered on 21:45; Admin Dose 100 MG; Start 06/28/16 at 21:00 Ondansetron HCl (Zofran Inj) 4 mg Q6H PRN IV NAUSEA AND/OR VOMITING Last administered on 06/30/16 02:11; Admin Dose 4 MG; Start 06/28/16 at 16:30 Miscellaneous Information 1 ea NOTE XX ; Start 06/28/16 at 17:00 Glucose (Glutose) 15 gm Q15M PRN PO DECREASED GLUCOSE; Start 06/28/16 at 17:00 Glucose (Glutose) 22.5 gm Q15M PRN PO DECREASED GLUCOSE; Start 06/28/16 at 17: 00 Dextrose (D50w Syringe) 25 ml Q15M PRN IV DECREASED GLUCOSE; Start 06/28/16 at 17:00 Dextrose (D50w Syringe) 50 ml Q15M PRN IV DECREASED GLUCOSE; Start 06/28/16 at 17:00 Glucagon (Glucagen) 1 mg Q15M PRN IM DECREASED GLUCOSE; Start 06/28/16 at 17:00 Glucose (Glutose) 15 gm Q15M PRN BUCCAL DECREASED GLUCOSE; Start 06/28/16 at 17 :00 Acetaminophen (Tylenol Liquid) 650 mg Q4H PRN GTB PAIN AND OR ELEVATED TEMP Last administered on 07/04/16 16:12; Admin Dose 650 MG; Start 06/28/16 at 19:30 IV Flush (NS 10 ml) 10 ml PRN PRN IV IV PROTOCOL; Start 06/29/16 at 15:30 Vancomycin HCl 250 mg 250 mg Q6 PO Last administered on 07/06/16 06:38; Admin Dose 250 MG; Start 07/01/16 at 18:00 Metronidazole (Flagyl 500 Mg (Pmx)) 100 ml @ 100 mls/hr Q8 IVPB Last administered on 07/06/16 06:38; Admin Dose 100 MLS/HR; Start 07/01/16 at 22:00 Voriconazole (Vfend) 200 mg BID PO Last administered on 07/05/16 21:45; Admin Dose 200 MG; Start 07/02/16 at 21:00 Insulin Human NPH (Humulin N) 6 unit Q6 SC ; Start 07/06/16 at 12:00 REJI BECKER Jul 06, 2016 09:37
[2016-07-06] MEDS: LACOSAMIDE (10 MG/ML PO SYG) PO SCH (10:52)
[2016-07-06] MEDS ORDERED: NPH, HUMAN INSULIN ISOPHANE 3ML VIAL SC SCH (12:00)
--- NOTE | 2016-07-06 15:31 | CONS ---
Date/Time of Note Date/Time of Note DATE: 07/06/16 TIME: 15:29 Assessment/Plan Assessment/Plan Chief Complaint/Hosp Course SUBJECTIVE: No acute events. The patient is lying comfortably in bed, noncommunicative, afebrile, nad MICROBIOLOGY: Repeat urine culture growing yeast, not Diamond albicans. Stool for C difficile from came back positive on June 30. ANTIMICROBIALS: The patient is on: 1. Flagyl. 2. Oral Vanco. 3. Vfend. INDWELLINGS: Trach, PEG, Kim. PHYSICAL EXAMINATION: GENERAL: This is an obese, chronically ill-appearing, elderly woman who is in no distress. HEENT: Head atraumatic, normocephalic. Sclerae anicteric. Buccal mucosa dry. NECK: Supple. CHEST: Rise symmetrical. Breath sounds diminished to bases. HEART: S1, S2. ABDOMEN: Soft. Bowel sounds present. EXTREMITIES: Bilateral dependent edema. ASSESSMENT: 1. S/p sepsis. 2. Clostridium difficile colitis. 3. Recurrent urinary tract infection. 4. Seizure disorder. 5. Chronic respiratory failure. 6. Advanced multiple sclerosis with functional quadriplegia. 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: Consultation Date/Type/Reason Admit Date/Time Jun 27, 2016 at 23:01 Initial Consult Date 06/28/16 Type of Consultation: id [id number] HR Interval Summary Subjective hx not possible: pt non-verbal Exam/Review of Systems Vital Signs Vitals Vital Signs Date Time Temp Pulse Resp B/P Pulse Ox O2 Delivery O2 Flow Rate FiO2 07/06/16 13:16 75 07/06/16 11:28 98.9 24 116/68 97 07/06/16 11:20 40 Intake and Output 07/05/16 07/05/16 07/06/16 15:00 23:00 07:00 Intake Total 100 ml 550 ml Output Total 1000 ml Balance 100 ml -450 ml Results Result Diagram: 07/06/16 0611 07/06/16 0611 Results 24 hrs Laboratory Tests Test 07/05/16 17:14 07/05/16 23:52 07/06/16 06:11 07/06/16 06:15 Bedside Glucose 102 133 53 L Anion Gap 11 Basophils # 0.0 Basophils % 0.3 Blood Morphology Comment Blood Urea Nitrogen 14 Calcium Level 7.8 L Carbon Dioxide Level 29 Chloride Level 106 Creatinine 0.30 L Eosinophils # 0.2 Eosinophils % 2.7 Glucose Level 53 #L Hematocrit 29.7 L Hemoglobin 10.5 L Lymphocytes # 2.1 Lymphocytes % 33.7 Mean Corpuscular Hemoglobin 33.9 H Mean Corpuscular Hemoglobin Concent 35.4 Mean Corpuscular Volume 96.0 Mean Platelet Volume 8.8 Monocytes # 0.8 Monocytes % 12.4 H Neutrophils # 3.2 Neutrophils % 50.9 Nucleated Red Blood Cells # 0.0 Nucleated Red Blood Cells % 0.0 Platelet Count 357 Potassium Level 3.3 L Red Blood Count 3.10 L Red Cell Distribution Width 15.9 H Sodium Level 143 White Blood Count 6.3 # Test 07/06/16 06:51 07/06/16 08:01 07/06/16 12:23 Bedside Glucose 90 93 113 Medications Medications Current Medications Acetaminophen (Tylenol Tab) 1,000 mg Q4H PRN PO PAIN 4-6/10 Last administered on 07/04/16 22:13; Admin Dose 1,000 MG; Start 06/27/16 at 13:30 Albuterol (Proventil 0.083% (Neb)) 2.5 mg Q3H PRN NEB WHEEZING AND SOB; Start 06/27/16 at 13:30 Docusate Sodium (Colace) 100 mg QHS PRN PO CONSTIPATION; Start 06/27/16 at 13: 30 Enoxaparin Sodium (Lovenox) 40 mg DAILY SC Last administered on 07/06/16 09:35 ; Admin Dose 40 MG; Start 06/27/16 at 13:30 Ferrous Sulfate (Feosol Liquid Cup) 300 mg DAILY GTB Last administered on 09:27; Admin Dose 300 MG; Start 06/27/16 at 09:00 Acetaminophen/ Hydrocodone Bitart ([place] (5/325)) 1 tab Q6 PRN GTB PAIN LEVEL 7 -10; Start 06/27/16 at 13:30 Lansoprazole (Prevacid) 30 mg DAILY GTB Last administered on 07/06/16 09:27; Admin Dose 30 MG; Start 06/28/16 at 09:00 Multivitamins (Thera-Plus) 5 ml DAILY GTB Last administered on 07/06/16 09:27; Admin Dose 5 ML; Start 06/28/16 at 09:00 Phenytoin (Dilantin Susp Cup) 300 mg BID GTB Last administered on 07/06/16 09: 27; Admin Dose 300 MG; Start 06/27/16 at 14:00 Valproate Sodium (Depakene Liquid Cup) 1,500 mg BID GTB Last administered on 09:26; Admin Dose 1,500 MG; Start 06/27/16 at 21:00 Lorazepam (Ativan) 1 mg Q6H PRN IV SEIZURES; Start 06/27/16 at 13:30 Lacosamide (Vimpat Liq) 100 mg BID PO Last administered on 07/06/16 10:52; Admin Dose 100 MG; Start 06/27/16 at 21:00 Docusate Sodium (Colace Liquid Cup) 100 mg BID GTB Last administered on 09:27; Admin Dose 100 MG; Start 06/28/16 at 21:00 Ondansetron HCl (Zofran Inj) 4 mg Q6H PRN IV NAUSEA AND/OR VOMITING Last administered on 06/30/16 02:11; Admin Dose 4 MG; Start 06/28/16 at 16:30 Miscellaneous Information 1 ea NOTE XX ; Start 06/28/16 at 17:00 Glucose (Glutose) 15 gm Q15M PRN PO DECREASED GLUCOSE; Start 06/28/16 at 17:00 Glucose (Glutose) 22.5 gm Q15M PRN PO DECREASED GLUCOSE; Start 06/28/16 at 17: 00 Dextrose (D50w Syringe) 25 ml Q15M PRN IV DECREASED GLUCOSE; Start 06/28/16 at 17:00 Dextrose (D50w Syringe) 50 ml Q15M PRN IV DECREASED GLUCOSE; Start 06/28/16 at 17:00 Glucagon (Glucagen) 1 mg Q15M PRN IM DECREASED GLUCOSE; Start 06/28/16 at 17:00 Glucose (Glutose) 15 gm Q15M PRN BUCCAL DECREASED GLUCOSE; Start 06/28/16 at 17 :00 Acetaminophen (Tylenol Liquid) 650 mg Q4H PRN GTB PAIN AND OR ELEVATED TEMP Last administered on 07/04/16 16:12; Admin Dose 650 MG; Start 06/28/16 at 19:30 IV Flush (NS 10 ml) 10 ml PRN PRN IV IV PROTOCOL; Start 06/29/16 at 15:30 Vancomycin HCl 250 mg 250 mg Q6 PO Last administered on 07/06/16 10:52; Admin Dose 250 MG; Start 07/01/16 at 18:00 Metronidazole (Flagyl 500 Mg (Pmx)) 100 ml @ 100 mls/hr Q8 IVPB Last administered on 07/06/16 12:24; Admin Dose 100 MLS/HR; Start 07/01/16 at 22:00 Voriconazole (Vfend) 200 mg BID PO Last administered on 07/06/16 09:27; Admin Dose 200 MG; Start 07/02/16 at 21:00 Insulin Human NPH (Humulin N) 6 unit Q6 SC Last administered on 07/06/16 15:24 ; Admin Dose 6 UNIT; Start 07/06/16 at 12:00 NICHOLAS CRUZ NP Jul 06, 2016 15:31
--- NOTE | 2016-07-08 07:11 | DS ---
DATE OF ADMISSION: 06/27/2016 DATE OF DISCHARGE: 07/06/2016 FINAL DIAGNOSES: 1. Severe sepsis secondary to urinary tract infection, status post treatment. 2. Acute cystitis with Escherichia coli extended-spectrum beta-lactamase urine culture. 3. Clostridium difficile colitis. 4. Left lower lobe pneumonia, healthcare acquired, status post treatment. 5. Breakthrough seizures in a patient with history of seizures. 6. Diabetes mellitus type 2. 7. Advanced multiple sclerosis. 8. Functional quadriplegia. 9. Hypernatremia, resolved. 10. Anemia, status post blood transfusion. BRIEF HISTORY: The patient is a 61-year-old female with advanced multiple sclerosis, ventilator-dep endent respiratory failure with tracheostomy , ventilator-dependent respiratory failure, dysph agia with PEG, history of pulmonary fibrosis, history of seizure disorder and right upper extremity cellulitis. The patient was brought from halfway facility for breakthrough seizure. The debbie spain was also witnessed seizure in the emergency room. The patient was also noted to be septic in the emergency room with leukocytosis and elevated lactic acid. The patient was started on broad spe ctrum antibiotics and getting Ativan for seizures and admitted for further evaluation and management . HOSPITAL COURSE: The patient was evaluated by Dr. Grimaldo in neurology consultation. The martha roy's seizure medications were optimized. The patient did not have any breakthrough seizures while in house. The patient was also evaluated by Dr. Gillette in infectious disease consultation. The debbie spain's urine culture was positive for E. coli ESBL. The patient was treated with cefepime. Repeat culture was positive for yeast and the patient was treated with voriconazole. The patient also not ed to have Clostridium difficile colitis and was getting vancomycin and Flagyl and was placed on con tact isolation. The patient was followed by Dr. Martin's group in a pulmonology consultation. The patient's hemoglobin dropped to. 7.3 and the patient received blood transfusion. Stool for occult blood was negative. The patient's hemoglobin remained stable after blood transfusion. The patient's condition is improved and the debbie spain will be discharged to a halfway facility today. CONDITION ON DISCHARGE: Hemodynamically stable. ACTIVITY: As patient tolerates. DISCHARGE DIET: Continue current tube feedings. DISCHARGE MEDICATIONS: 1. Tylenol p.r.n. for fever and pain. 2. Albuterol 2.5 mg q.6h routine and q.3h. p.r.n. for shortness of breath. 3. Colace. 4. Dulcolax p.r.n. for constipation. 5. Fleet enema p.r.n. for constipation. 6. Milk of magnesia p.r.n. for constipation. 7. Lovenox 40 mg subq daily. 8. Ferrous sulfate 300 mg G-tube daily. 9. [place]dock p.r.n. for pain. 10. Vimpat 100 mg p.o. b.i.d. 11. Prevacid 30 mg daily. 12. Multivitamins. 13. NPH 6 units subq q.6h. 14. Zofran 4 mg G-tube p.r.n. for nausea. 15. Dilantin 300 mg G-tube b.i.d. 16. Valproic acid 1500 mg G-tube b.i.d. 17. Vancomycin 250 mg p.o. q. 6 hours for 3 more weeks per infectious disease recommendations. 18. Flagyl 500 mg via G-tube q. 6 hours for 3 more weeks. 19. 200 mg p.o. b.i.d. for 7 more days. 20. Peridex and UTI stat liquid. The patient will be transferred to [facility] where she is going to be kept on contact isolati on. An Interdisciplinary plan of care was established for this patient. Plan of care was discussed with Dr. Edward. Dictated By: FRANDY WHEAT TIMBER FELLER for WISAM EDWARD MD, SR/JODI Conf#: [id number] DID#: [id number]
== END 2016-07-06 15:40 | DRG 870 ==
LOC: E/R 07:14 → TEL 23:01
PROVIDERS: ADMIT Internal Medicine; ATTEND Internal Medicine
PROC: 5A1955Z Respiratory Ventilation, Greater than 96 Consecutive Hours (ICD-10-PCS; 2016-06-27)
PROC: 02HV33Z Insertion of Infusion Device into Superior Vena Cava, Percutaneous Approach (ICD-10-PCS; principal; 2016-06-29)
PROC: 30233N1 Transfusion of Nonautologous Red Blood Cells into Peripheral Vein, Percutaneous Approach (ICD-10-PCS; 2016-07-04)
DX: A41.9 Sepsis, unspecified organism (principal); J18.9 Pneumonia, unspecified organism; Z99.11 Dependence on respirator [ventilator] status; J96.10 Chronic respiratory failure, unspecified whether with hypoxia or hypercapnia; E87.0 Hyperosmolality and hypernatremia; R53.2 Functional quadriplegia; A04.7 Enterocolitis due to Clostridium difficile; N30.00 Acute cystitis without hematuria; J98.11 Atelectasis; F03.90 Unspecified dementia, unspecified severity, without behavioral disturbance, psychotic disturbance, mood disturbance, and anxiety; Z93.0 Tracheostomy status; G35 Multiple sclerosis; R13.10 Dysphagia, unspecified; G40.909 Epilepsy, unspecified, not intractable, without status epilepticus; N31.9 Neuromuscular dysfunction of bladder, unspecified; E87.6 Hypokalemia; D64.9 Anemia, unspecified; B96.20 Unspecified Escherichia coli [E. coli] as the cause of diseases classified elsewhere; Z93.1 Gastrostomy status; Y95 Nosocomial condition
CPT/HCPCS: 36430; 36569; 36600; 70450; 71010; 74000; 76937; 80048; 80053; 80164; 80185; 80202; 81001; 81003; 82140; 82270; 82803; 82962; 83036; 83605; 83735; 84484; 85025; 85610; 85730; 86850; 86900; 86901; 86920; 87040; 87045; 87075; 87081; 87086; 93005; 93923; 93970; 94002; 94003; 94640; 94664; 95819; 96372; 96374; 96375; C1769; J1335; J1450; J1650; J1815; J2060; J2405; J3370; J7030; J7050; P9016

== ENCOUNTER 2017-11-09 20:48 | Emergency (ER) | END 2017-11-10 08:02 | disposition home or self-care (01) ==

== ENCOUNTER 2018-05-01 02:12 | Inpatient (IN) | END 2018-05-11 15:35 | DRG 870 ==